=== PATIENT | female | born 1945 | race Caucasian/White ===

== ENCOUNTER 2017-04-19 15:12 | Emergency (ER) | payer MEDICARE, MEDICAID ==
--- NOTE | 2017-04-19 15:44 | ER Document Report ---
ED Medical Screen (RME) - General Chief Complaint: Headache Stated Complaint: LEFT EYE IRRITATION Time Seen by Provider: 04/19/17 15:37 Notes: This 71-year-old female patient comes emergency room complaining of eyes burning , headache, and low blood pressure this morning. She reports her blood pressure of 80 systolic. In the emergency room it is been in the 120 systolic range and EMS reports it was in the same range the entire time for them. She states she always has a little bit of a headache but it is much worse today. She also reports the burning in the eyes started on the left side and now the right side is worse than the left. On 10/11/2016 she was seen in the emergency room for bilateral facial paresthesias. At that time the family reported that they feel the patient makes up much of her symptoms. I have greeted and performed a rapid initial assessment of this patient. A comprehensive ED assessment and evaluation of the patient, analysis of test results and completion of the medical decision making process will be conducted by additional ED providers. TRAVEL OUTSIDE OF THE [place] IN LAST 30 DAYS: No - Related Data Allergies/Adverse Reactions: pentazocine [From [employer]] Allergy (Verified 04/19/17 15:25) adhesive tape Adverse Reaction (Verified 05/19/16 17:43) Past Medical History - Social History Chew tobacco use (# tins/day): No Frequency of alcohol use: None Drug Abuse: None - Past Medical History Cardiac Medical History: Reports: Hx Atrial Fibrillation Neurological Medical History: Reports: Hx Cerebrovascular Accident Endocrine Medical History: Reports: Hx Diabetes Mellitus Type 2 Renal/ Medical History: Denies: Hx Peritoneal Dialysis Past Surgical History: Reports: Hx Cardiac Surgery - pacemaker Physical Exam - Vital signs Vitals: Temp Pulse Resp BP Pulse Ox 98.0 F 73 20 120/62 97 04/19/17 15:25 04/19/17 15:25 04/19/17 15:25 04/19/17 15:25 04/19/17 15:25 Course - Vital Signs Vital signs: Temp Pulse Resp BP Pulse Ox 98.0 F 73 20 120/62 97 04/19/17 15:25 04/19/17 15:25 04/19/17 15:25 04/19/17 15:25 04/19/17 15:25
[2017-04-19 16:44] LABS: ABSOLUTE BASOPHILS # (AUTO) 0.1 10^3/uL (0.0-0.2); ABSOLUTE EOSINOPHILS # (AUTO) 0.2 10^3/uL (0.0-0.6); ABSOLUTE LYMPHOCYTES (AUTO) 2.7 10^3/uL (0.5-4.7); ABSOLUTE MONOCYTES (AUTO) 0.6 10^3/uL (0.1-1.4); ABSOLUTE NEUT (AUTO) 5.9 10^3/uL (1.7-8.2); BASOPHILS % (AUTO) 0.8 % (0-2); EOSINOPHILS % (AUTO) 2.2 % (0-6); HEMATOCRIT 37.3 % (36.0-47.0); HEMOGLOBIN 12.5 g/dL (12.0-15.5); HGB HCT DIFFERENCE 0.2; LYMPHOCYTES % (AUTO) 27.9 % (13-45); MEAN CORPUSCULAR HEMOGLOBIN 30.7 pg (27.0-33.4); MEAN CORPUSCULAR HGB CONC 33.4 g/dL (32.0-36.0); MEAN CORPUSCULAR VOLUME 92 fl (80-97); MONOCYTES % (AUTO) 6.4 % (3-13); RED BLOOD COUNT 4.07 10^6/uL (3.72-5.28); RED CELL DISTRIBUTION WIDTH 14.2 % (11.5-14.0); SEGMENTED NEUTROPHILS % (AUTO) 62.7 % (42-78); WHITE BLOOD COUNT 9.5 10^3/uL (4.0-10.5)
[2017-04-19 16:55] LABS: APPEARANCE,URINE SLIGHTLY-CLOUDY; BILIRUBIN,URINE NEGATIVE (NEGATIVE); GLUCOSE, URINE NEGATIVE (NEGATIVE); KETONES,URINE NEGATIVE (NEGATIVE); LEUKOCYTE ESTERASE,URINE SMALL (NEGATIVE); NITRITE,URINE POSITIVE (NEGATIVE); PROTEIN,URINE NEGATIVE (NEGATIVE); URINE SPECIFIC GRAVITY 1.006
[2017-04-19 17:04] LABS: ALANINE AMINOTRANSFERASE 28 U/L (9-52); ALBUMIN 3.8 g/dL (3.5-5.0); ALKALINE PHOSPHATASE 91 U/L (38-126); ANION GAP 11 (5-19); ASPARTATE AMINO TRANSFERASE 31 U/L (14-36); BILIRUBIN,TOTAL 0.5 mg/dL (0.2-1.3); BLOOD UREA NITROGEN 16 mg/dL (7-20); CALCIUM 9.4 mg/dL (8.4-10.2); CARBON DIOXIDE 29 mmol/L (22-30); CHLORIDE 102 mmol/L (98-107); CREATINE KINASE 27 U/L (30-135); CREATININE RESULT 1.38 mg/dL (0.52-1.25); GLUCOSE 122 mg/dL (75-110); POTASSIUM 4.3 mmol/L (3.6-5.0)
[2017-04-19 17:14] LABS: CREATINE KINASE MB 0.91 ng/mL (<4.55); TROPONIN I 0.028 ng/mL
--- NOTE | 2017-04-19 19:33 | ER Document Report ---
ED General - General Chief Complaint: Headache Stated Complaint: LEFT EYE IRRITATION Time Seen by Provider: 04/19/17 15:37 Notes: Patient is a 71-year-old female with past medical history of hypertension, chronic headaches, who presents with multiple complaints. She states that she has had a diffuse, tension-like headache with a dull, aching pressure to both sides of her head for the past 12 hours. Notes that she had some associated "eye itching" has not resolved. States this feels similar to prior headaches that she has had in the past. Nothing improves or worsens her symptoms. She does follow with a neurologist for her headaches. States the headache was gradual in onset and got progressively worse. Denies any associated weakness or numbness. She does also complain of some generalized fatigue today. States that her sister took her blood pressure with a home blood pressure cuff and it was reading low and that improved after she ate a can of ham. She does also note dysuria. No vomiting or diarrhea. TRAVEL OUTSIDE OF THE [place] IN LAST 30 DAYS: No - Related Data Allergies/Adverse Reactions: pentazocine [From [employer]] Allergy (Verified 04/19/17 15:25) adhesive tape Adverse Reaction (Verified 05/19/16 17:43) Past Medical History - General Information source: Patient - Social History Smoking Status: Never Smoker Chew tobacco use (# tins/day): No Frequency of alcohol use: None Drug Abuse: None Lives with: Family Family History: Reviewed & Not Pertinent Patient has suicidal ideation: No Patient has homicidal ideation: No - Past Medical History Cardiac Medical History: Reports: Hx Atrial Fibrillation Neurological Medical History: Reports: Hx Cerebrovascular Accident Endocrine Medical History: Reports: Hx Diabetes Mellitus Type 2 Renal/ Medical History: Denies: Hx Peritoneal Dialysis Past Surgical History: Reports: Hx Cardiac Surgery - pacemaker Review of Systems - Review of Systems Notes: Constitutional: Negative for fever. HENT: Negative for sore throat. Eyes: Negative for visual changes. Cardiovascular: Negative for chest pain. Respiratory: Negative for shortness of breath. Gastrointestinal: Negative for abdominal pain, vomiting or diarrhea. Genitourinary: Positive for dysuria. Musculoskeletal: Negative for back pain. Skin: Negative for rash. Neurological: Positive for headaches, negative for weakness or numbness. 10 point ROS negative except as marked above and in HPI. Physical Exam - Vital signs Vitals: Temp Pulse Resp BP Pulse Ox 98.0 F 73 20 120/62 97 04/19/17 15:25 04/19/17 15:25 04/19/17 15:25 04/19/17 15:25 04/19/17 15:25 Interpretation: Normal Notes: PHYSICAL EXAMINATION: GENERAL: Well-appearing, well-nourished and in no acute distress. HEAD: Atraumatic, normocephalic. EYES: Pupils equal round and reactive to light, extraocular movements intact, sclera anicteric, conjunctiva are normal. ENT: nares patent, oropharynx clear without exudates. Moist mucous membranes. NECK: Normal range of motion, supple without lymphadenopathy LUNGS: Breath sounds clear to auscultation bilaterally and equal. No wheezes rales or rhonchi. HEART: Regular rate and rhythm without murmurs ABDOMEN: Soft, nontender, normoactive bowel sounds. No guarding, no rebound. No masses appreciated. EXTREMITIES: Normal range of motion, no pitting or edema. No cyanosis. NEUROLOGICAL: Face symmetric. Tongue protrudes midline. Extraocular motions intact. Pupils are 2 mm and equally reactive. Normal speech, normal gait. 5 out of 5 strength in both the distal and proximal upper and lower extremities bilaterally. Sensation is grossly intact throughout. Finger to nose testing normal. Pronator drift normal. PSYCH: Normal mood, normal affect. SKIN: Warm, Dry, normal turgor, no rashes or lesions noted. Course - Re-evaluation Re-evalutation: 04/19/17 19:33 Patient presents with a chronic headache that she states is unchanged today from her chronic daily headache. Headache was not maximal in onset, patient has no focal neurologic deficits, no nuchal rigidity, vital signs within normal limits, no papilledema, and patient is overall well in appearance. Based on clinical history and examination I do not suspect an acute subarachnoid hemorrhage, dural venous sinus thrombosis, acute meningitis, or intercranial mass. Patient did complain of some eye "itching" but states it is resolved at the time of my assessment. Patient was also complaining of some lightheadedness and generalized weakness. Urinalysis demonstrates findings consistent with an acute urinary tract infection which may explain some of the symptoms. Her vitals are normal at the time of my assessment. She was started on cephalexin and asked to follow-up with her primary care doctor in the morning. At this time will discharge with return precautions and follow-up recommendations. Verbal discharge instructions given a the bedside and opportunity for questions given. Medication warnings reviewed. Patient is in agreement with this plan and has verbalized understanding of return precautions and the need for primary care follow-up in the next 24-72 hours. - Vital Signs Vital signs: Temp Pulse Resp BP Pulse Ox 98.0 F 85 16 137/56 H 98 04/19/17 15:25 04/19/17 20:08 04/19/17 20:08 04/19/17 20:08 04/19/17 20:08 - Laboratory Result Diagrams: 04/19/17 16:34 04/19/17 16:34 Laboratory results interpreted by me: 04/19/17 04/19/17 04/19/17 16:34 16:34 16:34 RDW 14.2 H Creatinine 1.38 H Est GFR ( Amer) 45 L Est GFR (Non-Af Amer) 38 L Glucose 122 H Creatine Kinase 27 L Urine Nitrite POSITIVE H Urine Urobilinogen 4.0 H Ur Leukocyte Esterase SMALL H Urine Ascorbic Acid 40 H Discharge - Discharge Clinical Impression: Chronic headache Qualifiers: Headache type: unspecified Intractability: not intractable Qualified Code(s): R51 - Headache Urinary tract infection Qualifiers: Urinary tract infection type: acute cystitis Hematuria presence: without hematuria Qualified Code(s): N30.00 - Acute cystitis without hematuria Condition: Good Disposition: HOME, SELF-CARE Additional Instructions: Your urine shows findings consistent with a urinary tract infection. Please take all the antibiotics as directed even if your symptoms have improved. Please follow-up with your primary care physician as needed. Return to emergency room if you develop fever >101F, persistent vomiting, become lethargic , have severe pain in your sides, or any other symptoms that are concerning to you. Please continue to follow with your neurologist for your headaches. Return if you develop acute worsening of your headache vomiting, confusion, or any other symptoms that are worrisome to you. Prescriptions: Cephalexin Monohydrate [Keflex 500 mg Capsule] 500 mg PO QID #28 capsule Referrals: JOHN HAYES MD [Primary Care Provider] - Follow up tomorrow
[2017-04-19 20:16] VITALS: BP 137/56
--- NOTE | 2017-04-22 09:41 | EKG REPORT ---
SEVERITY:- ABNORMAL ECG - VENTRICULAR-PACED RHYTHM : Confirmed by: Shaheen Horton 22-Apr-2017 09:40:56
== END 2017-04-19 20:16 | disposition home or self-care (01) ==
LOC: ER 15:12
DX: N30.00 Acute cystitis without hematuria (principal); R51 Headache; I10 Essential (primary) hypertension; R53.83 Other fatigue
CPT/HCPCS: 36415; 80053; 81001; 82550; 82553; 84484; 85025; 87086; 87088; 87186; 93005; 93010; 99284

== ENCOUNTER 2017-08-28 14:33 | Observation (INO) | payer MEDICARE, MEDICAID ==
--- NOTE | 2017-08-28 14:50 | ER Document Report ---
ED Cardiac - General Chief Complaint: Chest Pain Stated Complaint: CHEST PAIN Time Seen by Provider: 08/28/17 14:39 Mode of Arrival: Medic Information source: Patient Notes: Patient is a 71-year-old female with a pacemaker and a history of hemorrhagic stroke who presents to the ER today for chest pain and shortness of breath that occurred at approximately noon today. Patient states that it felt like a "pressure" across her entire chest with shortness of breath. She states that it is still going on but that it is much better than it was earlier. She states it has been constant. She denies any nausea or vomiting with this. She denies any radiation of the pain anywhere else. She is a diabetic with high cholesterol and high blood pressure. She states that it has been "years" since her last echocardiogram or stress test or since the pacemaker has been serviced. She denies any recent calf pain, travel, recent surgeries. TRAVEL OUTSIDE OF THE [place] IN LAST 30 DAYS: No - Related Data Allergies/Adverse Reactions: pentazocine [From [employer]] Allergy (Verified 08/28/17 15:35) adhesive tape Adverse Reaction (Verified 08/28/17 15:35) Past Medical History - General Information source: Patient - Social History Smoking Status: Unknown if Ever Smoked Family History: Reviewed & Not Pertinent - Past Medical History Cardiac Medical History: Reports: Hx Atrial Fibrillation Neurological Medical History: Reports: Hx Cerebrovascular Accident Endocrine Medical History: Reports: Hx Diabetes Mellitus Type 2 Renal/ Medical History: Denies: Hx Peritoneal Dialysis Past Surgical History: Reports: Hx Cardiac Surgery - pacemaker Review of Systems - Review of Systems Constitutional: No symptoms reported EENT: No symptoms reported Cardiovascular: See HPI Respiratory: See HPI Gastrointestinal: No symptoms reported Genitourinary: No symptoms reported Female Genitourinary: No symptoms reported Musculoskeletal: No symptoms reported Skin: No symptoms reported Hematologic/Lymphatic: No symptoms reported Neurological/Psychological: No symptoms reported Physical Exam - Notes Notes: PHYSICAL EXAMINATION: GENERAL: Well-appearing and in no acute distress. HEAD: Atraumatic, normocephalic. EYES: Pupils equal round and reactive to light, extraocular movements intact, sclera anicteric, conjunctiva are normal. NECK: Normal range of motion, supple without lymphadenopathy LUNGS: CTAB and equal. No wheezes rales or rhonchi. HEART: chest nontender to palpation, Regular rate and rhythm without murmurs ABDOMEN: Soft, no tenderness. No guarding, no rebound EXTREMITIES: Normal range of motion, no pitting edema. No cyanosis. NEUROLOGICAL: Cranial nerves grossly intact. Normal sensory/motor exams. PSYCH: Normal mood, normal affect. SKIN: Warm, Dry, normal turgor, no rashes or lesions noted Course - Re-evaluation Re-evalutation: 08/28/17 16:55 Cardiac enzymes are negative, EKG reveals a paced rhythm with no evidence of ischemia, chest x-ray and head CT are negative for any acute pathology. I did offer patient Tylenol to take but she refuses stating "my neurologist told me never to take any [id number] medications." [id number] informs me that this chest pain with shortness of breath did begin after patient and her sister got into an argument this morning. Dr. Keen agrees to admit at this time for chest pain. 08/28/17 17:56 - Laboratory Result Diagrams: 08/28/17 15:21 08/28/17 15:21 Laboratory results interpreted by me: 08/28/17 08/28/17 15:21 15:21 Hct 35.1 L BUN 30 H Creatinine 1.38 H Est GFR ( Amer) 45 L Est GFR (Non-Af Amer) 38 L Glucose 340 H Discharge - Discharge Clinical Impression: Shortness of breath Chest pain Qualifiers: Chest pain type: unspecified Qualified Code(s): R07.9 - Chest pain, unspecified Headache Qualifiers: Headache type: other headache syndrome Qualified Code(s): G44.89 - Other headache syndrome Condition: Stable Disposition: ADMITTED OBSERVATION Admitting Provider: Hospitalist Unit Admitted: Telemetry
--- NOTE | 2017-08-28 15:19 | RADIOLOGY REPORT (SQ) ---
EXAM DESCRIPTION: CT HEAD WITHOUT COMPLETED DATE/TIME: 08/28/2017 3:08 pm REASON FOR STUDY: headache, hx hem stroke COMPARISON: October 2016 TECHNIQUE: Axial images acquired through the brain without intravenous contrast. Images reviewed wi th bone, brain and subdural windows. Images stored on PACS. All CT scanners at this facility use dose modulation, iterative reconstruction, and/or weight based d osing when appropriate to reduce radiation dose to as low as reasonably achievable (ALARA). [facility]: Dose Right [facility]: CareDose [facility]: Dose Right [facility]: Teradose 4D [facility]: Smart [email or web address] RADIATION DOSE: Up-to-date CT equipment and radiation dose reduction techniques were employed. CTDIv ol: 63.3 mGy. DLP: 1163 mGy-cm. mGy. LIMITATIONS: None. FINDINGS: VENTRICLES: Prominent. CEREBRUM: No masses. No hemorrhage. No midline shift. Areas of low density in the white matter mos t likely due to chronic micro-vascular ischemic change. No evidence for acute infarction. CEREBELLUM: No masses. No hemorrhage. No alteration of density. No evidence for acute infarction. EXTRAAXIAL SPACES: Mild age-related involutional change. No fluid collections. No masses. ORBITS AND GLOBE: No intra- or extraconal masses. Normal contour of globe without masses. CALVARIUM: No fracture. PARANASAL SINUSES: No fluid or mucosal thickening. SOFT TISSUES: No mass or hematoma. OTHER: No other significant finding. IMPRESSION: MILD CHRONIC CHANGES OF ATROPHY AND MICROVASCULAR ISCHEMIA. NO ACUTE PROCESS. EVIDENCE OF ACUTE STROKE: NO. TECHNICAL DOCUMENTATION: JOB ID: [id number] Quality ID # [id number]: Final reports with documentation of one or more dose reduction techniques (e.g., Au tomated exposure control, adjustment of the mA and/or kV according to patient size, use of iterative reconstruction technique) 2010 [employer]- All Rights Reserved
--- NOTE | 2017-08-28 15:21 | RADIOLOGY REPORT (SQ) ---
EXAM DESCRIPTION: CHEST SINGLE VIEW COMPLETED DATE/TIME: 08/28/2017 3:13 pm REASON FOR STUDY: cp COMPARISON: October 2016 EXAM PARAMETERS: NUMBER OF VIEWS: One view. TECHNIQUE: Single frontal radiographic view of the chest acquired. RADIATION DOSE: NA LIMITATIONS: None. FINDINGS: LUNGS AND PLEURA: No opacities, masses or pneumothorax. There is some blunting of the rig ht costophrenic angle most consistent with pleural reaction. MEDIASTINUM AND HILAR STRUCTURES: No masses. Contour normal. HEART AND VASCULAR STRUCTURES: The configuration of the heart and mediastinal structures is unchanged . BONES: No acute findings. HARDWARE: Dual chamber transvenous pacemaker is unchanged in position. OTHER: No other significant finding. IMPRESSION: No significant interval change. No acute findings. Other findings as noted above. TECHNICAL DOCUMENTATION: JOB ID: [id number]
[2017-08-28] MEDS ORDERED: ACETAMINOPHEN 325 MG TABLET PO ONE (15:32)
[2017-08-28 15:36] LABS: ABSOLUTE BASOPHILS # (AUTO) 0.1 10^3/uL (0.0-0.2); ABSOLUTE EOSINOPHILS # (AUTO) 0.1 10^3/uL (0.0-0.6); ABSOLUTE LYMPHOCYTES (AUTO) 2.2 10^3/uL (0.5-4.7); ABSOLUTE MONOCYTES (AUTO) 0.4 10^3/uL (0.1-1.4); ABSOLUTE NEUT (AUTO) 5.9 10^3/uL (1.7-8.2); BASOPHILS % (AUTO) 0.7 % (0-2); EOSINOPHILS % (AUTO) 1.5 % (0-6); HEMATOCRIT 35.1 % (36.0-47.0); HEMOGLOBIN 12.4 g/dL (12.0-15.5); HGB HCT DIFFERENCE 2.1; LYMPHOCYTES % (AUTO) 25.3 % (13-45); MEAN CORPUSCULAR HEMOGLOBIN 31.4 pg (27.0-33.4); MEAN CORPUSCULAR HGB CONC 35.3 g/dL (32.0-36.0); MEAN CORPUSCULAR VOLUME 89 fl (80-97); MONOCYTES % (AUTO) 4.7 % (3-13); RED BLOOD COUNT 3.94 10^6/uL (3.72-5.28); RED CELL DISTRIBUTION WIDTH 13.7 % (11.5-14.0); SEGMENTED NEUTROPHILS % (AUTO) 67.8 % (42-78); WHITE BLOOD COUNT 8.7 10^3/uL (4.0-10.5)
[2017-08-28 15:52] LABS: ALANINE AMINOTRANSFERASE 28 U/L (9-52); ALBUMIN 3.9 g/dL (3.5-5.0); ALKALINE PHOSPHATASE 108 U/L (38-126); ANION GAP 13 (5-19); ASPARTATE AMINO TRANSFERASE 27 U/L (14-36); BILIRUBIN,DIRECT 0.3 mg/dL (0.0-0.4); BILIRUBIN,TOTAL 0.5 mg/dL (0.2-1.3); BLOOD UREA NITROGEN 30 mg/dL (7-20); CALCIUM 9.4 mg/dL (8.4-10.2); CARBON DIOXIDE 29 mmol/L (22-30); CHLORIDE 99 mmol/L (98-107); CREATINE KINASE 112 U/L (30-135); CREATININE RESULT 1.38 mg/dL (0.52-1.25); GLUCOSE 340 mg/dL (75-110); SODIUM 141.1 mmol/L (137-145)
[2017-08-28 16:04] LABS: CREATINE KINASE MB 0.58 ng/mL (<4.55)
[2017-08-28 16:08] LABS: TROPONIN I < 0.012 ng/mL
--- NOTE | 2017-08-28 17:36 | EKG REPORT ---
SEVERITY:- ABNORMAL ECG - VENTRICULAR-PACED COMPLEXES FIRST DEGREE AV BLOCK RIGHT BUNDLE BRANCH BLOCK : Confirmed by: Lindsey Brown MD 28-Aug-2017 17:35:27
[2017-08-28] MEDS ORDERED: ONDANSETRON 4 MG TAB.RAPDIS PO PRN (18:21)
[2017-08-28] MEDS ORDERED: DEXTROSE 50%-WATER 25 GM/50 ML DISP.SYRIN IV PRN ×4 (18:28→18:39)
[2017-08-28] MEDS ORDERED: GLUCAGON,HUMAN RECOMB 1 MG INJ SUBCUT PRN (18:28)
[2017-08-28] MEDS ORDERED: DEXTROSE 40% GEL 15 GM TUBE PO PRN ×4 (18:28→18:39)
[2017-08-28] MEDS ORDERED: GLUCAGON,HUMAN RECOMB 1 MG INJ IM PRN (18:39)
--- NOTE | 2017-08-28 18:39 | PDOC H&P ---
History of Present Illness Admission Date/PCP: 08/28/17 17:27 JOHN HAYES MD Patient complains of: Chest pain History of Present Illness: LAINA MONTENEGRO is a 71 year old female presents to our facility with complaint of chest pain. Patient states that she was talking to her brother when she experienced chest tightness. Patient also states that was hard to breathe. Patient denied any nausea vomiting sweating or radiation of this pain. Patient also reports for the last 6 when she has not been eating well. Patient states that she has been more tearful than normal. 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 Patient also complains of blurred vision for 1 day. Patient states that she put her eyedrops and which did not seem to help with her blood vision. Past Medical History Cardiac Medical History: Reports: Atrial Fibrillation Endocrine Medical History: Reports: Diabetes Mellitus Type 2 Social History Smoking Status: Unknown if Ever Smoked Family History Family History: Reviewed & Not Pertinent Parental Family History Reviewed: Yes Children Family History Reviewed: Yes Sibling(s) Family History Reviewed.: Yes Medication/Allergy Allergies/Adverse Reactions: pentazocine [From [employer]] Allergy (Verified 08/28/17 15:35) adhesive tape Adverse Reaction (Verified 08/28/17 15:35) Review of Systems Constitutional: PRESENT: weight loss. ABSENT: chills, fever(s), headache(s), weight gain Eyes: PRESENT: visual disturbances Ears: ABSENT: hearing changes Cardiovascular: PRESENT: chest pain. ABSENT: dyspnea on exertion, edema, orthropnea, palpitations Respiratory: ABSENT: cough, hemoptysis Gastrointestinal: ABSENT: abdominal pain, constipation, diarrhea, hematemesis, hematochezia, nausea, vomiting Genitourinary: ABSENT: dysuria, hematuria Musculoskeletal: ABSENT: joint swelling Integumentary: ABSENT: rash, wounds Neurological: ABSENT: abnormal gait, abnormal speech, confusion, dizziness, focal weakness, syncope Psychiatric: ABSENT: anxiety, depression, homidical ideation, suicidal ideation Endocrine: ABSENT: cold intolerance, heat intolerance, polydipsia, polyuria Hematologic/Lymphatic: ABSENT: easy bleeding, easy bruising Physical Exam General appearance: PRESENT: no acute distress, well-developed, well-nourished Head exam: PRESENT: atraumatic, normocephalic Eye exam: PRESENT: conjunctiva pink, EOMI. ABSENT: scleral icterus Ear exam: PRESENT: normal external ear exam Mouth exam: PRESENT: moist, tongue midline Neck exam: ABSENT: carotid bruit, JVD, lymphadenopathy, thyromegaly Respiratory exam: PRESENT: clear to auscultation torrie. ABSENT: rales, rhonchi, wheezes Cardiovascular exam: PRESENT: irregular rhythm. ABSENT: diastolic murmur, rubs , systolic murmur Pulses: PRESENT: normal dorsalis pedis pul Vascular exam: PRESENT: normal capillary refill GI/Abdominal exam: PRESENT: normal bowel sounds, soft. ABSENT: distended, guarding, mass, organolmegaly, rebound, tenderness Rectal exam: PRESENT: deferred Extremities exam: PRESENT: full ROM. ABSENT: calf tenderness, clubbing, pedal edema Neurological exam: PRESENT: alert, awake, oriented to person, oriented to place , oriented to time, oriented to situation, CN II-XII grossly intact. ABSENT: motor sensory deficit Psychiatric exam: PRESENT: flat affect, other - Tearful Skin exam: PRESENT: dry, intact, warm. ABSENT: cyanosis, rash Results Impressions: Chest X-Ray 08/28/17 14:39 IMPRESSION: No significant interval change. No acute findings. Other findings as noted above. Head CT 08/28/17 14:50 IMPRESSION: MILD CHRONIC CHANGES OF ATROPHY AND MICROVASCULAR ISCHEMIA. NO ACUTE PROCESS. EVIDENCE OF ACUTE STROKE: NO. Assessment & Plan - Diagnosis (1) Chest pain Qualifiers: Chest pain type: unspecified Qualified Code(s): R07.9 - Chest pain, unspecified Is this a current diagnosis for this admission?: Yes Plan: Check troponins, lipid profile, hemoglobin A1c, 2D echo, and stress test in the morning. Patient has been made n.p.o. Patient will see cardiology in the morning. (2) Depression Qualifiers: Depression Type: major depressive disorder Is this a current diagnosis for this admission?: Yes Plan: We will have mental health see patient. (3) Vision blurring Is this a current diagnosis for this admission?: Yes Plan: We will have ophthalmology evaluate patient. (4) DM type 2 (diabetes mellitus, type 2) Is this a current diagnosis for this admission?: Yes Plan: This patient on sliding scale insulin. (5) HLD (hyperlipidemia) Is this a current diagnosis for this admission?: Yes Plan: Continue statin (6) Hypertension Is this a current diagnosis for this admission?: Yes Plan: Continue home meds once entered into the system. (7) Atrial fibrillation Is this a current diagnosis for this admission?: Yes Plan: Cardiology consult. We will continue current medications. (8) CVA (cerebral vascular accident) Is this a current diagnosis for this admission?: Yes Plan: Supportive care. (9) DVT (deep venous thrombosis) Is this a current diagnosis for this admission?: Yes Plan: Heparin - Time Time Spent: 30 to 50 Minutes - Inpatient Certification Medical Necessity: Risk of Complication if Not Cared For in Hospital, Risk of Diagnosis Which Will Require Inpatient Eval/Care/Monitoring
[2017-08-28] MEDS ORDERED: ASPIRIN 81 MG TABLET, CHEWABLE PO ONE (19:00)
[2017-08-28] MEDS: ACETAMINOPHEN 325 MG TABLET PO PRN (19:39)
[2017-08-28] MEDS: HEPARIN SOD (PORCINE) 5,000 UNIT/ML 1 ML SYRINGE SUBCUT SCH (21:29)
[2017-08-29] MEDS ORDERED: INFLUENZA ADLT QUAD (36MOS+) 2017-18 VAC 0.5 ML SYR IM PRN ×2 (00:30→13:00)
[2017-08-29] MEDS: ACETAMINOPHEN 325 MG TABLET PO PRN ×2 (03:56→11:01)
[2017-08-29] MEDS: HEPARIN SOD (PORCINE) 5,000 UNIT/ML 1 ML SYRINGE SUBCUT SCH ×2 (06:00→13:49)
[2017-08-29 08:03] LABS: ABSOLUTE EOSINOPHILS # (AUTO) 0.2 10^3/uL (0.0-0.6); ABSOLUTE MONOCYTES (AUTO) 0.4 10^3/uL (0.1-1.4); ABSOLUTE NEUT (AUTO) 3.1 10^3/uL (1.7-8.2); BASOPHILS % (AUTO) 0.4 % (0-2); EOSINOPHILS % (AUTO) 2.4 % (0-6); HEMATOCRIT 33.7 % (36.0-47.0); HEMOGLOBIN 11.9 g/dL (12.0-15.5); LYMPHOCYTES % (AUTO) 44.9 % (13-45); MEAN CORPUSCULAR HEMOGLOBIN 31.2 pg (27.0-33.4); MEAN CORPUSCULAR HGB CONC 35.3 g/dL (32.0-36.0); MEAN CORPUSCULAR VOLUME 89 fl (80-97); MONOCYTES % (AUTO) 5.4 % (3-13); RED BLOOD COUNT 3.81 10^6/uL (3.72-5.28); RED CELL DISTRIBUTION WIDTH 13.5 % (11.5-14.0); SEGMENTED NEUTROPHILS % (AUTO) 46.9 % (42-78); WHITE BLOOD COUNT 6.6 10^3/uL (4.0-10.5)
[2017-08-29 08:34] LABS: ALANINE AMINOTRANSFERASE 29 U/L (9-52); ALBUMIN 3.5 g/dL (3.5-5.0); ALKALINE PHOSPHATASE 88 U/L (38-126); ANION GAP 11 (5-19); ASPARTATE AMINO TRANSFERASE 23 U/L (14-36); BILIRUBIN,DIRECT 0.4 mg/dL (0.0-0.4); BILIRUBIN,TOTAL 0.4 mg/dL (0.2-1.3); BLOOD UREA NITROGEN 25 mg/dL (7-20); CALCIUM 9.2 mg/dL (8.4-10.2); CARBON DIOXIDE 30 mmol/L (22-30); CHLORIDE 101 mmol/L (98-107); CHOLESTEROL 192.24 mg/dL (0-200); CREATININE RESULT 1.43 mg/dL (0.52-1.25); Direct HDL 43 mg/dL (>40); GLUCOSE 158 mg/dL (75-110); POTASSIUM 3.6 mmol/L (3.6-5.0); TOTAL PROTEIN 6.2 g/dL (6.3-8.2); TRIGLYCERIDES 356 mg/dL (<150)
[2017-08-29 08:45] LABS: DIRECT LDL 106 mg/dL (<100)
[2017-08-29 08:49] LABS: VLDL CHOLESTEROL 71.2 mg/dL (10-31)
[2017-08-29 09:01] LABS: THYROID STIMULATING HORMONE 0.73 uIU/mL (0.47-4.68)
[2017-08-29] MEDS ORDERED: ASPIRIN 81 MG TABLET, CHEWABLE PO SCH (10:00)
[2017-08-29] MEDS ORDERED: REGADENOSON INJ 0.4 MG/5 ML DISP.SYRIN IV ONE (12:31)
[2017-08-29] MEDS ORDERED: AMINOPHYLLINE INJ/PF 250 MG/10 ML SDV IV ONE (12:31)
[2017-08-29] MEDS: INSULIN REG, HUMAN 100 UNIT/ML 3 ML VIAL (PYX) SUBCUT PRN ×2 (12:50)
[2017-08-29] MEDS ORDERED: ONDANSETRON 4 MG TAB.RAPDIS PO PRN (13:00)
--- NOTE | 2017-08-29 14:16 | DRAGON STRESS TEST REPORT ---
INTRAVENOUS LEXISCAN CARDIOLITE STRESS TEST USING SINGLE PHOTON EMMISION COMPUTERIZED TOMOGRAPHIC. DATE OF PROCEDURE: August 29, 2017 INDICATION : Chest pain CARDIAC RISK FACTORS: Diabetes, hypertension, dyslipidemia RESTING EKG: Atrial fibrillation, right bundle branch block pattern, secondary ST-T wave changes, intermittent ventricular paced beats and VPCs. STRESS EKG: No significant changes noted with LexiScan bolus REASON FOR TERMINATION: Protocol. PROCEDURE REPORT: Baseline heart rate 67 beats per minute with blood pressure of 117/59. Patient had no significant complaints. Heart rate at 2 minutes post bolus 77 with a blood pressure of 112/56. 3 minutes post bolus heart rate 71 with blood pressure of 119/54. No significant EKG changes were noted. Patient had no significant complaints during the procedure or postprocedure. Patient injected with Aminophyllin 75 mg at 3 minutes or later after Lexiscan bolus. CONCLUSIONS: Normal EKG and hemodynamic response to IV LexiScan. NUCLEAR DATA: At rest the patient was given 13.18 millicuries of technetium 99 sestamibi injected intravenously. As per protocol rest gated SPECT images were obtained. Subsequently the patient was given intravenous LexiScan at a dose of 0.4 mg in 5 mL intravenously, followed by flush with normal saline. Subsequently the stress dose of 38.2 millicuries of technetium 99 sestamibi was injected intravenously. As per protocol stress gated images were obtained. NUCLEAR INTERPRETATION: Both raw and processed data were used for interpretation. Visual, qualitative, computer-generated quantitative data was used. There was good myocardial uptake of technetium compound. Motion artifact and soft tissue attenuations were noted. Increased visceral uptake was noted. No definitive areas of transient perfusion defect noted. Mild fixed defect noted mid inferior wall. EKG gated imaging showed LV EF at 50 %, rest and stress gated EF similar visually. Mild mid inferior wall hypokinesia noted. T. I D. ratio was 1.18. Lung heart ratio noted to be within normal limits 0.39. No significant extracardiac and abnormal radiotracer activities were noted. RV free wall uptake was noted to be borderline increased. IMPRESSION: Also refer to comments under nuclear interpretation. Also test results needs to be interpreted in the context of pretest probability. 1. There is no definitive scintigraphic evidence of LexiScan induced myocardial ischemia. 2. Mild fixed defect noted mid inferior wall suggestive of prior myocardial infarction/scar. 3. EKG gated imaging shows left ventricular ejection fraction of approximately 50 %. 4. Clinical correlation requested as occasionally single vessel disease or balanced ischemia could be missed. In approximately 10% of the cases Lexiscan may not cause adequate vasodilatory stress. RECOMMENDATIONS: Aggressive risk factor modification, medical therapy. Recommend close cardiology follow-up and heart catheterization if patient continues with chest pains. Clinical correlation with echocardiogram derived ejection fraction. Inability to exercise by itself can lead to increased cardiovascular event risks. Consider cardiology consultation and or follow-up if clinically indicated. I AM AVAILABLE FOR CARDIOLOGY CONSULTATION AND FOLLOWUP IF REQUESTED BY PMD Shaheen Horton M.D., [employer] park [employer], Board certified in cardiovascular diseases, Nuclear cardiology, Echocardiography Cardiac CT and cardiac MRI Ph. [phone] TRACEY
--- NOTE | 2017-08-29 16:34 | PSYCHOLOGICAL NOTE ---
Psych Note - Psych Note Psych Note: LAINA MONTENEGRO is a 71 year old female presents to our facility with complaint of chest pain. Patient states that she was talking to her brother when she experienced chest tightness. Patient also states that was hard to breathe. Patient denied any nausea vomiting sweating or radiation of this pain. Patient also reports for the last 6 when she has not been eating well. Patient states that she has been more tearful than normal. Psychiatric consult requested by phone for depression. Patient disclosed that she came to [facility] because her chest was tight and she was short of breath. She continues state that she had a headache and it is "still really bad." Patient disclosed that she has outpatient provider [facility]] for her mental health and does not think her medications are working; "I still have crying spells." Patient continued disclosed that she does see a neurologist in [place]. Patient reports that a few days ago "I did not care what happened to me," but denies continued suicidal ideation. Patient states that it was a thought that just past through her mind. Patient continued to disclose that she never even thought of how she "would do it or anything else like that." Patient disclosed that it has been a while since she has felt this way; 'I hope you don't feel I would do something to hurt myself, I would never do that." Patient is alert and orientated to person place time and circumstance. Mood is euthymic with congruent affect. Patient denies suicidal and homicidal ideation and admits to "a while ago" having passing thoughts. Patient denies plan means or intent. Patient denies homicidal ideation. Delusions are absent behaviors congruent with intact reality based presentation i.e. organized, linear, rational thinking. Conversational speech was within normal rate tone and prosody. Eye contact was well-maintained. Intellectual abilities appear to be within the average range. Attention and concentration were good. Insight, judgment, impulse control are good. 311 (F32.9) unspecified depressive disorder per history provided by patient Impression\\plan: Patient is considered psychiatrically clear. Patient does not meet IVC criteria per [place] GS 122C. Patient denies suicidal and homicidal ideation. Delusions are absent behaviors congruent with intact reality based presentation i.e. organized, linear, rational thinking. Patient disclosed having passing thoughts but denies plan means or intent; patient reports it has been a while since this has occurred. Patient has outpatient provider through [facility]]. Patient feels that her medications are not working. Patient is recommended to follow-up with her outpatient provider, [facility]], for medication management and therapeutic services. Dr. Sanchez was consulted and the care management of this patient.
--- NOTE | 2017-08-29 16:58 | PDOC DISCHARGE SUMMARY ---
General - Admit/Disc Date/PCP Admission Date/Primary Care Provider: 08/28/17 18:21 JOHN HAYES MD Discharge Date: 08/29/17 - Discharge Diagnosis (1) Chest pain Is this a current diagnosis for this admission?: Yes Summary: Stress test demonstrated no evidence of ischemia. (2) Depression Is this a current diagnosis for this admission?: Yes Summary: She was seen by mental health recommended to follow-up with her primary provider. (3) Vision blurring Is this a current diagnosis for this admission?: Yes Summary: Spoke with patient's rejected items clerk who recommended the patient follow with this office for eye exam. Ophthalmology stated that they would be able to do more thorough evaluation in the office. Ophthalmology also stated the patient missed her eye exam. (4) DM type 2 (diabetes mellitus, type 2) Is this a current diagnosis for this admission?: Yes Summary: We will continue home medication (5) HLD (hyperlipidemia) Is this a current diagnosis for this admission?: Yes Summary: statin (6) Hypertension Is this a current diagnosis for this admission?: Yes Summary: Current medications (7) Atrial fibrillation Is this a current diagnosis for this admission?: Yes Summary: continue home medication (8) CVA (cerebral vascular accident) Is this a current diagnosis for this admission?: Yes Summary: supportive - Additional Information Resuscitation Status: Full Code Discharge Diet: Cardiac, Diabetic Discharge Activity: Activity As Tolerated Home Medications: Alprazolam [Xanax] 0.25 mg PO Q12 08/28/17 Apixaban [Eliquis] 5 mg PO Q12 08/28/17 Atorvastatin Calcium [Lipitor 40 mg Tablet] 40 mg PO QHS 08/28/17 Buspirone HCl [Buspar 5 mg Tablet] 5 mg PO Q8HP PRN 08/28/17 [place] 450mg 450 mg PO Q2D 08/28/17 Cholecalciferol (Vitamin D3) [Vitamin D3] 5,000 unit PO DAILY 08/28/17 Cyanocobalamin/Folic AC/Vit B6 [Virt-Tyra Tablet] 1 tab PO DAILY 08/28/17 Digoxin [Lanoxin 0.125 mg Tablet] 0.125 mg PO DAILY 08/28/17 Furosemide [Lasix 40 mg Tablet] 80 mg PO DAILY 08/28/17 Levetiracetam [Keppra] 750 mg PO Q12 08/28/17 Levothyroxine Sodium [Synthroid 0.112 mg Tablet] 0.112 mg PO DAILY 08/28/17 Magnesium Oxide [Magox] 400 mg PO DAILY 08/28/17 Metoprolol Succinate [Toprol Xl] 75 mg PO Q12 08/28/17 Mirtazapine [Remeron] 30 mg PO QHS 08/28/17 Pantoprazole Sodium [Protonix] 20 mg PO DAILY 08/28/17 Potassium Chloride 20 meq PO DAILY 08/28/17 Tizanidine HCl [Zanaflex] 2 mg PO Q8HP PRN 08/28/17 Zaleplon [Sonata] 10 mg PO HSP PRN 08/28/17 History of Present Illness Patient complains of: chest pain History of Present Illness: LAINA MONTENEGRO is a 71 year old female presents to our facility with complaint of chest pain. Patient states that she was talking to her brother when she experienced chest tightness. Patient also states that was hard to breathe. Patient denied any nausea vomiting sweating or radiation of this pain. Patient also reports for the last 6 when she has not been eating well. Patient states that she has been more tearful than normal. Patient states that her home health care case manager is Dr. Couch. Patient also complains of blurred vision for 1 day. Patient states that she put her eyedrops and which did not seem to help with her blood vision. Hospital Course Hospital Course: Patient is a 66-year-old female who presents to our facility with complaint of chest pain. Patient had a stress test demonstrated no ischemia patient's chest pain secondary to muscle skeletal. Patient complained of being depressed mental health here evaluated patient and recommended the patient follow with her primary doctor. Patient had complained of blurred vision as well and ophthalmology recommended the patient follow with our office so that they can do a thorough eye exam. Ophthalmology also noted that patient has been noncompliant with follow-up appointment. Family was made aware that patient was being discharged home in our region to pick her up at 6 PM. Physical Exam Vital Signs: Temp Pulse Resp BP Pulse Ox 97.3 F 65 16 120/39 L 99 08/29/17 08:02 08/29/17 14:00 08/29/17 08:02 08/29/17 08:02 08/29/17 08:02 Intake & Output 08/28/17 08/29/17 08/30/17 06:59 06:59 06:59 Weight 88.451 kg General appearance: PRESENT: no acute distress, well-developed, well-nourished Head exam: PRESENT: atraumatic, normocephalic Eye exam: PRESENT: conjunctiva pink, EOMI. ABSENT: scleral icterus Ear exam: PRESENT: normal external ear exam Mouth exam: PRESENT: moist, tongue midline Neck exam: ABSENT: carotid bruit, JVD, lymphadenopathy, thyromegaly Respiratory exam: PRESENT: clear to auscultation torrie. ABSENT: rales, rhonchi, wheezes Cardiovascular exam: PRESENT: RRR. ABSENT: diastolic murmur, rubs, systolic murmur Pulses: PRESENT: normal dorsalis pedis pul Vascular exam: PRESENT: normal capillary refill GI/Abdominal exam: PRESENT: normal bowel sounds, soft. ABSENT: distended, guarding, mass, organolmegaly, rebound, tenderness Rectal exam: PRESENT: deferred Extremities exam: PRESENT: full ROM. ABSENT: calf tenderness, clubbing, pedal edema Neurological exam: PRESENT: alert, awake, oriented to person, oriented to place , oriented to time, oriented to situation, CN II-XII grossly intact. ABSENT: motor sensory deficit Psychiatric exam: PRESENT: appropriate affect, normal mood. ABSENT: homicidal ideation, suicidal ideation Skin exam: PRESENT: dry, intact, warm. ABSENT: cyanosis, rash Results Laboratory Results: 08/29/17 07:28 08/29/17 07:28 08/29/17 08/29/17 08/29/17 07:28 07:28 07:28 WBC 6.6 RBC 3.81 Hgb 11.9 L Hct 33.7 L MCV 89 MCH 31.2 MCHC 35.3 RDW 13.5 Plt Count 151 Seg Neutrophils % 46.9 Lymphocytes % 44.9 Monocytes % 5.4 Eosinophils % 2.4 Basophils % 0.4 Absolute Neutrophils 3.1 Absolute Lymphocytes 3.0 Absolute Monocytes 0.4 Absolute Eosinophils 0.2 Absolute Basophils 0.0 Sodium 142.0 Potassium 3.6 Chloride 101 Carbon Dioxide 30 Anion Gap 11 BUN 25 H Creatinine 1.43 H Est GFR ( Amer) 44 L Est GFR (Non-Af Amer) 36 L Glucose 158 H Calcium 9.2 Magnesium 2.0 Total Bilirubin 0.4 AST 23 ALT 29 Alkaline Phosphatase 88 Total Protein 6.2 L Albumin 3.5 Triglycerides 356 H Cholesterol 192.24 LDL Cholesterol Direct 106 H VLDL Cholesterol 71.2 H HDL Cholesterol 43 TSH 0.73 Free T4 1.26 08/28/17 08/29/17 08/29/17 19:15 01:11 07:28 Troponin I < 0.012 < 0.012 < 0.012 Impressions: Chest X-Ray 08/28/17 14:39 IMPRESSION: No significant interval change. No acute findings. Other findings as noted above. Head CT 08/28/17 14:50 IMPRESSION: MILD CHRONIC CHANGES OF ATROPHY AND MICROVASCULAR ISCHEMIA. NO ACUTE PROCESS. EVIDENCE OF ACUTE STROKE: NO. Plan Time Spent: Less than 30 Minutes
[2017-08-29 17:08] VITALS: BP 127/71
--- NOTE | 2017-08-29 19:51 | XCELERA REPORT ---
[address] [address] Transthoracic Echocardiogram Report Name: LAINA MONTENEGRO Age: 71 yrs Gender: Female : 1945 Patient Status: Inpatient Patient Location: [address] [place] [address] Study Date: 08/29/2017 11:47 AM Height: 60 in Weight: 194 lb BSA: 1.8 m2 Procedure: A complete two-dimensional transthoracic echocardiogram was performed (2D, M-mode, spectral and color flow Doppler). The study was technically difficult with many images being suboptimal in quality. Reason For Study: chest pain Ordering Physician: MURRAY LUNA Performed By: Gay Edward Interpretation Summary The study was technically difficult with many images being suboptimal in quality. The left ventricular ejection fraction is normal. Doppler measurements suggest pseudonormalized left ventricular relaxation, which is associated with grade II/IV or mild to moderate diastolic dysfunction There is mild concentric left ventricular hypertrophy. The left ventricle is grossly normal size. Wall motion cannot be accurately commented on, but no definite regional wall motion abnormalities noted. The right ventricular systolic function is normal. The right atrium is mildly dilated. The left atrium is moderately dilated. There is a trace amount of mitral regurgitation There is no mitral valve stenosis. There is moderate aortic stenosis There is a peak gradient of 40-45, mean 20-25 mm of Hg. There is a mild to moderate amount of aortic regurgitation There is a trace amount of tricuspid regurgitation Tricuspid regurgitation jet envelope not well defined to measure RV systolic pressure accurately. There is no pericardial effusion. MMode/2D Measurements & Calculations RVDd: 2.7 cm LVIDd: 4.8 cmFS: 36.0 % Ao root diam: 2.8 cm IVSd: 1.2 cm LVIDs: 3.1 cmEDV(Teich): 106.7 ml LVPWd: 1.2 cmESV(Teich): 36.8 ml Ao root area: 6.2 cm2 EF(Teich): 65.5 % LA dimension: 4.7 cm LVOT diam: 2.3 cm LVOT area: 4.0 cm2 Doppler Measurements & Calculations MV E max hernán: MV P1/2t max hernán: Ao V2 max: AI max hernán: 115.0 cm/sec 116.0 cm/sec 334.8 cm/sec 358.3 cm/sec MV A max hernán: MV P1/2t: 59.3 msec Ao max PG: AI max P.6 cm/sec MVA(P1/2t): 3.7 cm2 44.9 mmHg 51.4 mmHg MV E/A: 3.5 MV dec slope: Ao V2 mean: AI dec slope: 572.8 cm/sec2 205.7 cm/sec 166.4 cm/sec2 Ao mean PG: AI P1/2t: 21.0 mmHg 630.7 msec Ao V2 VTI: 60.1 cm BEBE(I,D): 1.5 cm2 BEBE(V,D): 1.1 cm2 LV V1 max PG: SV(LVOT): 92.7 ml PA V2 max: TR max hernán: 3.1 mmHg 106.6 cm/sec 215.3 cm/sec LV V1 mean PG: PA max PG: TR max P.1 mmHg 4.5 mmHg 18.5 mmHg LV V1 max: 87.5 cm/sec LV V1 mean: 68.0 cm/sec LV V1 VTI: 23.0 cm Left Ventricle The left ventricle is grossly normal size. There is mild concentric left ventricular hypertrophy. The left ventricular ejection fraction is normal. Doppler measurements suggest pseudonormalized left ventricular relaxation, which is associated with grade II/IV or mild to moderate diastolic dysfunction. Wall motion cannot be accurately commented on, but no definite regional wall motion abnormalities noted. Right Ventricle The right ventricle is grossly normal size. There is normal right ventricular wall thickness. The right ventricular systolic function is normal. Atria The right atrium is mildly dilated. The left atrium is moderately dilated. Interarterial septum not well visualized and not well dopplered. Cannot comment on ASD/PFO presence. Mitral Valve There is mild to moderate mitral annular calcification. There is no mitral valve stenosis. There is a trace amount of mitral regurgitation. Aortic Valve The aortic valve is mildly calcified. There is moderate aortic stenosis. There is a peak gradient of 40-45, mean 20-25 mm of Hg. There is a mild to moderate amount of aortic regurgitation. Tricuspid Valve The tricuspid valve is not well visualized secondary to technical limitations. There is no tricuspid stenosis. There is a trace amount of tricuspid regurgitation. Tricuspid regurgitation jet envelope not well defined to measure RV systolic pressure accurately. Pulmonic Valve The pulmonic valve is not well visualized. Great Vessels The aortic root is not well visualized but is probably normal size. The inferior vena cava appeared normal and decreased > 50% with respiration (RAP 5-10 mmHg). Effusions There is no pericardial effusion. : MURRAY LUNA Shyamal
== END 2017-08-29 17:42 | disposition home or self-care (01) ==
LOC: ER 14:33 → EH 17:27 → UNDOADMOB 17:27 → EH 18:21 → 4W 20:39 → EH 20:39
PROC: 3E0234Z Introduction of Serum, Toxoid and Vaccine into Muscle, Percutaneous Approach (ICD-10-PCS; principal; 2017-08-29)
DX: R07.89 Other chest pain (principal); F32.9 Major depressive disorder, single episode, unspecified; H53.8 Other visual disturbances; E11.9 Type 2 diabetes mellitus without complications; E78.5 Hyperlipidemia, unspecified; I10 Essential (primary) hypertension; I48.91 Unspecified atrial fibrillation; R06.02 Shortness of breath; R63.4 Abnormal weight loss; G44.89 Other headache syndrome; Z23 Encounter for immunization; Z86.73 Personal history of transient ischemic attack (TIA), and cerebral infarction without residual deficits; Z79.899 Other long term (current) drug therapy; Z79.02 Long term (current) use of antithrombotics/antiplatelets; Z95.0 Presence of cardiac pacemaker; Z68.38 Body mass index [BMI] 38.0-38.9, adult
CPT/HCPCS: 93005; 99285; 36415 ×2; 84439; 82553; 82962 ×2; 82550; 83735; 84443; 85025 ×2; 80053 ×2; 84484 ×2; 83036; 80061; 93306; 93017; 71010; 78452; 70450; 90686; 93010; 97162; 97166; A9500; J2785; A9270 ×5; J1644 ×2; J0280; Q9969; G8978; G8979; G8987; G8988; J1815

== ENCOUNTER 2017-09-30 06:21 | Inpatient (IN) | payer MEDICARE, MEDICAID ==
[2017-09-30] MEDS ORDERED: MORPHINE SULFATE 10 MG/ML INJ IV ONE (06:51)
--- NOTE | 2017-09-30 07:26 | RADIOLOGY REPORT (SQ) ---
EXAM DESCRIPTION: HIP LEFT AP/LATERAL CLINICAL HISTORY: left hip pain COMPARISON: None. FINDINGS: Frontal view of the pelvis and frog-leg lateral view of the left hip. There is cortical disruption at the left lesser trochanter as well as relative increased lucency of the left greater trochanter relative to the right femur. This may represent a nondisplaced intertrochanteric fracture. Atherosclerotic vascular calcification. Pelvic soft tissues unremarkable. Mild bilateral hip joint space narrowing. Degenerative change of the lumbar spine. IMPRESSION: 1. Lucency of the left greater trochanter with cortical disruption of the left lesser trochanter on frontal view. This could represent a nondisplaced intertrochanteric fracture. Correlation with MRI or CT would be helpful for more definitive characterization.
--- NOTE | 2017-09-30 07:29 | ER Document Report ---
ED General - General Chief Complaint: Fall Injury Stated Complaint: FALL, HIP PAIN Time Seen by Provider: 09/30/17 06:35 Mode of Arrival: Medic Information source: Patient Notes: 72-year-old female presents with complaints of left hip pain. Patient notes she fell on the left side is unsure if she passed out or had mechanical fall. She denies any pain anywhere else. Patient was able to sit up and stand up but felt that she was going to fall TRAVEL OUTSIDE OF THE [place] IN LAST 30 DAYS: No - HPI Onset: Just prior to arrival Onset/Duration: Sudden Quality of pain: Achy Severity: Mild Pain Level: 1 Associated symptoms: Body/muscle aches Exacerbated by: Movement Relieved by: Denies Similar symptoms previously: No Recently seen / treated by doctor: No - Related Data Allergies/Adverse Reactions: pentazocine [From Amanda] Allergy (Verified 08/28/17 15:35) adhesive tape Adverse Reaction (Verified 08/28/17 15:35) Home Medications: Current Home Medications Apixaban [Eliquis 5 mg Tablet] 5 mg PO Q12 09/30/17 [History] Atorvastatin Calcium [Lipitor 40 mg Tablet] 40 mg PO QHS 09/30/17 [History] Biotin [Gabe Biotin] 10,000 mcg PO DAILY 09/30/17 [History] Cascara Sagrada 450mg 450 mg PO DAILY 09/30/17 [History] Cholecalciferol (Vitamin D3) [Vitamin D3] 5,000 unit PO DAILY 09/30/17 [History] Cyanocobalamin/Folic AC/Vit B6 [Virt-Tyra Tablet] 1 tab PO DAILY 09/30/17 [ History] Digoxin [Lanoxin 0.125 mg Tablet] 0.125 mg PO DAILY 09/30/17 [History] Esomeprazole Magnesium [Nexium] 40 mg PO DAILY 09/30/17 [History] Furosemide [Lasix 40 mg Tablet] 80 mg PO DAILY 09/30/17 [History] Insulin Aspart [Novolog Flexpen] 12 units SQ MEALS 09/30/17 [History] Levetiracetam [Keppra] 750 mg PO Q12 09/30/17 [History] Levothyroxine Sodium [Synthroid 0.112 mg Tablet] 0.112 mg PO DAILY 09/30/17 [ History] Magnesium Oxide [Mag-Ox 400 mg Tablet] 400 mg PO QPM 09/30/17 [History] Metoprolol Succinate [Toprol Xl 50 mg Tab.sr] 75 mg PO Q12 09/30/17 [History] Pantoprazole Sodium [Protonix] 20 mg PO DAILY 09/30/17 [History] Potassium Chloride [K-Tab ER] 20 meq PO DAILY 09/30/17 [History] Past Medical History - Social History Smoking Status: Never Smoker Cigarette use (# per day): No Chew tobacco use (# tins/day): No Smoking Education Provided: No Family History: Reviewed & Not Pertinent Patient has suicidal ideation: No Patient has homicidal ideation: No - Past Medical History Cardiac Medical History: Reports: Hx Atrial Fibrillation Neurological Medical History: Reports: Hx Cerebrovascular Accident Endocrine Medical History: Reports: Hx Diabetes Mellitus Type 2 Renal/ Medical History: Denies: Hx Peritoneal Dialysis Past Surgical History: Reports: Hx Cardiac Surgery - pacemaker Review of Systems - Review of Systems Notes: REVIEW OF SYSTEMS: CONSTITUTIONAL : Denies fever, chills, or sweats. Denies recent illness. EENT: Denies eye, ear, throat, or mouth pain or symptoms. Denies nasal or sinus congestion or discharge. Denies throat, tongue, or mouth swelling or difficulty swallowing. CARDIOVASCULAR: Denies chest pain. Denies palpitations or racing or irregular heart beat. Denies ankle edema. RESPIRATORY: Denies cough, cold, or chest congestion. Denies shortness of breath, difficulty breathing, or wheezing. GASTROINTESTINAL: Denies abdominal pain or distention. Denies nausea, vomiting , or diarrhea. Denies blood in vomitus, stools, or per rectum. Denies black, tarry stools. Denies constipation. GENITOURINARY: Denies difficulty urinating, painful urination, burning, frequency, blood in urine, or discharge. FEMALE GENITOURINARY: denies vag bleeding MUSCULOSKELETAL: left hip pain SKIN: Denies rash, lesions or sores. HEMATOLOGIC : Denies easy bruising or bleeding. LYMPHATIC: Denies swollen, enlarged glands. NEUROLOGICAL: Denies confusion or altered mental status. Denies passing out or loss of consciousness. Denies dizziness or lightheadedness. Denies headache. Denies weakness or paralysis or loss of use of either side. Denies problems with gait or speech. Denies sensory loss, numbness, or tingling. Denies seizures. PSYCHIATRIC: Denies anxiety or stress. Denies depression, suicidal ideation, or homicidal ideation. ALL OTHER SYSTEMS REVIEWED AND NEGATIVE. PHYSICAL EXAMINATION: GENERAL: Well-appearing, well-nourished and in acute pain HEAD: Atraumatic, normocephalic. EYES: Pupils equal round and reactive to light, extraocular movements intact, conjunctiva are normal. ENT: Nares patent, oropharynx clear without exudates. Moist mucous membranes. NECK: Normal range of motion, supple without lymphadenopathy LUNGS: Breath sounds clear to auscultation bilaterally and equal. No wheezes rales or rhonchi. HEART: Regular rate and rhythm without murmurs ABDOMEN: Soft, nontender, nondistended abdomen. No guarding, no rebound. No masses appreciated. Female : deferred Musculoskeletal:limited rom of the left hip secondary to pain NEUROLOGICAL: Cranial nerves grossly intact. Normal speech, normal gait. Normal sensory, motor exams PSYCH: Normal mood, normal affect. SKIN: Warm, Dry, normal turgor, no rashes or lesions noted. Dictation was performed using [employer] voice recognition software Physical Exam - Vital signs Vitals: Temp Pulse Resp BP Pulse Ox 97.8 F 99 18 126/68 H 95 09/30/17 07:07 09/30/17 07:07 09/30/17 07:07 09/30/17 07:07 09/30/17 07:07 Course - Re-evaluation Re-evalutation: 09/30/17 07:29 Imaging pending, patient given pain control upon arrival, she had already received fentanyl prior by EMS 09/30/17 09:26 ct consistnat with fdracture, orth paged 09/30/17 16:07 Patient was admitted to the hospital service and is otherwise stable at this time - Vital Signs Vital signs: Temp Pulse Resp BP Pulse Ox 98.0 F 70 18 138/64 H 94 09/30/17 15:12 09/30/17 15:12 09/30/17 15:12 09/30/17 15:12 09/30/17 15:12 - Laboratory Result Diagrams: 09/30/17 07:28 09/30/17 07:28 Laboratory results interpreted by me: 09/30/17 09/30/17 09/30/17 07:28 07:28 08:20 WBC 11.7 H Hct 35.3 L RDW 14.2 H Seg Neutrophils % 80.4 H Absolute Neutrophils 9.4 H BUN 37 H Est GFR ( Amer) 54 L Est GFR (Non-Af Amer) 44 L Glucose 270 H Alkaline Phosphatase 128 H Urine Glucose (UA) >=500 H - Diagnostic Test Radiology reviewed: Image reviewed, Reports reviewed Discharge - Discharge Clinical Impression: Syncope and collapse Intertrochanteric fracture of left hip Qualifiers: Encounter type: initial encounter Fracture type: closed Fracture alignment: displaced Qualified Code(s): S72.142A - Displaced intertrochanteric fracture of left femur, initial encounter for closed fracture Condition: Stable Disposition: ADMITTED INPATIENT Admitting Provider: Hospitalist Unit Admitted: Telemetry
[2017-09-30 07:48] LABS: ABSOLUTE BASOPHILS # (AUTO) 0.1 10^3/uL (0.0-0.2); ABSOLUTE EOSINOPHILS # (AUTO) 0.1 10^3/uL (0.0-0.6); ABSOLUTE LYMPHOCYTES (AUTO) 1.7 10^3/uL (0.5-4.7); ABSOLUTE MONOCYTES (AUTO) 0.4 10^3/uL (0.1-1.4); ABSOLUTE NEUT (AUTO) 9.4 10^3/uL (1.7-8.2); BASOPHILS % (AUTO) 0.5 % (0-2); EOSINOPHILS % (AUTO) 1.2 % (0-6); HEMATOCRIT 35.3 % (36.0-47.0); HEMOGLOBIN 12.4 g/dL (12.0-15.5); HGB HCT DIFFERENCE 1.9; LYMPHOCYTES % (AUTO) 14.5 % (13-45); MEAN CORPUSCULAR HEMOGLOBIN 31.3 pg (27.0-33.4); MEAN CORPUSCULAR HGB CONC 35.2 g/dL (32.0-36.0); MEAN CORPUSCULAR VOLUME 89 fl (80-97); MONOCYTES % (AUTO) 3.4 % (3-13); RED BLOOD COUNT 3.97 10^6/uL (3.72-5.28); RED CELL DISTRIBUTION WIDTH 14.2 % (11.5-14.0); SEGMENTED NEUTROPHILS % (AUTO) 80.4 % (42-78); WHITE BLOOD COUNT 11.7 10^3/uL (4.0-10.5)
[2017-09-30 08:25] LABS: ALANINE AMINOTRANSFERASE 30 U/L (9-52); ALBUMIN 3.9 g/dL (3.5-5.0); ALKALINE PHOSPHATASE 128 U/L (38-126); ANION GAP 10 (5-19); ASPARTATE AMINO TRANSFERASE 28 U/L (14-36); BILIRUBIN,DIRECT 0.4 mg/dL (0.0-0.4); BILIRUBIN,TOTAL 0.6 mg/dL (0.2-1.3); BLOOD UREA NITROGEN 37 mg/dL (7-20); CALCIUM 9.4 mg/dL (8.4-10.2); CARBON DIOXIDE 28 mmol/L (22-30); CHLORIDE 103 mmol/L (98-107); CREATININE RESULT 1.19 mg/dL (0.52-1.25); GLUCOSE 270 mg/dL (75-110); POTASSIUM 4.4 mmol/L (3.6-5.0); SODIUM 141.4 mmol/L (137-145); TOTAL PROTEIN 6.7 g/dL (6.3-8.2)
[2017-09-30 08:41] LABS: APPEARANCE,URINE CLEAR; BILIRUBIN,URINE NEGATIVE (NEGATIVE); GLUCOSE, URINE >=500 mg/dL (NEGATIVE); KETONES,URINE NEGATIVE (NEGATIVE); LEUKOCYTE ESTERASE,URINE NEGATIVE (NEGATIVE); NITRITE,URINE NEGATIVE (NEGATIVE); PROTEIN,URINE NEGATIVE (NEGATIVE); URINE SPECIFIC GRAVITY 1.009; UROBILINOGEN,URINE NEGATIVE mg/dL (<2.0)
--- NOTE | 2017-09-30 09:12 | EKG REPORT ---
SEVERITY:- ABNORMAL ECG - AFIB/FLUT AND V-PACED COMPLEXES RIGHT BUNDLE BRANCH BLOCK : Confirmed by: Shaheen Horton 30-Sep-2017 09:11:10
--- NOTE | 2017-09-30 09:23 | RADIOLOGY REPORT (SQ) ---
EXAM DESCRIPTION: CT LT LOWER EXTREMITY WITHOUT COMPLETED DATE/TIME: 09/30/2017 8:51 am REASON FOR STUDY: FALL, L HIP PAIN; RECOMMENDED AFTER X-RAYS COMPARISON: None. TECHNIQUE: CT scan of the left hip performed without intravenous or oral contrast. Images reviewed with soft tissue and bone windows. Reconstructed coronal and sagittal MPR images reviewed. All imag es stored on PACS. All CT scanners at this facility use dose modulation, iterative reconstruction, and/or weight based d osing when appropriate to reduce radiation dose to as low as reasonably achievable (ALARA). [facility]: Dose Right [facility]: CareDose [facility]: Dose Right [facility]: Teradose 4D [facility]: [employer] RADIATION DOSE: mGy. LIMITATIONS: None. FINDINGS: Inter trochanteric fracture of the femoral neck with minimal displacement. Hip joint is i ntact. No other fracture identified. IMPRESSION: Intertrochanteric fracture left femoral neck. TECHNICAL DOCUMENTATION: JOB ID: [id number] Quality ID # [id number]: Final reports with documentation of one or more dose reduction techniques (e.g., Au tomated exposure control, adjustment of the mA and/or kV according to patient size, use of iterative reconstruction technique) 2010 [employer]- All Rights Reserved
[2017-09-30] MEDS ORDERED: HYDROMORPHONE HCL INJ/PF 2 MG/ML AMPULE IV ONE (09:43)
[2017-09-30] MEDS ORDERED: ONDANSETRON 4 MG TAB.RAPDIS PO PRN (09:44)
--- NOTE | 2017-09-30 10:49 | PDOC CONSULTATION ---
History of Present Illness Admission Date/PCP: 09/30/17 09:49 JOHN HAYES MD History of Present Illness: LAINA MONTENEGRO is a 72 year old female presenting to the emergency department with an intertrochanteric fracture of the left hip as a result of possible syncopal episode and fall. Past Medical History Cardiac Medical History: Reports: Atrial Fibrillation Endocrine Medical History: Reports: Diabetes Mellitus Type 2 Social History Smoking Status: Never Smoker Frequency of Alcohol Use: None Hx Recreational Drug Use: No Drugs: None Hx Prescription Drug Abuse: No Family History Family History: Reviewed & Not Pertinent Parental Family History Reviewed: Yes Children Family History Reviewed: Yes Sibling(s) Family History Reviewed.: Yes Medication/Allergy Home Medications: Alprazolam [Xanax] 0.25 mg PO Q12 08/28/17 Apixaban [Eliquis] 5 mg PO Q12 08/28/17 Atorvastatin Calcium [Lipitor 40 mg Tablet] 40 mg PO QHS 08/28/17 Buspirone HCl [Buspar 5 mg Tablet] 5 mg PO Q8HP PRN 08/28/17 Cascara Sagrada 450mg 450 mg PO Q2D 08/28/17 Cholecalciferol (Vitamin D3) [Vitamin D3] 5,000 unit PO DAILY 08/28/17 Cyanocobalamin/Folic AC/Vit B6 [Virt-Tyra Tablet] 1 tab PO DAILY 08/28/17 Digoxin [Lanoxin 0.125 mg Tablet] 0.125 mg PO DAILY 08/28/17 Furosemide [Lasix 40 mg Tablet] 80 mg PO DAILY 08/28/17 Levetiracetam [Keppra] 750 mg PO Q12 08/28/17 Levothyroxine Sodium [Synthroid 0.112 mg Tablet] 0.112 mg PO DAILY 08/28/17 Magnesium Oxide [Magox] 400 mg PO DAILY 08/28/17 Metoprolol Succinate [Toprol Xl] 75 mg PO Q12 08/28/17 Mirtazapine [Remeron] 30 mg PO QHS 08/28/17 Pantoprazole Sodium [Protonix] 20 mg PO DAILY 08/28/17 Potassium Chloride 20 meq PO DAILY 08/28/17 Tizanidine HCl [Zanaflex] 2 mg PO Q8HP PRN 08/28/17 Zaleplon [Sonata] 10 mg PO HSP PRN 08/28/17 Allergies/Adverse Reactions: pentazocine [From Talwin] Allergy (Verified 08/28/17 15:35) adhesive tape Adverse Reaction (Verified 08/28/17 15:35) Physical Exam Vital Signs: Temp Pulse Resp BP Pulse Ox 36.6 C 75 15 148/52 H 96 09/30/17 07:07 09/30/17 07:28 09/30/17 10:01 09/30/17 10:01 09/30/17 10:01 General appearance: PRESENT: no acute distress, well-developed, well-nourished Head exam: PRESENT: atraumatic, normocephalic Pulses: PRESENT: normal dorsalis pedis pul, +2 pedal pulses bilateral Vascular exam: PRESENT: normal capillary refill Additional comments: Patient lying recumbent in hospital bed with left lower extremity fully extended with pillows elevating hips and allowing flexion of the left knee. Patient reports she is currently in pain and is tender to palpation along the greater trochanter of the left hip. There is mild bruising along the lateral thigh of the left hip. She is nonambulatory. She has +3 pitting edema present on bilateral lower extremities up to the level of her knees. Patient notes that this is her usual state. She has brisk capillary refill to toes on bilateral feet +2 pedal pulses her distal neurovascular exam is intact and her sensory motor functions are intact. Musculoskeletal exam: PRESENT: tenderness Additional comments: Patient is nonambulatory at this point due to pain with weightbearing ambulation. She is also to remain nonambulatory to prevent further fracture of her femur. As stated she is tender to palpation along the greater trochanter of the left femur and her distal neurovascular exam is intact. Neurological exam: PRESENT: alert, awake, oriented to person, oriented to place , oriented to time, oriented to situation, CN II-XII grossly intact. ABSENT: motor sensory deficit Psychiatric exam: PRESENT: appropriate affect, normal mood. ABSENT: homicidal ideation, suicidal ideation Skin exam: PRESENT: dry, intact, warm. ABSENT: cyanosis, rash Results Impressions: Hip X-Ray 09/30/17 06:35 IMPRESSION: 1. Lucency of the left greater trochanter with cortical disruption of the left lesser trochanter on frontal view. This could represent a nondisplaced intertrochanteric fracture. Correlation with MRI or CT would be helpful for more definitive characterization. Lower Extremity CT 09/30/17 07:37 IMPRESSION: Intertrochanteric fracture left femoral neck. Assessment & Plan - Diagnosis (1) Intertrochanteric fracture of left hip Qualifiers: Encounter type: initial encounter Fracture type: closed Is this a current diagnosis for this admission?: Yes - Plan Summary Plan Summary: 72-year-old white female status post possible syncopal episode and subsequent fall who has sustained an intertrochanteric fracture of the left hip. Patient was admitted through the emergency department as a surgical patient to the hospital. She is currently expressing minimal pain and is nonambulatory. She will remain non-ambulatory to prevent further fracture of the femur. We will plan for surgery, likely intertrochanteric pinning of the left femur, for Saturday. She will remain inpatient status until that time.
[2017-09-30] MEDS: DOCUSATE SODIUM 100 MG CAPSULE PO SCH ×2 (11:03→17:27)
[2017-09-30] MEDS: ACETAMINOPHEN 325 MG TABLET PO PRN (12:40)
[2017-09-30] MEDS ORDERED: HEPARIN SOD (PORCINE) 5,000 UNIT/ML 1 ML SYRINGE SUBCUT SCH (14:00)
[2017-09-30] MEDS ORDERED: DEXTROSE 50%-WATER 25 GM/50 ML DISP.SYRIN IV PRN ×2 (15:13)
[2017-09-30] MEDS ORDERED: DEXTROSE 40% GEL 15 GM TUBE PO PRN ×2 (15:13)
[2017-09-30] MEDS ORDERED: GLUCAGON,HUMAN RECOMB 1 MG INJ IM PRN (15:13)
--- NOTE | 2017-09-30 15:58 | HISTORY AND PHYSICAL E ---
History and Physical NAME: LAINA MONTENEGRO : 1945 AGE: 72Y ADMITTED: 09/30/2017 ROOM: 421 CODE STATUS: FULL CODE. PRIMARY CARE PROVIDER: Dr. Ragsdale CHIEF COMPLAINT: Left hip pain. HISTORY OF PRESENT ILLNESS: The patient is a 72-year-old female with a past medical history of atrial fibrillation. The patient presented to the emergency department via EMS after sustaining a fall. The patient, who is sleepy after receiving pain medication, was unable to provide a complete history and mainly just answered yes and no; however, records were obtained from the previous and current medical records. Apparently the patient possibly had a syncopal episode, uncertain, prior to the mechanical fall. The patient had pain within her left hip, down her left leg, and was unable to sit up and stand after the event. The patient underwent imaging and findings were consistent with a left hip fracture. Upon presentation to the emergency department, the patient was found to be afebrile. Heart rate was in an appropriate range and she was normotensive. The patient appears to be in AFib with intermittent pacing. The patient herself denies any nausea, vomiting, diarrhea. No shortness of breath, dizziness, chest pain. No fever or chills. The patient is unable to provide any history about what led her to the hospital and is unable to voice any concerns at this time. PAST MEDICAL HISTORY: 1. Atrial fibrillation and subsequent chronic anticoagulation. 2. Pacemaker. 3. Diabetes mellitus type 2. 4. Obesity. 5. Hypertriglyceridemia. 6. Hyperlipidemia. 7. Cerebrovascular accident. 8. Seizure disorder. 9. Gastroesophageal reflux disease. PAST SURGICAL HISTORY: Pacemaker placement. ALLERGIES: 1. ADHESIVE TAPE. 2. PENTAZOCINE. HOME MEDICATIONS: 1. Eliquis 5 mg p.o. q.12 hours. 2. Lipitor 40 mg p.o. at hour of sleep. 3. Biotin 10,000 mcg p.o. daily. 4. Vitamin D3 at 5000 international units p.o. daily. 5. Vitamin B complex 1 tablet p.o. daily. 6. Digoxin 0.125 mg p.o. daily. 7. Nexium 40 mg p.o. daily. 8. Lasix 80 mg p.o. daily. 9. Novolog 12 units subcutaneous with meals. 10. Keppra 750 mg p.o. q.12 hours. 11. Synthroid 0.112 mg p.o. daily. 12. Magnesium oxide 400 mg p.o. every evening. 13. Toprol XL 75 mg p.o. q.12 hours. 14. Protonix 20 mg p.o. daily. 15. Potassium chloride 20 mEq p.o. daily. 16. Cascara 450 mg p.o. daily. SOCIAL HISTORY: The patient currently resides at home. Her surrogate decision maker is Renata, her daughter, who may be reached at [phone]. The patient has no history of tobacco use. No history of alcohol or illicit drug use. FAMILY MEDICAL HISTORY: Including that of her parents, children, and siblings was attempted to be reviewed; however, the patient was not able to provide any history due to her drowsiness from medication. REVIEW OF SYSTEMS: A full review of systems could not be obtained given the patient's sedation. PHYSICAL EXAMINATION: GENERAL: On examination, the patient is a well-developed, well-nourished, 72-year-old female who will awaken but she is sleepy. She does not appear to be any acute distress. VITAL SIGNS: Temperature 97.8, pulse 78, respirations 16, blood pressure 129/75, oxygen saturation is 100% on room air. SKIN: Warm and dry. No rash. She is not diaphoretic. HEENT: Pupils equal, round, reactive to light and accommodation. Conjunctivae are pink. Sclerae are nonicterus. There are no mouth lesions. Tongue is midline. NECK: Supple. There is no JVD. No palpable lymphadenopathy or thyromegaly. CARDIOVASCULAR: Heart is irregularly irregular. There is no rub. CHEST: Clear, symmetrical, unlabored. ABDOMEN: Soft, nontender, nondistended. Bowel sounds are present. No palpable organomegaly. BACK: No CVA tenderness or sacral edema. EXTREMITIES: No clubbing, cyanosis, edema, or peripheral signs of embolization. Pedal pulses +1 noted bilaterally. PSYCHIATRIC: The patient is arousable but unable to fully assess. DIAGNOSTICS: Lab values are follow: Hematology obtained on 09/30/2017: WBCs are 11.7, hemoglobin is 12.4, hematocrit is 35.3, platelet count is 186,000. Chemistry obtained on 09/30/2017: Sodium is 131, potassium 4.4, chloride is 103, carbon dioxide 28, BUN 37, creatinine 1.19, glucose 270, A1c is 8.1, calcium is 9.4, magnesium is 2.0, bilirubin is 0.6, AST 28, ALT is 30, alk phos 128, total protein 6.7, albumin 3.9. IMPRESSION AND PLAN: 1. Left femoral neck intertrochanteric fracture. The patient was seen and evaluated by the orthopedist. The case has been discussed with Dr. Caro. Will pain manage accordingly. 2. Diabetes mellitus type 2. Will continue the patient's home medications as well as sliding scale coverage. 3. Possible syncope. This is felt to be contributory to #1. The patient is unable to provide much history on this. Will obtain Keppra/digoxin level. Resume the patient's home Keppra medication. Will also obtain a CK in the event the patient may have had a seizure and continue to monitor. Will also interrogate pacer. 4. Chronic atrial fibrillation. The patient is rate controlled at this time. Will continue anticoagulation and the patient's beta dona and follow. 5. Hypothyroidism. Will continue levothyroxine. The patient just had a TSH and T4 less than a month ago which was in an acceptable range. 6. Gastroesophageal reflux disease. Will continue PPI therapy. DISPOSITION: The patient is a FULL CODE. Pending patient's symptomatology and diagnostic findings, will evaluate in the a.m. Will admit the patient to inpatient telemetry as the patient's expected length of stay will surpass 3 midnights. The patient will most likely need rehab at discharge. Time spent on this admission including assessment, plan, physical examination, patient education, review of previous and current medical records, and speciality collaboration is 60 minutes. DICTATING PHYSICIAN: JOHN SIGALA NP [id number] PHY#: [id number] ID: [id number] JOB#: [id number] ACCT: [id number] cc:MURRAY LUNA M.D., MICHAEL NP >
[2017-09-30] MEDS ORDERED: INSULIN ASPART 12 UNIT SQ SCH (17:00)
[2017-09-30] MEDS: INSULIN LISPRO 100 UNIT/ML 3 ML VIAL SUBCUT SCH (20:33)
[2017-09-30] MEDS ORDERED: (PENDING PHARMACY ID) (Levetiracetam [Keppra] 750 MG) PO SCH (22:00)
[2017-09-30] MEDS: LEVETIRACETAM ORAL SOLN 500 MG/5 ML UDCUP PO SCH (22:09)
[2017-09-30] MEDS: METOPROLOL SUCCINATE 50 MG TAB.SR.24H PO SCH (22:09)
[2017-09-30] MEDS: MAGNESIUM OXIDE 400 MG TABLET PO SCH (22:10)
[2017-09-30] MEDS: APIXABAN 5 MG TABLET PO SCH (22:10)
[2017-09-30] MEDS: ATORVASTATIN CALCIUM 40 MG TABLET PO SCH (22:10)
[2017-09-30] MEDS: INSULIN LISPRO 100 UNIT/ML 3 ML VIAL SUBCUT PRN (22:42)
[2017-10-01] MEDS: ACETAMINOPHEN 325 MG TABLET PO PRN ×3 (01:47→13:46)
[2017-10-01 05:09] LABS: HEMATOCRIT 32.6 % (36.0-47.0); HEMOGLOBIN 11.5 g/dL (12.0-15.5); HGB HCT DIFFERENCE 1.9; MEAN CORPUSCULAR HEMOGLOBIN 31.5 pg (27.0-33.4); MEAN CORPUSCULAR HGB CONC 35.4 g/dL (32.0-36.0); MEAN CORPUSCULAR VOLUME 89 fl (80-97); RED BLOOD COUNT 3.67 10^6/uL (3.72-5.28); RED CELL DISTRIBUTION WIDTH 14.1 % (11.5-14.0); WHITE BLOOD COUNT 8.8 10^3/uL (4.0-10.5)
[2017-10-01] MEDS: LANSOPRAZOLE 30 MG TAB.RAP.DR PO SCH (06:35)
--- NOTE | 2017-10-01 06:47 | PDOC PROGRESS REPORT ---
Subjective Progress Note for:: 10/01/17 Subjective:: Patient complaints of pain Physical Exam Vital Signs: Temp Pulse Resp BP Pulse Ox 37.2 C 69 14 130/60 H 92 10/01/17 04:00 10/01/17 04:00 10/01/17 04:00 10/01/17 04:00 10/01/17 04:00 Intake & Output 09/29/17 09/30/17 10/01/17 06:59 06:59 06:59 Intake Total 360 Output Total 1300 Balance -940 General appearance: PRESENT: mild distress Respiratory exam: PRESENT: unlabored Cardiovascular exam: PRESENT: RRR Pulses: PRESENT: +1 pedal pulses bilateral Vascular exam: PRESENT: normal capillary refill GI/Abdominal exam: PRESENT: soft Rectal exam: PRESENT: deferred Extremities exam: PRESENT: other - Left lower extremity painful with passive range of motion Neurological exam: PRESENT: alert, awake, oriented to person, oriented to place , oriented to time, oriented to situation. ABSENT: motor sensory deficit Psychiatric exam: PRESENT: appropriate affect, normal mood. ABSENT: homicidal ideation, suicidal ideation Skin exam: PRESENT: dry, intact, warm. ABSENT: cyanosis, rash Results Laboratory Results: 10/01/17 04:42 10/01/17 04:42 WBC 8.8 RBC 3.67 L Hgb 11.5 L Hct 32.6 L MCV 89 MCH 31.5 MCHC 35.4 RDW 14.1 H Plt Count 165 09/30/17 17:50 Creatine Kinase 45 Impressions: Hip X-Ray 09/30/17 06:35 IMPRESSION: 1. Lucency of the left greater trochanter with cortical disruption of the left lesser trochanter on frontal view. This could represent a nondisplaced intertrochanteric fracture. Correlation with MRI or CT would be helpful for more definitive characterization. Lower Extremity CT 09/30/17 07:37 IMPRESSION: Intertrochanteric fracture left femoral neck. Assessment & Plan - Diagnosis (1) Intertrochanteric fracture of left hip Qualifiers: Encounter type: initial encounter Fracture type: closed Fracture alignment: displaced Qualified Code(s): S72.142A - Displaced intertrochanteric fracture of left femur, initial encounter for closed fracture Is this a current diagnosis for this admission?: Yes Plan: 72-year-old white female with a left intratrochanteric femur fracture. We will proceed with an open reduction internal fixation under choice anesthesia pending medical and cardiac clearance. - Time Time Spent with patient: 15-24 minutes Anticipated discharge: SNF Within: Other
[2017-10-01] MEDS ORDERED: ONDANSETRON 4 MG TAB.RAPDIS PO PRN (08:30)
[2017-10-01] MEDS: INSULIN LISPRO 100 UNIT/ML 3 ML VIAL SUBCUT SCH ×3 (08:55→17:41)
[2017-10-01] MEDS: INSULIN LISPRO 100 UNIT/ML 3 ML VIAL SUBCUT PRN ×4 (08:55→22:36)
[2017-10-01] MEDS: DOCUSATE SODIUM 100 MG CAPSULE PO SCH ×2 (09:59→17:14)
[2017-10-01] MEDS: POTASSIUM CHLORIDE 10 MEQ TABLET.SA PO SCH (09:59)
[2017-10-01] MEDS: CHOLECALCIFEROL (D3) 1,000 UNIT TABLET PO SCH (09:59)
[2017-10-01] MEDS ORDERED: VIT B6 PO SCH (10:00)
[2017-10-01] MEDS ORDERED: (PENDING PHARMACY ID) (Potassium Chloride [K-Tab Er] 20 MEQ) PO SCH (10:00)
[2017-10-01] MEDS ORDERED: LEVOTHYROXINE SODIUM 0.112 MG TABLET PO SCH (10:00)
[2017-10-01] MEDS ORDERED: CASCARA SAGRADA PO SCH (10:00)
[2017-10-01] MEDS ORDERED: (PENDING PHARMACY ID) (Pantoprazole Sodium [Protonix] 20 MG) PO SCH (10:00)
[2017-10-01] MEDS ORDERED: (PENDING PHARMACY ID) (Cholecalciferol (Vitamin D3) [Vitamin D3] 5,000 UNIT) PO SCH (10:00)
[2017-10-01] MEDS: METOPROLOL SUCCINATE 50 MG TAB.SR.24H PO SCH ×2 (10:00→22:35)
[2017-10-01] MEDS ORDERED: FOLIC AC PO SCH (10:00)
[2017-10-01] MEDS ORDERED: CYANOCOBALAMIN PO SCH (10:00)
[2017-10-01] MEDS ORDERED: FUROSEMIDE 40 MG TABLET PO SCH (10:00)
[2017-10-01] MEDS ORDERED: BIOTIN 10000 MCG PO SCH (10:00)
[2017-10-01] MEDS: FUROSEMIDE 80 MG TABLET PO SCH (10:03)
[2017-10-01] MEDS: CYANOCOBALAMIN/FA/PYRIDOXINE TABLET PO SCH (10:04)
[2017-10-01] MEDS: LEVETIRACETAM ORAL SOLN 500 MG/5 ML UDCUP PO SCH ×2 (10:04→22:35)
[2017-10-01] MEDS: DIGOXIN 0.125 MG TABLET PO SCH (10:04)
[2017-10-01] MEDS: APIXABAN 5 MG TABLET PO SCH (10:06)
--- NOTE | 2017-10-01 12:29 | PDOC PROGRESS REPORT ---
Subjective Progress Note for:: 10/01/17 Subjective:: No complaints. No events overnight. Physical Exam Vital Signs: Temp Pulse Resp BP Pulse Ox 98.2 F 60 18 134/73 H 95 10/01/17 11:26 10/01/17 11:26 10/01/17 11:26 10/01/17 11:26 10/01/17 11:26 Intake & Output 09/30/17 10/01/17 10/02/17 06:59 06:59 06:59 Intake Total 2110 Output Total 2000 Balance 110 General appearance: PRESENT: no acute distress, obese Head exam: PRESENT: atraumatic, normocephalic Eye exam: PRESENT: conjunctiva pink, EOMI, PERRLA. ABSENT: scleral icterus Neck exam: ABSENT: carotid bruit, JVD, lymphadenopathy, thyromegaly Respiratory exam: PRESENT: clear to auscultation torrie. ABSENT: rales, rhonchi, wheezes Cardiovascular exam: PRESENT: irregular rhythm - normal rate GI/Abdominal exam: PRESENT: normal bowel sounds, soft. ABSENT: distended, guarding, mass, organolmegaly, rebound, tenderness Extremities exam: ABSENT: pedal edema Neurological exam: PRESENT: alert, awake, oriented to person, oriented to place , oriented to time, oriented to situation, CN II-XII grossly intact. ABSENT: motor sensory deficit Psychiatric exam: PRESENT: appropriate affect, normal mood. ABSENT: homicidal ideation, suicidal ideation Results Laboratory Results: 10/01/17 04:42 10/01/17 04:42 WBC 8.8 RBC 3.67 L Hgb 11.5 L Hct 32.6 L MCV 89 MCH 31.5 MCHC 35.4 RDW 14.1 H Plt Count 165 09/30/17 17:50 Creatine Kinase 45 Impressions: Hip X-Ray 09/30/17 06:35 IMPRESSION: 1. Lucency of the left greater trochanter with cortical disruption of the left lesser trochanter on frontal view. This could represent a nondisplaced intertrochanteric fracture. Correlation with MRI or CT would be helpful for more definitive characterization. Lower Extremity CT 09/30/17 07:37 IMPRESSION: Intertrochanteric fracture left femoral neck. Assessment & Plan - Diagnosis (1) Intertrochanteric fracture of left hip Qualifiers: Encounter type: subsequent encounter Fracture type: closed Fracture alignment: displaced Qualified Code(s): S72.142A - Displaced intertrochanteric fracture of left femur, initial encounter for closed fracture Is this a current diagnosis for this admission?: Yes Plan: Surgical repair planned for tomorrow. She is without chest pain. She is not short of breath. She is not orthopneic. She did not report palpitations. She does not have a history of FL or heart failure. She is medically optimized for surgery. (2) DM type 2 (diabetes mellitus, type 2) Qualifiers: Diabetes mellitus complication status: without complication Diabetes mellitus alf insulin use: with terminal makeup operator use Qualified Code(s): E11.9 - Type 2 diabetes mellitus without complications; Z79.4 - [facility] (current) use of insulin; Z79.4 - [facility] (current) use of insulin; Z79.4 - termite inspector ( current) use of insulin; Z79.4 - termite inspector (current) use of insulin Is this a current diagnosis for this admission?: Yes Plan: Continue home dose of insulin. Titrate as needed to optimize glycemic control. Continue sliding scale. (3) Atrial fibrillation Qualifiers: Atrial fibrillation type: chronic Qualified Code(s): I48.2 - Chronic atrial fibrillation Is this a current diagnosis for this admission?: Yes Plan: Rate is controlled. She is appropriately anticoagulated. Anticoagulant has to be discontinued for surgery, but can be resumed following surgery. (4) Hypertension Qualifiers: Hypertension type: essential hypertension Qualified Code(s): I10 - Essential (primary) hypertension Is this a current diagnosis for this admission?: Yes Plan: Blood pressure is controlled. Continue usual meds. (5) Anemia Qualifiers: Anemia type: unspecified type Qualified Code(s): D64.9 - Anemia, unspecified Is this a current diagnosis for this admission?: Yes Plan: Continue to monitor. No need for transfusion at this time. - Time Time Spent with patient: 25-34 minutes Medications reviewed and adjusted accordingly: Yes Anticipated discharge: Acute Rehab Within: within 72 hours - Inpatient Certification Based on my medical assessment, after consideration of the patient's comorbidities, presenting symptoms, or acuity I expect that the services needed warrant INPATIENT care.: Yes I certify that my determination is in accordance with my understanding of Medicare's requirements for reasonable and necessary INPATIENT services [42 CFR 412.3e].: Yes Medical Necessity: Need for Surgery
[2017-10-01] MEDS: HYDROCODONE/ACETAMINOPHEN 5-325 MG TABLET PO PRN (17:13)
[2017-10-01] MEDS: MAGNESIUM HYDROXIDE SUSP 30 ML UDCUP PO PRN (17:14)
[2017-10-01] MEDS: ATORVASTATIN CALCIUM 40 MG TABLET PO SCH (22:35)
[2017-10-01] MEDS: MAGNESIUM OXIDE 400 MG TABLET PO SCH (22:35)
[2017-10-02] MEDS ORDERED: RINGERS SOLUTION,LACTATED 1,000 ML IV PRN (00:01)
[2017-10-02] MEDS: HYDROCODONE/ACETAMINOPHEN 5-325 MG TABLET PO PRN (03:08)
[2017-10-02] MEDS ORDERED: CEFAZOLIN 2 GM/D5W RTU 2 GM/50 ML RTUPB IV PRN (05:00)
[2017-10-02] MEDS: LEVOTHYROXINE SODIUM 0.112 MG TABLET PO SCH (05:24)
[2017-10-02] MEDS: LANSOPRAZOLE 30 MG TAB.RAP.DR PO SCH (05:24)
[2017-10-02] MEDS ORDERED: IBUPROFEN INJ 800 MG/8 ML VIAL IV ONE (07:50)
[2017-10-02] MEDS ORDERED: MIDAZOLAM 2 MG/2 ML INJ ONE (07:50)
[2017-10-02] MEDS ORDERED: PROPOFOL INJ 200 MG/20 ML VIAL IV ONE (07:50)
[2017-10-02] MEDS ORDERED: ONDANSETRON HCL INJ/PF 4 MG/2 ML SDV ONE (07:50)
[2017-10-02] MEDS ORDERED: FENTANYL CITRATE INJ/PF 100 MCG/2 ML AMPUL ONE (07:50)
[2017-10-02] MEDS ORDERED: HYDROMORPHONE HCL INJ/PF 2 MG/ML AMPULE ONE (07:51)
[2017-10-02] MEDS: INSULIN LISPRO 100 UNIT/ML 3 ML VIAL SUBCUT SCH ×3 (08:10→17:11)
--- NOTE | 2017-10-02 11:27 | Operative Report ---
Operative Report DATE OF SURGERY: 10/02/17 PREOPERATIVE DIAGNOSIS: Left intertrochanteric femur fracture OPERATION: Open reduction internal fixation left intertrochanteric femur fracture SURGEON: JEFRY GANDHI 1ST SUPERVISOR ANODIZING: FRANCO FRANK ANESTHESIA: Spinal ESTIMATED BLOOD LOSS: 100 PROCEDURE: Annetta gamma 3 nail 11 mm x 125 by 360 mm 90 mm proximal interlock 50 mm distal interlock Procedure: With the patient supine on the fracture table left lower extremities manipulated fluoroscopic guidance to affected near anatomic reduction. Extremities then prepped and draped in sterile fashion. A pin was placed percutaneously through the greater trochanter down into the proximal femoral metadiaphysis. A combined reamers to fashion a cortical opening. These are removed. A ball-tipped guide was placed down the femur. Femoral length is measured to be 360 mm. Subsequently a Annetta gamma 3 nail 360 mm x 11 mm x 100.5 is advanced over the ball-tipped guide david to an appropriate depth for the proximal interlock. Proximal interlock is measured to be 90 mm. Subsequent combined reamer was used to fashion a cortical opening for this and the screw was placed over the guide david to an appropriate depth fluoroscopically. Is checked in AP and lateral dimensions of both the fracture reduction as well as hardware placement is felt to be adequate. Proximal locking screws in place. Lastly under fluoroscopic guidance and a distal interlock was placed in the dynamic hole freehand. The wounds are irrigated and closed with Vicryl followed by nataliya. Sterile dressings applied and the patient's return to the PACU in satisfactory condition.
[2017-10-02] MEDS: LEVETIRACETAM ORAL SOLN 500 MG/5 ML UDCUP PO SCH ×2 (11:46→21:41)
[2017-10-02] MEDS: METOPROLOL SUCCINATE 50 MG TAB.SR.24H PO SCH ×2 (11:46→21:42)
[2017-10-02] MEDS: DOCUSATE SODIUM 100 MG CAPSULE PO SCH ×2 (11:46→17:33)
[2017-10-02] MEDS ORDERED: OXYCODONE HCL IR 5 MG TABLET PO PRN (11:53)
[2017-10-02] MEDS ORDERED: FENTANYL CITRATE INJ/PF 100 MCG/2 ML AMPUL IV PRN ×2 (12:27)
[2017-10-02] MEDS ORDERED: MORPHINE SULFATE 10 MG/ML INJ IV PRN (12:27)
[2017-10-02] MEDS ORDERED: DIPHENHYDRAMINE HCL 50 MG/ML VIAL IV PRN (12:27)
[2017-10-02] MEDS ORDERED: PROMETHAZINE HCL INJ 25 MG/1 ML VIAL IV PRN ×2 (12:27)
[2017-10-02] MEDS ORDERED: MEPERIDINE HCL/PF INJ 25 MG/1 ML DISP.SYRIN IV PRN (12:27)
[2017-10-02] MEDS ORDERED: ONDANSETRON HCL INJ/PF 4 MG/2 ML SDV IV PRN (12:27)
[2017-10-02] MEDS ORDERED: SUCCINYLCHOLINE CHLORIDE INJ 200 MG/10 ML VIAL ONE (12:41)
--- NOTE | 2017-10-02 13:41 | RADIOLOGY REPORT (SQ) ---
EXAM DESCRIPTION: HIP IN OPERATING RM; NO CHG FLUORO COMPLETED DATE/TIME: 10/02/2017 1:19 pm REASON FOR STUDY: ORIF LEFT HIP IN OR COMPARISON: Left hip films 09/30/2017 CT left hip 09/30/2017 FLUOROSCOPY TIME: 1.1 minutes 4 digital images saved to PACS. TECHNIQUE: Intra-operative images acquired during surgical procedure to evaluate progress. NUMBER OF IMAGES: 4 digital images saved to pacs LIMITATIONS: None. FINDINGS: Intra procedural imaging and fluoro during ORIF left intertrochanteric fracture with long intramedullary nail and lag screw. Please see the operative report for further details IMPRESSION: Intra procedural imaging and fluoro COMMENT: Quality ID [id number]: Final reports for procedures using fluoroscopy that document radiation exp osure indices, or exposure time and number of fluorographic images (if radiation exposure indices are not available) Please consult full operative report of the attending physician for description of the procedure. TECHNICAL DOCUMENTATION: JOB ID: [id number] [employer]- All Rights Reserved
[2017-10-02] MEDS ORDERED: RINGERS SOLUTION,LACTATED 400 ML IV ONE (14:00)
[2017-10-02] MEDS: FUROSEMIDE 80 MG TABLET PO SCH (14:18)
[2017-10-02] MEDS: POTASSIUM CHLORIDE 10 MEQ TABLET.SA PO SCH (14:23)
[2017-10-02] MEDS: CYANOCOBALAMIN/FA/PYRIDOXINE TABLET PO SCH (14:24)
[2017-10-02] MEDS: CHOLECALCIFEROL (D3) 1,000 UNIT TABLET PO SCH (14:24)
[2017-10-02] MEDS: DIGOXIN 0.125 MG TABLET PO SCH (14:25)
[2017-10-02] MEDS: CEFAZOLIN 2 GM/D5W RTU 2 GM/50 ML RTUPB IV SCH ×2 (14:33→21:42)
[2017-10-02] MEDS: FENTANYL CITRATE INJ/PF 100 MCG/2 ML AMPUL IV PRN ×2 (14:36→14:37)
[2017-10-02] MEDS: INSULIN LISPRO 100 UNIT/ML 3 ML VIAL SUBCUT PRN ×2 (16:07→21:42)
--- NOTE | 2017-10-02 17:53 | PDOC PROGRESS REPORT ---
Subjective Progress Note for:: 10/02/17 Subjective:: No complaints. No events overnight. Physical Exam Vital Signs: Temp Pulse Resp BP Pulse Ox 97.5 F 76 12 111/45 L 100 10/02/17 14:38 10/02/17 14:38 10/02/17 14:38 10/02/17 14:38 10/02/17 14:38 Intake & Output 10/01/17 10/02/17 10/03/17 06:59 06:59 06:59 Intake Total 211 1827 2900 Output Total 1999 1880 605 Balance 110 -53 2295 General appearance: PRESENT: no acute distress, cooperative, obese Head exam: PRESENT: atraumatic, normocephalic Eye exam: PRESENT: conjunctiva pink, EOMI, PERRLA Neck exam: ABSENT: carotid bruit, JVD, lymphadenopathy, thyromegaly Respiratory exam: PRESENT: clear to auscultation torrie. ABSENT: rales, rhonchi, wheezes Cardiovascular exam: PRESENT: RRR. ABSENT: diastolic murmur, rubs, systolic murmur GI/Abdominal exam: PRESENT: normal bowel sounds, soft. ABSENT: distended, guarding, mass, organolmegaly, rebound, tenderness Neurological exam: PRESENT: alert, awake, oriented to person, oriented to place , oriented to time, oriented to situation, CN II-XII grossly intact. ABSENT: motor sensory deficit Psychiatric exam: PRESENT: appropriate affect, normal mood. ABSENT: homicidal ideation, suicidal ideation Skin exam: PRESENT: dry, intact, warm. ABSENT: cyanosis, rash Results Laboratory Results: 10/01/17 04:42 09/30/17 17:50 Creatine Kinase 45 Impressions: Lower Extremity CT 09/30/17 07:37 IMPRESSION: Intertrochanteric fracture left femoral neck. Fluoroscopy 10/02/17 00:00 IMPRESSION: Intra procedural imaging and fluoro Hip X-Ray 10/02/17 00:00 IMPRESSION: Intra procedural imaging and fluoro Assessment & Plan - Diagnosis (1) Intertrochanteric fracture of left hip Qualifiers: Encounter type: subsequent encounter Fracture type: closed Fracture alignment: displaced Qualified Code(s): S72.142A - Displaced intertrochanteric fracture of left femur, initial encounter for closed fracture Is this a current diagnosis for this admission?: Yes Plan: Surgical repair planned for today. (2) DM type 2 (diabetes mellitus, type 2) Qualifiers: Diabetes mellitus complication status: without complication Diabetes mellitus medical terminologist insulin use: with medical terminologist use Qualified Code(s): E11.9 - Type 2 diabetes mellitus without complications; Z79.4 - care home (current) use of insulin; Z79.4 - long term care pharmacist (current) use of insulin; Z79.4 - care home ( current) use of insulin; Z79.4 - long term care pharmacist (current) use of insulin Is this a current diagnosis for this admission?: Yes Plan: Continue home dose of insulin. Titrate as needed to optimize glycemic control. Continue sliding scale. Add Lantus 18 units at bedtime (3) Atrial fibrillation Qualifiers: Atrial fibrillation type: chronic Qualified Code(s): I48.2 - Chronic atrial fibrillation Is this a current diagnosis for this admission?: Yes Plan: Rate is controlled. She is appropriately anticoagulated. Anticoagulant has to be discontinued for surgery, but can be resumed following surgery. (4) Hypertension Qualifiers: Hypertension type: essential hypertension Qualified Code(s): I10 - Essential (primary) hypertension Is this a current diagnosis for this admission?: Yes Plan: Blood pressure is controlled. Continue usual meds. (5) Anemia Qualifiers: Anemia type: unspecified type Qualified Code(s): D64.9 - Anemia, unspecified Is this a current diagnosis for this admission?: Yes Plan: Continue to monitor. No need for transfusion at this time. - Time Time Spent with patient: 15-24 minutes Anticipated discharge: Acute Rehab - Inpatient Certification Medical Necessity: Need for Surgery
--- NOTE | 2017-10-02 19:33 | PDOC CONSULTATION ---
Consultation Consult Date: 10/02/17 Attending physician:: JASON FLOWERS Consult reason:: Abnormal heart rhythm, abnormal EKG History of Present Illness Admission Date/PCP: 09/30/17 09:49 JOHN HAYES MD Patient complains of: No complaints History of Present Illness: LAINA MONTENEGRO is a 72 year old female presenting to the emergency department with an intertrochanteric fracture of the left hip as a result of possible syncopal episode and fall. Patient had intramedullary pinning of the left hip. However in recovery she was noted to have irregular heartbeat, intermittent right bundle branch block pattern and also ventricular paced beats. Patient did not have a preop clearance and no cardiology note was noted. I was therefore asked to see this patient in consultation. Patient did have a prior echocardiogram which was reviewed. This was just about a month ago. Patient also had a nuclear stress test and this was reviewed. More these results were noted to be satisfactory. Patient was noted to be somewhat lethargic but was able to answer questions. Past Medical History Cardiac Medical History: Reports: Atrial Fibrillation Endocrine Medical History: Reports: Diabetes Mellitus Type 2 Psychiatric Medical History: Reports: Depression Past Surgical History Past Surgical History: Reports: Other - Just status post left hip surgery Social History Information Source: Patient Smoking Status: Never Smoker Frequency of Alcohol Use: None Hx Recreational Drug Use: No Drugs: None Hx Prescription Drug Abuse: No - Advance Directive Resuscitation Status: Full Code Family History Family History: Reviewed & Not Pertinent Parental Family History Reviewed: Yes Children Family History Reviewed: Yes Sibling(s) Family History Reviewed.: Yes - Negative for premature coronary artery disease or sudden cardiac in the family amongst first degree relatives. Medication/Allergy Home Medications: Apixaban [Eliquis 5 mg Tablet] 5 mg PO Q12 09/30/17 Atorvastatin Calcium [Lipitor 40 mg Tablet] 40 mg PO QHS 09/30/17 Biotin [Gabe Biotin] 10,000 mcg PO DAILY 09/30/17 [place] 450mg 450 mg PO DAILY 09/30/17 Cholecalciferol (Vitamin D3) [Vitamin D3] 5,000 unit PO DAILY 09/30/17 Cyanocobalamin/Folic AC/Vit B6 [Virt-Tyra Tablet] 1 tab PO DAILY 09/30/17 Digoxin [Lanoxin 0.125 mg Tablet] 0.125 mg PO DAILY 09/30/17 Esomeprazole Magnesium [Nexium] 40 mg PO DAILY 09/30/17 Furosemide [Lasix 40 mg Tablet] 80 mg PO DAILY 09/30/17 Insulin Aspart [Novolog Flexpen] 12 units SQ MEALS 09/30/17 Levetiracetam [Keppra] 750 mg PO Q12 09/30/17 Levothyroxine Sodium [Synthroid 0.112 mg Tablet] 0.112 mg PO DAILY 09/30/17 Magnesium Oxide [Mag-Ox 400 mg Tablet] 400 mg PO QPM 09/30/17 Metoprolol Succinate [Toprol Xl 50 mg Tab.sr] 75 mg PO Q12 09/30/17 Pantoprazole Sodium [Protonix] 20 mg PO DAILY 09/30/17 Potassium Chloride [K-Tab ER] 20 meq PO DAILY 09/30/17 Allergies/Adverse Reactions: pentazocine [From Amanda] Allergy (Verified 08/28/17 15:35) adhesive tape Adverse Reaction (Verified 08/28/17 15:35) Review of Systems Review of Systems: System review is somewhat limited as patient is lethargic but was able to answer most questions on direct questioning. Please see history of present illness and past medical history as wall. Constitutional: No fever or chills reported. Head : No recent chronic headaches, recent head injury. Eyes: No recent eye pain, diplopia, redness, discharge, acute visual changes. Ears: No recent chronic ear pain, acute hearing loss, ear discharge. Oral cavity: No recent ulcerations, bleeding, oral cavity discomfort. Neck: No recent acute neck pain reported. Hematologic: No recent easy bruising or bleeding or hematologic malignancy reported. Lymphatic: No recent lymphatic malignancy, chronic lymphadenopathy reported yet Cardiovascular system review: See history of present illness. Respiratory system review: No recent chronic cough, hemoptysis, blood clots in the lungs reported. Mild Shortness of breath on exertion Gastrointestinal system review: Negative for any recent acute or chronic abdominal pain, hematemesis, melena, recent change in bowel habits. Genitourinary system review: No recent acute or chronic hematuria, flank pain, UTI etc. reported. Skin system review: Negative for any recent abnormal bruising, no rash, no pruritus reported. Neurologic: No prior history of strokes, mini strokes, seizure disorder. Psychologic: No history of major psychosis or major depression reported. Musculoskeletal: Minor aches and pains reported. No acute joint swelling reported. Endocrine: No recent polyuria, polydipsia, recent heat or cold intolerance. Physical Exam Vital Signs: Temp Pulse Resp BP Pulse Ox 97.2 F 78 16 120/66 100 10/02/17 18:11 10/02/17 18:11 10/02/17 18:11 10/02/17 18:11 10/02/17 18:11 Intake & Output 10/01/17 10/02/17 10/03/17 06:59 06:59 06:59 Intake Total 0 1827 4600 Output Total 19990 630 Balance 110 -53 3970 Exam: GENERAL: well-nourished and in no acute distress. Alert and oriented x3 HEAD: Atraumatic, normocephalic. EYES: Pupils equal round and reactive to light, extraocular movements intact, sclera anicteric, conjunctiva are normal. ENT: TMs normal, nares patent, oropharynx clear without exudates. Moist mucous membranes. No oral ulcerations or bleeding gums noted NECK: supple without lymphadenopathy. Trachea is central. No cervical or axillary lymphadenopathy noted. Carotids are 2+, JVD WNL LUNGS: Respiration seems nonlabored, no significant accessory muscle action noted. Breath sounds clear to auscultation bilaterally and equal noted. No wheezes rales or rhonchi noted. No significant dullness noted on percussion. CHEST: Palpation of the chest wall shows no significant chest wall tenderness. No other significant abnormalities noted. HEART: [place] BURLAP BAG SEWER, No PSH, 1/6 ISHA aortic area, 1/6 [place] systolic murmur mitral area, no rubs, no gallops. ABDOMEN: Soft, no significant tenderness appreciated, normoactive bowel sounds. No guarding, no rebound. No rigidity noted . No masses appreciated. EXTREMITIES: Pedal pulses are 1-2+, no calf tenderness noted. No clubbing or cyanosis.trace to 1+ pedal edema noted NEUROLOGICAL: Focused neurological exam showed no significant neurologic deficit. Normal speech, no focal weakness appreciated. PSYCH: Normal mood, normal affect. Judgment and insight within normal limits. SKIN: No significant ecchymosis, rash, ulcerations or signs of pruritus noted. MUSCULOSKELETAL EXAM: No significant joint swelling noted. Status post left hip surgery. Scar noted of recent hip surgery. Results Laboratory Results: 10/01/17 04:42 09/30/17 17:50 Creatine Kinase 45 EKG Comments: Twelve-lead EKG shows A. fib flutter with right bundle branch block pattern and intermittent ventricular paced beats. Impressions: Lower Extremity CT 09/30/17 07:37 IMPRESSION: Intertrochanteric fracture left femoral neck. Fluoroscopy 10/02/17 00:00 IMPRESSION: Intra procedural imaging and fluoro Hip X-Ray 10/02/17 00:00 IMPRESSION: Intra procedural imaging and fluoro Assessment & Plan - Diagnosis (1) Intertrochanteric fracture of left hip Qualifiers: Encounter type: subsequent encounter Fracture type: closed Fracture alignment: displaced Is this a current diagnosis for this admission?: Yes (2) Syncope and collapse Is this a current diagnosis for this admission?: Yes (3) Atrial fibrillation Qualifiers: Atrial fibrillation type: chronic Qualified Code(s): I48.2 - Chronic atrial fibrillation Is this a current diagnosis for this admission?: Yes (4) DM type 2 (diabetes mellitus, type 2) Qualifiers: Diabetes mellitus complication status: without complication Diabetes mellitus nursing home insulin use: with county agent use Qualified Code(s): E11.9 - Type 2 diabetes mellitus without complications; Z79.4 - care home (current) use of insulin; Z79.4 - care home (current) use of insulin; Z79.4 - paymaster of purses ( current) use of insulin; Z79.4 - care home (current) use of insulin Is this a current diagnosis for this admission?: Yes (5) HLD (hyperlipidemia) Qualifiers: Hyperlipidemia type: unspecified Qualified Code(s): E78.5 - Hyperlipidemia , unspecified Is this a current diagnosis for this admission?: Yes (6) Hypertension Qualifiers: Hypertension type: essential hypertension Qualified Code(s): I10 - Essential (primary) hypertension Is this a current diagnosis for this admission?: Yes (7) Preoperative cardiovascular examination Is this a current diagnosis for this admission?: Yes - Notes Notes: Patient was seen in immediate postop because of heart rhythm problem. However on review of records and review of chart, it seems patient had chronic atrial fibrillation with intermittent right bundle branch block pattern and also intermittent ventricular paced beats. On review of multiple rhythm strips it was noted that patient has a normally functioning pacemaker with good sensing and pacing function. A formal interrogation was however not performed. Patient's prior 2D echocardiogram and also a nuclear stress test results were reviewed. At this point do not feel any urgent cardiac intervention is needed except for maintaining patient's vitals, breathing. Would recommend good pain control, DVT prophylaxis and pulmonary toilet. Will be happy to follow patient. - Time Time Spent: 30 to 50 Minutes - CODE STATUS was discussed, patient remains full code. Surrogate decision-maker unchanged. Multiple medical problems were addressed. More than 50% of the time spent coordinating care, discussing management plans with involved caregivers. Management plans discussed with involved personnels. Medical decision making was of moderate to high complexity , patient's has multiple comorbidities. Medications reviewed and adjusted accordingly: Yes
[2017-10-02] MEDS: ATORVASTATIN CALCIUM 40 MG TABLET PO SCH (21:42)
[2017-10-02] MEDS: MAGNESIUM OXIDE 400 MG TABLET PO SCH (21:42)
[2017-10-02] MEDS: INSULIN GLARGINE,HUM.REC.ANLOG 300 UNIT/3 ML INSULN.PEN SUBCUT SCH (21:42)
[2017-10-02] MEDS ORDERED: INSULIN GLARGINE,HUM.REC.ANLOG 1,000 UNIT/10 ML UNIT SUBCUT SCH (22:00)
[2017-10-03 06:09] LABS: HEMATOCRIT 27.9 % (36.0-47.0); HEMOGLOBIN 9.6 g/dL (12.0-15.5); HGB HCT DIFFERENCE 0.9; MEAN CORPUSCULAR HGB CONC 34.3 g/dL (32.0-36.0); MEAN CORPUSCULAR VOLUME 90 fl (80-97); RED BLOOD COUNT 3.09 10^6/uL (3.72-5.28); RED CELL DISTRIBUTION WIDTH 13.7 % (11.5-14.0); WHITE BLOOD COUNT 7.7 10^3/uL (4.0-10.5)
[2017-10-03] MEDS: LEVOTHYROXINE SODIUM 0.112 MG TABLET PO SCH (06:14)
[2017-10-03] MEDS: LANSOPRAZOLE 30 MG TAB.RAP.DR PO SCH (06:14)
[2017-10-03 06:37] LABS: ANION GAP 10 (5-19); BLOOD UREA NITROGEN 25 mg/dL (7-20); CALCIUM 8.8 mg/dL (8.4-10.2); CARBON DIOXIDE 29 mmol/L (22-30); CHLORIDE 99 mmol/L (98-107); GLUCOSE 265 mg/dL (75-110); POTASSIUM 4.4 mmol/L (3.6-5.0); SODIUM 138.2 mmol/L (137-145)
--- NOTE | 2017-10-03 07:21 | PDOC PROGRESS REPORT ---
Subjective Progress Note for:: 10/03/17 Subjective:: Patient is lying recumbent comfortably in hospital bed asleep this morning she was aroused with her name being called multiple times. Patient reports she is quite comfortable. Physical Exam Vital Signs: Temp Pulse Resp BP Pulse Ox 37.2 C 88 18 119/43 L 95 10/03/17 03:36 10/03/17 03:36 10/03/17 03:36 10/03/17 03:36 10/03/17 03:36 Intake & Output 10/02/17 10/03/17 10/04/17 06:59 06:59 06:59 Intake Total 1827 6250 Output Total 1880 1630 Balance -53 4620 Weight 88.5 kg General appearance: PRESENT: no acute distress, well-developed, well-nourished Head exam: PRESENT: atraumatic, normocephalic Respiratory exam: PRESENT: unlabored Pulses: PRESENT: normal dorsalis pedis pul, +2 pedal pulses bilateral Extremities exam: PRESENT: tenderness Additional comments: Patient lying recumbent in hospital bed with left lower extremity in full extension. Her OpSite wound dressings are clean dry and intact. She is tender to palpation along her surgical sites. There is no evidence of erythema, ecchymosis or induration. Not concerned for infection at this time. She has brisk capillary refill to toes on bilateral lower extremities her sensory and motor functions are intact and her distal neurovascular exam is intact. Additional comments: Patient make slow progress with physical therapy as she has not ambulated since her surgery. She states that when PT came for an evaluation postoperatively her anesthesia had "not worn off" and she "could not feel her feet". She will continue to work with physical therapy to work towards ambulation with toe- touch weightbearing on the left lower extremity and improve strength and range of motion of the left lower extremity. Neurological exam: PRESENT: alert, awake, oriented to person, oriented to place , oriented to time, oriented to situation, CN II-XII grossly intact. ABSENT: motor sensory deficit Psychiatric exam: PRESENT: appropriate affect, normal mood. ABSENT: homicidal ideation, suicidal ideation Skin exam: PRESENT: dry, intact, warm. ABSENT: cyanosis, rash Results Laboratory Results: 10/03/17 05:15 10/03/17 05:15 10/03/17 10/03/17 05:15 05:15 WBC 7.7 RBC 3.09 L Hgb 9.6 L Hct 27.9 L MCV 90 MCH 31.0 MCHC 34.3 RDW 13.7 Plt Count 118 L Sodium 138.2 Potassium 4.4 Chloride 99 Carbon Dioxide 29 Anion Gap 10 BUN 25 H Creatinine 1.00 Est GFR ( Amer) > 60 Est GFR (Non-Af Amer) 54 L Glucose 265 H Calcium 8.8 09/30/17 17:50 Creatine Kinase 45 Impressions: Lower Extremity CT 09/30/17 07:37 IMPRESSION: Intertrochanteric fracture left femoral neck. Fluoroscopy 10/02/17 00:00 IMPRESSION: Intra procedural imaging and fluoro Hip X-Ray 10/02/17 00:00 IMPRESSION: Intra procedural imaging and fluoro Assessment & Plan - Diagnosis (1) Intertrochanteric fracture of left hip Qualifiers: Encounter type: subsequent encounter Fracture type: closed Fracture alignment: displaced Qualified Code(s): S72.142A - Displaced intertrochanteric fracture of left femur, initial encounter for closed fracture Is this a current diagnosis for this admission?: Yes - Plan Summary Plan Summary: 72-year-old white female one day status post open reduction internal fixation of intertrochanteric fracture of the left femur. Patient make slow progress with physical therapy she has not ambulated postoperatively yet. She will continue to work with physical therapy to work towards ambulation and improve strength and range of motion of the left lower extremity. She will remain toe- touch weightbearing status on the left lower extremity. Her pain is well controlled at this point and we will hopefully plan for discharge later this week.
[2017-10-03] MEDS: POTASSIUM CHLORIDE 10 MEQ TABLET.SA PO SCH (10:06)
[2017-10-03] MEDS: ASPIRIN 81 MG TABLET, ENT COATED PO SCH (10:06)
[2017-10-03] MEDS: DIGOXIN 0.125 MG TABLET PO SCH (10:06)
[2017-10-03] MEDS: METOPROLOL SUCCINATE 50 MG TAB.SR.24H PO SCH ×2 (10:06→22:38)
[2017-10-03] MEDS: CHOLECALCIFEROL (D3) 1,000 UNIT TABLET PO SCH (10:06)
[2017-10-03] MEDS: DOCUSATE SODIUM 100 MG CAPSULE PO SCH ×2 (10:07→18:29)
[2017-10-03] MEDS: FUROSEMIDE 80 MG TABLET PO SCH (10:07)
[2017-10-03] MEDS: INSULIN LISPRO 100 UNIT/ML 3 ML VIAL SUBCUT SCH ×3 (10:07→18:31)
[2017-10-03] MEDS: INSULIN LISPRO 100 UNIT/ML 3 ML VIAL SUBCUT PRN ×3 (10:07→22:57)
[2017-10-03] MEDS: CYANOCOBALAMIN/FA/PYRIDOXINE TABLET PO SCH (10:07)
[2017-10-03] MEDS: LEVETIRACETAM ORAL SOLN 500 MG/5 ML UDCUP PO SCH ×2 (11:01→22:37)
--- NOTE | 2017-10-03 11:55 | PDOC PROGRESS REPORT ---
Subjective Progress Note for:: 10/03/17 Subjective:: Patient is status post hip surgery day 1. Pt is denying any chest arm or neck discomfort. Patient denying any PND, orthopnea. Patient denied any sustained palpitations, dizziness, syncope, near syncope. Patient denying any fever chills. Patient denying any other significant discomfort. Patient is maintaining sinus rhythm. Review of systems: Rest review of systems negative. Medications: Medications have been reviewed. Physical Exam Vital Signs: Temp Pulse Resp BP Pulse Ox 98.3 F 82 18 117/62 97 10/03/17 08:01 10/03/17 08:01 10/03/17 08:01 10/03/17 08:01 10/03/17 08:01 Intake & Output 10/02/17 10/03/17 10/04/17 06:59 06:59 06:59 Intake Total 1827 6250 Output Total 1880 1630 Balance -53 4620 Weight 88.5 kg Exam: GENERAL: well-nourished and in no acute distress. Alert and oriented x3 HEAD: Atraumatic, normocephalic. EYES: Pupils equal round and reactive to light, extraocular movements intact, sclera anicteric, conjunctiva are normal. ENT: TMs normal, nares patent, oropharynx clear without exudates. Moist mucous membranes. No oral ulcerations or bleeding gums noted NECK: supple without lymphadenopathy. Trachea is central. No cervical or axillary lymphadenopathy noted. Carotids are 2+, JVD WNL LUNGS: Respiration seems nonlabored, no significant accessory muscle action noted. Breath sounds clear to auscultation bilaterally and equal noted. No wheezes rales or rhonchi noted. No significant dullness noted on percussion. CHEST: Palpation of the chest wall shows no significant chest wall tenderness. No other significant abnormalities noted. HEART: [place] [employer], No PSH, 1/6 ISHA aortic area, 1/6 [place] systolic murmur mitral area, no rubs, no gallops. ABDOMEN: Soft, no significant tenderness appreciated, normoactive bowel sounds. No guarding, no rebound. No rigidity noted . No masses appreciated. EXTREMITIES: Pedal pulses are 1-2+, no calf tenderness noted. No clubbing or cyanosis.trace to 1+ pedal edema noted NEUROLOGICAL: Focused neurological exam showed no significant neurologic deficit. Normal speech, no focal weakness appreciated. PSYCH: Normal mood, normal affect. Judgment and insight within normal limits. SKIN: No significant ecchymosis, rash, ulcerations or signs of pruritus noted. MUSCULOSKELETAL EXAM: No significant joint swelling noted. Results Laboratory Results: 10/03/17 05:15 10/03/17 05:15 10/03/17 10/03/17 05:15 05:15 WBC 7.7 RBC 3.09 L Hgb 9.6 L Hct 27.9 L MCV 90 MCH 31.0 MCHC 34.3 RDW 13.7 Plt Count 118 L Sodium 138.2 Potassium 4.4 Chloride 99 Carbon Dioxide 29 Anion Gap 10 BUN 25 H Creatinine 1.00 Est GFR ( Amer) > 60 Est GFR (Non-Af Amer) 54 L Glucose 265 H Calcium 8.8 09/30/17 17:50 Creatine Kinase 45 Impressions: Lower Extremity CT 09/30/17 07:37 IMPRESSION: Intertrochanteric fracture left femoral neck. Fluoroscopy 10/02/17 00:00 IMPRESSION: Intra procedural imaging and fluoro Hip X-Ray 10/02/17 00:00 IMPRESSION: Intra procedural imaging and fluoro Assessment & Plan - Diagnosis (1) Intertrochanteric fracture of left hip Qualifiers: Encounter type: subsequent encounter Fracture type: closed Fracture alignment: displaced Qualified Code(s): S72.142A - Displaced intertrochanteric fracture of left femur, initial encounter for closed fracture Is this a current diagnosis for this admission?: Yes (2) Syncope and collapse Is this a current diagnosis for this admission?: Yes (3) Atrial fibrillation Qualifiers: Atrial fibrillation type: chronic Qualified Code(s): I48.2 - Chronic atrial fibrillation Is this a current diagnosis for this admission?: Yes (4) DM type 2 (diabetes mellitus, type 2) Qualifiers: Diabetes mellitus complication status: without complication Diabetes mellitus detention insulin use: with detention use Qualified Code(s): E11.9 - Type 2 diabetes mellitus without complications; Z79.4 - prison (current) use of insulin; Z79.4 - prison (current) use of insulin; Z79.4 - prison ( current) use of insulin; 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 Recommend continuing DVT prophylaxis and pulmonary toilet. History of syncope and collapse: Exact etiology not clear but could atrial fibrillation with rapid ventricular response, postural hypotension, vasovagal etc. So far cardiac monitoring did not reveal significant arrhythmias. Diabetes: Currently under expectant management by hospitalist. Hypertension currently stable Dyslipidemia: Continue statin therapy and other antilipid therapy. - Time Time with patient: 15-25 minutes - CODE STATUS was discussed, patient remains full code. Surrogate decision-maker unchanged. Multiple medical problems were addressed. More than 50% of the time spent coordinating care, discussing management plans with involved caregivers. Management plans discussed with involved personnels. Medical decision making was of moderate to high complexity , patient's has multiple comorbidities. Medications reviewed and adjusted accordingly: Yes
--- NOTE | 2017-10-03 15:48 | PROGRESS NOTE E ---
Progress Note NAME: LAINA MONTENEGRO : 1945 AGE: 72Y DATE: ROOM: 427 SUBJECTIVE: The patient is a pleasant 72-year-old female who had a fracture of the left femur and underwent internal fixation. She is feeling better, waiting for long-term placement. OBJECTIVE: GENERAL: Patient lying in bed, comfortable, not in distress. VITAL SIGNS: Temperature 98.3, heart rate is 82, respiratory 18, blood pressure is 117/62, saturation 97% room air on 2L. HEENT: Head: Normocephalic, atraumatic. Pupils round, reactive to light and accommodation bilaterally. Extraocular movements intact. Ears: Tympanic membranes intact bilateral. No discharge from the ears. No discharge from the nose. NECK: Supple. No increased JVD. No thyromegaly. No lymphadenopathy. CARDIOVASCULAR: Normal S1, S2, regular rate and rhythm. No murmur. No gallop. RESPIRATORY: Lungs clear. ABDOMEN: Soft. MUSCULOSKELETAL: No edema. NEUROLOGICAL EXAM: Awake, alert. SKIN: No rash. LABORATORY: White blood count 7.7, hemoglobin 9.6, hematocrit 28. Creatinine 1.0, sodium 138, potassium 4.4. ASSESSMENT: 1. FRACTURE OF THE LEFT HIP, STATUS POST INTERNAL FIXATION. 2. SYNCOPE/COLLAPSE. 3. ATRIAL FIBRILLATION, RATE CONTROLLED. 4. DIABETES TYPE 2, CONTROLLED. 5. HYPERLIPIDEMIA. 6. HYPERTENSION. PLAN: The patient is waiting for long-term placement for rehabilitation. TIME SPENT: Twenty-five minutes. DICTATING PHYSICIAN: ALIRIO MANRIQUE M.D. [id number] PHY#: [id number] ID: [id number] JOB#: [id number] ACCT: [id number] cc: >
[2017-10-03] MEDS: MAGNESIUM OXIDE 400 MG TABLET PO SCH (22:37)
[2017-10-03] MEDS: ATORVASTATIN CALCIUM 40 MG TABLET PO SCH (22:38)
[2017-10-03] MEDS: INSULIN GLARGINE,HUM.REC.ANLOG 300 UNIT/3 ML INSULN.PEN SUBCUT SCH (22:40)
--- NOTE | 2017-10-04 07:02 | PDOC PROGRESS REPORT ---
Subjective Progress Note for:: 10/04/17 Subjective:: Patient resting comfortably Physical Exam Vital Signs: Temp Pulse Resp BP Pulse Ox 37.1 C 92 16 148/72 H 94 10/04/17 04:23 10/04/17 04:23 10/04/17 04:23 10/04/17 04:23 10/04/17 04:23 Intake & Output 10/03/17 10/04/17 10/05/17 06:59 06:59 06:59 Intake Total 6250 1073 Output Total 1630 0 Balance 4620 1073 Weight 88.5 kg 88.5 kg General appearance: PRESENT: no acute distress Head exam: PRESENT: normocephalic Respiratory exam: PRESENT: unlabored Cardiovascular exam: PRESENT: RRR Pulses: PRESENT: +1 pedal pulses bilateral GI/Abdominal exam: PRESENT: soft Rectal exam: PRESENT: deferred Musculoskeletal exam: PRESENT: other - Left lower extremity wounds without significant drainage. Results Laboratory Results: 10/03/17 05:15 10/03/17 05:15 09/30/17 17:50 Creatine Kinase 45 Impressions: Lower Extremity CT 09/30/17 07:37 IMPRESSION: Intertrochanteric fracture left femoral neck. Fluoroscopy 10/02/17 00:00 IMPRESSION: Intra procedural imaging and fluoro Hip X-Ray 10/02/17 00:00 IMPRESSION: Intra procedural imaging and fluoro Status: Imported from PACS Assessment & Plan - Diagnosis (1) Intertrochanteric fracture of left hip Qualifiers: Encounter type: subsequent encounter Fracture type: closed Fracture alignment: displaced Qualified Code(s): S72.142A - Displaced intertrochanteric fracture of left femur, initial encounter for closed fracture Is this a current diagnosis for this admission?: Yes Plan: 72-year-old white female postop day 2 from an open reduction internal fixation of a left intratrochanteric femur fracture. Overall the patient is stable but has made minimal progress with physical therapy. Anticipate the need for halfway facility placement. - Time Time Spent with patient: 15-24 minutes Anticipated discharge: SNF Within: when bed available
[2017-10-04] MEDS: INSULIN LISPRO 100 UNIT/ML 3 ML VIAL SUBCUT SCH ×3 (08:49→18:27)
[2017-10-04] MEDS: LANSOPRAZOLE 30 MG TAB.RAP.DR PO SCH (08:50)
[2017-10-04] MEDS: LEVOTHYROXINE SODIUM 0.112 MG TABLET PO SCH (08:50)
[2017-10-04] MEDS: CYANOCOBALAMIN/FA/PYRIDOXINE TABLET PO SCH (09:11)
[2017-10-04] MEDS: FUROSEMIDE 80 MG TABLET PO SCH (09:11)
[2017-10-04] MEDS: METOPROLOL SUCCINATE 50 MG TAB.SR.24H PO SCH ×2 (09:12→23:55)
[2017-10-04] MEDS: POTASSIUM CHLORIDE 10 MEQ TABLET.SA PO SCH (09:12)
[2017-10-04] MEDS: DOCUSATE SODIUM 100 MG CAPSULE PO SCH ×2 (09:12→18:27)
[2017-10-04] MEDS: HYDROCODONE/ACETAMINOPHEN 5-325 MG TABLET PO PRN ×2 (09:13→16:38)
[2017-10-04] MEDS: ASPIRIN 81 MG TABLET, ENT COATED PO SCH (09:13)
[2017-10-04] MEDS: DIGOXIN 0.125 MG TABLET PO SCH (09:14)
[2017-10-04] MEDS: CHOLECALCIFEROL (D3) 1,000 UNIT TABLET PO SCH (09:14)
[2017-10-04] MEDS: LEVETIRACETAM ORAL SOLN 500 MG/5 ML UDCUP PO SCH ×2 (09:14→23:55)
--- NOTE | 2017-10-04 10:35 | PROGRESS NOTE E ---
Progress Note NAME: LAINA MONTENEGRO : 1945 AGE: 72Y DATE: 10/04/2017 ROOM: 427 SUBJECTIVE: The patient is a pleasant 72-year-old female who had a fracture of the left femur. Underwent internal fixation. She is doing better today, waiting for rehab placement and she complained of some pain. OBJECTIVE: GENERAL: The patient is lying in bed, comfortable. Not in distress. VITALS SIGNS: Blood pressure is 124/53, temperature 97.6, heart rate 76, respiratory rate 18, saturation 93% on room air. HEENT: Head normocephalic, atraumatic. Pupils round and reactive to light and accommodation bilaterally. Extraocular movements intact. Ears: Tympanic membranes intact bilaterally. No discharge from the ears. No discharge from the nose. NECK: Supple. No increased JVD. No thyromegaly. No lymphadenopathy. CARDIOVASCULAR: Normal S1, S2. Regular rate and rhythm. No murmur. No gallop. RESPIRATORY: Lungs are clear. ABDOMEN: Soft. MUSCULOSKELETAL: No edema. NEUROLOGIC: Awake and alert. SKIN: No rash. LABORATORY: White blood count is 7.7, hemoglobin 9.6, hematocrit 28. Sodium 138, potassium 4.4, chloride 99, creatinine is 1.6. ASSESSMENT: 1. FRACTURE OF THE LEFT HIP, STATUS POST INTERNAL FIXATION. 2. SYNCOPE, COLLAPSE. 3. ATRIAL FIBRILLATION, RATE CONTROLLED. 4. DIABETES TYPE 2. 5. HYPERLIPIDEMIA. 6. HYPERTENSION. PLAN: The patient is waiting for halfway placement for rehabilitation. MEDICAL NECESSITY: Need halfway placement. DICTATING PHYSICIAN: ALIRIO MANRIQUE M.D. [id number] Y#: [id number] ID: [id number] JOB#: [id number] ACCT: [id number] cc: >
[2017-10-04] MEDS ORDERED: OXYCODONE-ACETAMINOPHEN 5-325 MG TABLET PO PRN (11:01)
[2017-10-04] MEDS: OXYCODONE HCL IR 5 MG TABLET PO PRN (14:48)
--- NOTE | 2017-10-04 15:07 | PDOC PROGRESS REPORT ---
Subjective Progress Note for:: 10/04/17 Subjective:: Patient is status post hip surgery day 2. Pt is denying any chest arm or neck discomfort. Patient denying any PND, orthopnea. Patient denied any sustained palpitations, dizziness, syncope, near syncope. Patient denying any fever chills. Patient denying any other significant discomfort. Patient does describe significant discomfort in the left hip area. Patient is maintaining sinus rhythm. Review of systems: Rest review of systems negative. Medications: Medications have been reviewed. Physical Exam Vital Signs: Temp Pulse Resp BP Pulse Ox 97.6 F 76 18 124/53 L 93 10/04/17 08:08 10/04/17 08:08 10/04/17 08:08 10/04/17 08:08 10/04/17 08:08 Intake & Output 10/03/17 10/04/17 10/05/17 06:59 06:59 06:59 Intake Total 6250 1073 480 Output Total 1630 0 300 Balance 4620 1073 180 Weight 88.5 kg 88.5 kg Exam: GENERAL: well-nourished and in no acute distress. Alert and oriented x3 HEAD: Atraumatic, normocephalic. EYES: Pupils equal round and reactive to light, extraocular movements intact, sclera anicteric, conjunctiva are normal. ENT: TMs normal, nares patent, oropharynx clear without exudates. Moist mucous membranes. No oral ulcerations or bleeding gums noted NECK: supple without lymphadenopathy. Trachea is central. No cervical or axillary lymphadenopathy noted. Carotids are 2+, JVD WNL LUNGS: Respiration seems nonlabored, no significant accessory muscle action noted. Breath sounds clear to auscultation bilaterally and equal noted. No wheezes rales or rhonchi noted. No significant dullness noted on percussion. CHEST: Palpation of the chest wall shows no significant chest wall tenderness. No other significant abnormalities noted. HEART: [place] [employer] FOR[employer], No PSH, 1/6 ISHA aortic area, 1/6 [place] systolic murmur mitral area, no rubs, no gallops. ABDOMEN: Soft, no significant tenderness appreciated, normoactive bowel sounds. No guarding, no rebound. No rigidity noted . No masses appreciated. EXTREMITIES: Pedal pulses are 1-2+, no calf tenderness noted. No clubbing or cyanosis.trace to 1+ pedal edema noted NEUROLOGICAL: Focused neurological exam showed no significant neurologic deficit. Normal speech, no focal weakness appreciated. PSYCH: Normal mood, normal affect. Judgment and insight within normal limits. SKIN: No significant ecchymosis, rash, ulcerations or signs of pruritus noted. MUSCULOSKELETAL EXAM: No significant joint swelling noted. Status post left hip surgery findings. Results Laboratory Results: 10/03/17 05:15 10/03/17 05:15 09/30/17 17:50 Creatine Kinase 45 EKG Comments: Telemetry strips shows atrial fibrillation with controlled ventricular response and intermittent paced beats Impressions: Lower Extremity CT 09/30/17 07:37 IMPRESSION: Intertrochanteric fracture left femoral neck. Fluoroscopy 10/02/17 00:00 IMPRESSION: Intra procedural imaging and fluoro Hip X-Ray 10/02/17 00:00 IMPRESSION: Intra procedural imaging and fluoro Assessment & Plan - Diagnosis (1) Intertrochanteric fracture of left hip Qualifiers: Encounter type: subsequent encounter Fracture type: closed Fracture alignment: displaced Is this a current diagnosis for this admission?: Yes (2) Syncope and collapse Is this a current diagnosis for this admission?: Yes (3) Atrial fibrillation Qualifiers: Atrial fibrillation type: chronic Qualified Code(s): I48.2 - Chronic atrial fibrillation Is this a current diagnosis for this admission?: Yes (4) DM type 2 (diabetes mellitus, type 2) Qualifiers: Diabetes mellitus complication status: without complication Diabetes mellitus intermediate designer insulin use: with intermediate designer use Qualified Code(s): E11.9 - Type 2 diabetes mellitus without complications; Z79.4 - petroleum terminal plant operator (current) use of insulin; Z79.4 - [facility] (current) use of insulin; Z79.4 - [facility] ( current) use of insulin; Z79.4 - [facility] (current) use of insulin Is this a current diagnosis for this admission?: Yes (5) HLD (hyperlipidemia) Qualifiers: Hyperlipidemia type: unspecified Qualified Code(s): E78.5 - Hyperlipidemia , unspecified Is this a current diagnosis for this admission?: Yes (6) Hypertension Qualifiers: Hypertension type: essential hypertension Qualified Code(s): I10 - Essential (primary) hypertension Is this a current diagnosis for this admission?: Yes - Notes Notes: Atrial fibrillation: Recommend chronic anticoagulation if there is no contraindication. It seems patient was on Eliquis therapy. Recommend restarting it. Status post hip surgery: Patient doing well postop. Recommend continuing DVT prophylaxis and pulmonary toilet. History of syncope and collapse: Exact etiology not clear but could atrial fibrillation with rapid ventricular response, postural hypotension, vasovagal etc. So far cardiac monitoring did not reveal significant arrhythmias. Diabetes: Currently under expectant management by hospitalist. Hypertension currently stable Dyslipidemia: Continue statin therapy and other antilipid therapy. Patient to have physical therapy. - Time Time with patient: 15-25 minutes Medications reviewed and adjusted accordingly: Yes
[2017-10-04] MEDS: APIXABAN 5 MG TABLET PO SCH (18:27)
[2017-10-04] MEDS: MAGNESIUM HYDROXIDE SUSP 30 ML UDCUP PO PRN (18:27)
[2017-10-04] MEDS: MAGNESIUM OXIDE 400 MG TABLET PO SCH (23:54)
[2017-10-04] MEDS: ATORVASTATIN CALCIUM 40 MG TABLET PO SCH (23:54)
[2017-10-04] MEDS: INSULIN GLARGINE,HUM.REC.ANLOG 300 UNIT/3 ML INSULN.PEN SUBCUT SCH (23:55)
[2017-10-04] MEDS: INSULIN LISPRO 100 UNIT/ML 3 ML VIAL SUBCUT PRN (23:55)
[2017-10-05] MEDS: LEVOTHYROXINE SODIUM 0.112 MG TABLET PO SCH (06:31)
[2017-10-05] MEDS: LANSOPRAZOLE 30 MG TAB.RAP.DR PO SCH (06:31)
--- NOTE | 2017-10-05 06:52 | PDOC PROGRESS REPORT ---
Subjective Progress Note for:: 10/05/17 Subjective:: Patient more comfortable this morning Physical Exam Vital Signs: Temp Pulse Resp BP Pulse Ox 36.8 C 76 20 130/51 H 97 10/05/17 05:31 10/05/17 05:31 10/05/17 05:31 10/05/17 05:31 10/05/17 05:31 Intake & Output 10/03/17 10/04/17 10/05/17 06:59 06:59 06:59 Intake Total 6250 1073 480 Output Total 1630 0 300 Balance 4620 1073 180 Weight 88.5 kg 88.5 kg General appearance: PRESENT: mild distress Head exam: PRESENT: normocephalic Respiratory exam: PRESENT: unlabored Cardiovascular exam: PRESENT: RRR Pulses: PRESENT: +1 pedal pulses bilateral Vascular exam: PRESENT: normal capillary refill GI/Abdominal exam: PRESENT: soft Rectal exam: PRESENT: deferred Extremities exam: PRESENT: other - Left lower extremity dressings clean dry and intact. Small amount of pedal edema. Distal neurovascular examination is intact. Leg lengths are equal. Neurological exam: PRESENT: alert, awake, oriented to person, oriented to place , oriented to time, oriented to situation. ABSENT: motor sensory deficit Psychiatric exam: PRESENT: appropriate affect, normal mood. ABSENT: homicidal ideation, suicidal ideation Skin exam: PRESENT: dry, intact, warm. ABSENT: cyanosis, rash Results Laboratory Results: 09/30/17 17:50 Creatine Kinase 45 Impressions: Lower Extremity CT 09/30/17 07:37 IMPRESSION: Intertrochanteric fracture left femoral neck. Fluoroscopy 10/02/17 00:00 IMPRESSION: Intra procedural imaging and fluoro Hip X-Ray 10/02/17 00:00 IMPRESSION: Intra procedural imaging and fluoro Status: Imported from PACS Assessment & Plan - Diagnosis (1) Intertrochanteric fracture of left hip Qualifiers: Encounter type: subsequent encounter Fracture type: closed Fracture alignment: displaced Is this a current diagnosis for this admission?: Yes Plan: 72-year-old white female status post open reduction internal fixation of a left intratrochanteric femur fracture. Physical therapy is proceeding slowly. Anticipate the need for custodial facility placement early next week. - Time Time Spent with patient: 15-24 minutes Anticipated discharge: SNF Within: Other
[2017-10-05 06:53] LABS: ABSOLUTE BASOPHILS # (AUTO) 0.1 10^3/uL (0.0-0.2); ABSOLUTE EOSINOPHILS # (AUTO) 0.3 10^3/uL (0.0-0.6); ABSOLUTE LYMPHOCYTES (AUTO) 1.7 10^3/uL (0.5-4.7); ABSOLUTE MONOCYTES (AUTO) 0.5 10^3/uL (0.1-1.4); BASOPHILS % (AUTO) 0.9 % (0-2); EOSINOPHILS % (AUTO) 3.9 % (0-6); HEMATOCRIT 27.1 % (36.0-47.0); HEMOGLOBIN 9.5 g/dL (12.0-15.5); HGB HCT DIFFERENCE 1.4; LYMPHOCYTES % (AUTO) 21.9 % (13-45); MEAN CORPUSCULAR HEMOGLOBIN 31.9 pg (27.0-33.4); MEAN CORPUSCULAR HGB CONC 35.1 g/dL (32.0-36.0); MEAN CORPUSCULAR VOLUME 91 fl (80-97); RED BLOOD COUNT 2.99 10^6/uL (3.72-5.28); RED CELL DISTRIBUTION WIDTH 13.9 % (11.5-14.0); SEGMENTED NEUTROPHILS % (AUTO) 66.3 % (42-78); WHITE BLOOD COUNT 7.6 10^3/uL (4.0-10.5)
[2017-10-05 07:22] LABS: ALANINE AMINOTRANSFERASE 34 U/L (9-52); ALKALINE PHOSPHATASE 119 U/L (38-126); ANION GAP 10 (5-19); ASPARTATE AMINO TRANSFERASE 30 U/L (14-36); BILIRUBIN,DIRECT 0.4 mg/dL (0.0-0.4); BILIRUBIN,TOTAL 0.6 mg/dL (0.2-1.3); BLOOD UREA NITROGEN 31 mg/dL (7-20); CALCIUM 8.8 mg/dL (8.4-10.2); CARBON DIOXIDE 33 mmol/L (22-30); CHLORIDE 97 mmol/L (98-107); CREATININE RESULT 1.03 mg/dL (0.52-1.25); GLUCOSE 283 mg/dL (75-110); POTASSIUM 4.2 mmol/L (3.6-5.0); SODIUM 139.5 mmol/L (137-145); TOTAL PROTEIN 5.5 g/dL (6.3-8.2)
[2017-10-05] MEDS: POTASSIUM CHLORIDE 10 MEQ TABLET.SA PO SCH (09:35)
[2017-10-05] MEDS: CHOLECALCIFEROL (D3) 1,000 UNIT TABLET PO SCH (09:35)
[2017-10-05] MEDS: ASPIRIN 81 MG TABLET, ENT COATED PO SCH (09:36)
[2017-10-05] MEDS: CYANOCOBALAMIN/FA/PYRIDOXINE TABLET PO SCH (09:36)
[2017-10-05] MEDS: DIGOXIN 0.125 MG TABLET PO SCH (09:37)
[2017-10-05] MEDS: INSULIN LISPRO 100 UNIT/ML 3 ML VIAL SUBCUT SCH ×3 (09:37→17:11)
[2017-10-05] MEDS: FUROSEMIDE 80 MG TABLET PO SCH (09:37)
[2017-10-05] MEDS: APIXABAN 5 MG TABLET PO SCH ×2 (09:42→17:11)
[2017-10-05] MEDS: HYDROCODONE/ACETAMINOPHEN 5-325 MG TABLET PO PRN ×2 (09:43→22:12)
[2017-10-05] MEDS: LEVETIRACETAM ORAL SOLN 500 MG/5 ML UDCUP PO SCH ×2 (09:44→22:12)
[2017-10-05] MEDS: DOCUSATE SODIUM 100 MG CAPSULE PO SCH ×2 (09:51→17:11)
[2017-10-05] MEDS: METOPROLOL SUCCINATE 50 MG TAB.SR.24H PO SCH ×2 (10:58→22:12)
--- NOTE | 2017-10-05 12:13 | PROGRESS NOTE E ---
Progress Note NAME: LAINA MONTENEGRO : 1945 AGE: 72Y DATE: 10/05/2017 ROOM: 427 SUBJECTIVE: The patient is a pleasant 72-year-old female who has a fracture of the left femur. Underwent internal fixation. Doing better today. Waiting for placement. OBJECTIVE: GENERAL: The patient is lying in bed, comfortable. Not in distress. VITALS SIGNS: Temperature 99.3, heart rate 74, blood pressure is 128/58, respiratory 18, saturation 98%. HEENT: Head normocephalic, atraumatic. Pupils round and reactive to light and accommodation bilaterally. Extraocular movements intact. Ears: Tympanic membranes intact bilaterally. No discharge from the ears. No discharge from the nose. NECK: Supple. No increased JVD. No thyromegaly. No lymphadenopathy. CARDIOVASCULAR: Normal S1, S2. Regular rate and rhythm. No murmur. No gallop. RESPIRATORY: Lungs are clear. ABDOMEN: Soft and nontender. MUSCULOSKELETAL: No edema. NEUROLOGIC: Awake, alert. SKIN: No rash. LABORATORY: White blood count 7.6, hemoglobin 9.5, hematocrit 27. Sodium 139, potassium 4.2, creatinine 1.0. ASSESSMENT: 1. FRACTURE OF THE LEFT HIP, STATUS POST INTERNAL FIXATION. 2. SYNCOPE, COLLAPSE. 3. ATRIAL FIBRILLATION. 4. DIABETES TYPE 2. 5. HYPERLIPIDEMIA. 6. HYPERTENSION. PLAN: The patient is waiting for jail facility placement. TIME SPENT: Twenty minutes. DICTATING PHYSICIAN: ALIRIO MANRIQUE M.D. [id number] Y#: [id number] ID: [id number] JOB#: [id number] ACCT: [id number] cc: >
[2017-10-05] MEDS: INSULIN LISPRO 100 UNIT/ML 3 ML VIAL SUBCUT PRN ×3 (12:18→22:12)
--- NOTE | 2017-10-05 16:16 | PDOC PROGRESS REPORT ---
Subjective Progress Note for:: 10/05/17 Subjective:: Patient is status post hip surgery day 3. Pt is denying any chest arm or neck discomfort. Patient denying any PND, orthopnea. Patient denied any sustained palpitations, dizziness, syncope, near syncope. Patient denying any fever chills. Patient denying any other significant discomfort. Patient does describe significant discomfort in the left hip area. Atrial flutter fibrillation. Patient on chronic anticoagulation. She was restarted on it. Review of systems: Rest review of systems negative. Medications: Medications have been reviewed. Physical Exam Vital Signs: Temp Pulse Resp BP Pulse Ox 98.4 F 72 20 115/53 L 99 10/05/17 12:00 10/05/17 14:00 10/05/17 12:00 10/05/17 12:00 10/05/17 12:00 Intake & Output 10/04/17 10/05/17 10/06/17 06:59 06:59 06:59 Intake Total 1073 860 Output Total 0 1050 Balance 1073 -190 Weight 88.5 kg Exam: GENERAL: well-nourished and in no acute distress. Alert and oriented x3 HEAD: Atraumatic, normocephalic. EYES: Pupils equal round and reactive to light, extraocular movements intact, sclera anicteric, conjunctiva are normal. ENT: TMs normal, nares patent, oropharynx clear without exudates. Moist mucous membranes. No oral ulcerations or bleeding gums noted NECK: supple without lymphadenopathy. Trachea is central. No cervical or axillary lymphadenopathy noted. Carotids are 2+, JVD WNL LUNGS: Respiration seems nonlabored, no significant accessory muscle action noted. Breath sounds clear to auscultation bilaterally and equal noted. No wheezes rales or rhonchi noted. No significant dullness noted on percussion. CHEST: Palpation of the chest wall shows no significant chest wall tenderness. No other significant abnormalities noted. 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 ABDOMEN: Soft, no significant tenderness appreciated, normoactive bowel sounds. No guarding, no rebound. No rigidity noted . No masses appreciated. EXTREMITIES: Pedal pulses are 1-2+, no calf tenderness noted. No clubbing or cyanosis.trace to 1+ pedal edema noted NEUROLOGICAL: Focused neurological exam showed no significant neurologic deficit. Normal speech, no focal weakness appreciated. PSYCH: Normal mood, normal affect. Judgment and insight within normal limits. SKIN: No significant ecchymosis, rash, ulcerations or signs of pruritus noted. MUSCULOSKELETAL EXAM: No significant joint swelling noted. Status post left hip surgery changes. Results Laboratory Results: 10/05/17 06:07 10/05/17 06:07 10/05/17 10/05/17 10/05/17 06:07 06:07 06:07 WBC 7.6 RBC 2.99 L Hgb 9.5 L Hct 27.1 L MCV 91 MCH 31.9 MCHC 35.1 RDW 13.9 Plt Count 157 Seg Neutrophils % 66.3 Lymphocytes % 21.9 Monocytes % 7.0 Eosinophils % 3.9 Basophils % 0.9 Absolute Neutrophils 5.0 Absolute Lymphocytes 1.7 Absolute Monocytes 0.5 Absolute Eosinophils 0.3 Absolute Basophils 0.1 Sodium 139.5 Potassium 4.2 Chloride 97 L Carbon Dioxide 33 H Anion Gap 10 BUN 31 H Creatinine 1.03 Est GFR ( Amer) > 60 Est GFR (Non-Af Amer) 53 L Glucose 283 H Calcium 8.8 Magnesium 2.3 Total Bilirubin 0.6 AST 30 ALT 34 Alkaline Phosphatase 119 Total Protein 5.5 L Albumin 3.0 L 09/30/17 17:50 Creatine Kinase 45 Impressions: Lower Extremity CT 09/30/17 07:37 IMPRESSION: Intertrochanteric fracture left femoral neck. Fluoroscopy 10/02/17 00:00 IMPRESSION: Intra procedural imaging and fluoro Hip X-Ray 10/02/17 00:00 IMPRESSION: Intra procedural imaging and fluoro Assessment & Plan - Diagnosis (1) Intertrochanteric fracture of left hip Qualifiers: Encounter type: subsequent encounter Fracture type: closed Fracture alignment: displaced Is this a current diagnosis for this admission?: Yes (2) Syncope and collapse Is this a current diagnosis for this admission?: Yes (3) Atrial fibrillation Qualifiers: Atrial fibrillation type: chronic Qualified Code(s): I48.2 - Chronic atrial fibrillation Is this a current diagnosis for this admission?: Yes (4) DM type 2 (diabetes mellitus, type 2) Qualifiers: Diabetes mellitus complication status: without complication Diabetes mellitus senior living insulin use: with senior living use Qualified Code(s): E11.9 - Type 2 diabetes mellitus without complications; Z79.4 - director long term care (current) use of insulin; Z79.4 - jail (current) use of insulin; Z79.4 - director long term care ( current) use of insulin; Z79.4 - director long term care (current) use of insulin Is this a current diagnosis for this admission?: Yes (5) HLD (hyperlipidemia) Qualifiers: Hyperlipidemia type: unspecified Qualified Code(s): E78.5 - Hyperlipidemia , unspecified Is this a current diagnosis for this admission?: Yes (6) Hypertension Qualifiers: Hypertension type: essential hypertension Qualified Code(s): I10 - Essential (primary) hypertension Is this a current diagnosis for this admission?: Yes - Notes Notes: Patient has remained stable from cardiac standpoint. Patient is tolerating chronic anticoagulation. She has a stable heart rhythm which is chronic atrial fibrillation. Patient is noted to have intermittent paced ventricular beats. At this point will sign off. Please reconsult if needed. Patient can follow- up with me as an outpatient. - Time Time with patient: 15-25 minutes - More than 50% of the time spent coordinating care, discussing management plans with involved caregivers. Management plans discussed with involved personnels. Medical decision making was of moderate to high complexity, patient's has multiple comorbidities. Medications reviewed and adjusted accordingly: Yes
[2017-10-05] MEDS: ATORVASTATIN CALCIUM 40 MG TABLET PO SCH (22:12)
[2017-10-05] MEDS: INSULIN GLARGINE,HUM.REC.ANLOG 300 UNIT/3 ML INSULN.PEN SUBCUT SCH (22:12)
[2017-10-05] MEDS: MAGNESIUM OXIDE 400 MG TABLET PO SCH (22:12)
[2017-10-06] MEDS: LANSOPRAZOLE 30 MG TAB.RAP.DR PO SCH (06:10)
[2017-10-06] MEDS: LEVOTHYROXINE SODIUM 0.112 MG TABLET PO SCH (06:10)
[2017-10-06] MEDS: INSULIN LISPRO 100 UNIT/ML 3 ML VIAL SUBCUT SCH ×3 (08:29→17:04)
[2017-10-06] MEDS: INSULIN LISPRO 100 UNIT/ML 3 ML VIAL SUBCUT PRN ×3 (08:29→22:01)
[2017-10-06] MEDS: OXYCODONE HCL IR 5 MG TABLET PO PRN ×2 (08:29→15:30)
[2017-10-06] MEDS: MAGNESIUM HYDROXIDE SUSP 30 ML UDCUP PO PRN (10:12)
[2017-10-06] MEDS: CHOLECALCIFEROL (D3) 1,000 UNIT TABLET PO SCH (10:13)
[2017-10-06] MEDS: LEVETIRACETAM ORAL SOLN 500 MG/5 ML UDCUP PO SCH ×2 (10:13→22:02)
[2017-10-06] MEDS: ASPIRIN 81 MG TABLET, ENT COATED PO SCH (10:14)
[2017-10-06] MEDS: CYANOCOBALAMIN/FA/PYRIDOXINE TABLET PO SCH (10:14)
[2017-10-06] MEDS: DOCUSATE SODIUM 100 MG CAPSULE PO SCH ×2 (10:14→17:04)
[2017-10-06] MEDS: POTASSIUM CHLORIDE 10 MEQ TABLET.SA PO SCH (10:14)
[2017-10-06] MEDS: DIGOXIN 0.125 MG TABLET PO SCH (10:15)
[2017-10-06] MEDS: APIXABAN 5 MG TABLET PO SCH ×2 (10:16→17:04)
[2017-10-06] MEDS: METOPROLOL SUCCINATE 50 MG TAB.SR.24H PO SCH ×2 (10:16→22:01)
[2017-10-06] MEDS: FUROSEMIDE 80 MG TABLET PO SCH (10:16)
[2017-10-06] MEDS ORDERED: BISACODYL 5 MG TABEC PO ONE (11:00)
--- NOTE | 2017-10-06 13:14 | PDOC PROGRESS REPORT ---
Subjective Progress Note for:: 10/06/17 Subjective:: f/u: left hip repair; afib; constipation; DM she isn't doing as well today with intermittent confusion, very emotionally labile and feels "mistreated". she is largely uncooperative with my exam, stating "You wouldn't understand and don't care anyway, I'm not going to keep repeating myself to people who won't listen and don't care". exam is very limited as aresult. ROS: unobtainable due to her level of cooperation Physical Exam Vital Signs: Temp Pulse Resp BP Pulse Ox 98.2 F 69 17 95/40 L 93 10/06/17 11:55 10/06/17 11:55 10/06/17 11:55 10/06/17 11:55 10/06/17 11:55 Intake & Output 10/05/17 10/06/17 10/07/17 06:59 06:59 06:59 Intake Total 860 1537 Output Total 1050 1250 Balance -190 287 General appearance: PRESENT: mild distress - emotional as noted above, obese Eye exam: ABSENT: conjunctival injection, scleral icterus Mouth exam: PRESENT: dry mucosa Neck exam: PRESENT: full ROM Respiratory exam: PRESENT: crackles - bases. ABSENT: accessory muscle use Cardiovascular exam: PRESENT: irregular rhythm. ABSENT: tachycardia GI/Abdominal exam: PRESENT: hypoactive bowel sounds, soft. ABSENT: tenderness Extremities exam: PRESENT: pedal edema - left leg Musculoskeletal exam: PRESENT: tenderness - in and around the area of surgery but the wounds are c/d/i without erythema Neurological exam: PRESENT: alert, awake, oriented to person Psychiatric exam: PRESENT: agitated, anxious, depressed Skin exam: PRESENT: pallor, warm Results Laboratory Results: 10/05/17 06:07 10/05/17 06:07 09/30/17 17:50 Creatine Kinase 45 Impressions: Lower Extremity CT 09/30/17 07:37 IMPRESSION: Intertrochanteric fracture left femoral neck. Fluoroscopy 10/02/17 00:00 IMPRESSION: Intra procedural imaging and fluoro Hip X-Ray 10/02/17 00:00 IMPRESSION: Intra procedural imaging and fluoro Assessment & Plan - Diagnosis (1) Constipation Qualifiers: Constipation type: unspecified constipation type Qualified Code(s): K59.00 - Constipation, unspecified Is this a current diagnosis for this admission?: Yes Plan: nurses report no BM for 6d and I think this is contributing to her confusion, low grade temp and overall decline. she feels impacted by her own account, will need a more aggressive bowel regimen and stool softener. pain meds only as needed for post op and PT pain. (2) Intertrochanteric fracture of left hip Qualifiers: Encounter type: subsequent encounter Fracture type: closed Fracture alignment: displaced Is this a current diagnosis for this admission?: Yes Plan: per ortho (3) Syncope and collapse Is this a current diagnosis for this admission?: Yes Plan: thought secondary to her afib, no clear etiology found; no recurrence (4) Atrial fibrillation Qualifiers: Atrial fibrillation type: chronic Qualified Code(s): I48.2 - Chronic atrial fibrillation Is this a current diagnosis for this admission?: Yes Plan: rate controlled; continue eliquis (5) DM type 2 (diabetes mellitus, type 2) Qualifiers: Diabetes mellitus complication status: without complication Diabetes mellitus warehouse operations manager insulin use: with long-term use Qualified Code(s): E11.9 - Type 2 diabetes mellitus without complications; Z79.4 - [facility] (current) use of insulin; Z79.4 - porcelain mixer (current) use of insulin; Z79.4 - [facility] ( current) use of insulin; Z79.4 - porcelain mixer (current) use of insulin Is this a current diagnosis for this admission?: Yes (6) Hypertension Qualifiers: Hypertension type: essential hypertension Qualified Code(s): I10 - Essential (primary) hypertension Is this a current diagnosis for this admission?: Yes Plan: BP a little soft now, will place holding parameters on toprol, d/c lasix and continue LR ordered by ortho until o700 tomorrow and re-evaluate. - Time Time Spent with patient: 35 or more minutes Medications reviewed and adjusted accordingly: Yes - Plan Summary Plan Summary: will need rehab placement
[2017-10-06] MEDS: HYDROCODONE/ACETAMINOPHEN 5-325 MG TABLET PO PRN (19:57)
[2017-10-06] MEDS: ATORVASTATIN CALCIUM 40 MG TABLET PO SCH (22:01)
[2017-10-06] MEDS: MAGNESIUM OXIDE 400 MG TABLET PO SCH (22:01)
[2017-10-06] MEDS: INSULIN GLARGINE,HUM.REC.ANLOG 300 UNIT/3 ML INSULN.PEN SUBCUT SCH (22:02)
[2017-10-07] MEDS ORDERED: LORAZEPAM INJ 2 MG/1 ML VIAL IV ONE (04:15)
[2017-10-07] MEDS ORDERED: LORAZEPAM INJ 2 MG/1 ML VIAL ONE (04:33)
[2017-10-07] MEDS: LANSOPRAZOLE 30 MG TAB.RAP.DR PO SCH (05:49)
[2017-10-07] MEDS: LEVOTHYROXINE SODIUM 0.112 MG TABLET PO SCH (05:49)
[2017-10-07 05:55] LABS: ABSOLUTE BASOPHILS # (AUTO) 0.1 10^3/uL (0.0-0.2); ABSOLUTE EOSINOPHILS # (AUTO) 0.4 10^3/uL (0.0-0.6); ABSOLUTE LYMPHOCYTES (AUTO) 2.3 10^3/uL (0.5-4.7); ABSOLUTE MONOCYTES (AUTO) 0.6 10^3/uL (0.1-1.4); ABSOLUTE NEUT (AUTO) 6.3 10^3/uL (1.7-8.2); BASOPHILS % (AUTO) 0.7 % (0-2); EOSINOPHILS % (AUTO) 3.7 % (0-6); HEMATOCRIT 30.2 % (36.0-47.0); HEMOGLOBIN 10.6 g/dL (12.0-15.5); HGB HCT DIFFERENCE 1.6; LYMPHOCYTES % (AUTO) 23.7 % (13-45); MEAN CORPUSCULAR HEMOGLOBIN 31.6 pg (27.0-33.4); MEAN CORPUSCULAR HGB CONC 35.2 g/dL (32.0-36.0); MEAN CORPUSCULAR VOLUME 90 fl (80-97); RED BLOOD COUNT 3.36 10^6/uL (3.72-5.28); RED CELL DISTRIBUTION WIDTH 13.7 % (11.5-14.0); SEGMENTED NEUTROPHILS % (AUTO) 65.9 % (42-78); WHITE BLOOD COUNT 9.6 10^3/uL (4.0-10.5)
[2017-10-07 06:17] LABS: ALANINE AMINOTRANSFERASE 35 U/L (9-52); ALBUMIN 3.3 g/dL (3.5-5.0); ALKALINE PHOSPHATASE 130 U/L (38-126); ANION GAP 12 (5-19); ASPARTATE AMINO TRANSFERASE 33 U/L (14-36); BILIRUBIN,DIRECT 0.5 mg/dL (0.0-0.4); BILIRUBIN,TOTAL 0.8 mg/dL (0.2-1.3); BLOOD UREA NITROGEN 36 mg/dL (7-20); CALCIUM 9.2 mg/dL (8.4-10.2); CARBON DIOXIDE 34 mmol/L (22-30); CHLORIDE 92 mmol/L (98-107); CREATININE RESULT 1.08 mg/dL (0.52-1.25); GLUCOSE 223 mg/dL (75-110); MAGNESIUM 2.3 mg/dL (1.6-2.3); POTASSIUM 4.3 mmol/L (3.6-5.0); SODIUM 138.3 mmol/L (137-145); TOTAL PROTEIN 6.2 g/dL (6.3-8.2)
[2017-10-07] MEDS: INSULIN LISPRO 100 UNIT/ML 3 ML VIAL SUBCUT SCH ×3 (10:31→18:34)
--- NOTE | 2017-10-07 11:37 | PDOC PROGRESS REPORT ---
Subjective Progress Note for:: 10/07/17 Subjective:: f/u: left hip repair; afib; constipation; DM Continues with intermittent confusion, as emotionally labile today but became agitated overnight and required a dose of Ativan that seemed to reverse both her delirium and agitation. She has no complaints to me this morning but remains lethargic from the Ativan rendering review of systems and participation limited. ROS: unobtainable due to her level of cooperation Physical Exam Vital Signs: Temp Pulse Resp BP Pulse Ox 97.4 F 75 18 122/79 100 10/07/17 08:01 10/07/17 08:01 10/07/17 08:01 10/07/17 08:01 10/07/17 08:01 Intake & Output 10/06/17 10/07/17 10/08/17 06:59 06:59 06:59 Intake Total 1537 1723 Output Total 1250 2400 Balance 287 -677 General appearance: No distress, resting comfortably and will awaken briefly, obese Eye exam: ABSENT: conjunctival injection, scleral icterus Mouth exam: PRESENT: dry mucosa Neck exam: PRESENT: full ROM Respiratory exam: PRESENT: crackles - bases. ABSENT: accessory muscle use Cardiovascular exam: PRESENT: irregular rhythm. No tachycardia GI/Abdominal exam: PRESENT: hypoactive bowel sounds, soft. No tenderness; large BM yesterday after manual disimpaction Extremities exam: PRESENT: pedal edema - left leg Musculoskeletal exam: PRESENT: tenderness - in and around the area of surgery but the wounds are c/d/i without erythema Neurological exam: PRESENT: Sleepy, oriented to person only Skin exam: PRESENT: pallor, warm Results Laboratory Results: 10/07/17 05:24 10/07/17 05:24 10/07/17 10/07/17 05:24 05:24 WBC 9.6 RBC 3.36 L Hgb 10.6 L Hct 30.2 L MCV 90 MCH 31.6 MCHC 35.2 RDW 13.7 Plt Count 238 Seg Neutrophils % 65.9 Lymphocytes % 23.7 Monocytes % 6.0 Eosinophils % 3.7 Basophils % 0.7 Absolute Neutrophils 6.3 Absolute Lymphocytes 2.3 Absolute Monocytes 0.6 Absolute Eosinophils 0.4 Absolute Basophils 0.1 Sodium 138.3 Potassium 4.3 Chloride 92 L Carbon Dioxide 34 H Anion Gap 12 BUN 36 H Creatinine 1.08 Est GFR ( Amer) > 60 Est GFR (Non-Af Amer) 50 L Glucose 223 H Calcium 9.2 Magnesium 2.3 Total Bilirubin 0.8 AST 33 ALT 35 Alkaline Phosphatase 130 H Total Protein 6.2 L Albumin 3.3 L 09/30/17 17:50 Creatine Kinase 45 Assessment & Plan - Diagnosis (1) Constipation Qualifiers: Constipation type: unspecified constipation type Qualified Code(s): K59.00 - Constipation, unspecified Is this a current diagnosis for this admission?: Yes Plan: Single BM after manual disimpaction yesterday. Continue bowel regimen. Pain meds only as needed for post op and PT pain. (2) Acute metabolic encephalopathy Is this a current diagnosis for this admission?: Yes Plan: Likely multifactorial related to the obstipation, continued narcotic use for pain related to her hip fracture and prolonged immobilization. Agree with intermittent Ativan. For condition fails to improve consider CT of the head and /or ABG if alkalosis worsens. (3) Intertrochanteric fracture of left hip Qualifiers: Encounter type: subsequent encounter Fracture type: closed Fracture alignment: displaced Is this a current diagnosis for this admission?: Yes (4) Syncope and collapse Is this a current diagnosis for this admission?: Yes (5) Atrial fibrillation Qualifiers: Atrial fibrillation type: chronic Qualified Code(s): I48.2 - Chronic atrial fibrillation Is this a current diagnosis for this admission?: Yes Plan: rate controlled; continue eliquis (6) DM type 2 (diabetes mellitus, type 2) Qualifiers: Diabetes mellitus complication status: without complication Diabetes mellitus assistant terminal manager insulin use: with assistant terminal manager use Qualified Code(s): E11.9 - Type 2 diabetes mellitus without complications; Z79.4 - skilled nursing (current) use of insulin; Z79.4 - termite control service representative (current) use of insulin; Z79.4 - termite control service representative ( current) use of insulin; Z79.4 - termite control service representative (current) use of insulin Is this a current diagnosis for this admission?: Yes (7) Hypertension Qualifiers: Hypertension type: essential hypertension Qualified Code(s): I10 - Essential (primary) hypertension Is this a current diagnosis for this admission?: Yes - Time Time Spent with patient: 25-34 minutes Medications reviewed and adjusted accordingly: Yes
--- NOTE | 2017-10-07 12:51 | RADIOLOGY REPORT (SQ) ---
EXAM DESCRIPTION: CT HEAD WITHOUT COMPLETED DATE/TIME: 10/07/2017 12:40 pm REASON FOR STUDY: acute neurologic change COMPARISON: 09/11/2017 TECHNIQUE: Axial images acquired through the brain without intravenous contrast. Images reviewed wi th bone, brain and subdural windows. Images stored on PACS. All CT scanners at this facility use dose modulation, iterative reconstruction, and/or weight based d osing when appropriate to reduce radiation dose to as low as reasonably achievable (ALARA). [facility]: Dose Right [facility]: CareDose [facility]: Dose Right [facility]: Teradose 4D [facility]: Smart GoldenSUN RADIATION DOSE: CT Rad equipment meets quality standard of care and radiation dose reduction techniq ues were employed. CTDIvol: 48.4 mGy. DLP: 1762 mGy-cm. mGy. LIMITATIONS: None. FINDINGS: VENTRICLES: Prominent ventricles secondary to involutional atrophy. CEREBRUM: No masses. No hemorrhage. No midline shift. No evidence for acute infarction. Few scatte red areas of low density in the white matter most likely chronic small vessel ischemic changes. Mild cortical atrophy. CEREBELLUM: No masses. No hemorrhage. No alteration of density. No evidence for acute infarction. EXTRAAXIAL SPACES: No fluid collections. No masses. ORBITS AND GLOBE: No intra- or extraconal masses. Normal contour of globe without masses. CALVARIUM: No fracture. PARANASAL SINUSES: No fluid or mucosal thickening. SOFT TISSUES: No mass or hematoma. OTHER: No other significant finding. IMPRESSION: MILD CHRONIC MICROVASCULAR ISCHEMIA. NO ACUTE IMAGING FINDINGS IN THE BRAIN. EVIDENCE OF ACUTE STROKE: NO. COMMENT: Quality ID # [id number]: Final reports with documentation of one or more dose reduction techniques (e.g., Automated exposure control, adjustment of the mA and/or kV according to patient size, use of iterative reconstruction technique) TECHNICAL DOCUMENTATION: JOB ID: [id number] [employer]- All Rights Reserved
[2017-10-07] MEDS: APIXABAN 5 MG TABLET PO SCH ×2 (16:01→18:37)
[2017-10-07] MEDS: LEVETIRACETAM ORAL SOLN 500 MG/5 ML UDCUP PO SCH ×2 (16:01→21:18)
[2017-10-07] MEDS: METOPROLOL SUCCINATE 50 MG TAB.SR.24H PO SCH ×2 (16:03→21:18)
[2017-10-07] MEDS: ASPIRIN 81 MG TABLET, ENT COATED PO SCH (16:06)
[2017-10-07] MEDS: POTASSIUM CHLORIDE 10 MEQ TABLET.SA PO SCH (16:06)
[2017-10-07] MEDS: DOCUSATE SODIUM 100 MG CAPSULE PO SCH ×2 (16:06→18:35)
[2017-10-07] MEDS: CHOLECALCIFEROL (D3) 1,000 UNIT TABLET PO SCH (16:06)
[2017-10-07] MEDS: DIGOXIN 0.125 MG TABLET PO SCH (16:07)
[2017-10-07] MEDS: CYANOCOBALAMIN/FA/PYRIDOXINE TABLET PO SCH (16:07)
[2017-10-07] MEDS: INSULIN LISPRO 100 UNIT/ML 3 ML VIAL SUBCUT PRN (18:35)
[2017-10-07] MEDS: INSULIN GLARGINE,HUM.REC.ANLOG 300 UNIT/3 ML INSULN.PEN SUBCUT SCH (21:18)
[2017-10-07] MEDS: MAGNESIUM OXIDE 400 MG TABLET PO SCH (21:18)
[2017-10-07] MEDS: ATORVASTATIN CALCIUM 40 MG TABLET PO SCH (21:18)
[2017-10-07] MEDS: HYDROCODONE/ACETAMINOPHEN 5-325 MG TABLET PO PRN (23:13)
[2017-10-08] MEDS: OXYCODONE HCL IR 5 MG TABLET PO PRN (01:20)
[2017-10-08] MEDS: LEVOTHYROXINE SODIUM 0.112 MG TABLET PO SCH (06:28)
[2017-10-08] MEDS: LANSOPRAZOLE 30 MG TAB.RAP.DR PO SCH (06:28)
[2017-10-08 06:43] LABS: ABSOLUTE BASOPHILS # (AUTO) 0.1 10^3/uL (0.0-0.2); ABSOLUTE EOSINOPHILS # (AUTO) 0.3 10^3/uL (0.0-0.6); ABSOLUTE LYMPHOCYTES (AUTO) 2.4 10^3/uL (0.5-4.7); ABSOLUTE MONOCYTES (AUTO) 0.5 10^3/uL (0.1-1.4); BASOPHILS % (AUTO) 1.1 % (0-2); HEMATOCRIT 28.7 % (36.0-47.0); HEMOGLOBIN 9.8 g/dL (12.0-15.5); HGB HCT DIFFERENCE 0.7; LYMPHOCYTES % (AUTO) 33.4 % (13-45); MEAN CORPUSCULAR HEMOGLOBIN 30.9 pg (27.0-33.4); MEAN CORPUSCULAR HGB CONC 34.2 g/dL (32.0-36.0); MEAN CORPUSCULAR VOLUME 90 fl (80-97); MONOCYTES % (AUTO) 7.1 % (3-13); RED BLOOD COUNT 3.18 10^6/uL (3.72-5.28); RED CELL DISTRIBUTION WIDTH 13.5 % (11.5-14.0); SEGMENTED NEUTROPHILS % (AUTO) 54.4 % (42-78); WHITE BLOOD COUNT 7.3 10^3/uL (4.0-10.5)
--- NOTE | 2017-10-08 06:49 | PDOC PROGRESS REPORT ---
Subjective Progress Note for:: 10/08/17 Subjective:: Patient with somewhat cleared mental status today Reason For Visit: SYNCOPE,HIP FX Physical Exam Vital Signs: Temp Pulse Resp BP Pulse Ox 36.3 C 72 19 127/40 H 91 L 10/08/17 04:20 10/08/17 04:20 10/08/17 04:20 10/08/17 04:20 10/08/17 04:20 Intake & Output 10/06/17 10/07/17 10/08/17 06:59 06:59 06:59 Intake Total 1537 1723 370 Output Total 1250 2400 930 Balance 951 -846 -655 General appearance: PRESENT: no acute distress Head exam: PRESENT: normocephalic Respiratory exam: PRESENT: unlabored Cardiovascular exam: PRESENT: RRR Pulses: PRESENT: +1 pedal pulses bilateral Vascular exam: PRESENT: normal capillary refill GI/Abdominal exam: PRESENT: soft Rectal exam: PRESENT: deferred Extremities exam: PRESENT: other - Left lower extremity dressings clean dry and intact. Leg lengths are equal. Distal neurovascular examination is intact. Neurological exam: PRESENT: alert, awake, oriented to person, oriented to place , oriented to situation. ABSENT: motor sensory deficit Psychiatric exam: PRESENT: appropriate affect, normal mood. ABSENT: homicidal ideation, suicidal ideation Skin exam: PRESENT: dry, intact, warm. ABSENT: cyanosis, rash Results Laboratory Results: 10/08/17 06:32 10/08/17 06:32 WBC 7.3 RBC 3.18 L Hgb 9.8 L Hct 28.7 L MCV 90 MCH 30.9 MCHC 34.2 RDW 13.5 Plt Count 212 Seg Neutrophils % 54.4 Lymphocytes % 33.4 Monocytes % 7.1 Eosinophils % 4.0 Basophils % 1.1 Absolute Neutrophils 4.0 Absolute Lymphocytes 2.4 Absolute Monocytes 0.5 Absolute Eosinophils 0.3 Absolute Basophils 0.1 09/30/17 17:50 Creatine Kinase 45 Impressions: Lower Extremity CT 09/30/17 07:37 IMPRESSION: Intertrochanteric fracture left femoral neck. Fluoroscopy 10/02/17 00:00 IMPRESSION: Intra procedural imaging and fluoro Hip X-Ray 10/02/17 00:00 IMPRESSION: Intra procedural imaging and fluoro Head CT 10/07/17 00:00 IMPRESSION: MILD CHRONIC MICROVASCULAR ISCHEMIA. NO ACUTE IMAGING FINDINGS IN THE BRAIN. EVIDENCE OF ACUTE STROKE: NO. Status: Imported from PACS Assessment & Plan - Diagnosis (1) Intertrochanteric fracture of left hip Qualifiers: Encounter type: subsequent encounter Fracture type: closed Fracture alignment: displaced Is this a current diagnosis for this admission?: Yes Plan: Limited progress with physical therapy yesterday secondary mental status changes. Mental status changes seem to have normalized the patient will continue on with postoperative rehabilitation today. nursing home facility placement pending.
[2017-10-08 07:08] LABS: ANION GAP 8 (5-19); BLOOD UREA NITROGEN 31 mg/dL (7-20); CALCIUM 9.1 mg/dL (8.4-10.2); CARBON DIOXIDE 34 mmol/L (22-30); CHLORIDE 95 mmol/L (98-107); CREATININE RESULT 0.93 mg/dL (0.52-1.25); GLUCOSE 240 mg/dL (75-110); POTASSIUM 4.5 mmol/L (3.6-5.0); SODIUM 136.6 mmol/L (137-145)
[2017-10-08] MEDS: INSULIN LISPRO 100 UNIT/ML 3 ML VIAL SUBCUT PRN ×3 (08:26→17:39)
[2017-10-08] MEDS: INSULIN LISPRO 100 UNIT/ML 3 ML VIAL SUBCUT SCH ×3 (08:26→17:39)
[2017-10-08] MEDS: ASPIRIN 81 MG TABLET, ENT COATED PO SCH (10:52)
[2017-10-08] MEDS: CYANOCOBALAMIN/FA/PYRIDOXINE TABLET PO SCH (10:52)
[2017-10-08] MEDS: CHOLECALCIFEROL (D3) 1,000 UNIT TABLET PO SCH (10:52)
[2017-10-08] MEDS: POTASSIUM CHLORIDE 10 MEQ TABLET.SA PO SCH (10:52)
[2017-10-08] MEDS: DIGOXIN 0.125 MG TABLET PO SCH (10:53)
[2017-10-08] MEDS: METOPROLOL SUCCINATE 50 MG TAB.SR.24H PO SCH (10:53)
[2017-10-08] MEDS: APIXABAN 5 MG TABLET PO SCH ×2 (10:56→17:41)
[2017-10-08] MEDS: LEVETIRACETAM ORAL SOLN 500 MG/5 ML UDCUP PO SCH (10:56)
--- NOTE | 2017-10-08 14:59 | PDOC TRANSFER SUMMARY ---
General - Admit/Disc Date/PCP Admission Date/Primary Care Provider: 09/30/17 09:49 JOHN HAYES MD Discharge Date: 10/08/17 - Discharge Diagnosis (1) Anxiety Is this a current diagnosis for this admission?: Yes Summary: Patient reports to me today, on the day of discharge, that she has a history of anxiety. She states that she is on BuSpar but I do not see this on her medication list. I did ask our pharmacist/pharmacy intake technician to make sure we had an accurate medication list and as far as we know we do have an accurate list. Patient's family is going to call her therapist to see if that person can come visit her in rehab. I have prescribed low-dose Ativan to be used as needed anxiety for now. (2) Acute metabolic encephalopathy Is this a current diagnosis for this admission?: Yes Summary: Patient has had a multifactorial acute metabolic encephalopathy. I believe there is also a toxic component in that she has not been taking her Remeron or her tizanidine which she takes on a daily basis. She has been somewhat confused but today she is mostly paranoid, not really confused. She tells me that she feels a little bit antsy and she does not think she has been getting her medications. Earlier in the hospitalization I think that her encephalopathy was contributed to by the hospitalization, the acute fracture, acute pain. As well, I think this patient has a little bit of early dementia. All of these things have contributed to this multifactorial acute metabolic and possible toxic encephalopathy. I am restarting her Remeron and her tizanidine for discharge. She will have a little bit of as needed Ativan for anxiety for the discharge to the rehab. She and her family will contact her therapist while she is in rehab. (3) Anemia Is this a current diagnosis for this admission?: Yes Summary: Acute blood loss anemia and also patient has anemia of chronic disease. This is currently stable for discharge. (4) Constipation Is this a current diagnosis for this admission?: Yes Summary: Patient had significant constipation episode during the hospitalization. She had to be disimpacted and that was 2 days ago. She is now on 2 tabs of senna twice daily. She may need a MiraLAX for a few days until she becomes more regular. She does not want to use opiates at this point as her pain is not that severe and so she is not being discharged on opiates so that should not be contributing to constipation any further. (5) Intertrochanteric fracture of left hip Is this a current diagnosis for this admission?: Yes Summary: Patient had a syncopal episode and fell at home. She sustained left hip fracture. She underwent surgical repair. Please see surgical notes for details related to this. Surgeon followed her during the hospitalization. She has been cleared by physical therapy to go to rehab. (6) Syncope and collapse Is this a current diagnosis for this admission?: Yes Summary: Patient had a fall at home which led to the hip fracture. She has not had any further syncope during the hospitalization. No evidence of acute stroke though her CT head did show microvascular disease. Initial etiology of the syncope at home is not clear. (7) Atrial fibrillation Is this a current diagnosis for this admission?: Yes Summary: She has a long-standing history of A. fib. She is anticoagulated with Eliquis. She is also on beta-dona for rate control. For discharge her heart rate and blood pressure are well controlled. (8) DM type 2 (diabetes mellitus, type 2) Is this a current diagnosis for this admission?: Yes Summary: Patient was taking 12 units of short-acting insulin before meals and during this hospitalization she was converted to glargine with correction bolus short acting insulin, she will be discharged on that regimen. These medications may need to be titrated while at the rehab. Diabetic diet is recommended. (9) Depression Summary: Patient states she has a long-standing history of depression. She sees a counselor and she will call her counselor to let her know she is in rehab. She is on mirtazapine for depression and that has been continued for discharge. - Additional Information Resuscitation Status: Full Code Discharge Diet: Diabetic Discharge Activity: Other - Activity will be as directed by physical therapist as patient is status post hip fracture repair Home Medications: Apixaban [Eliquis 5 mg Tablet] 5 mg PO Q12 09/30/17 Atorvastatin Calcium [Lipitor 40 mg Tablet] 40 mg PO QHS 09/30/17 Biotin [Gabe Biotin] 10,000 mcg PO DAILY 09/30/17 [place] 450mg 450 mg PO DAILY 09/30/17 Cholecalciferol (Vitamin D3) [Vitamin D3] 5,000 unit PO DAILY 09/30/17 Cyanocobalamin/Folic AC/Vit B6 [Virt-Tyra Tablet] 1 tab PO DAILY 09/30/17 Digoxin [Lanoxin 0.125 mg Tablet] 0.125 mg PO DAILY 09/30/17 Esomeprazole Magnesium [Nexium] 40 mg PO DAILY 09/30/17 Furosemide [Lasix 40 mg Tablet] 80 mg PO DAILY 09/30/17 Levetiracetam [Keppra] 750 mg PO Q12 09/30/17 Levothyroxine Sodium [Synthroid 0.112 mg Tablet] 0.112 mg PO DAILY 09/30/17 Magnesium Oxide [Mag-Ox 400 mg Tablet] 400 mg PO QPM 09/30/17 Metoprolol Succinate [Toprol Xl 50 mg Tab.sr] 75 mg PO Q12 09/30/17 Pantoprazole Sodium [Protonix] 20 mg PO DAILY 09/30/17 Potassium Chloride [K-Tab ER] 20 meq PO DAILY 09/30/17 Insulin Glargine,Hum.rec.anlog [Lantus Insulin 100 Unit/mL] 18 unit SUBCUT QHS insuln.pen 10/08/17 Insulin Lispro [Humalog Insulin (Lispro) 100 unit/mL] 0 - 12 unit SUBCUT ACHSP PRN unit 10/08/17 Lorazepam [Ativan 0.5 mg Tablet] 0.25 mg PO Q6 PRN #30 tab 10/08/17 Mirtazapine 30 mg PO QHS 10/08/17 Sennosides/Docusate 8.6-50 mg [Senna Plus Tablet] 2 each PO BID tablet Tizanidine HCl 2 mg PO Q8HP PRN 10/08/17 History of Present Illness Admission Date/PCP: 09/30/17 09:49 JOHN HAYES MD History of Present Illness: LAINA MONTENEGRO is a 72 year old female presenting to the emergency department with an intertrochanteric fracture of the left hip as a result of possible syncopal episode and fall. Patient had intramedullary pinning of the left hip. She was seen by cardiology for a preop evaluation. She has tolerated postsurgical care well with the exception of some metabolic encephalopathy which is improving. Physical Exam Vital Signs: Temp Pulse Resp BP Pulse Ox 98.2 F 85 18 138/49 H 98 10/08/17 12:23 10/08/17 12:23 10/08/17 12:23 10/08/17 12:23 10/08/17 12:23 Intake & Output 10/07/17 10/08/17 10/09/17 06:59 06:59 06:59 Intake Total 1723 370 Output Total 2400 930 Balance -677 -560 General appearance: PRESENT: no acute distress, disheveled Head exam: PRESENT: atraumatic, normocephalic Eye exam: PRESENT: conjunctiva pink, EOMI, PERRLA. ABSENT: scleral icterus Ear exam: PRESENT: normal external ear exam Mouth exam: PRESENT: moist, tongue midline Respiratory exam: PRESENT: clear to auscultation torrie. ABSENT: rales, rhonchi, wheezes Cardiovascular exam: PRESENT: irregular rhythm GI/Abdominal exam: PRESENT: normal bowel sounds, soft. ABSENT: distended, guarding, mass, organolmegaly, rebound, tenderness Musculoskeletal exam: PRESENT: other - Left hip status post surgical repair, surgical wound clean dry and intact Neurological exam: PRESENT: alert, oriented to person, oriented to time, oriented to situation Psychiatric exam: PRESENT: anxious Skin exam: PRESENT: dry, warm Results Laboratory Results: 10/08/17 06:32 10/08/17 06:32 10/08/17 10/08/17 06:32 06:32 WBC 7.3 RBC 3.18 L Hgb 9.8 L Hct 28.7 L MCV 90 MCH 30.9 MCHC 34.2 RDW 13.5 Plt Count 212 Seg Neutrophils % 54.4 Lymphocytes % 33.4 Monocytes % 7.1 Eosinophils % 4.0 Basophils % 1.1 Absolute Neutrophils 4.0 Absolute Lymphocytes 2.4 Absolute Monocytes 0.5 Absolute Eosinophils 0.3 Absolute Basophils 0.1 Sodium 136.6 L Potassium 4.5 Chloride 95 L Carbon Dioxide 34 H Anion Gap 8 BUN 31 H Creatinine 0.93 Est GFR ( Amer) > 60 Est GFR (Non-Af Amer) 59 L Glucose 240 H Calcium 9.1 09/30/17 17:50 Creatine Kinase 45 Impressions: Lower Extremity CT 09/30/17 07:37 IMPRESSION: Intertrochanteric fracture left femoral neck. Fluoroscopy 10/02/17 00:00 IMPRESSION: Intra procedural imaging and fluoro Hip X-Ray 10/02/17 00:00 IMPRESSION: Intra procedural imaging and fluoro Head CT 10/07/17 00:00 IMPRESSION: MILD CHRONIC MICROVASCULAR ISCHEMIA. NO ACUTE IMAGING FINDINGS IN THE BRAIN. EVIDENCE OF ACUTE STROKE: NO. Transfer Plan - Disposition Transfer Plan: Patient is being transferred to skilled rehab post left hip fracture repair - Time Spent with Patient Time spent with patient: Greater than 30 Minutes Qualifiers [facility]INT BEING DISCHARGED WITH ANY OF THE FOLLOWING DIAGNOSIS?: No
[2017-10-08 16:56] VITALS: BP 149/53
[2017-10-08] MEDS ORDERED: SENNOSIDES/DOCUSATE 8.6-50 MG 1 EACH TABLET PO SCH (18:00)
[2017-10-08] MEDS: HYDROCODONE/ACETAMINOPHEN 5-325 MG TABLET PO PRN (18:12)
== END 2017-10-08 18:56 | DRG 480 ==
LOC: ER 06:21 → EH 09:49 → 4W 15:11 → 4S 10-02 13:18
PROVIDERS: ADMIT Emergency Medicine; ATTEND Emergency Medicine
PROC: 0QS736Z Reposition Left Upper Femur with Intramedullary Internal Fixation Device, Percutaneous Approach (ICD-10-PCS; principal; 2017-10-02 08:45)
DX: S72.142A Displaced intertrochanteric fracture of left femur, initial encounter for closed fracture (principal); G93.41 Metabolic encephalopathy; W19.XXXA Unspecified fall, initial encounter; Y93.9 Activity, unspecified; Y92.019 Unspecified place in single-family (private) house as the place of occurrence of the external cause; Y99.9 Unspecified external cause status; I48.2 Chronic atrial fibrillation; D64.9 Anemia, unspecified; K59.00 Constipation, unspecified; E11.9 Type 2 diabetes mellitus without complications; G40.909 Epilepsy, unspecified, not intractable, without status epilepticus; E78.5 Hyperlipidemia, unspecified; E03.9 Hypothyroidism, unspecified; K21.9 Gastro-esophageal reflux disease without esophagitis; E66.9 Obesity, unspecified; Z68.38 Body mass index [BMI] 38.0-38.9, adult; F41.9 Anxiety disorder, unspecified; F32.9 Major depressive disorder, single episode, unspecified; Z79.899 Other long term (current) drug therapy; Z79.4 Long term (current) use of insulin; Z79.01 Long term (current) use of anticoagulants; Z95.0 Presence of cardiac pacemaker; Z86.73 Personal history of transient ischemic attack (TIA), and cerebral infarction without residual deficits; Z88.8 Allergy status to other drugs, medicaments and biological substances
CPT/HCPCS: 01210; 36415; 70450; 80048; 80053; 80162; 80177; 81001; 82550; 82962; 83735; 85025; 85027; 93005; 93010; 96374; 99285; G8978-GP; G8979-GP; J0330; J0690; J1170; J1741; J1815; J2060; J2250; J2270; J2405; J2704; J3010; J3490; J7120; S0119

== ENCOUNTER → 2019-02-26 | Outpatient (CLI) | payer MEDICAID, MEDICARE ==
--- NOTE | 2019-02-26 14:44 | RADIOLOGY REPORT (SQ) ---
EXAM DESCRIPTION: CT RT LOWER EXTREMITY WITHOUT COMPLETED DATE/TIME: 02/26/2019 1:13 pm REASON FOR STUDY: S92.811G OTHER FRACTURE OF RIGHT FOOT, 7THG S92.811G OTHER FRACTURE OF RIGHT FOOT , 7THG COMPARISON: None. TECHNIQUE: CT scan of the right foot performed without intravenous or oral contrast. Images reviewe d with soft tissue and bone windows. Reconstructed coronal and sagittal MPR images reviewed. All im ages stored on PACS. All CT scanners at this facility use dose modulation, iterative reconstruction, and/or weight based d osing when appropriate to reduce radiation dose to as low as reasonably achievable (ALARA). [facility]: Dose Right [facility]: CareDose [facility]: Dose Right [facility]: Teradose 4D [facility]: Individual Digital RADIATION DOSE: CT Rad equipment meets quality standard of care and radiation dose reduction techniq ues were employed. CTDIvol: 4.6 mGy. DLP: 129 mGy-cm. mGy. LIMITATIONS: None. FINDINGS: Overall normal bone density. No lytic or blastic lesions. No CT evidence of occult fracture at the ankle or foot. Normal bony alignment. There is a small os trigonum present. Mild bony spurring at the plantar fascia and Achilles attachme nt to the calcaneus. Accessory ossicles along the medial aspect of the tarsal navicular bone. Soft tissue windows demonstrate a diffuse contusion along the dorsum of the forefoot without radiopaq ue foreign body or soft tissue gas. IMPRESSION: Dorsal forefoot soft tissue contusion. No underlying fracture. TECHNICAL DOCUMENTATION: JOB ID: [id number] Quality ID # [id number]: Final reports with documentation of one or more dose reduction techniques (e.g., Au tomated exposure control, adjustment of the mA and/or kV according to patient size, use of iterative reconstruction technique) 2010 [employer]- All Rights Reserved Reading location - IP/workstation name: [email or web address]
== END ==
LOC: RAD 12:54
PROVIDERS: ATTEND Family Medicine
DX: S92.811G Other fracture of right foot, subsequent encounter for fracture with delayed healing (principal); X58.XXXD Exposure to other specified factors, subsequent encounter

== ENCOUNTER → 2019-10-21 | Outpatient (CLI) | payer MEDICARE, MEDICAID ==
--- NOTE | 2019-10-21 13:40 | RADIOLOGY REPORT (SQ) ---
EXAM DESCRIPTION: CT ABD/PELVIS NO ORAL OR IV COMPLETED DATE/TIME: 10/21/2019 10:02 am REASON FOR STUDY: N39.46 MIXED INCONTINENCE, N39.0 URINARY TRACT INFECTION, SITE NOT SPECIFIE N39.46 MIXED INCONTINENCE N39.0 URINARY TRACT INFECTION, SITE NOT SPECIFIED R10.9 UNSPECIFIED ABDOMINAL PAIN COMPARISON: 07/19/2016 TECHNIQUE: CT scan of the abdomen and pelvis performed without intravenous or oral contrast. Images reviewed with lung, soft tissue, and bone windows. Reconstructed coronal and sagittal MPR images revi ewed. All images stored on PACS. All CT scanners at this facility use dose modulation, iterative reconstruction, and/or weight based d osing when appropriate to reduce radiation dose to as low as reasonably achievable (ALARA). [facility]: Dose Right [facility]: CareDose [facility]: Dose Right [facility]: Teradose 4D [facility]: [employer] RADIATION DOSE: CT Rad equipment meets quality standard of care and radiation dose reduction techniq ues were employed. CTDIvol: 16.8 mGy. DLP: 880 mGy-cm.mGy. LIMITATIONS: None. FINDINGS: LOWER CHEST: Sternotomy changes. Cardiomegaly. Partially visualized pacer leads. Atrial appendage clip. Coronary atherosclerosis. Trace pericardial effusions, left greater than right. NON-CONTRASTED LIVER, SPLEEN, ADRENALS: Evaluation limited by lack of IV contrast. No identified sign ificant masses. PANCREAS: No masses. No peripancreatic inflammatory changes. GALLBLADDER: Decompressed. RIGHT KIDNEY AND URETER: No suspicious masses. Assessment limited by lack of IV contrast. No signif icant calcifications. No hydronephrosis or hydroureter. LEFT KIDNEY AND URETER: No suspicious masses. Assessment limited by lack of IV contrast. No signifi cant calcifications. No hydronephrosis or hydroureter. AORTA AND RETROPERITONEUM: Aortoiliac atherosclerosis without aneurysm. No retroperitoneal masses or adenopathy. BOWEL AND PERITONEAL CAVITY: Scattered colonic diverticula. No focal bowel wall thickening. No evid ence of intestinal obstruction. APPENDIX: Not visualized. PELVIS, BLADDER, AND ABDOMINAL WALL:Unremarkable urinary bladder. No free fluid, adenopathy or pelvi c mass. Anterior midline fat containing hernia, stable. BONES: Partially visualized left hip hardware. No acute bony abnormality. No suspicious osseous les ions. Lower lumbar facet arthropathy. OTHER: No other significant finding. IMPRESSION: 1. Unremarkable bladder. No evidence of obstructive uropathy or nephrolithiasis. 2. No other evidence of acute intra-abdominal/ pelvic process. 3. Stable midline ventral fat containing hernia. Additional chronic findings as above COMMENT: Quality ID # 436: Final reports with documentation of one or more dose reduction techniques (e.g., Automated exposure control, adjustment of the mA and/or kV according to patient size, use of iterative reconstruction technique) TECHNICAL DOCUMENTATION: JOB ID: [id number] 0397 [employer]- All Rights Reserved Reading location - IP/workstation name: [email or web address]
== END ==
LOC: RAD 09:27
PROVIDERS: ATTEND Urology
DX: N39.46 Mixed incontinence (principal); N39.0 Urinary tract infection, site not specified; R10.9 Unspecified abdominal pain
CPT/HCPCS: 74176

== ENCOUNTER 2020-04-06 16:09 | Inpatient (IN) | payer MEDICARE, MEDICAID ==
--- NOTE | 2020-04-06 17:11 | Progress Note ---
Provider Note Provider Note: [facility] Caban [facility] [place] and I'm writing this note remotely for clarification purposes and to document her cardiovascular history and studies in order to facilitate her care while hospitalized. Dr. Sal Heller is convering the inpatient cardiology service [facility]. The patient was evaluated in my office today and the following is a copy of that visit: 74-year-old female with history of palpitations, chronic atrial fibrillation anticoagulated with Eliquis, subdural hematoma while on Coumadin, sick sinus syndrome status post pacemaker implantation, hypertension, hyperlipidemia, diabetes, CAD s/p 2 vessel CABG with NEW to the LAD and SVG to the ramus as well as aortic valve replacement with a 21 mm stent Srikanth Epic supra valve with triCure Clip on 10/2018 who returns today for follow up. Unfortunately the patient has developed significant shortness of breath in the last 7 days or so. She is unable to walk to her bathroom and back without stopping to catch her breath. She also complains of significant lower extremity edema and palpitations as well as racing heart. [facility] at least one week however it was restarted at 20 mg daily. Of note, she was seen by the EP service in February 2020 at which time her metoprolol was increased to 50 mg in the morning but her evening dose of 25 mg was unchanged. Outpatient medications: 1. Aspirin 81 MG TABS; TAKE 1 TABLET DAILY 2. Atorvastatin Calcium 40 MG Oral Tablet; Take 1 tablet by mouth every night at bedtime 3. Calcium Citrate + Oral Tablet; TAKE 1 TABLET DAILY 4. Centrum Silver TABS; TAKE 1 TABLET DAILY 5. Colace 100 MG Oral Capsule; TAKE 1 CAPSULE QD NEEDED 6. Cranberry 250 MG Oral Capsule; TAKE 1 CAPSULE DAILY 7. Depakote 125 MG Oral Tablet Delayed Release; Take one tablet at bedtime 8. Digoxin 125 MCG Oral Tablet; TAKE 1 TABLET DAILY 9. Fluticasone Propionate 50 MCG/ACT Nasal Suspension; USE 1 SPRAY IN EACH NOSTRIL ONE TIME DAILY 10. Furosemide 20 MG Oral Tablet; TAKE 1 TAB IN THE EARLY AFTERNOON 11. levETIRAcetam 500 MG Oral Tablet; TAKE 1 TABLET EVERY MORNING AND TAKE 1.5 TAB AT BEDTIME 12. Levothyroxine Sodium 125 MCG Oral Tablet; TAKE 1 TABLET DAILY 13. Loperamide HCl - 2 MG Oral Capsule; TAKE 1 CAPSULE Every 4 hours as needed 14. Loratadine 10 MG Oral Tablet; TAKE 1 TABLET DAILY 15. MagOx 400 400 (241.3 Mg) MG Oral Tablet; TAKE ONE TABLET BY MOUTH ONE TIME DAILY 16. Melatonin 3 MG Oral Tablet; TAKE 3 TABS AT BEDTIME 17. metFORMIN HCl - 500 MG Oral Tablet; TAKE 2 TABLETS TWICE DAILY 18. Metoprolol Tartrate 50 MG Oral Tablet; TAKE ONE TABLET each morning and 1/2 tablet each evening for palpitations 19. Mirtazapine 7.5 MG Oral Tablet; TAKE 1 TABLET AT BEDTIME 20. Potassium Chloride ER 10 MEQ Oral Capsule Extended Release; TAKE 1 CAPSULE DAILY 21. PriLOSEC 40 MG CPDR; Take 1 capsule by mouth daily 22. Sertraline HCl - 100 MG Oral Tablet; TAKE 1 TABLET DAILY DIRECTED 23. Sertraline HCl - 25 MG Oral Tablet; TAKE 1 TABLET DAILY 24. traZODone HCl - 100 MG Oral Tablet; TAKE 1 TABLET AT BEDTIME 25. Tresiba SOLN; INJECT 15 UNITS SUBQ ONCE DAILY 26. Tricor 48 MG Oral Tablet; TAKE 1 TABLET DAILY 27. Ultram 50 MG Oral Tablet; TAKE 1 TABLET EVERY 6 HOURS NEEDED FOR PAIN 28. Vitamin D 1000 UNIT TABS; TAKE 1 TABLET DAILY Adult Vital Signs Recorded: [id number] 02:09PM Weight: 204 lb 6.4 oz BMI Calculated: 39.92 BSA Calculated: 1.88 Blood Pressure: 122 / 76 Heart Rate: 115 GENERAL: Pleasant and conversational but mildly dyspneic with normal conversation. Sitting in a wheelchair. Oriented x3 with normal mood. Well groomed and well developed. HEENT: Normocephalic, atraumatic. Pupils equal. Sclerae anicteric. Oropharynx moist. NECK: No JVD. No carotid bruits. LUNGS: Decreased breath sounds bilaterally with faint crackles at both bases. Normal respiratory effort without the use of accessory muscles or intercostal retractions. CARDIOVASCULAR: Irregular rate and rhythm without murmurs, rubs, or gallops. PMI not displaced. EXTREMITIES: 2-3 pitting edema bilaterally, no cyanosis, no clubbing. +2 pulses femoral and pedal pulses bilaterally. SKIN: Surgical wound in the mid chest, well-healed. MUSCULOSKELETAL: No chest tenderness to palpation. NEUROLOGIC: Nonfocal. No gross sensory or motor deficits bilateral upper or lower extremities. Cardiac studies: Echocardiogram on 05/20/19: -LV is normal in size. -Mild concentric LVH. -EF 60-65%. -Grade 3 diastolic dysfunction. -Normal wall motion abnormalities. -Mild to moderate RVE with mildly reduced systolic function. -Device leak noted in the right ventricle. -Moderate to severe LAE. -Mild SOFIE. -Moderate MAC without stenosis. -Mild MR, mild TR, mild PI. -Bioprosthetic valve in aortic position with normal function and moderate stenosis with a peak velocity of 3.3 m/s and mean gradient of 23 mmHg. Echocardiogram on 08/14/18: -EF 50-55%. -Mild concentric LVH. -Mild MR, mild TR, moderate aortic stenosis, mild to moderate AI. Echocardiogram on 07/26/16: -Ejection fraction is 55%. -Mild asymmetric LVH. -Moderate to severe LAE. -Mild MR, mild TR. -Pulmonary pressures in the upper limits of normal. -Moderate aortic stenosis with peak velocity of 3 m/s and mean gradient of 25 mmHg.. -Mild to moderate AI. 1. Chronic atrial fibrillation: The patient is anticoagulated with Eliquis without bleeding complications. She was noted to have some rapid heart rates on device interrogation in February 2020 therefore her metoprolol dose was increased to 50 mg in the morning and left at 25 mg in the evening. She continues to be tachycardic this afternoon which appears to be secondary to her fluid overload. Recommendations: -Please see below for recommendations. 3. Valvular heart disease: The patient underwent surgical AVR in October 2018. Her echocardiogram in May 2019 demonstrated moderate stenosis of the bioprosthetic aortic valve with a peak velocity of 3.3 m/s and a mean gradient of 23 mmHg. she continues to be asymptomatic with her fairly sedentary lifestyle. Recommendations: -Continue with clinical follow-up. -Follow-up in 6 months or sooner of any symptoms develop. 4. Hypertension: Blood pressure is at goal. 5. Hyperlipidemia: The patient will continue to follow-up with her primary care provider. 6. Coronary artery disease: Status post 2 vessel CABG with NEW to the LAD and SVG to the ramus as well as aortic valve replacement with a 21 mm stent Srikanth Epic supra valve with triCure Clip in October 2018. She is on GDMT and without angina, anginal equivalents or heart failure symptoms. Recommendations: -Continue with current medical management. 7. Heart failure with preserved ejection fraction: Her ejection fraction was 60- 65% on echocardiogram in May 2019 with grade 3 diastolic dysfunction. Today she has class III symptoms with physical findings consistent with fluid overload and weight gain of at least 21 pounds. I discussed the case with the hospitalist at [facility], [place] who graciously agreed to direct admit the patient to the hospital service with cardiology consultation. Dr. Sal Heller is covering the cardiology service at [facility].
[2020-04-06] MEDS ORDERED: ACETAMINOPHEN 325 MG TABLET PO PRN (17:16)
[2020-04-06] MEDS ORDERED: MAG HYDROX/AL HYDROX/SIMETH SUSP 30 ML UDCUP PO PRN (17:16)
[2020-04-06] MEDS ORDERED: ONDANSETRON HCL INJ/PF 4 MG/2 ML SDV IV PRN (17:16)
[2020-04-06] MEDS ORDERED: ONDANSETRON 4 MG TAB.RAPDIS PO PRN (17:16)
[2020-04-06] MEDS ORDERED: LEVALBUTEROL HCL NEB 1.25 MG/3 ML AMPUL NEB PRN (17:16)
[2020-04-06] MEDS ORDERED: TRAMADOL HCL 50 MG TABLET PO PRN ×2 (17:41→18:10)
[2020-04-06] MEDS ORDERED: LOPERAMIDE HCL 2 MG CAPSULE PO PRN (18:10)
[2020-04-06] MEDS ORDERED: DOCUSATE SODIUM 100 MG CAPSULE PO PRN (18:10)
--- NOTE | 2020-04-06 18:10 | PDOC H&P ---
History of Present Illness Admission Date/PCP: 04/06/20 16:09 JOHN HAYES MD History of Present Illness: LAINA MONTENEGRO is a 74 year old female sent over for direct admission from cardiology, Dr. Couch for increasing shortness of breath with possible 20 pound weight gain in 1 week. Patient is unable to walk around her house without stopping to catch her breath and patient has also noticed increased lower extremity edema and palpitations. Patient has a complicated past medical history including sick sinus syndrome status post pacemaker implantation hypertension hyperlipidemia diabetes coronary artery disease with two-vessel CABG with NEW to the LAD and SVG to the ramus as well as aortic valve replacement with a 21 mm stent Srikanth epic supra valve with tri-cure clip on October 2018 Patient comes in now with heart failure exacerbation, chronic atrial fib, hypertension, coronary disease, valvular heart disease, hyperlipidemia. Patient appears to be medically stable. Past Medical History Cardiac Medical History: Reports: Atrial Fibrillation Endocrine Medical History: Reports: Diabetes Mellitus Type 2 Psychiatric Medical History: Reports: Depression Past Surgical History Past Surgical History: Reports: Coronary Artery Bypass Graft, Valve Replacement, Other - Just status post left hip surgery Social History Smoking Status: Former Smoker Number of Years Smokin Frequency of Alcohol Use: Rare Hx Recreational Drug Use: No Drugs: None Hx Prescription Drug Abuse: No - Advance Directive Resuscitation Status: Full Code Family History Family History: Reviewed & Not Pertinent Parental Family History Reviewed: No Children Family History Reviewed: No Sibling(s) Family History Reviewed.: No Medication/Allergy Home Medications: Atorvastatin Calcium [Lipitor 40 mg Tablet] 40 mg PO QHS 09/30/17 Aspirin [Aspirin 81 mg Chewable Tablet] 81 mg PO DAILY 04/06/20 Calcium Citrate [Calcium Citrate 250 mg Tablet] 500 mg PO BID 04/06/20 Cholecalciferol (Vitamin D3) [Vitamin D3 1000 Unit Tablet] 1,000 unit PO DAILY 04/06/20 Cranberry 500 mg PO DAILY 04/06/20 Docusate Sodium [Colace 100 mg Capsule] 100 mg PO DAILYP PRN 04/06/20 Fenofibrate Nanocrystallized [Fenofibrate] 48 mg PO DAILY 04/06/20 Fluticasone Propionate [Flonase Nasal [place] 50 Mcg/[place] 16 gm] 1 spray NASL DAILY 04/06/20 Furosemide [Lasix 20 mg Tablet] 20 mg PO DAILY 04/06/20 Insulin Degludec [Tresiba] 15 unit SQ QHS 04/06/20 Levetiracetam [Keppra 500 mg Tablet] 500 mg PO QAM 04/06/20 Levetiracetam [Keppra 500 mg Tablet] 750 mg PO QHS 04/06/20 Levothyroxine Sodium [Synthroid] 125 mcg PO Q6AM 04/06/20 Loperamide HCl [Imodium 2 mg Capsule] 2 mg PO Q4HP PRN 04/06/20 Loratadine [Claritin 10 mg Tablet] 10 mg PO DAILY 04/06/20 Magnesium Oxide [Mag-Ox 400 mg Tablet] 400 mg PO DAILY 04/06/20 Melatonin [Melatonin 3 mg Tablet] 9 mg PO QHS 04/06/20 Metformin HCl [Glucophage 500 mg Tablet] 1,000 mg PO BID 04/06/20 Metoprolol Tartrate [Lopressor 50 mg Tablet] 25 mg PO QHS 04/06/20 Metoprolol Tartrate [Lopressor 50 mg Tablet] 50 mg PO QAM 04/06/20 Multivit-Min/FA/Lycopen/Lutein [Certavite Sr-Antioxidant Tab] 1 tab PO DAILY 04/06/20 Omeprazole 40 mg PO DAILY 04/06/20 Polyvinyl Alcohol [Liquitears 1.4% Ophth Soln 15 ml] 2 drop OU BID 04/06/20 Potassium Chloride [Klor-Con 10 Meq Tablet ER] 10 meq PO DAILY 04/06/20 Sertraline HCl [Zoloft 50 mg Tablet] 125 mg PO DAILY 04/06/20 Tramadol HCl [Ultram 50 mg Tablet] 50 mg PO Q6HP PRN 04/06/20 Trazodone HCl 100 mg PO QHS 04/06/20 Allergies/Adverse Reactions: pentazocine [From Amanda] Allergy (Verified 08/28/17 15:35) adhesive tape Adverse Reaction (Verified 08/28/17 15:35) Review of Systems Constitutional: PRESENT: weight gain Cardiovascular: PRESENT: dyspnea on exertion Respiratory: PRESENT: dyspnea Gastrointestinal: ABSENT: abdominal pain, constipation, diarrhea, hematemesis, hematochezia, nausea, vomiting Neurological: ABSENT: abnormal gait, abnormal speech, confusion, dizziness, focal weakness, syncope Psychiatric: ABSENT: anxiety, depression, homidical ideation, suicidal ideation Physical Exam Vital Signs: Temp Pulse Resp BP Pulse Ox 98.1 F 117 H 19 124/91 H 100 04/06/20 17:16 04/06/20 17:16 04/06/20 17:16 04/06/20 17:16 04/06/20 17:16 General appearance: PRESENT: mild distress - Secondary to shortness of breath Respiratory exam: PRESENT: decreased breath sounds, rales Cardiovascular exam: PRESENT: tachycardia Neurological exam: PRESENT: alert, awake, oriented to person, oriented to place, oriented to time, oriented to situation, CN II-XII grossly intact, other - Patient is awake alert speaking in full sentences. ABSENT: motor sensory deficit Psychiatric exam: PRESENT: appropriate affect, normal mood. ABSENT: homicidal ideation, suicidal ideation Assessment and Plan - Diagnosis (1) Chronic atrial fibrillation Is this a current diagnosis for this admission?: Yes (2) Coronary artery disease Is this a current diagnosis for this admission?: Yes (3) DM type 2 (diabetes mellitus, type 2) Qualifiers: Diabetes mellitus lobsterman insulin use: with usp use Diabetes mellitus complication status: without complication Qualified Code(s): E11.9 - Type 2 diabetes mellitus without complications; Z79.4 - [facility] (current) use of insulin; Z79.4 - superintendent terminal (current) use of insulin; Z79.4 - [facility] (current) use of insulin; Z79.4 - superintendent terminal (current) use of insulin Is this a current diagnosis for this admission?: Yes (4) HLD (hyperlipidemia) Qualifiers: Hyperlipidemia type: unspecified Qualified Code(s): E78.5 - Hyperlipidemia, unspecified Is this a current diagnosis for this admission?: Yes (5) Hypertension Qualifiers: Hypertension type: essential hypertension Qualified Code(s): I10 - Essential (primary) hypertension Is this a current diagnosis for this admission?: Yes (6) Shortness of breath Is this a current diagnosis for this admission?: Yes (7) Congestive heart failure Is this a current diagnosis for this admission?: Yes - Plan Summary Summary: Patient will be a direct admission with labs checked this afternoon. Patient was given a dose of Lasix in the office and will be treated with 20 mg IV every 8 hours in the hospital with daily weights, i & o'S She will be seen by cardiology in the morning Patient's home meds will be resumed Patient appears to be medically stable. - Time Time Spent with patient: 35 or more minutes
[2020-04-06] MEDS ORDERED: DEXTROSE 40% GEL 15 GM TUBE PO PRN ×2 (18:20)
[2020-04-06] MEDS ORDERED: DEXTROSE 50%-WATER 25 GM/50 ML DISP.SYRIN IV PRN ×2 (18:20)
[2020-04-06] MEDS ORDERED: GLUCAGON,HUMAN RECOMB 1 MG INJ IM PRN (18:20)
[2020-04-06] MEDS: APIXABAN 5 MG TABLET PO SCH (18:48)
[2020-04-06 19:16] LABS: INTERNATIONAL RATION (INR) 1.16; PROTHROMBIN TIME 14.9 SEC (11.4-15.4)
--- NOTE | 2020-04-06 19:32 | EKG REPORT ---
SEVERITY:- ABNORMAL ECG - A FIB 127 BPM. LEFT ANTERIOR FASCICULAR BLOCK NONSPECIFIC T ABNORMALITIES, LATERAL LEADS PROLONGED QT INTERVAL : Confirmed by: Eran Dozier MD 06-Apr-2020 19:32:04
[2020-04-06] MEDS ORDERED: METOPROLOL SUCCINATE 25 MG TAB.SR.24H PO SCH (20:00)
[2020-04-06] MEDS: METOPROLOL TARTRATE 25 MG TABLET PO SCH (21:51)
[2020-04-06] MEDS: DIVALPROEX SODIUM 125 MG CAP.SPRINK PO SCH (21:51)
[2020-04-06] MEDS: ATORVASTATIN CALCIUM 40 MG TABLET PO SCH (21:52)
[2020-04-06] MEDS: FAMOTIDINE 20 MG TABLET PO SCH (21:54)
[2020-04-06] MEDS: TRAZODONE HCL 50 MG TABLET PO SCH (21:54)
[2020-04-06] MEDS: FUROSEMIDE INJ/PF 20 MG/2 ML SDV IV SCH (21:55)
[2020-04-06] MEDS: LEVETIRACETAM 500 MG TABLET PO SCH (21:55)
[2020-04-06] MEDS: MELATONIN 3 MG TABLET PO SCH (21:55)
[2020-04-06] MEDS ORDERED: METOPROLOL TARTRATE 50 MG TABLET PO SCH (22:00)
[2020-04-06] MEDS ORDERED: ATORVASTATIN CALCIUM 40 MG TABLET PO SCH (22:00)
[2020-04-06] MEDS ORDERED: INSULIN DEGLUDEC 15 UNIT SUBCUT SCH (22:00)
[2020-04-07 00:21] LABS: APPEARANCE,URINE CLEAR; BILIRUBIN,URINE NEGATIVE (NEGATIVE); COLOR,URINE STRAW; GLUCOSE, URINE NEGATIVE (NEGATIVE); KETONES,URINE NEGATIVE (NEGATIVE); PROTEIN,URINE NEGATIVE (NEGATIVE); URINE SPECIFIC GRAVITY 1.004; UROBILINOGEN,URINE NEGATIVE mg/dL (<2.0)
[2020-04-07] MEDS: INSULIN LISPRO 100 UNIT/ML 3 ML VIAL SUBCUT SCH ×5 (01:14→23:54)
--- NOTE | 2020-04-07 03:17 | RADIOLOGY REPORT (SQ) ---
EXAM DESCRIPTION: [facility]: XR CHEST 1 VIEW CLINICAL HISTORY: 74 years Female; chf; COMPARISON: 08/28/2017 FINDINGS: Lungs: Blunting of the right costophrenic angle and slight elevation of the right hemidiaphragm are similar to prior exam, likely chronic scarring rather than pleural effusion. There is no right pulmonary infiltrate. No definite left pleural effusion. There is some motion artifact. No focal infiltrates. No pneumothorax. Mediastinum: Sternal wires are noted. Pacemaker remains in place with intact leads. Bones: Bony structures are unremarkable. IMPRESSION: 1. No acute infiltrates 2. Previous sternotomy 3. Pacemaker
[2020-04-07] MEDS: FUROSEMIDE INJ/PF 20 MG/2 ML SDV IV SCH ×3 (05:29→22:44)
[2020-04-07 06:55] LABS: ABSOLUTE EOSINOPHILS # (AUTO) 0.1 10^3/uL (0.0-0.6); ABSOLUTE LYMPHOCYTES (AUTO) 1.5 10^3/uL (0.5-4.7); ABSOLUTE MONOCYTES (AUTO) 0.5 10^3/uL (0.1-1.4); ABSOLUTE NEUT (AUTO) 3.9 10^3/uL (1.7-8.2); BASOPHILS % (AUTO) 0.3 % (0-2); HEMATOCRIT 25.9 % (36.0-47.0); HEMOGLOBIN 8.4 g/dL (12.0-15.5); LYMPHOCYTES % (AUTO) 25.6 % (13-45); MEAN CORPUSCULAR HEMOGLOBIN 29.9 pg (27.0-33.4); MEAN CORPUSCULAR HGB CONC 32.6 g/dL (32.0-36.0); MEAN CORPUSCULAR VOLUME 92 fl (80-97); MONOCYTES % (AUTO) 7.8 % (3-13); PLATELET COUNT 201 10^3/uL (150-450); RED BLOOD COUNT 2.82 10^6/uL (3.72-5.28); RED CELL DISTRIBUTION WIDTH 13.7 % (11.5-14.0); SEGMENTED NEUTROPHILS % (AUTO) 64.3 % (42-78); TOTAL CELLS COUNTED % (AUTO) 100 %; WHITE BLOOD COUNT 6.1 10^3/uL (4.0-10.5)
[2020-04-07 07:25] LABS: ALBUMIN 3.4 g/dL (3.5-5.0); ALKALINE PHOSPHATASE 86 U/L (38-126); ANION GAP 5 (5-19); ASPARTATE AMINO TRANSFERASE 29 U/L (14-36); BILIRUBIN,DIRECT 0.1 mg/dL (0.0-0.4); BILIRUBIN,TOTAL 0.3 mg/dL (0.2-1.3); BLOOD UREA NITROGEN 24 mg/dL (7-20); CALCIUM 9.1 mg/dL (8.4-10.2); CARBON DIOXIDE 29 mmol/L (22-30); CHLORIDE 104 mmol/L (98-107); GLUCOSE 151 mg/dL (75-110); POTASSIUM 4.7 mmol/L (3.6-5.0); TOTAL PROTEIN 6.5 g/dL (6.3-8.2)
[2020-04-07] MEDS ORDERED: LEVETIRACETAM 500 MG TABLET PO SCH (08:00)
[2020-04-07] MEDS ORDERED: METOPROLOL TARTRATE 50 MG TABLET PO SCH (08:00)
[2020-04-07] MEDS ORDERED: ASPIRIN 81 MG TABLET, ENT COATED PO SCH (10:00)
[2020-04-07] MEDS ORDERED: METFORMIN HCL 500 MG TABLET PO SCH (10:00)
[2020-04-07] MEDS ORDERED: SERTRALINE HCL 50 MG TABLET PO SCH (10:00)
[2020-04-07] MEDS ORDERED: DOCUSATE SODIUM 100 MG CAPSULE PO SCH (10:00)
[2020-04-07] MEDS ORDERED: CALCIUM CARBONATE 600 MG TABLET PO SCH (10:00)
[2020-04-07] MEDS ORDERED: CALCIUM CITRATE 500 MG PO SCH (10:00)
[2020-04-07] MEDS ORDERED: METOPROLOL SUCCINATE 50 MG TAB.SR.24H PO SCH (10:00)
[2020-04-07] MEDS: SERTRALINE HCL 50 MG TABLET PO SCH (11:19)
[2020-04-07] MEDS: CHOLECALCIFEROL (D3) 1,000 UNIT (25 MCG) TABLET PO SCH (11:20)
[2020-04-07] MEDS: APIXABAN 5 MG TABLET PO SCH ×2 (11:20→18:14)
[2020-04-07] MEDS: FENOFIBRATE NANOCRYSTALLIZED 48 MG TABLET PO SCH (11:21)
[2020-04-07] MEDS: METFORMIN HCL 500 MG TABLET PO SCH ×2 (11:21→18:14)
[2020-04-07] MEDS: METOPROLOL TARTRATE 50 MG TABLET PO SCH (11:21)
[2020-04-07] MEDS: ASPIRIN 81 MG TABLET, CHEWABLE PO SCH (11:22)
[2020-04-07] MEDS: FAMOTIDINE 20 MG TABLET PO SCH ×2 (11:22→22:45)
[2020-04-07] MEDS: LEVETIRACETAM 500 MG TABLET PO SCH ×2 (11:22→22:45)
[2020-04-07] MEDS: MAGNESIUM OXIDE 400 MG TABLET PO SCH (11:22)
--- NOTE | 2020-04-07 12:55 | PDOC PROGRESS REPORT ---
Subjective Progress Note for:: 04/07/20 Reason For Visit: CHRONIC ATRIAL FIB,VALVULAR HEART DISEASE, 04/07/2020 CHF exacerbation, chronic atrial fib, hypertension, coronary disease, valvular heart disease, hyperlipidemia Patient lives at [facility] Physical Exam Vital Signs: Temp Pulse Resp BP Pulse Ox 97.3 F 80 16 115/65 100 04/07/20 08:07 04/07/20 08:07 04/07/20 08:07 04/07/20 08:07 04/07/20 08:07 Intake & Output 04/06/20 04/07/20 04/08/20 06:59 06:59 06:59 Intake Total 390 Output Total 750 Balance -360 Weight 93.4 kg General appearance: PRESENT: mild distress - Shortness of breath Respiratory exam: PRESENT: crackles, rales Cardiovascular exam: PRESENT: systolic murmur Extremities exam: PRESENT: +2 edema Neurological exam: PRESENT: alert, awake, oriented to person, oriented to place, oriented to time, oriented to situation, CN II-XII grossly intact. ABSENT: motor sensory deficit Psychiatric exam: PRESENT: appropriate affect, normal mood. ABSENT: homicidal ideation, suicidal ideation Results Laboratory Results: 04/07/20 06:38 04/07/20 06:38 04/07/20 04/07/20 04/07/20 00:09 06:38 06:38 WBC 6.1 RBC 2.82 L Hgb 8.4 L Hct 25.9 L MCV 92 MCH 29.9 MCHC 32.6 RDW 13.7 Plt Count 201 Seg Neutrophils % 64.3 Sodium 138.4 Potassium 4.7 Chloride 104 Carbon Dioxide 29 Anion Gap 5 BUN 24 H Creatinine 1.04 Est GFR ( Amer) > 60 Glucose 151 H Calcium 9.1 Magnesium 1.9 Total Bilirubin 0.3 AST 29 Alkaline Phosphatase 86 Total Protein 6.5 Albumin 3.4 L Urine Color STRAW Urine Appearance CLEAR Urine pH 5.0 Ur Specific [place] 1.004 Urine Protein NEGATIVE Urine Glucose (UA) NEGATIVE Urine Ketones NEGATIVE Urine Blood MODERATE H Urine RBC (Auto) 1 04/06/20 18:33 NT-Pro-B Natriuret Pep 5690 H Impressions: Chest X-Ray 04/06/20 17:21 IMPRESSION: 1. No acute infiltrates 2. Previous sternotomy 3. Pacemaker Assessment and Plan - Diagnosis (1) Chronic atrial fibrillation Is this a current diagnosis for this admission?: Yes (2) Coronary artery disease Is this a current diagnosis for this admission?: Yes (3) DM type 2 (diabetes mellitus, type 2) Qualifiers: Diabetes mellitus long distance operator insulin use: with long distance operator use Diabetes mellitus complication status: without complication Qualified Code(s): E11.9 - Type 2 diabetes mellitus without complications; Z79.4 - senior ui developer (current) use of insulin; Z79.4 - senior ui developer (current) use of insulin; Z79.4 - halfway (current) use of insulin; Z79.4 - senior ui developer (current) use of insulin Is this a current diagnosis for this admission?: Yes (4) HLD (hyperlipidemia) Qualifiers: Hyperlipidemia type: unspecified Qualified Code(s): E78.5 - Hyperlipidemia, unspecified Is this a current diagnosis for this admission?: Yes (5) Hypertension Qualifiers: Hypertension type: essential hypertension Qualified Code(s): I10 - Essential (primary) hypertension Is this a current diagnosis for this admission?: Yes (6) Shortness of breath Is this a current diagnosis for this admission?: Yes (7) Congestive heart failure Is this a current diagnosis for this admission?: Yes - Plan Summary Summary: Patient will be a direct admission with labs checked this afternoon. Patient was given a dose of Lasix in the office and will be treated with 20 mg IV every 8 hours in the hospital with daily weights, i & o'S She will be seen by cardiology in the morning Patient's home meds will be resumed Patient appears to be medically stable. 04/07/2020 Temperature 97.3 pulse of 80 blood pressure 115/65 O2 sat 100% on 2 L nasal cannula White count 6100 hemoglobin 8.4 BNP yesterday on admission was 5690 electrolytes grossly normal however blood sugars elevated in the 200s Urinalysis showed moderate leukocytes and moderate blood Keppra level is pending BNP will be repeated tomorrow as well as electrolytes So far today patient has put out 750 mL's and taken in 390 with a deficit of 360 Intake weight was 77 kg today is 93 kg obviously there is a mistake here which will need to be fixed Continue Lasix 20 mg IV every 8 hours Cardiology has seen the patient and agrees with the work-up so far Patient is less short of breath today and has less peripheral edema Appears as though she will need 2 or 3 more days of treatment - Time Time Spent with patient: 25-34 minutes
--- NOTE | 2020-04-07 13:19 | PDOC CONSULTATION ---
Consultation Consult Date: 04/07/20 Provider Consulted: OBEY WALLACE Consult reason:: CHF History of Present Illness Admission Date/PCP: 04/06/20 16:09 JOHN HAYES MD Patient complains of: Dyspnea History of Present Illness: LAINA MONTENEGRO is a 74 year old female With the following active problems 1. Chronic persistent atrial fibrillation 2. Systemic anticoagulation-apixaban 3. Scapular hematoma-warfarin 4. Sick sinus syndrome 5. Right-sided permanent pacemaker 6. Systemic hypertension 7. Dyslipidemia 8. Diabetes mellitus 9. Obesity 10. Coronary artery disease 11. CABG (NEW-LAD, SVG-ramus) 12. Aortic valve replacement-21 mm [place]. 13. Left atrial appendage closure Atricure-10/2018 Patient was seen in the office and found to be in decompensated congestive heart failure. She was admitted to the hospital and was initiated on intravenous diuretics and is already feeling better. She endorses improvement in symptoms. She has been compliant with her medications. At the time of my evaluation she does not report chest pain or dyspnea. Past Medical History Cardiac Medical History: Reports: Atrial Fibrillation Endocrine Medical History: Reports: Diabetes Mellitus Type 2 Psychiatric Medical History: Reports: Depression Past Surgical History Past Surgical History: Reports: Coronary Artery Bypass Graft, Valve Replacement, Other - Just status post left hip surgery Social History Smoking Status: Former Smoker Number of Years Smokin Frequency of Alcohol Use: Rare Hx Recreational Drug Use: No Drugs: None Hx Prescription Drug Abuse: No - Advance Directive Resuscitation Status: Full Code Family History Family History: Reviewed & Not Pertinent Parental Family History Reviewed: Yes - No familial illnesses Children Family History Reviewed: NA Sibling(s) Family History Reviewed.: NA Medication/Allergy Home Medications: Atorvastatin Calcium [Lipitor 40 mg Tablet] 40 mg PO QHS 09/30/17 Aspirin [Aspirin 81 mg Chewable Tablet] 81 mg PO DAILY 04/06/20 Calcium Citrate [Calcium Citrate 250 mg Tablet] 500 mg PO BID 04/06/20 Cholecalciferol (Vitamin D3) [Vitamin D3 1000 Unit Tablet] 1,000 unit PO DAILY 04/06/20 Cranberry 500 mg PO DAILY 04/06/20 Docusate Sodium [Colace 100 mg Capsule] 100 mg PO DAILYP PRN 04/06/20 Fenofibrate Nanocrystallized [Fenofibrate] 48 mg PO DAILY 04/06/20 Fluticasone Propionate [Flonase Nasal [place] 50 Mcg/[place] 16 gm] 1 spray NASL DAILY 04/06/20 Furosemide [Lasix 20 mg Tablet] 20 mg PO DAILY 04/06/20 Insulin Degludec [Tresiba] 15 unit SQ QHS 04/06/20 Levetiracetam [Keppra 500 mg Tablet] 500 mg PO QAM 04/06/20 Levetiracetam [Keppra 500 mg Tablet] 750 mg PO QHS 04/06/20 Levothyroxine Sodium [Synthroid] 125 mcg PO Q6AM 04/06/20 Loperamide HCl [Imodium 2 mg Capsule] 2 mg PO Q4HP PRN 04/06/20 Loratadine [Claritin 10 mg Tablet] 10 mg PO DAILY 04/06/20 Magnesium Oxide [Mag-Ox 400 mg Tablet] 400 mg PO DAILY 04/06/20 Melatonin [Melatonin 3 mg Tablet] 9 mg PO QHS 04/06/20 Metformin HCl [Glucophage 500 mg Tablet] 1,000 mg PO BID 04/06/20 Metoprolol Tartrate [Lopressor 50 mg Tablet] 25 mg PO QHS 04/06/20 Metoprolol Tartrate [Lopressor 50 mg Tablet] 50 mg PO QAM 04/06/20 Multivit-Min/FA/Lycopen/Lutein [Certavite Sr-Antioxidant Tab] 1 tab PO DAILY 04/06/20 Omeprazole 40 mg PO DAILY 04/06/20 Polyvinyl Alcohol [Liquitears 1.4% Ophth Soln 15 ml] 2 drop OU BID 04/06/20 Potassium Chloride [Klor-Con 10 Meq Tablet ER] 10 meq PO DAILY 04/06/20 Sertraline HCl [Zoloft 50 mg Tablet] 125 mg PO DAILY 04/06/20 Tramadol HCl [Ultram 50 mg Tablet] 50 mg PO Q6HP PRN 04/06/20 Trazodone HCl 100 mg PO QHS 04/06/20 Allergies/Adverse Reactions: pentazocine [From Amanda] Allergy (Verified 08/28/17 15:35) adhesive tape Adverse Reaction (Verified 08/28/17 15:35) Review of Systems Constitutional: PRESENT: as per HPI Cardiovascular: PRESENT: dyspnea on exertion Respiratory: PRESENT: dyspnea Physical Exam Vital Signs: Temp Pulse Resp BP Pulse Ox 97.3 F 80 16 115/65 100 05/28/20 08:07 04/07/20 08:07 04/07/20 08:07 04/07/20 08:07 04/07/20 08:07 Intake & Output 04/06/20 04/07/20 04/08/20 06:59 06:59 06:59 Intake Total 390 Output Total 750 Balance -360 Weight 93.4 kg General appearance: PRESENT: no acute distress, cooperative, morbidly obese, well-developed, well-nourished Head exam: PRESENT: atraumatic, normocephalic Eye exam: PRESENT: conjunctiva pink, EOMI Mouth exam: PRESENT: moist Neck exam: PRESENT: JVD Respiratory exam: PRESENT: crackles, decreased breath sounds, symmetrical, unlabored Cardiovascular exam: PRESENT: irregular rhythm, +S1, +S2, other - Well-healed sternotomy incision Clean incisions on both left and right infraclavicular areas. Pacemaker pulse generator is palpated in the right infraclavicular fossa. Skin overlying is intact. No edema erythema or excoriation. Pulses: PRESENT: normal radial pulses GI/Abdominal exam: PRESENT: soft Rectal exam: PRESENT: deferred Extremities exam: PRESENT: pedal edema Neurological exam: PRESENT: alert, awake, oriented to person, oriented to place, oriented to time, oriented to situation Psychiatric exam: PRESENT: appropriate affect Skin exam: PRESENT: dry, intact, normal color Results Laboratory Results: 04/07/20 06:38 04/07/20 06:38 04/07/20 04/07/20 04/07/20 00:09 06:38 06:38 WBC 6.1 RBC 2.82 L Hgb 8.4 L Hct 25.9 L MCV 92 MCH 29.9 MCHC 32.6 RDW 13.7 Plt Count 201 Seg Neutrophils % 64.3 Sodium 138.4 Potassium 4.7 Chloride 104 Carbon Dioxide 29 Anion Gap 5 BUN 24 H Creatinine 1.04 Est GFR ( Amer) > 60 Glucose 151 H Calcium 9.1 Magnesium 1.9 Total Bilirubin 0.3 AST 29 Alkaline Phosphatase 86 Total Protein 6.5 Albumin 3.4 L Urine Color STRAW Urine Appearance CLEAR Urine pH 5.0 Ur Specific [place] 1.004 Urine Protein NEGATIVE Urine Glucose (UA) NEGATIVE Urine Ketones NEGATIVE Urine Blood MODERATE H Urine RBC (Auto) 1 04/06/20 18:33 NT-Pro-B Natriuret Pep 5690 H EKG Comments: Twelve-lead EKG shows atrial fibrillation with rapid ventricular response Chest x-ray was independently reviewed. Mild pulmonary edema. Right-sided pacemaker system. Left atrial appendage occlusion device. Sternotomy wires Impressions: Chest X-Ray 04/06/20 17:21 IMPRESSION: 1. No acute infiltrates 2. Previous sternotomy 3. Pacemaker Assessment & Plan - Diagnosis (1) Chronic atrial fibrillation Is this a current diagnosis for this admission?: Yes Plan: Presently on rate control strategy. Continue apixaban 5 mg twice daily She has permanent pacemaker We will continue rate control measures. (2) Congestive heart failure Is this a current diagnosis for this admission?: Yes Plan: Volume overloaded at admission. Has responded to intravenous diuretic We will continue to watch creatinine as we diurese. Watch blood pressure as well. (3) Coronary artery disease Is this a current diagnosis for this admission?: Yes Plan: Presentation without ischemia. Status post CABG Continue guideline directed medical therapy as feasible for coronary artery disease. (4) Hypertension Qualifiers: Hypertension type: essential hypertension Qualified Code(s): I10 - Essential (primary) hypertension Is this a current diagnosis for this admission?: Yes Plan: We will watch blood pressure as we continue to diurese.
[2020-04-07] MEDS: POLYVINYL ALCOHOL 1.4% OPH SOLN 15 ML OU SCH ×2 (14:07→18:15)
[2020-04-07] MEDS: FLUTICASONE NASAL SPRAY 50 MCG/SPRY 120 SPRAY/16 GM NASL SCH (14:08)
[2020-04-07] MEDS ORDERED: ONDANSETRON 4 MG TAB.RAPDIS PO PRN (14:30)
[2020-04-07] MEDS: CALCIUM CARBONATE 600 MG TABLET PO SCH (18:14)
[2020-04-07] MEDS ORDERED: INSULIN GLARGINE,HUM.REC.ANLOG 1,000 UNIT/10 ML VIAL SUBCUT SCH (22:00)
[2020-04-07] MEDS: ATORVASTATIN CALCIUM 40 MG TABLET PO SCH (22:44)
[2020-04-07] MEDS: MELATONIN 3 MG TABLET PO SCH (22:44)
[2020-04-07] MEDS: TRAZODONE HCL 50 MG TABLET PO SCH (22:45)
[2020-04-07] MEDS: METOPROLOL TARTRATE 25 MG TABLET PO SCH (22:45)
[2020-04-07] MEDS: DIVALPROEX SODIUM 125 MG CAP.SPRINK PO SCH (22:45)
[2020-04-07] MEDS: INSULIN GLARGINE,HUM.REC.ANLOG 1,000 UNIT/10 ML VIAL SUBCUT SCH (22:46)
[2020-04-08] MEDS: FUROSEMIDE INJ/PF 20 MG/2 ML SDV IV SCH ×3 (05:24→22:49)
--- NOTE | 2020-04-08 10:03 | PDOC PROGRESS REPORT ---
Subjective Progress Note for:: 04/08/20 Reason For Visit: CHRONIC ATRIAL FIB,VALVULAR HEART DISEASE, 04/08/2020 She admitted for exacerbation of CHF Physical Exam Vital Signs: Temp Pulse Resp BP Pulse Ox 97.5 F 85 16 100/75 93 04/08/20 07:51 04/08/20 07:51 04/08/20 07:51 04/08/20 07:51 04/08/20 07:51 Intake & Output 04/07/20 04/08/20 04/09/20 06:59 06:59 06:59 Intake Total 390 842 Output Total 750 1150 Balance -360 -308 Weight 93.4 kg 91.7 kg General appearance: PRESENT: mild distress Respiratory exam: PRESENT: crackles Cardiovascular exam: PRESENT: systolic murmur Neurological exam: PRESENT: alert, awake, oriented to person, oriented to place, oriented to time, oriented to situation, CN II-XII grossly intact. ABSENT: motor sensory deficit Psychiatric exam: PRESENT: appropriate affect, normal mood. ABSENT: homicidal ideation, suicidal ideation Results Laboratory Results: 04/07/20 06:38 04/07/20 06:38 04/06/20 18:33 NT-Pro-B Natriuret Pep 5690 H Impressions: Chest X-Ray 04/06/20 17:21 IMPRESSION: 1. No acute infiltrates 2. Previous sternotomy 3. Pacemaker Assessment and Plan - Diagnosis (1) Chronic atrial fibrillation Is this a current diagnosis for this admission?: Yes (2) Coronary artery disease Is this a current diagnosis for this admission?: Yes (3) DM type 2 (diabetes mellitus, type 2) Qualifiers: Diabetes mellitus watermelon inspector insulin use: with watermelon inspector use Diabetes mellitus complication status: without complication Qualified Code(s): E11.9 - Type 2 diabetes mellitus without complications; Z79.4 - [facility] (current) use of insulin; Z79.4 - [facility] (current) use of insulin; Z79.4 - [facility] (current) use of insulin; Z79.4 - [facility] (current) use of insulin Is this a current diagnosis for this admission?: Yes (4) HLD (hyperlipidemia) Qualifiers: Hyperlipidemia type: unspecified Qualified Code(s): E78.5 - Hyperlipidemia, unspecified Is this a current diagnosis for this admission?: Yes (5) Hypertension Qualifiers: Hypertension type: essential hypertension Qualified Code(s): I10 - Essential (primary) hypertension Is this a current diagnosis for this admission?: Yes (6) Shortness of breath Is this a current diagnosis for this admission?: Yes (7) Congestive heart failure Is this a current diagnosis for this admission?: Yes - Plan Summary Summary: Patient will be a direct admission with labs checked this afternoon. Patient was given a dose of Lasix in the office and will be treated with 20 mg IV every 8 hours in the hospital with daily weights, i & o'S She will be seen by cardiology in the morning Patient's home meds will be resumed Patient appears to be medically stable. 04/07/2020 Temperature 97.3 pulse of 80 blood pressure 115/65 O2 sat 100% on 2 L nasal cannula White count 6100 hemoglobin 8.4 BNP yesterday on admission was 5690 electrolytes grossly normal however blood sugars elevated in the 200s Urinalysis showed moderate leukocytes and moderate blood Keppra level is pending BNP will be repeated tomorrow as well as electrolytes So far today patient has put out 750 mL's and taken in 390 with a deficit of 360 Intake weight was 77 kg today is 93 kg obviously there is a mistake here which will need to be fixed Continue Lasix 20 mg IV every 8 hours Cardiology has seen the patient and agrees with the work-up so far Patient is less short of breath today and has less peripheral edema Appears as though she will need 2 or 3 more days of treatment 04/08/2020 Temperature 97.3 pulse 83 blood pressure 109/63 O2 sat 100% on 2 L Patient tells me she comes from [place] [facility] White blood cell count normal 6100 on admission her BNP was 5690 Admission her weight was recorded improperly most accurate was probably 93.4 kg and today it is 91.7 kg She reports less shortness of breath I a.m. going to repeat her labs tomorrow Yesterday's creatinine was 1.04 Anticipate discharge back to [place] [facility] on Saturday We will switch to p.o. Lasix tomorrow Patient in no respiratory distress - Time Time Spent with patient: 25-34 minutes
[2020-04-08] MEDS: SERTRALINE HCL 50 MG TABLET PO SCH (10:25)
[2020-04-08] MEDS: FAMOTIDINE 20 MG TABLET PO SCH ×2 (10:25→22:49)
[2020-04-08] MEDS: FENOFIBRATE NANOCRYSTALLIZED 48 MG TABLET PO SCH (10:25)
[2020-04-08] MEDS: METFORMIN HCL 500 MG TABLET PO SCH ×2 (10:25→17:02)
[2020-04-08] MEDS: METOPROLOL TARTRATE 50 MG TABLET PO SCH (10:26)
[2020-04-08] MEDS: APIXABAN 5 MG TABLET PO SCH ×2 (10:27→17:03)
[2020-04-08] MEDS: CALCIUM CARBONATE 600 MG TABLET PO SCH ×2 (10:27→17:03)
[2020-04-08] MEDS: ASPIRIN 81 MG TABLET, CHEWABLE PO SCH (10:27)
[2020-04-08] MEDS: CHOLECALCIFEROL (D3) 1,000 UNIT (25 MCG) TABLET PO SCH (10:27)
[2020-04-08] MEDS: LEVETIRACETAM 500 MG TABLET PO SCH ×2 (10:27→22:48)
[2020-04-08] MEDS: MAGNESIUM OXIDE 400 MG TABLET PO SCH (10:28)
[2020-04-08] MEDS: FLUTICASONE NASAL SPRAY 50 MCG/SPRY 120 SPRAY/16 GM NASL SCH (10:28)
[2020-04-08] MEDS: POLYVINYL ALCOHOL 1.4% OPH SOLN 15 ML OU SCH ×2 (10:33→17:08)
[2020-04-08 10:53] LABS: ABSOLUTE EOSINOPHILS # (AUTO) 0.2 10^3/uL (0.0-0.6); ABSOLUTE LYMPHOCYTES (AUTO) 1.6 10^3/uL (0.5-4.7); ABSOLUTE MONOCYTES (AUTO) 0.4 10^3/uL (0.1-1.4); ABSOLUTE NEUT (AUTO) 3.7 10^3/uL (1.7-8.2); BASOPHILS % (AUTO) 0.6 % (0-2); EOSINOPHILS % (AUTO) 2.7 % (0-6); HEMOGLOBIN 8.5 g/dL (12.0-15.5); LYMPHOCYTES % (AUTO) 27.3 % (13-45); MEAN CORPUSCULAR HEMOGLOBIN 29.8 pg (27.0-33.4); MEAN CORPUSCULAR HGB CONC 32.6 g/dL (32.0-36.0); MEAN CORPUSCULAR VOLUME 92 fl (80-97); MONOCYTES % (AUTO) 6.5 % (3-13); PLATELET COUNT 192 10^3/uL (150-450); RED BLOOD COUNT 2.83 10^6/uL (3.72-5.28); RED CELL DISTRIBUTION WIDTH 13.4 % (11.5-14.0); SEGMENTED NEUTROPHILS % (AUTO) 62.9 % (42-78); TOTAL CELLS COUNTED % (AUTO) 100 %; WHITE BLOOD COUNT 5.9 10^3/uL (4.0-10.5)
[2020-04-08 11:12] LABS: ANION GAP 6 (5-19); BLOOD UREA NITROGEN 24 mg/dL (7-20); CARBON DIOXIDE 32 mmol/L (22-30); CHLORIDE 99 mmol/L (98-107); GLUCOSE 120 mg/dL (75-110); POTASSIUM 4.5 mmol/L (3.6-5.0)
[2020-04-08] MEDS: INSULIN LISPRO 100 UNIT/ML 3 ML VIAL SUBCUT SCH ×3 (12:45→23:05)
[2020-04-08] MEDS: NYSTATIN CREAM 15 GM TP SCH ×2 (14:32→17:03)
--- NOTE | 2020-04-08 15:21 | PDOC PROGRESS REPORT ---
Subjective Progress Note for:: 04/08/20 Subjective:: No distress noted. Improved with diuresis Reason For Visit: CHRONIC ATRIAL FIB,VALVULAR HEART DISEASE, Physical Exam Vital Signs: Temp Pulse Resp BP Pulse Ox 97.5 F 85 16 100/75 93 04/08/20 07:51 04/08/20 07:51 04/08/20 07:51 04/08/20 07:51 04/08/20 07:51 Intake & Output 04/07/20 04/08/20 04/09/20 06:59 06:59 06:59 Intake Total 390 842 Output Total 750 1150 Balance -360 -308 Weight 93.4 kg 91.7 kg General appearance: PRESENT: no acute distress, cooperative, obese, well- developed, well-nourished Head exam: PRESENT: atraumatic, normocephalic Eye exam: PRESENT: conjunctiva pink, EOMI Mouth exam: PRESENT: moist Respiratory exam: PRESENT: decreased breath sounds, symmetrical Cardiovascular exam: PRESENT: RRR, +S1, +S2 Pulses: PRESENT: normal radial pulses Rectal exam: PRESENT: deferred Skin exam: PRESENT: dry, intact, pallor Results Laboratory Results: 04/08/20 10:42 04/08/20 10:42 WBC 5.9 RBC 2.83 L Hgb 8.5 L Hct 26.0 L MCV 92 MCH 29.8 MCHC 32.6 RDW 13.4 Plt Count 192 Seg Neutrophils % 62.9 04/06/20 18:33 NT-Pro-B Natriuret Pep 5690 H Impressions: Chest X-Ray 04/06/20 17:21 IMPRESSION: 1. No acute infiltrates 2. Previous sternotomy 3. Pacemaker Assessment & Plan - Diagnosis (1) Chronic atrial fibrillation Is this a current diagnosis for this admission?: Yes Plan: Rate control measures Continue Apixaban SSS- Right sided PPM (2) Congestive heart failure Is this a current diagnosis for this admission?: Yes (3) Coronary artery disease Is this a current diagnosis for this admission?: Yes (4) Hypertension Qualifiers: Hypertension type: essential hypertension Qualified Code(s): I10 - Essential (primary) hypertension Is this a current diagnosis for this admission?: Yes
[2020-04-08] MEDS: ATORVASTATIN CALCIUM 40 MG TABLET PO SCH (22:47)
[2020-04-08] MEDS: MELATONIN 3 MG TABLET PO SCH (22:47)
[2020-04-08] MEDS: METOPROLOL TARTRATE 25 MG TABLET PO SCH (22:48)
[2020-04-08] MEDS: TRAZODONE HCL 50 MG TABLET PO SCH (22:48)
[2020-04-08] MEDS: INSULIN GLARGINE,HUM.REC.ANLOG 1,000 UNIT/10 ML VIAL SUBCUT SCH (22:52)
[2020-04-08] MEDS: DIVALPROEX SODIUM 125 MG CAP.SPRINK PO SCH (23:08)
[2020-04-09] MEDS: FUROSEMIDE INJ/PF 20 MG/2 ML SDV IV SCH ×3 (05:37→22:17)
[2020-04-09] MEDS: INSULIN LISPRO 100 UNIT/ML 3 ML VIAL SUBCUT SCH ×4 (08:53→22:18)
[2020-04-09] MEDS: METOPROLOL TARTRATE 50 MG TABLET PO SCH (08:59)
[2020-04-09] MEDS: CALCIUM CARBONATE 600 MG TABLET PO SCH ×2 (08:59→17:51)
[2020-04-09] MEDS: METFORMIN HCL 500 MG TABLET PO SCH ×2 (08:59→17:51)
[2020-04-09] MEDS: CHOLECALCIFEROL (D3) 1,000 UNIT (25 MCG) TABLET PO SCH (09:01)
[2020-04-09] MEDS: MAGNESIUM OXIDE 400 MG TABLET PO SCH (09:01)
[2020-04-09] MEDS: FAMOTIDINE 20 MG TABLET PO SCH ×2 (09:01→22:17)
[2020-04-09] MEDS: APIXABAN 5 MG TABLET PO SCH (09:01)
[2020-04-09] MEDS: LEVETIRACETAM 500 MG TABLET PO SCH ×2 (09:01→22:17)
[2020-04-09] MEDS: POLYVINYL ALCOHOL 1.4% OPH SOLN 15 ML OU SCH ×2 (09:02→17:51)
[2020-04-09] MEDS: FENOFIBRATE NANOCRYSTALLIZED 48 MG TABLET PO SCH (09:02)
[2020-04-09] MEDS: SERTRALINE HCL 50 MG TABLET PO SCH (09:02)
[2020-04-09] MEDS: ASPIRIN 81 MG TABLET, CHEWABLE PO SCH (09:02)
[2020-04-09] MEDS: FLUTICASONE NASAL SPRAY 50 MCG/SPRY 120 SPRAY/16 GM NASL SCH (09:03)
[2020-04-09] MEDS: NYSTATIN CREAM 15 GM TP SCH ×2 (09:03→17:52)
--- NOTE | 2020-04-09 11:45 | PDOC PROGRESS REPORT ---
Subjective Progress Note for:: 04/09/20 Subjective:: Improved clinically in terms of heart failure. Had nosebleed. Apixaban dose has been reduced. Reason For Visit: CHRONIC ATRIAL FIB,VALVULAR HEART DISEASE, Physical Exam Vital Signs: Temp Pulse Resp BP Pulse Ox 97.3 F 78 18 119/58 L 100 04/09/20 07:34 04/09/20 07:34 04/09/20 07:34 04/09/20 07:34 04/09/20 07:34 Intake & Output 04/08/20 04/09/20 04/10/20 06:59 06:59 06:59 Intake Total 842 1456 Output Total 1150 550 Balance -308 906 Weight 91.7 kg 92 kg General appearance: PRESENT: no acute distress, morbidly obese, well-developed, well-nourished Head exam: PRESENT: atraumatic, normocephalic Mouth exam: PRESENT: moist Respiratory exam: PRESENT: prolonged expiratory phas, symmetrical, unlabored Cardiovascular exam: PRESENT: irregular rhythm, +S1, +S2, other - Right-sided pacemaker site is intact Pulses: PRESENT: normal radial pulses GI/Abdominal exam: PRESENT: soft Rectal exam: PRESENT: deferred Skin exam: PRESENT: dry, intact Results Laboratory Results: 04/08/20 10:42 04/08/20 10:42 04/06/20 04/08/20 18:33 10:42 NT-Pro-B Natriuret Pep 5690 H 5800 H Impressions: Chest X-Ray 04/06/20 17:21 IMPRESSION: 1. No acute infiltrates 2. Previous sternotomy 3. Pacemaker Assessment & Plan - Diagnosis (1) Chronic atrial fibrillation Is this a current diagnosis for this admission?: Yes Plan: Continue rate well-controlled measures. Epistaxis was reported. Apixaban dose has been decreased. If epistaxis resolved apixaban should be at full dose based on renal function. This is for adequate protection from stroke (2) Congestive heart failure Is this a current diagnosis for this admission?: Yes Plan: Appears to be improving. Has responded to diuretic therapy (3) Coronary artery disease Is this a current diagnosis for this admission?: Yes Plan: Doing well. Continue medical therapy as feasible. No ischemic symptoms. (4) Hypertension Qualifiers: Hypertension type: essential hypertension Qualified Code(s): I10 - Essential (primary) hypertension Is this a current diagnosis for this admission?: Yes Plan: Blood pressure has been stable. - Notes Notes: Overall significantly improved with continued intravenous diuretic therapy. Anticipate transitioning to oral medications. Epistaxis has been noted. We will continue to watch this.
--- NOTE | 2020-04-09 13:18 | PDOC PROGRESS REPORT ---
Subjective Progress Note for:: 04/09/20 Reason For Visit: CHRONIC ATRIAL FIB,VALVULAR HEART DISEASE, 04/09/2020 Patient was a direct admit from the office of cardiology on 04/06/2020 for CHF exacerbation. Patient however came from [facility]. Almost a 20 pound weight gain recently and increasing shortness of breath Physical Exam Vital Signs: Temp Pulse Resp BP Pulse Ox 97.3 F 78 18 119/58 L 100 04/09/20 07:34 04/09/20 07:34 04/09/20 07:34 04/09/20 07:34 04/09/20 07:34 Intake & Output 04/08/20 04/09/20 04/10/20 06:59 06:59 06:59 Intake Total 842 1456 Output Total 1150 550 Balance -308 906 Weight 91.7 kg 92 kg General appearance: PRESENT: no acute distress - Sleeping and resting comfortably no wheezing no respiratory distress Respiratory exam: PRESENT: decreased breath sounds Cardiovascular exam: PRESENT: RRR. ABSENT: diastolic murmur, rubs, systolic murmur Neurological exam: PRESENT: alert, awake, oriented to person, oriented to place, oriented to time, oriented to situation, CN II-XII grossly intact. ABSENT: motor sensory deficit Psychiatric exam: PRESENT: appropriate affect, normal mood. ABSENT: homicidal ideation, suicidal ideation Results Laboratory Results: 04/08/20 10:42 04/08/20 10:42 04/06/20 04/08/20 18:33 10:42 NT-Pro-B Natriuret Pep 5690 H 5800 H Impressions: Chest X-Ray 04/06/20 17:21 IMPRESSION: 1. No acute infiltrates 2. Previous sternotomy 3. Pacemaker Assessment and Plan - Diagnosis (1) Chronic atrial fibrillation Is this a current diagnosis for this admission?: Yes (2) Coronary artery disease Is this a current diagnosis for this admission?: Yes (3) DM type 2 (diabetes mellitus, type 2) Qualifiers: Diabetes mellitus terminal worker insulin use: with half-way use Diabetes mellitus complication status: without complication Qualified Code(s): E11.9 - Type 2 diabetes mellitus without complications; Z79.4 - terminal press operator (current) use of insulin; Z79.4 - terminal press operator (current) use of insulin; Z79.4 - USP (current) use of insulin; Z79.4 - terminal press operator (current) use of insulin Is this a current diagnosis for this admission?: Yes (4) HLD (hyperlipidemia) Qualifiers: Hyperlipidemia type: unspecified Qualified Code(s): E78.5 - Hyperlipidemia, unspecified Is this a current diagnosis for this admission?: Yes (5) Hypertension Qualifiers: Hypertension type: essential hypertension Qualified Code(s): I10 - Essential (primary) hypertension Is this a current diagnosis for this admission?: Yes (6) Shortness of breath Is this a current diagnosis for this admission?: Yes (7) Congestive heart failure Is this a current diagnosis for this admission?: Yes - Plan Summary Summary: Patient will be a direct admission with labs checked this afternoon. Patient was given a dose of Lasix in the office and will be treated with 20 mg IV every 8 hours in the hospital with daily weights, i & o'S She will be seen by cardiology in the morning Patient's home meds will be resumed Patient appears to be medically stable. 04/07/2020 Temperature 97.3 pulse of 80 blood pressure 115/65 O2 sat 100% on 2 L nasal cannula White count 6100 hemoglobin 8.4 BNP yesterday on admission was 5690 electrolytes grossly normal however blood sugars elevated in the 200s Urinalysis showed moderate leukocytes and moderate blood Keppra level is pending BNP will be repeated tomorrow as well as electrolytes So far today patient has put out 750 mL's and taken in 390 with a deficit of 360 Intake weight was 77 kg today is 93 kg obviously there is a mistake here which will need to be fixed Continue Lasix 20 mg IV every 8 hours Cardiology has seen the patient and agrees with the work-up so far Patient is less short of breath today and has less peripheral edema Appears as though she will need 2 or 3 more days of treatment 04/08/2020 Temperature 97.3 pulse 83 blood pressure 109/63 O2 sat 100% on 2 L Patient tells me she comes from [place] [facility] White blood cell count normal 6100 on admission her BNP was 5690 Admission her weight was recorded improperly most accurate was probably 93.4 kg and today it is 91.7 kg She reports less shortness of breath I a.m. going to repeat her labs tomorrow Yesterday's creatinine was 1.[address] discharge back to [facility] on Saturday We will switch to p.o. Lasix tomorrow Patient in no respiratory distress 04/09/2020 Patient sleeping comfortably however easy to arouse No respiratory distress Temp 97 3 pulse 78 blood pressure 119/58 O2 sat 100% on 1.5 L Labs appear stable although BNP remains high 5800 Will repeat labs in the morning Keppra level is therapeutic Patient currently on Lasix 20 mg IV every 8 hours will change this to p.o. tomorrow, possibly just every 12 hours Eliquis was decreased to 2.5 mg twice daily for nosebleed will increase his back to 5 mg twice daily tomorrow, assuming she has no further nosebleeds Glucose levels are well controlled Cardiology and I have discussed the patient today Patient will be ready to be discharged back to [facility] on Saturday - Time Time Spent with patient: 25-34 minutes
[2020-04-09] MEDS: APIXABAN 2.5 MG TABLET PO SCH (17:51)
[2020-04-09] MEDS: ATORVASTATIN CALCIUM 40 MG TABLET PO SCH (22:17)
[2020-04-09] MEDS: METOPROLOL TARTRATE 25 MG TABLET PO SCH (22:17)
[2020-04-09] MEDS: TRAZODONE HCL 50 MG TABLET PO SCH (22:17)
[2020-04-09] MEDS: DIVALPROEX SODIUM 125 MG CAP.SPRINK PO SCH (22:18)
[2020-04-09] MEDS: MELATONIN 3 MG TABLET PO SCH (22:18)
[2020-04-09] MEDS ORDERED: INSULIN GLARGINE,HUM.REC.ANLOG 1,000 UNIT/10 ML VIAL (PYX) SUBCUT ONE (22:27)
[2020-04-09] MEDS: INSULIN GLARGINE,HUM.REC.ANLOG 1,000 UNIT/10 ML VIAL SUBCUT SCH (22:28)
[2020-04-10 06:24] LABS: ABSOLUTE EOSINOPHILS # (AUTO) 0.1 10^3/uL (0.0-0.6); ABSOLUTE LYMPHOCYTES (AUTO) 2.1 10^3/uL (0.5-4.7); ABSOLUTE MONOCYTES (AUTO) 0.6 10^3/uL (0.1-1.4); ABSOLUTE NEUT (AUTO) 5.1 10^3/uL (1.7-8.2); BASOPHILS % (AUTO) 0.3 % (0-2); EOSINOPHILS % (AUTO) 1.9 % (0-6); HEMATOCRIT 26.9 % (36.0-47.0); HEMOGLOBIN 8.8 g/dL (12.0-15.5); LYMPHOCYTES % (AUTO) 26.1 % (13-45); MEAN CORPUSCULAR HEMOGLOBIN 29.6 pg (27.0-33.4); MEAN CORPUSCULAR HGB CONC 32.8 g/dL (32.0-36.0); MEAN CORPUSCULAR VOLUME 90 fl (80-97); MONOCYTES % (AUTO) 7.1 % (3-13); PLATELET COUNT 207 10^3/uL (150-450); RED BLOOD COUNT 2.99 10^6/uL (3.72-5.28); RED CELL DISTRIBUTION WIDTH 13.3 % (11.5-14.0); SEGMENTED NEUTROPHILS % (AUTO) 64.6 % (42-78); TOTAL CELLS COUNTED % (AUTO) 100 %; WHITE BLOOD COUNT 7.9 10^3/uL (4.0-10.5)
[2020-04-10] MEDS: FUROSEMIDE INJ/PF 20 MG/2 ML SDV IV SCH (06:25)
[2020-04-10 06:48] LABS: ANION GAP 6 (5-19); BLOOD UREA NITROGEN 30 mg/dL (7-20); CALCIUM 9.2 mg/dL (8.4-10.2); CARBON DIOXIDE 36 mmol/L (22-30); CHLORIDE 95 mmol/L (98-107); POTASSIUM 3.7 mmol/L (3.6-5.0)
[2020-04-10 06:52] LABS: GLUCOSE 67 mg/dL (75-110)
[2020-04-10] MEDS: INSULIN LISPRO 100 UNIT/ML 3 ML VIAL SUBCUT SCH ×4 (08:36→22:01)
[2020-04-10] MEDS: METOPROLOL TARTRATE 50 MG TABLET PO SCH (08:51)
[2020-04-10] MEDS: CALCIUM CARBONATE 600 MG TABLET PO SCH ×2 (08:52→17:35)
[2020-04-10] MEDS: METFORMIN HCL 500 MG TABLET PO SCH ×2 (08:52→17:35)
[2020-04-10] MEDS: LEVETIRACETAM 500 MG TABLET PO SCH ×2 (09:32→22:00)
[2020-04-10] MEDS: SERTRALINE HCL 50 MG TABLET PO SCH (09:32)
[2020-04-10] MEDS: CHOLECALCIFEROL (D3) 1,000 UNIT (25 MCG) TABLET PO SCH (09:32)
[2020-04-10] MEDS: APIXABAN 2.5 MG TABLET PO SCH ×2 (09:32→17:43)
[2020-04-10] MEDS: MAGNESIUM OXIDE 400 MG TABLET PO SCH (09:32)
[2020-04-10] MEDS: FAMOTIDINE 20 MG TABLET PO SCH ×2 (09:33→22:00)
[2020-04-10] MEDS: NYSTATIN CREAM 15 GM TP SCH ×2 (09:33→17:56)
[2020-04-10] MEDS: POLYVINYL ALCOHOL 1.4% OPH SOLN 15 ML OU SCH ×2 (09:33→17:37)
[2020-04-10] MEDS: FLUTICASONE NASAL SPRAY 50 MCG/SPRY 120 SPRAY/16 GM NASL SCH (09:33)
[2020-04-10] MEDS: ASPIRIN 81 MG TABLET, CHEWABLE PO SCH (09:33)
--- NOTE | 2020-04-10 09:40 | RADIOLOGY REPORT (SQ) ---
EXAM DESCRIPTION: CHEST SINGLE VIEW IMAGES COMPLETED DATE/TIME: 04/10/2020 9:25 am REASON FOR STUDY: chf COMPARISON: Chest films 04/06/2020, 10/11/2016 EXAM PARAMETERS: NUMBER OF VIEWS: One view. TECHNIQUE: Single frontal radiographic view of the chest acquired. RADIATION DOSE: NA LIMITATIONS: None. FINDINGS: LUNGS AND PLEURA: Chronic elevation right hemidiaphragm with chronic right lateral costoph renic sulcus pleural thickening. No acute infiltrates. No pleural effusion or pneumothorax. MEDIASTINUM AND HILAR STRUCTURES: No masses. Contour normal. HEART AND VASCULAR STRUCTURES: Mild cardiomegaly. Post sternotomy with CABG. Left atrial appendage clip. Right double lead pacemaker BONES: No acute findings. HARDWARE: Right double lead pacemaker OTHER: No other significant finding. IMPRESSION: No acute findings TECHNICAL DOCUMENTATION: JOB ID: [id number] 2010 [employer]- All Rights Reserved Reading location - IP/workstation name: [email or web address]
--- NOTE | 2020-04-10 12:47 | PDOC PROGRESS REPORT ---
Subjective Progress Note for:: 04/10/20 Reason For Visit: CHRONIC ATRIAL FIB,VALVULAR HEART DISEASE, 04/10/2020 Patient was admitted on 04/06/2020 from the track repair person office by [facility] of [facility] for 20 pound weight gain and increased shortness of breath Physical Exam Vital Signs: Temp Pulse Resp BP Pulse Ox 98.9 F 83 20 139/68 H 98 04/10/20 12:00 04/10/20 12:00 04/10/20 12:00 04/10/20 12:00 04/10/20 12:00 Intake & Output 04/09/20 04/10/20 04/11/20 06:59 06:59 06:59 Intake Total 1456 Output Total 550 Balance 906 Weight 92 kg 93.1 kg General appearance: PRESENT: no acute distress - Patient is sleeping comfortably no respiratory distress arouses easily Respiratory exam: PRESENT: decreased breath sounds Cardiovascular exam: PRESENT: RRR. ABSENT: diastolic murmur, rubs, systolic murmur Neurological exam: PRESENT: alert, awake, oriented to person, oriented to place, oriented to time, oriented to situation, CN II-XII grossly intact. ABSENT: motor sensory deficit Psychiatric exam: PRESENT: appropriate affect, normal mood. ABSENT: homicidal ideation, suicidal ideation Results Laboratory Results: 04/10/20 05:43 04/10/20 05:43 04/10/20 04/10/20 05:43 05:43 WBC 7.9 RBC 2.99 L Hgb 8.8 L Hct 26.9 L MCV 90 MCH 29.6 MCHC 32.8 RDW 13.3 Plt Count 207 Seg Neutrophils % 64.6 Sodium 137.2 Potassium 3.7 Chloride 95 L Carbon Dioxide 36 H Anion Gap 6 BUN 30 H Creatinine 1.14 Est GFR ( Amer) 56 L Glucose 67 L Calcium 9.2 04/06/20 04/08/20 04/10/20 18:33 10:42 05:43 NT-Pro-B Natriuret Pep 5690 H 5800 H 5760 H Impressions: Chest X-Ray 04/10/20 00:00 IMPRESSION: No acute findings Assessment and Plan - Diagnosis (1) Chronic atrial fibrillation Is this a current diagnosis for this admission?: Yes (2) Coronary artery disease Is this a current diagnosis for this admission?: Yes (3) DM type 2 (diabetes mellitus, type 2) Qualifiers: Diabetes mellitus moth exterminator insulin use: with moth exterminator use Diabetes mellitus complication status: without complication Qualified Code(s): E11.9 - Type 2 diabetes mellitus without complications; Z79.4 - senior living (current) use of insulin; Z79.4 - senior living (current) use of insulin; Z79.4 - senior living (cur rent) use of insulin; Z79.4 - senior living (current) use of insulin Is this a current diagnosis for this admission?: Yes (4) HLD (hyperlipidemia) Qualifiers: Hyperlipidemia type: unspecified Qualified Code(s): E78.5 - Hyperlipidemia, unspecified Is this a current diagnosis for this admission?: Yes (5) Hypertension Qualifiers: Hypertension type: essential hypertension Qualified Code(s): I10 - Essent ial (primary) hypertension Is this a current diagnosis for this admission?: Yes (6) Shortness of breath Is this a current diagnosis for this admission?: Yes (7) Congestive heart failure Is this a current diagnosis for this admission?: Yes - Plan Summary Summary: Patient will be a direct admission with labs checked this afternoon. Patient was given a dose of Lasix in the office and will be treated with 20 mg IV every 8 hours in the hospital with daily weights, i & o'S She will be seen by cardiology in the morning Patient's home meds will be resumed Patient appears to be medically stable. 04/07/2020 Temperature 97.3 pulse of 80 blood pressure 115/65 O2 sat 100% on 2 L nasal cannula White count 6100 hemoglobin 8.4 BNP yesterday on admission was 5690 electrolytes grossly normal however blood sugars elevated in the 200s Urinalysis showed moderate leukocytes and moderate blood Keppra level is pending BNP will be repeated tomorrow as well as electrolytes So far today patient has put out 750 mL's and taken in 390 with a deficit of 360 Intake weight was 77 kg today is 93 kg obviously there is a mistake here which will need to be fixed Continue Lasix 20 mg IV every 8 hours Cardiology has seen the patient and agrees with the work-up so far Patient is less short of breath today and has less peripheral edema Appears as though she will need 2 or 3 more days of treatment 04/08/2020 Temperature 97.3 pulse 83 blood pressure 109/63 O2 sat 100% on 2 L Patient tells me she comes from [facility] White blood cell count normal 6100 on admission her BNP was 5690 Admission her weight was recorded improperly most accurate was probably 93.4 kg and today it is 91.7 kg She reports less shortness of breath I a.m. going to repeat her labs tomorrow Yesterday's creatinine was 1.04 Anticipate discharge back to [facility] on Saturday We will switch to p.o. Lasix tomorrow Patient in no respiratory distress 04/09/2020 Patient sleeping comfortably however easy to arouse No respiratory distress Temp 97 3 pulse 78 blood pressure 119/58 O2 sat 100% on 1.5 L Labs appear stable although BNP remains high 5800 Will repeat labs in the morning Keppra level is therapeutic Patient currently on Lasix 20 mg IV every 8 hours will change this to p.o. tomorrow, possibly just every 12 hours Eliquis was decreased to 2.5 mg twice daily for nosebleed will increase his back to 5 mg twice daily tomorrow, assuming she has no further nosebleeds Glucose levels are well controlled Cardiology and I have discussed the patient today Patient will be ready to be discharged back to [facility] on Saturday04/10/2020 Patient's weight seems to be holding around 93 kg but she is breathing much easier. Lasix 20 mg IV every 8 hours and [facility] she was only on 20 mg daily p.o. I am going to switch her to 40 mg in the morning p.o. and 20 mg in the evening p.o. However chest x-ray done today shows no sign of failure BNP is holding about steady at 5760 Her saturations are well maintained on just 1 L of oxygen and respiratory rate is averaging around 16 breaths/min Has had no further nosebleeds and I have increased her Eliquis back up to 5 mg twice daily I continue to [facility], as clinically patient appears much less short of breath - Time Time Spent with patient: 25-34 minutes
[2020-04-10] MEDS: FENOFIBRATE NANOCRYSTALLIZED 48 MG TABLET PO SCH (14:16)
[2020-04-10] MEDS: APIXABAN 5 MG TABLET PO SCH (17:36)
[2020-04-10] MEDS: TRAZODONE HCL 50 MG TABLET PO SCH (22:00)
[2020-04-10] MEDS: MELATONIN 3 MG TABLET PO SCH (22:00)
[2020-04-10] MEDS: METOPROLOL TARTRATE 25 MG TABLET PO SCH (22:01)
[2020-04-10] MEDS: DIVALPROEX SODIUM 125 MG CAP.SPRINK PO SCH (22:01)
[2020-04-10] MEDS: ATORVASTATIN CALCIUM 40 MG TABLET PO SCH (22:01)
[2020-04-10] MEDS: FUROSEMIDE 20 MG TABLET PO SCH (22:02)
[2020-04-10] MEDS: INSULIN GLARGINE,HUM.REC.ANLOG 1,000 UNIT/10 ML VIAL SUBCUT SCH (22:02)
[2020-04-11] MEDS: INSULIN LISPRO 100 UNIT/ML 3 ML VIAL SUBCUT SCH ×4 (07:47→22:04)
[2020-04-11] MEDS: METOPROLOL TARTRATE 50 MG TABLET PO SCH (08:09)
[2020-04-11] MEDS: FUROSEMIDE 40 MG TABLET PO SCH (08:09)
[2020-04-11] MEDS: METFORMIN HCL 500 MG TABLET PO SCH ×2 (08:09→17:23)
[2020-04-11] MEDS: CALCIUM CARBONATE 600 MG TABLET PO SCH ×2 (08:09→17:23)
[2020-04-11] MEDS: MAGNESIUM OXIDE 400 MG TABLET PO SCH (10:02)
[2020-04-11] MEDS: FAMOTIDINE 20 MG TABLET PO SCH ×2 (10:02→22:06)
[2020-04-11] MEDS: ASPIRIN 81 MG TABLET, CHEWABLE PO SCH (10:02)
[2020-04-11] MEDS: APIXABAN 5 MG TABLET PO SCH ×2 (10:02→17:23)
[2020-04-11] MEDS: LEVETIRACETAM 500 MG TABLET PO SCH ×2 (10:02→22:05)
[2020-04-11] MEDS: CHOLECALCIFEROL (D3) 1,000 UNIT (25 MCG) TABLET PO SCH (10:02)
[2020-04-11] MEDS: SERTRALINE HCL 50 MG TABLET PO SCH (10:03)
[2020-04-11] MEDS: POLYVINYL ALCOHOL 1.4% OPH SOLN 15 ML OU SCH ×2 (10:27→17:28)
[2020-04-11] MEDS: FENOFIBRATE NANOCRYSTALLIZED 48 MG TABLET PO SCH (10:27)
[2020-04-11] MEDS: FLUTICASONE NASAL SPRAY 50 MCG/SPRY 120 SPRAY/16 GM NASL SCH (10:28)
[2020-04-11] MEDS: APIXABAN 2.5 MG TABLET PO SCH (10:28)
[2020-04-11] MEDS: NYSTATIN CREAM 15 GM TP SCH ×2 (10:28→17:29)
--- NOTE | 2020-04-11 12:17 | PDOC TRANSFER SUMMARY ---
Impression - Admit/DC Date/PCP Admission Date/Primary Care Provider: 04/06/20 16:09 JOHN HAYES MD Discharge Date: 04/11/20 - Discharge Diagnosis (1) Chronic atrial fibrillation Is this a current diagnosis for this admission?: Yes (2) Coronary artery disease Is this a current diagnosis for this admission?: Yes (3) DM type 2 (diabetes mellitus, type 2) Is this a current diagnosis for this admission?: Yes (4) HLD (hyperlipidemia) Is this a current diagnosis for this admission?: Yes (5) Hypertension Is this a current diagnosis for this admission?: Yes (6) Shortness of breath Is this a current diagnosis for this admission?: Yes (7) Congestive heart failure Is this a current diagnosis for this admission?: Yes - Assessment Summary: Patient will be a direct admission with labs checked this afternoon. Patient was given a dose of Lasix in the office and will be treated with 20 mg IV every 8 hours in the hospital with daily weights, i & o'S She will be seen by cardiology in the morning Patient's home meds will be resumed Patient appears to be medically stable. 04/07/2020 Temperature 97.3 pulse of 80 blood pressure 115/65 O2 sat 100% on 2 L nasal cannula White count 6100 hemoglobin 8.4 BNP yesterday on admission was 5690 electrolytes grossly normal however blood sugars elevated in the 200s Urinalysis showed moderate leukocytes and moderate blood Keppra level is pending BNP will be repeated tomorrow as well as electrolytes So far today patient has put out 750 mL's and taken in 390 with a deficit of 360 Intake weight was 77 kg today is 93 kg obviously there is a mistake here which will need to be fixed Continue Lasix 20 mg IV every 8 hours Cardiology has seen the patient and agrees with the work-up so far Patient is less short of breath today and has less peripheral edema Appears as though she will need 2 or 3 more days of treatment 04/08/2020 Temperature 97.3 pulse 83 blood pressure 109/63 O2 sat 100% on 2 L Patient tells me she comes from [facility] White blood cell count normal 6100 on admission her BNP was 5690 Admission her weight was recorded improperly most accurate was probably 93.4 kg and today it is 91.7 kg She reports less shortness of breath I a.m. going to repeat her labs tomorrow Yesterday's creatinine was 1.04 Anticipate discharge back to [facility] on Saturday We will switch to p.o. Lasix tomorrow Patient in no respiratory distress 04/09/2020 Patient sleeping comfortably however easy to arouse No respiratory distress Temp 97 3 pulse 78 blood pressure 119/58 O2 sat 100% on 1.5 L Labs appear stable although BNP remains high 5800 Will repeat labs in the morning Keppra level is therapeutic Patient currently on Lasix 20 mg IV every 8 hours will change this to p.o. tomorrow, possibly just every 12 hours Eliquis was decreased to 2.5 mg twice daily for nosebleed will increase his back to 5 mg twice daily tomorrow, assuming she has no further nosebleeds Glucose levels are well controlled Cardiology and I have discussed the patient today Patient will be ready to be discharged back to [facility] on Saturday04/10/2020 Patient's weight seems to be holding around 93 kg but she is breathing much easier. Lasix 20 mg IV every 8 hours and [facility] she was only on 20 mg daily p.o. I am going to switch her to 40 mg in the morning p.o. and 20 mg in the evening p.o. However chest x-ray done today shows no sign of failure BNP is holding about steady at 5760 Her saturations are well maintained on just 1 L of oxygen and respiratory rate is averaging around 16 breaths/min Has had no further nosebleeds and I have increased her Eliquis back up to 5 mg twice daily I continue to think patient can be transitioned back to [facility] tomorrow, as clinically patient appears much less short of breath 04/11/2020 Patient is being discharged today back to [facility]. Temperature 97.7 pulse 88 blood pressure 124/60 O2 sat between 96 to 98% on 1 L BNP is holding steady at around 5760 CBC is normal Portable chest x-ray from yesterday shows no sign of failure Glucose levels running anywhere from 73-260 His weight is finally coming down today it is 90.4 kg She came in at 93.4 kg she has no evidence of shortness of breath. I have adjusted her Lasix as above 40 mg in the morning 20 mg in the evening Eliquis is back up to 5 mg twice daily Patient was admitted for chronic persistent atrial fib CHF exacerbation, coronary disease, hypertension, - Additional Information Resuscitation Status: Full Code Discharge Diet: Cardiac, Diabetic Discharge Activity: Activity As Tolerated, Balance Activity w/Rest, Weigh Daily Referrals: [facility] [Outside] JOHN HAYES MD [Primary Care Provider] - 04/27/20 2:00 pm Prescriptions: Divalproex Sodium [Depakote Sprinkle 125 mg Capsule] 125 mg PO QHS 30 Days #30 cap.sprink Metformin HCl [Glucophage 500 mg Tablet] 500 mg PO BIDACBS 30 Days #60 tablet Potassium Chloride [Klor-Con 10 Meq Tablet ER] 10 meq PO BID 30 Days #60 Furosemide [Lasix 20 mg Tablet] 20 mg PO QHS 30 Days #30 tablet Furosemide [Lasix 40 mg Tablet] 40 mg PO QAM 30 Days #30 tablet Atorvastatin Calcium [Lipitor 40 mg Tablet] 40 mg PO QHS 30 Days #30 tablet Nystatin [Mycostatin Cream 15 gm] 1 applic TP BID 30 Days #1 tube Home Medications: Atorvastatin Calcium [Lipitor 40 mg Tablet] 40 mg PO QHS 09/30/17 Aspirin [Aspirin 81 mg Chewable Tablet] 81 mg PO DAILY 04/06/20 Calcium Citrate [Calcium Citrate 250 mg Tablet] 500 mg PO BID 04/06/20 Cholecalciferol (Vitamin D3) [Vitamin D3 1000 Unit Tablet] 1,000 unit PO DAILY 04/06/20 Cranberry 500 mg PO DAILY 04/06/20 Docusate Sodium [Colace 100 mg Capsule] 100 mg PO DAILYP PRN 04/06/20 Fenofibrate Nanocrystallized [Fenofibrate] 48 mg PO DAILY 04/06/20 Fluticasone Propionate [Flonase Nasal [place] 50 Mcg/[place] 16 gm] 1 spray NASL DAILY 04/06/20 Insulin Degludec [Tresiba] 15 unit SQ QHS 04/06/20 Levetiracetam [Keppra 500 mg Tablet] 500 mg PO QAM 04/06/20 Levetiracetam [Keppra 500 mg Tablet] 750 mg PO QHS 04/06/20 Levothyroxine Sodium [Synthroid] 125 mcg PO Q6AM 04/06/20 Loperamide HCl [Imodium 2 mg Capsule] 2 mg PO Q4HP PRN 04/06/20 Loratadine [Claritin 10 mg Tablet] 10 mg PO DAILY 04/06/20 Magnesium Oxide [Mag-Ox 400 mg Tablet] 400 mg PO DAILY 04/06/20 Melatonin [Melatonin 3 mg Tablet] 9 mg PO QHS 04/06/20 Metoprolol Tartrate [Lopressor 50 mg Tablet] 25 mg PO QHS 04/06/20 Metoprolol Tartrate [Lopressor 50 mg Tablet] 50 mg PO QAM 04/06/20 Multivit-Min/FA/Lycopen/Lutein [Certavite Sr-Antioxidant Tab] 1 tab PO DAILY 04/06/20 Omeprazole 40 mg PO DAILY 04/06/20 Polyvinyl Alcohol [Liquitears 1.4% Ophth Soln 15 ml] 2 drop OU BID 04/06/20 Sertraline HCl [Zoloft 50 mg Tablet] 125 mg PO DAILY 04/06/20 Tramadol HCl [Ultram 50 mg Tablet] 50 mg PO Q6HP PRN 04/06/20 Trazodone HCl 100 mg PO QHS 04/06/20 Acetaminophen [Tylenol 325 mg Tablet] 650 mg PO Q4HP PRN tablet 04/11/20 Apixaban [Eliquis 5 mg Tablet] 5 mg PO BID tablet 04/11/20 Atorvastatin Calcium [Lipitor 40 mg Tablet] 40 mg PO QHS 30 Days #30 tablet 04/11/20 Divalproex Sodium [Depakote Sprinkle 125 mg Capsule] 125 mg PO QHS 30 Days #30 cap.sprink 04/11/20 Fenofibrate Nanocrystallized [Tricor 48 mg Tablet] 48 mg PO DAILY tablet 04/11/20 Furosemide [Lasix 20 mg Tablet] 20 mg PO QHS 30 Days #30 tablet 04/11/20 Furosemide [Lasix 40 mg Tablet] 40 mg PO QAM 30 Days #30 tablet 04/11/20 Mag Hydrox/Al Hydrox/Simeth [Maalox Plus Susp 30 Udcup] 30 ml PO Q6HP PRN udc 04/11/20 Metformin HCl [Glucophage 500 mg Tablet] 500 mg PO BIDACBS 30 Days #60 tablet 04/11/20 Metoprolol Tartrate [Lopressor 25 mg Tablet] 25 mg PO QHS tablet 04/11/20 Metoprolol Tartrate [Lopressor 50 mg Tablet] 50 mg PO QAM tablet 04/11/20 Nystatin [Mycostatin Cream 15 gm] 1 applic TP BID 30 Days #1 tube 04/11/20 Potassium Chloride [Klor-Con 10 Meq Tablet ER] 10 meq PO BID 30 Days #60 04/11/20 Sertraline HCl [Zoloft 50 mg Tablet] 125 mg PO DAILY tablet 04/11/20 Tramadol HCl [Ultram 50 mg Tablet] 50 mg PO Q6HP PRN tablet 04/11/20 Trazodone HCl [Desyrel 50 mg Tablet] 100 mg PO QHS tablet 04/11/20 History of Present Illiness History of Present Illness: LAINA MONTENEGRO is a 74 year old female sent over for direct admission from cardiology, Dr. Couch for increasing shortness of breath with possible 20 pound weight gain in 1 week. Patient is unable to walk around her house without stopping to catch her breath and patient has also noticed increased lower extremity edema and palpitations. Patient has a complicated past medical history including sick sinus syndrome status post pacemaker implantation hypertension hyperlipidemia diabetes coronary artery disease with two-vessel CABG with NEW to the LAD and SVG to the ramus as well as aortic valve replacement with a 21 mm stent Srikanth epic supra valve with tri-cure clip on October 2018 Patient comes in now with heart failure exacerbation, chronic atrial fib, hypertension, coronary disease, valvular heart disease, hyperlipidemia. Patient appears to be medically stable. Physical Exam Vital Signs: Temp Pulse Resp BP Pulse Ox 97.6 F 79 16 132/70 H 97 04/11/20 07:29 04/11/20 07:29 04/11/20 07:29 04/11/20 07:29 04/11/20 07:29 Intake & Output 04/10/20 04/11/20 04/12/20 06:59 06:59 06:59 Intake Total 716 Balance 716 Weight 93.1 kg 90.4 kg Results Laboratory Results: WBC 7.9 10^3/uL (4.0-10.5) 04/10/20 05:43 RBC 2.99 10^6/uL (3.72-5.28) L 04/10/20 05:43 Hgb 8.8 g/dL (12.0-15.5) L 04/10/20 05:43 Hct 26.9 % (36.0-47.0) L 04/10/20 05:43 MCV 90 fl (80-97) 04/10/20 05:43 MCH 29.6 pg (27.0-33.4) 04/10/20 05:43 MCHC 32.8 g/dL (32.0-36.0) 04/10/20 05:43 RDW 13.3 % (11.5-14.0) 04/10/20 05:43 Plt Count 207 10^3/uL (150-450) 04/10/20 05:43 Lymph % (Auto) 26.1 % (13-45) 04/10/20 05:43 [place] % (Auto) 7.1 % (3-13) 04/10/20 05:43 Eos % (Auto) 1.9 % (0-6) 04/10/20 05:43 Baso % (Auto) 0.3 % (0-2) 04/10/20 05:43 Absolute Neuts (auto) 5.1 10^3/uL (1.7-8.2) 04/10/20 05:43 Absolute Lymphs (auto) 2.1 10^3/uL (0.5-4.7) 04/10/20 05:43 Absolute Monos (auto) 0.6 10^3/uL (0.1-1.4) 04/10/20 05:43 Absolute Eos (auto) 0.1 10^3/uL (0.0-0.6) 04/10/20 05:43 Absolute Basos (auto) 0.0 10^3/uL (0.0-0.2) 04/10/20 05:43 Seg Neutrophils % 64.6 % (42-78) 04/10/20 05:43 PT 14.9 SEC (11.4-15.4) 04/06/20 18:33 INR 1.16 04/06/20 18:33 APTT 35.4 SEC (23.5-35.8) 04/07/20 06:38 Sodium 137.2 mmol/L (137-145) 04/10/20 05:43 Potassium 3.7 mmol/L (3.6-5.0) 04/10/20 05:43 Chloride 95 mmol/L (98-107) L 04/10/20 05:43 Carbon Dioxide 36 mmol/L (22-30) H 04/10/20 05:43 Anion Gap 6 (5-19) 04/10/20 05:43 BUN 30 mg/dL (7-20) H 04/10/20 05:43 Creatinine 1.14 mg/dL (0.52-1.25) 04/10/20 05:43 Est GFR ( Amer) 56 (>60) L 04/10/20 05:43 Est GFR (MDRD) Non-Af 46 (>60) L 04/10/20 05:43 Glucose 67 mg/dL (75-110) L 04/10/20 05:43 POC Glucose 172 mg/dL (70-110) H 04/11/20 10:55 Hemoglobin A1c % 5.7 % (4.7-6.0) 04/08/20 10:42 Calcium 9.2 mg/dL (8.4-10.2) 04/10/20 05:43 Magnesium 1.9 mg/dL (1.6-2.3) 04/07/20 06:38 Total Bilirubin 0.3 mg/dL (0.2-1.3) 04/07/20 06:38 Direct Bilirubin 0.1 mg/dL (0.0-0.4) 04/07/20 06:38 Neonat Total Bilirubin Not Reportable 04/07/20 06:38 Neonat Direct Bilirubin Not Reportable 04/07/20 06:38 Neonat Indirect Bili Not Reportable 04/07/20 06:38 AST 29 U/L (14-36) 04/07/20 06:38 ALT 15 U/L (<35) 04/07/20 06:38 Alkaline Phosphatase 86 U/L (38-126) 04/07/20 06:38 NT-Pro-B Natriuret Pep 5760 pg/mL (<450) H 04/10/20 05:43 Total Protein 6.5 g/dL (6.3-8.2) 04/07/20 06:38 Albumin 3.4 g/dL (3.5-5.0) L 04/07/20 06:38 Urine Color STRAW 04/07/20 00:09 Urine Appearance CLEAR 04/07/20 00:09 Urine pH 5.0 (5.0-9.0) 04/07/20 00:09 Ur Specific [place] 1.004 04/07/20 00:09 Urine Protein NEGATIVE mg/dL (NEGATIVE) 04/07/20 00:09 Urine Glucose (UA) NEGATIVE mg/dL (NEGATIVE) 04/07/20 00:09 Urine Ketones NEGATIVE mg/dL (NEGATIVE) 04/07/20 00:09 Urine Blood MODERATE (NEGATIVE) H 04/07/20 00:09 Urine Nitrite (Reflex) NEGATIVE (NEGATIVE) 04/07/20 00:09 Urine Bilirubin NEGATIVE (NEGATIVE) 04/07/20 00:09 Urine Urobilinogen NEGATIVE mg/dL (<2.0) 04/07/20 00:09 Leukocyte Esterase Rfl MODERATE (NEGATIVE) H 04/07/20 00:09 Urine RBC (Auto) 1 /HPF 04/07/20 00:09 Urine WBC (Reflex) 10 /HPF 04/07/20 00:09 Squamous Epi Cells Auto 1 /HPF 04/07/20 00:09 Urine Mucus (Auto) RARE /LPF 04/07/20 00:09 Urine Ascorbic Acid NEGATIVE (NEGATIVE) 04/07/20 00:09 Levetiracetam 36.3 ug/mL (10.0-40.0) 04/06/20 17:24 COVID-19 Source NASOPHARYNGEAL 04/08/20 16:00 COVID-19 ([place]) NOT DETECTED 04/08/20 16:00 04/06/20 04/08/20 04/10/20 18:33 10:42 05:43 NT-Pro-B Natriuret Pep 5690 H 5800 H 5760 H Impressions: Chest X-Ray 04/06/20 17:21 IMPRESSION: 1. No acute infiltrates 2. Previous sternotomy 3. Pacemaker Chest X-Ray 04/10/20 00:00 IMPRESSION: No acute findings Stroke Is this a Stroke Patient?: No Acute Heart Failure - Is this a Heart Failure Patient?: Yes Documentation of LVEF assessment?: Yes LVEF: LVEF Greater Than 40% Anticoagulant Therapy: Yes Discharged on Evidence-Based Beta Blockers: Yes Discharged on ARNI?: No-Document Contraindications Reason(s) not discharged on ARNI: Other - Cardiology did not initiate this drug ARNI Reason - Other: Cardiology did not initiate this drug Discharged on ARB?: No-document contraindications Reason(s) not Discharged on ARB: Impaired/worsening renal functions Discharged on ACEI?: No, document contraindications - Cardiology did not initiate this drug Reason(s) not Discharged on ACEI: other - Cardiology did not initiate this drug ACEI Reason - Other: Cardiology did not initiate this drug For LVEF <35%, discharged on Aldosterone Antagonist?: N/A (LVEF > or = 35%) Follow-up Appointment scheduled within 7 days?: Yes - Patient is already established with cardiology and will follow-up
[2020-04-11] MEDS: INSULIN GLARGINE,HUM.REC.ANLOG 1,000 UNIT/10 ML VIAL SUBCUT SCH (22:04)
[2020-04-11] MEDS: FUROSEMIDE 20 MG TABLET PO SCH (22:05)
[2020-04-11] MEDS: ATORVASTATIN CALCIUM 40 MG TABLET PO SCH (22:05)
[2020-04-11] MEDS: MELATONIN 3 MG TABLET PO SCH (22:05)
[2020-04-11] MEDS: METOPROLOL TARTRATE 25 MG TABLET PO SCH (22:06)
[2020-04-11] MEDS: DIVALPROEX SODIUM 125 MG CAP.SPRINK PO SCH (22:06)
[2020-04-11] MEDS: TRAZODONE HCL 50 MG TABLET PO SCH (22:06)
[2020-04-12] MEDS: INSULIN LISPRO 100 UNIT/ML 3 ML VIAL SUBCUT SCH ×3 (07:45→16:23)
[2020-04-12] MEDS: METOPROLOL TARTRATE 50 MG TABLET PO SCH (08:00)
[2020-04-12] MEDS: CALCIUM CARBONATE 600 MG TABLET PO SCH (08:00)
[2020-04-12] MEDS: FUROSEMIDE 40 MG TABLET PO SCH (08:00)
[2020-04-12] MEDS: METFORMIN HCL 500 MG TABLET PO SCH (08:00)
[2020-04-12] MEDS: ASPIRIN 81 MG TABLET, CHEWABLE PO SCH (11:09)
[2020-04-12] MEDS: CHOLECALCIFEROL (D3) 1,000 UNIT (25 MCG) TABLET PO SCH (11:10)
[2020-04-12] MEDS: SERTRALINE HCL 50 MG TABLET PO SCH (11:10)
[2020-04-12] MEDS: MAGNESIUM OXIDE 400 MG TABLET PO SCH (11:10)
[2020-04-12] MEDS: FAMOTIDINE 20 MG TABLET PO SCH (11:10)
[2020-04-12] MEDS: APIXABAN 5 MG TABLET PO SCH (11:10)
[2020-04-12] MEDS: POLYVINYL ALCOHOL 1.4% OPH SOLN 15 ML OU SCH (11:11)
[2020-04-12] MEDS: FLUTICASONE NASAL SPRAY 50 MCG/SPRY 120 SPRAY/16 GM NASL SCH (11:11)
[2020-04-12] MEDS: FENOFIBRATE NANOCRYSTALLIZED 48 MG TABLET PO SCH (11:12)
[2020-04-12] MEDS: NYSTATIN CREAM 15 GM TP SCH (11:17)
[2020-04-12] MEDS: LEVETIRACETAM 500 MG TABLET PO SCH (11:19)
--- NOTE | 2020-04-12 14:39 | Progress Note ---
Provider Note Provider Note: Patient is doing well today. She has no complaints. Vital signs are stable. I had peer to peer and frustration with physician from [facility] regarding patient's disposition back to SNF who states that patient is cleared for long-term care and will get the approval done today. Hopefully patient will be able to be di scharged today. Continue current treatment for patient's diabetes, CAD, chronic atrial fibrillation.
[2020-04-12 18:09] VITALS: BP 113/72
== END 2020-04-12 16:45 | DRG 292 ==
LOC: 3S 16:09 → 4S 04-09 15:33
PROVIDERS: ADMIT Hospitalist; ATTEND Internal Medicine
DX: I11.0 Hypertensive heart disease with heart failure (principal); I48.19 Other persistent atrial fibrillation; I49.5 Sick sinus syndrome; Z95.0 Presence of cardiac pacemaker; E78.5 Hyperlipidemia, unspecified; I50.9 Heart failure, unspecified; I25.10 Atherosclerotic heart disease of native coronary artery without angina pectoris; E66.9 Obesity, unspecified; R04.0 Epistaxis; Z79.01 Long term (current) use of anticoagulants; Z95.1 Presence of aortocoronary bypass graft; Z95.2 Presence of prosthetic heart valve; Z87.891 Personal history of nicotine dependence; F32.9 Major depressive disorder, single episode, unspecified; Z79.82 Long term (current) use of aspirin; Z79.4 Long term (current) use of insulin; Z79.899 Other long term (current) drug therapy; Z88.8 Allergy status to other drugs, medicaments and biological substances; Z20.828 Contact with and (suspected) exposure to other viral communicable diseases
CPT/HCPCS: 36415; 71045; 80048; 80053; 80177; 81001; 82962; 83036; 83735; 83880; 85025; 85610; 85730; 87635; 93005; 93010; C9803; J1815; J1940; J3490

== ENCOUNTER 2020-09-14 16:08 | Inpatient (IN) | payer MEDICARE, MEDICAID ==
--- NOTE | 2020-09-14 17:27 | ER Document Report ---
ED Medical Screen (RME) - General Chief Complaint: Abnormal Lab Results Stated Complaint: ABNORMAL LABS -DR REFERRED Time Seen by Provider: 09/14/20 17:14 Primary Care Provider: JAMES DENISE MD [Primary Care Provider] - Follow up as needed Information source: Patient Notes: Patient was seen at [facility] and her family brought her home last week. Patient's family states that they took her to the doctor and she had routine lab work performed. Patient received a call advising her to come to the emergency department as she had abnormal lab work including anemia and abnormal renal function test. Patient was also found to have a UTI. Patient complains of feeling tired and having shortness of breath that is worse with exertion. Patient does state that she wears oxygen as needed at home. Patient denies any chest pain. Patient denies any fever. Patient has a history of diabetes, CVA, CAD, CHF and A. fib. I have greeted and performed a rapid initial assessment of this patient. A comprehensive ED assessment and evaluation of the patient, analysis of test results and completion of the medical decision making process will be conducted by additional ED providers. TRAVEL OUTSIDE OF THE [place] IN LAST 30 DAYS: No - Related Data Allergies/Adverse Reactions: pentazocine [From [place]] Allergy (Verified 08/28/17 15:35) adhesive tape Adverse Reaction (Verified 08/28/17 15:35) Past Medical History - Past Medical History Cardiac Medical History: Reports: Hx Atrial Fibrillation Neurological Medical History: Reports: Hx Cerebrovascular Accident Endocrine Medical History: Reports: Hx Diabetes Mellitus Type 2 Renal/ Medical History: Denies: Hx Peritoneal Dialysis Psychiatric Medical History: Reports: Hx Depression Past Surgical History: Reports: Hx Cardiac Surgery - pacemaker, Hx Coronary Artery Bypass Graft, Hx Valve Replacement, Other - Just status post left hip surgery Physical Exam - Vital signs Vitals: Temp Pulse Resp BP Pulse Ox 98.9 F 99 16 97/60 L 92 09/14/20 17:18 09/14/20 17:18 09/14/20 17:18 09/14/20 17:18 09/14/20 17:18 - Respiratory Respiratory status: No respiratory distress. No: Tachypnea - Cardiovascular Rhythm: Irregularly irregular Heart sounds: S1 appreciated, S2 appreciated Course - Vital Signs Vital signs: Temp Pulse Resp BP Pulse Ox 98.9 F 99 16 97/60 L 92 09/14/20 17:18 09/14/20 17:18 09/14/20 17:18 09/14/20 17:18 09/14/20 17:18 Doctor's Discharge - Discharge Referrals: JAMES DENISE MD [Primary Care Provider] - Follow up as needed
--- NOTE | 2020-09-14 18:04 | RADIOLOGY REPORT (SQ) ---
EXAM DESCRIPTION: CHEST SINGLE VIEW IMAGES COMPLETED DATE/TIME: 09/14/2020 5:43 pm REASON FOR STUDY: sob COMPARISON: 04/10/2020 EXAM PARAMETERS: NUMBER OF VIEWS: One view. TECHNIQUE: Single frontal radiographic view of the chest acquired. RADIATION DOSE: NA LIMITATIONS: None. FINDINGS: LUNGS AND PLEURA: Prominent interstitial markings with small pleural effusions. No consol idation. MEDIASTINUM AND HILAR STRUCTURES: No masses. Contour normal. HEART AND VASCULAR STRUCTURES: Heart is enlarged with central vascular prominence. BONES: No acute findings. HARDWARE: Battery pack and leads are in place. Sternotomy wires are in place. OTHER: No other significant finding. IMPRESSION: Probable vascular congestion with cardiomegaly and interstitial edema. Small effusions. TECHNICAL DOCUMENTATION: JOB ID: [id number] 2010 [email or web address]- All Rights Reserved Reading location - IP/workstation name: [email or web address]
[2020-09-14 18:20] LABS: ABSOLUTE EOSINOPHILS # (AUTO) 0.1 10^3/uL (0.0-0.6); ABSOLUTE LYMPHOCYTES (AUTO) 1.6 10^3/uL (0.5-4.7); ABSOLUTE MONOCYTES (AUTO) 0.4 10^3/uL (0.1-1.4); ABSOLUTE NEUT (AUTO) 3.8 10^3/uL (1.7-8.2); BASOPHILS % (AUTO) 0.5 % (0-2); EOSINOPHILS % (AUTO) 1.5 % (0-6); HEMATOCRIT 27.5 % (36.0-47.0); HEMOGLOBIN 9.2 g/dL (12.0-15.5); LYMPHOCYTES % (AUTO) 27.1 % (13-45); MEAN CORPUSCULAR HEMOGLOBIN 29.4 pg (27.0-33.4); MEAN CORPUSCULAR HGB CONC 33.5 g/dL (32.0-36.0); MEAN CORPUSCULAR VOLUME 88 fl (80-97); MONOCYTES % (AUTO) 6.1 % (3-13); PLATELET COUNT 249 10^3/uL (150-450); RED BLOOD COUNT 3.14 10^6/uL (3.72-5.28); RED CELL DISTRIBUTION WIDTH 14.2 % (11.5-14.0); SEGMENTED NEUTROPHILS % (AUTO) 64.8 % (42-78); TOTAL CELLS COUNTED % (AUTO) 100 %; WHITE BLOOD COUNT 5.9 10^3/uL (4.0-10.5)
[2020-09-14 18:25] LABS: INTERNATIONAL RATION (INR) 1.24; PROTHROMBIN TIME 15.8 SEC (11.4-15.4)
[2020-09-14 18:40] LABS: ALKALINE PHOSPHATASE 105 U/L (38-126); ANION GAP 11 (5-19); ASPARTATE AMINO TRANSFERASE 80 U/L (14-36); BILIRUBIN,DIRECT 0.3 mg/dL (0.0-0.4); BILIRUBIN,TOTAL 0.5 mg/dL (0.2-1.3); BLOOD UREA NITROGEN 52 mg/dL (7-20); CALCIUM 9.8 mg/dL (8.4-10.2); CARBON DIOXIDE 31 mmol/L (22-30); CHLORIDE 98 mmol/L (98-107); GLUCOSE 217 mg/dL (75-110); POTASSIUM 4.2 mmol/L (3.6-5.0); TOTAL PROTEIN 7.6 g/dL (6.3-8.2)
[2020-09-14 18:58] LABS: TROPONIN I 0.036 ng/mL
[2020-09-14 19:48] LABS: APPEARANCE,URINE SLIGHTLY-CLOUDY; BILIRUBIN,URINE NEGATIVE (NEGATIVE); COLOR,URINE YELLOW; GLUCOSE, URINE NEGATIVE (NEGATIVE); KETONES,URINE NEGATIVE (NEGATIVE); LEUKOCYTE ESTERASE,URINE LARGE (NEGATIVE); NITRITE,URINE NEGATIVE (NEGATIVE); PROTEIN,URINE NEGATIVE (NEGATIVE); URINE SPECIFIC GRAVITY 1.012; UROBILINOGEN,URINE NEGATIVE mg/dL (<2.0)
--- NOTE | 2020-09-14 23:37 | RADIOLOGY REPORT (SQ) ---
CT head without contrast on 09/14/2020 at 10:50 PM CLINICAL INDICATION: Fall, per protocol for mechanism of injury TECHNIQUE: Multiple axial images are obtained throughout the head without the administration of contrast. This exam was performed according to our departmental dose-optimization program, which includes automated exposure control, adjustment of the mA and/or kV according to patient size and/or use of iterative reconstruction technique. Total DLP is 1096.98 mGy*cm. 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 There is generalized cerebral atrophy. There is no hydrocephalus. There is no CT evidence of acute infarct. There is no hemorrhage. There are no abnormal extra-axial fluid collections. There is no mass, mass effect or midline shift. No bony abnormality is noted. IMPRESSION: Atrophy with no acute intracranial abnormality.
--- NOTE | 2020-09-14 23:54 | RADIOLOGY REPORT (SQ) ---
Pelvis x-ray single view on 09/14/2020 at 10:59 PM CLINICAL INDICATION: Pain after fall COMPARISON: CT from 10/21/2019 FINDINGS: Compression nail and intramedullary david are noted in the left hip. The hips are well located. The SI joints are well aligned. Degenerative changes are noted in the lower lumbar spine. Vascular calcifications are noted. There are no acute fractures. IMPRESSION: No acute abnormality.
--- NOTE | 2020-09-14 23:56 | RADIOLOGY REPORT (SQ) ---
Lumbar spine x-ray five views on 09/14/2020 CLINICAL INDICATION: Low back pain after fall COMPARISON: CT from 10/21/2019 FINDINGS: Diffuse degenerative disc disease is noted throughout the lumbar spine. Vascular calcifications are noted. Degenerative facet disease is noted in the mid to lower lumbar spine. The lumbar spine is well aligned. There are no fractures. No other bony abnormality is noted. IMPRESSION: Diffuse degenerative changes with no acute abnormality.
--- NOTE | 2020-09-14 23:59 | RADIOLOGY REPORT (SQ) ---
EXAM: XR Sacrum and Coccyx, 2 or more Views EXAM DATE/TIME: 09/14/2020 11:00 PM CLINICAL HISTORY: The patient is 75 years old and is Female; fall TECHNIQUE: Frontal and lateral views of the sacrum and coccyx. COMPARISON: CT abdomen pelvis from 10/21/2019 FINDINGS: LIMITATIONS: Portions of the sacrum and coccyx are obscured by overlying bowel gas on the frontal views. SACRUM/COCCYX: No obvious acute fractures. Mild degenerative changes noted at the bilateral sacroiliac joints. VERTEBRAE: Degenerative changes also noted in the visualized lower lumbar spine. SOFT TISSUES: No significant soft tissue abnormalities visualized. VASCULATURE: Vascular calcifications are visualized. IMPRESSION: No obvious acute fracture.
--- NOTE | 2020-09-15 00:03 | ER Document Report ---
ED General - General Chief Complaint: Abnormal Lab Results Stated Complaint: ABNORMAL LABS -DR REFERRED Time Seen by Provider: 09/14/20 17:14 Notes: 75-year-old female history of anemia CAD w/CABG, A. fib on anticoagulation, CHF, diabetes, stroke, dementia presents with DAMARIS and anemia on labs also diagnosed with UTI by PCP sent in by PCP. Patient has been in [facility] since Covid pandemic began and went home last week to family. Patient had unwitnessed fall a week ago and this complaint of "butt" pain since then. Patient endorses urinary frequency of unknown duration. Patient denies chest pain, shortness of breath, diarrhea, black stools, bloody stools, flank pain, fever, cough, but is unreliable historian secondary to dementia TRAVEL OUTSIDE OF THE [place] IN LAST 30 DAYS: No - Related Data Allergies/Adverse Reactions: pentazocine [From Talwin] Allergy (Verified 08/28/17 15:35) adhesive tape Adverse Reaction (Verified 08/28/17 15:35) Past Medical History - General Information source: Relative, [facility] Records - Social History Smoking Status: Unknown if Ever Smoked Family History: Reviewed & Not Pertinent - Past Medical History Cardiac Medical History: Reports: Hx Atrial Fibrillation Neurological Medical History: Reports: Hx Cerebrovascular Accident Endocrine Medical History: Reports: Hx Diabetes Mellitus Type 2 Renal/ Medical History: Denies: Hx Peritoneal Dialysis Psychiatric Medical History: Reports: Hx Depression Past Surgical History: Reports: Hx Cardiac Surgery - pacemaker, Hx Coronary Artery Bypass Graft, Hx Valve Replacement, Other - Just status post left hip surgery Review of Systems - Review of Systems -: Yes ROS unobtainable due to patient's medical condition - dementia Physical Exam - Vital signs Vitals: Temp Pulse BP Pulse Ox 98.9 F 93 97/60 L 100 09/14/20 17:06 09/14/20 17:06 09/14/20 17:06 09/14/20 17:06 - Notes Notes: PHYSICAL EXAMINATION: GENERAL: Well-appearing, pleasant, cheerful elderly woman sitting up in stretcher in no acute distress HEAD: Atraumatic, normocephalic. EYES: Pupils equal round and appropriate constriction, sclera anicteric, conjunctiva are normal. ENT: nares patent, moist mucous membranes. NECK/BACK: Normal range of motion, supple without lymphadenopathy, no C/C/L/spinal tenderness or deformity, no decubitus ulcers LUNGS: Borderline tachypneic, bilateral rales, no accessory muscle use, speaking in full sentences, no tripoding, managing secretions HEART: Regular rate and rhythm with systolic murmur ABDOMEN: Soft, nontender, no guarding, no masses, no CVAT EXTREMITIES: Normal range of motion, no pitting or edema. No cyanosis. Pelvis stable, various axial loading in all extremities, no bony tenderness NEUROLOGICAL: Awake, alert, poor long and short-term memory, moves all extrem ities spontaneously PSYCH: Normal mood, normal affect. SKIN: Warm, Dry, normal turgor, scattered ecchymoses consistent with senile purpura to bilateral dorsal forearms without any signs of infection Course - Re-evaluation Re-evalutation: 09/15/20 00:20 Patient with increased oxygen needs, fall at home, borderline tachypnea, co mfortable on 2 L nasal cannula. Normally uses 2 L nasal cannula at night but now requiring during the day. Satting well with normal work of breathing on 2 L. No signs of acute trauma, will obtain CT head, no acute changes in patient's mental status. Given DAMARIS and also signs of volume overload patient appropriate for inpatient diuresis as will need to be done conservatively and with monitoring of renal function. We will continue antibiotics for UTI, no signs of sepsis. Patient very well-appearing, will continue to monitor until is transported to the floor. Patient accepted to telemetry medical floor by Dr. Briceño. - Vital Signs Vital signs: Temp Pulse Resp BP Pulse Ox 98.6 F 56 L 16 136/86 H 90 L 09/17/20 03:59 09/17/20 03:59 09/17/20 03:59 09/17/20 03:59 09/17/20 03:59 - Laboratory Result Diagrams: 09/17/20 06:05 09/16/20 05:33 Laboratory results interpreted by me: 09/14/20 09/14/20 09/14/20 17:57 17:57 17:57 RBC 3.14 L Hgb 9.2 L Hct 27.5 L RDW 14.2 H PT 15.8 H APTT 39.0 H Carbon Dioxide 31 H BUN 52 H Creatinine 1.85 H Est GFR ( Amer) 32 L Est GFR (MDRD) Non-Af 27 L Glucose 217 H POC Glucose AST 80 H ALT 42 H NT-Pro-B Natriuret Pep Ur Leukocyte Esterase Urine Sodium 09/14/20 09/14/20 09/15/20 17:57 19:07 04:30 RBC Hgb Hct RDW PT APTT Carbon Dioxide BUN Creatinine Est GFR ( Amer) Est GFR (MDRD) Non-Af Glucose POC Glucose AST ALT NT-Pro-B Natriuret Pep 02228 H Ur Leukocyte Esterase LARGE H Urine Sodium 116 H 09/15/20 09/15/20 05:55 06:47 RBC Hgb Hct RDW PT APTT Carbon Dioxide 34 H BUN 47 H Creatinine 1.58 H Est GFR ( Amer) 38 L Est GFR (MDRD) Non-Af 32 L Glucose 144 H POC Glucose 163 H AST ALT NT-Pro-B Natriuret Pep Ur Leukocyte Esterase Urine Sodium Discharge - Discharge Clinical Impression: DAMARIS (acute kidney injury), Cystitis Fall Qualifiers: Encounter type: initial encounter Qualified Code(s): W19.XXXA - Unspecified fall, initial encounter UTI (urinary tract infection) Qualifiers: Urinary tract infection type: acute cystitis Hematuria presence: without hematuria Qualified Code(s): N30.00 - Acute cystitis without hematuria DM type 2 (diabetes mellitus, type 2) Qualifiers: Diabetes mellitus care home insulin use: with exterminator helper termite use Diabetes mellitus complication status: without complication Qualified Code(s): E11.9 - Type 2 diabetes mellitus without complications; Z79.4 - detention (current) use of insulin Anemia Qualifiers: Anemia type: unspecified type Qualified Code(s): D64.9 - Anemia, unspecified Disposition: ADMITTED OBSERVATION Admitting Provider: [facility] Admitted: Telemetry
[2020-09-15] MEDS ORDERED: FUROSEMIDE INJ/PF 20 MG/2 ML SDV IV ONE ×2 (00:45→03:15)
--- NOTE | 2020-09-15 00:49 | PDOC H&P ---
History of Present Illness Admission Date/PCP: SABA CAMPBELL NP Patient complains of: Worsening shortness of breath, fall History of Present Illness: LAINA MONTENEGRO is a 75 year old female with a history of dementia, CAD w/CABG, A. fib on anticoagulation, CHF, diabetes, CVA who was discharged from SNF 1 week ago now presents to the ER after she had an episode of unwitnessed fall. She states that she fell down when she was trying to get out of bed but denies any history of chest pain, palpitation, dizziness or loss of consciousness immediately before, during or after the incident. Currently she states that she has a dull aching 4-5/10 pain on her lower back and hip area bilaterally. Patient also reports that she has been having progressively worsening shortness of breath over the past week. At baseline she uses 2 L intranasal oxygen at home nightly but over the past couple of days she has been requiring oxygen even during daytime. She denies nausea, vomiting, diarrhea, hematemesis, melena, hematochezia, cough, fever or chills Past Medical History Cardiac Medical History: Reports: Atrial Fibrillation Endocrine Medical History: Reports: Diabetes Mellitus Type 2 Psychiatric Medical History: Reports: Depression Past Surgical History Past Surgical History: Reports: Coronary Artery Bypass Graft, Valve Replacement, Other - Just status post left hip surgery Social History Information Source: Patient Lives with: Family Smoking Status: Unknown if Ever Smoked Frequency of Alcohol Use: Rare Hx Recreational Drug Use: No Drugs: None Hx Prescription Drug Abuse: No - Advance Directive Resuscitation Status: Full Code Family History Family History: Reviewed & Not Pertinent Parental Family History Reviewed: Yes Children Family History Reviewed: Yes Sibling(s) Family History Reviewed.: Yes Medication/Allergy Home Medications: RX: Atorvastatin Calcium [Lipitor 40 mg Tablet] 40 mg PO QHS 09/30/17 RX: Aspirin [Aspirin 81 mg Chewable Tablet] 81 mg PO DAILY 04/06/20 RX: Calcium Citrate [Calcium Citrate 250 mg Tablet] 500 mg PO BID 04/06/20 RX: Cholecalciferol (Vitamin D3) [Vitamin D3 1000 Unit Tablet] 1,000 unit PO DAILY 04/06/20 RX: Cranberry 500 mg PO DAILY 04/06/20 RX: Docusate Sodium [Colace 100 mg Capsule] 100 mg PO DAILYP PRN 04/06/20 RX: Fenofibrate Nanocrystallized [Fenofibrate] 48 mg PO DAILY 04/06/20 RX: Fluticasone Propionate [Flonase Nasal [place] 50 Mcg/[place] 16 gm] 1 spray NASL DAILY 04/06/20 RX: Insulin Degludec [Tresiba] 15 unit SQ QHS 04/06/20 RX: Levetiracetam [Keppra 500 mg Tablet] 500 mg PO QAM 04/06/20 RX: Levetiracetam [Keppra 500 mg Tablet] 750 mg PO QHS 04/06/20 RX: Levothyroxine Sodium [Synthroid] 125 mcg PO Q6AM 04/06/20 RX: Loperamide HCl [Imodium 2 mg Capsule] 2 mg PO Q4HP PRN 04/06/20 RX: Loratadine [Claritin 10 mg Tablet] 10 mg PO DAILY 04/06/20 RX: Magnesium Oxide [Mag-Ox 400 mg Tablet] 400 mg PO DAILY 04/06/20 RX: Melatonin [Melatonin 3 mg Tablet] 9 mg PO QHS 04/06/20 RX: Metoprolol Tartrate [Lopressor 50 mg Tablet] 25 mg PO QHS 04/06/20 RX: Metoprolol Tartrate [Lopressor 50 mg Tablet] 50 mg PO QAM 04/06/20 RX: Multivit-Min/FA/Lycopen/Lutein [Certavite Sr-Antioxidant Tab] 1 tab PO DAILY 04/06/20 RX: Omeprazole 40 mg PO DAILY 04/06/20 RX: Polyvinyl Alcohol [Liquitears 1.4% Ophth Soln 15 ml] 2 drop OU BID 04/06/20 RX: Sertraline HCl [Zoloft 50 mg Tablet] 125 mg PO DAILY 04/06/20 RX: Tramadol HCl [Ultram 50 mg Tablet] 50 mg PO Q6HP PRN 04/06/20 RX: Trazodone HCl 100 mg PO QHS 04/06/20 RX: Acetaminophen [Tylenol 325 mg Tablet] 650 mg PO Q4HP PRN tablet 04/11/20 RX: Apixaban [Eliquis 5 mg Tablet] 5 mg PO BID tablet 04/11/20 RX: Atorvastatin Calcium [Lipitor 40 mg Tablet] 40 mg PO QHS 30 Days #30 tablet 04/11/20 RX: Divalproex Sodium [Depakote Sprinkle 125 mg Capsule] 125 mg PO QHS 30 Days #30 cap.sprink 04/11/20 RX: Fenofibrate Nanocrystallized [Tricor 48 mg Tablet] 48 mg PO DAILY tablet 04/11/20 RX: Furosemide [Lasix 20 mg Tablet] 20 mg PO QHS 30 Days #30 tablet 04/11/20 RX: Furosemide [Lasix 40 mg Tablet] 40 mg PO QAM 30 Days #30 tablet 04/11/20 RX: Mag Hydrox/Al Hydrox/Simeth [Maalox Plus Susp 30 Udcup] 30 ml PO Q6HP PRN udc 04/11/20 RX: Metformin HCl [Glucophage 500 mg Tablet] 500 mg PO BIDACBS 30 Days #60 tablet 04/11/20 RX: Metoprolol Tartrate [Lopressor 25 mg Tablet] 25 mg PO QHS tablet 04/11/20 RX: Metoprolol Tartrate [Lopressor 50 mg Tablet] 50 mg PO QAM tablet 04/11/20 RX: Nystatin [Mycostatin Cream 15 gm] 1 applic TP BID 30 Days #1 tube 04/11/20 RX: Potassium Chloride [Klor-Con 10 Meq Tablet ER] 10 meq PO BID 30 Days #60 04/11/20 RX: Sertraline HCl [Zoloft 50 mg Tablet] 125 mg PO DAILY tablet 04/11/20 RX: Tramadol HCl [Ultram 50 mg Tablet] 50 mg PO Q6HP PRN tablet 04/11/20 RX: Trazodone HCl [Desyrel 50 mg Tablet] 100 mg PO QHS tablet 04/11/20 Allergies/Adverse Reactions: pentazocine [From Amanda] Allergy (Verified 08/28/17 15:35) adhesive tape Adverse Reaction (Verified 08/28/17 15:35) Review of Systems Constitutional: ABSENT: chills, fever(s), headache(s), weight gain, weight loss Eyes: ABSENT: visual disturbances Ears: ABSENT: hearing changes Nose, Mouth, and Throat: ABSENT: as per HPI, headache(s), mouth pain, sore throat, vertigo, other Cardiovascular: PRESENT: as per HPI Respiratory: PRESENT: as per HPI Gastrointestinal: PRESENT: as per HPI Genitourinary: PRESENT: dysuria Musculoskeletal: PRESENT: back pain. ABSENT: joint swelling Integumentary: ABSENT: rash, wounds Psychiatric: ABSENT: anxiety, depression, homidical ideation, suicidal ideation Endocrine: ABSENT: cold intolerance, heat intolerance, polydipsia, polyuria Hematologic/Lymphatic: ABSENT: easy bleeding, easy bruising Physical Exam Vital Signs: Temp Pulse Resp BP Pulse Ox 98.9 F 99 20 97/60 L 92 09/14/20 17:18 09/14/20 17:18 09/14/20 22:00 09/14/20 17:18 09/14/20 17:18 Intake & Output 09/13/20 09/14/20 09/15/20 06:59 06:59 06:59 Weight 85.729 kg Additional comments: GENERAL APPEARANCE: Patient seen lying on her bed comfortably, in no acute distress HEENT: Normocephalic and atraumatic. No scleral icterus. Moist oral mucosa NECK: Supple. No JVD. No thyromegaly noted CHEST: Symmetric. Nontender to palpation. LUNGS: Breath sounds are equal and clear bilaterally. Has fine bibasilar crack les HEART: Regular rate and rhythm with normal S1 and S2. No murmurs, gallops, or rubs. ABDOMEN: Soft, flat, and benign. No mass, tenderness, guarding, or rebound. No organomegaly or hernia. Bowel sounds are present. No CVA tenderness or flank mass.. EXTREMITIES: No cyanosis, clubbing, or edema. MUSCULOSKELETAL: No deformity, atrophy or swelling noted PSYCHIATRIC: The patient is awake, alert, and oriented x3. Appropriate mood and affect. SKIN: Warm, dry, and well perfused. No lesions or rashes are noted. NEUROLOGIC: No focal sensory or motor deficits are noted. Results Laboratory Results: 09/14/20 17:57 09/14/20 17:57 09/14/20 09/14/20 09/14/20 17:57 17:57 19:07 WBC 5.9 RBC 3.14 L Hgb 9.2 L Hct 27.5 L MCV 88 MCH 29.4 MCHC 33.5 RDW 14.2 H Plt Count 249 Seg Neutrophils % 64.8 Sodium 139.5 Potassium 4.2 Chloride 98 Carbon Dioxide 31 H Anion Gap 11 BUN 52 H Creatinine 1.85 H Est GFR ( Amer) 32 L Glucose 217 H Calcium 9.8 Magnesium 1.9 Total Bilirubin 0.5 AST 80 H Alkaline Phosphatase 105 Total Protein 7.6 Albumin 4.0 Urine Color YELLOW Urine Appearance SLIGHTLY-CLOUDY Urine pH 5.0 Ur Specific [place] 1.012 Urine Protein NEGATIVE Urine Glucose (UA) NEGATIVE Urine Ketones NEGATIVE Urine Blood NEGATIVE Urine Nitrite NEGATIVE Ur Leukocyte Esterase LARGE H Urine WBC (Auto) 109 Urine RBC (Auto) 2 09/14/20 17:57 Troponin I 0.036 NT-Pro-B Natriuret Pep 27479 H Impressions: Chest X-Ray 09/14/20 17:25 IMPRESSION: Probable vascular congestion with cardiomegaly and interstitial edema. Small effusions. Head CT 09/14/20 22:37 IMPRESSION: Atrophy with no acute intracranial abnormality. Pelvis X-Ray 09/14/20 22:37 IMPRESSION: No acute abnormality. Lumbar Spine X-Ray 09/14/20 22:38 IMPRESSION: Diffuse degenerative changes with no acute abnormality. Sacrum and Coccyx X-Ray 09/14/20 22:38 IMPRESSION: No obvious acute fracture. Assessment and Plan - Diagnosis (1) Acute on chronic diastolic heart failure Is this a current diagnosis for this admission?: Yes Plan: Patient presents with worsening shortness of breath and orthopnea proBNP elevated at 10,000 from a baseline of around 5k about 4 months back Chest x-ray shows possible pulmonary vascular congestion 2D echo done in 2017 showed normal EF with grade 2 diastolic dysfunction Started her on IV Lasix Daily weight monitoring, strict I&O's and fluid restriction We will continue to monitor volume status (2) Cystitis Is this a current diagnosis for this admission?: Yes Plan: Patient reports dysuria UA showed large leukocyte esterase and 109 WBC/hpf Has no systemic signs of toxicity and denies any nausea/vomiting Started her on sulfamethoxazole/trimethoprim Follow-up with urine culture (3) Acute kidney injury Is this a current diagnosis for this admission?: Yes Plan: BUN/creatinine on this admission 52/1.85 from a baseline creatinine of around 1.24 Likely prerenal from poor oral intake versus cardiorenal Avoid nephrotoxic medications and renally dose Will defer IV hydration for now due to signs of decompensated heart failure Closely monitor renal indicis (4) Fall Is this a current diagnosis for this admission?: Yes Plan: Patient presented few days after unwitnessed fall CT head, lumbar, pelvis and hip x-rays showed no acute finding Placed her on fall precaution PT, OT evaluation (5) CVA (cerebral vascular accident) Is this a current diagnosis for this admission?: No Plan: Patient has no new neurologic finding Continue aspirin and atorvastatin for secondary prevention (6) Chronic atrial fibrillation Is this a current diagnosis for this admission?: Yes Plan: Currently rate controlled Continue metoprolol for rate control Continue apixaban (7) DM type 2 (diabetes mellitus, type 2) Qualifiers: Diabetes mellitus director long term care insulin use: with senior care use Diabetes mellitus complication status: without complication Qualified Code(s): E11.9 - Type 2 diabetes mellitus without complications; Z79.4 - penitentiary (current) use of insulin Is this a current diagnosis for this admission?: Yes Plan: Placed her on Lantus 10 units nightly, sliding scale, Accu-Chek, hypoglycemia protocol (8) HLD (hyperlipidemia) Qualifiers: Hyperlipidemia type: unspecified Qualified Code(s): E78.5 - Hyperlipidemia, unspecified Is this a current diagnosis for this admission?: Yes Plan: Continue atorvastatin (9) Hypertension Qualifiers: Hypertension type: essential hypertension Qualified Code(s): I10 - Essential (primary) hypertension Is this a current diagnosis for this admission?: Yes Plan: Held blood pressure medicines for now due to soft blood pressure and DAMARIS on presentation - Time Time Spent with patient: 35 or more minutes Total Critical Time (Minutes): 45 Medications reviewed and adjusted accordingly: Yes Anticipated Discharge Disposition: Home with Home Health Anticipated Discharge Timeframe: within 48 hours - Inpatient Certification Medical Necessity: Significant Comorbidiites Make Outpatient Treatment Too Risky, Need Close Monitoring Due to Risk of Patient Decompensation, Need For Continuous Telemetry Monitoring Post Hospital Care: D/C or Transfer Summary
[2020-09-15] MEDS ORDERED: DEXTROSE 50%-WATER 25 GM/50 ML DISP.SYRIN IV PRN ×2 (01:12)
[2020-09-15] MEDS ORDERED: DEXTROSE 40% GEL 15 GM TUBE PO PRN ×2 (01:12)
[2020-09-15] MEDS ORDERED: GLUCAGON,HUMAN RECOMB 1 MG INJ IM PRN (01:12)
[2020-09-15 05:21] LABS: URINE CREATININE 24.6 mg/dL (15-278)
[2020-09-15] MEDS: INSULIN REG, HUMAN 100 UNIT/ML 3 ML VIAL (PYX) SUBCUT SCH ×4 (06:22→23:02)
[2020-09-15 08:05] LABS: ANION GAP 8 (5-19); BLOOD UREA NITROGEN 47 mg/dL (7-20); CALCIUM 9.4 mg/dL (8.4-10.2); CARBON DIOXIDE 34 mmol/L (22-30); CHLORIDE 100 mmol/L (98-107); GLUCOSE 144 mg/dL (75-110); POTASSIUM 3.7 mmol/L (3.6-5.0)
[2020-09-15] MEDS: FUROSEMIDE INJ/PF 40 MG/4 ML SDV IV SCH ×2 (09:14→22:54)
[2020-09-15] MEDS: APIXABAN 5 MG TABLET PO SCH ×2 (09:33→17:15)
[2020-09-15] MEDS: METOPROLOL TARTRATE 25 MG TABLET PO SCH (09:33)
[2020-09-15] MEDS: SULFAMETHOXAZOLE/TRIMETHOPRIM 800-160 MG TABLET PO SCH ×2 (09:33→17:15)
--- NOTE | 2020-09-15 15:19 | Progress Note ---
Provider Note Provider Note: Patient seen and examined by me. Please see H&P done by Dr. Dimas for full details of admission. Patient admitted for acute CHF exacerbation. Echocardiogram ordered. Patient follows with Dr. Couch but he is retired. Patient will need to follow-up with a new dude wrangler and I discussed this with her. Continue IV Lasix. Creatinine improving.
[2020-09-15] MEDS: OXYCODONE-ACETAMINOPHEN 5-325 MG TABLET PO PRN (22:54)
[2020-09-15] MEDS: METOPROLOL TARTRATE 50 MG TABLET PO SCH (22:55)
[2020-09-15] MEDS: ATORVASTATIN CALCIUM 40 MG TABLET PO SCH (22:55)
[2020-09-15] MEDS: INSULIN GLARGINE,HUM.REC.ANLOG 1,000 UNIT/10 ML VIAL SUBCUT SCH (22:55)
[2020-09-15] MEDS: DIVALPROEX SODIUM 125 MG CAP.SPRINK PO SCH (23:05)
[2020-09-15] MEDS: TRAZODONE HCL 50 MG TABLET PO SCH (23:05)
[2020-09-16 06:29] LABS: IRON(TIBC) 22.5 ug/dL (37-170)
[2020-09-16] MEDS: INSULIN REG, HUMAN 100 UNIT/ML 3 ML VIAL (PYX) SUBCUT SCH ×4 (06:57→23:09)
[2020-09-16 07:40] LABS: FOLATE > 20.00 ng/mL (>2.76)
[2020-09-16] MEDS ORDERED: IRON SUCROSE COMPLEX INJ/PF 100 MG/5 ML SDV IV ONE (09:23)
[2020-09-16] MEDS: FUROSEMIDE INJ/PF 40 MG/4 ML SDV IV SCH (09:52)
[2020-09-16] MEDS: METOPROLOL TARTRATE 25 MG TABLET PO SCH (09:52)
[2020-09-16] MEDS: SULFAMETHOXAZOLE/TRIMETHOPRIM 800-160 MG TABLET PO SCH (09:53)
[2020-09-16] MEDS: APIXABAN 5 MG TABLET PO SCH ×2 (09:53→19:57)
[2020-09-16 09:56] LABS: ABSOLUTE EOSINOPHILS # (AUTO) 0.1 10^3/uL (0.0-0.6); ABSOLUTE LYMPHOCYTES (AUTO) 1.6 10^3/uL (0.5-4.7); ABSOLUTE MONOCYTES (AUTO) 0.4 10^3/uL (0.1-1.4); ABSOLUTE NEUT (AUTO) 2.9 10^3/uL (1.7-8.2); BASOPHILS % (AUTO) 0.7 % (0-2); EOSINOPHILS % (AUTO) 2.1 % (0-6); HEMATOCRIT 25.4 % (36.0-47.0); HEMOGLOBIN 8.6 g/dL (12.0-15.5); LYMPHOCYTES % (AUTO) 32.5 % (13-45); MEAN CORPUSCULAR HEMOGLOBIN 29.2 pg (27.0-33.4); MEAN CORPUSCULAR HGB CONC 33.8 g/dL (32.0-36.0); MEAN CORPUSCULAR VOLUME 86 fl (80-97); MONOCYTES % (AUTO) 8.4 % (3-13); PLATELET COUNT 184 10^3/uL (150-450); RED BLOOD COUNT 2.94 10^6/uL (3.72-5.28); RED CELL DISTRIBUTION WIDTH 13.8 % (11.5-14.0); SEGMENTED NEUTROPHILS % (AUTO) 56.3 % (42-78); TOTAL CELLS COUNTED % (AUTO) 100 %; WHITE BLOOD COUNT 5.1 10^3/uL (4.0-10.5)
[2020-09-16 10:20] LABS: ANION GAP 10 (5-19); BLOOD UREA NITROGEN 46 mg/dL (7-20); CALCIUM 9.3 mg/dL (8.4-10.2); CARBON DIOXIDE 31 mmol/L (22-30); CHLORIDE 96 mmol/L (98-107); GLUCOSE 88 mg/dL (75-110); POTASSIUM 3.7 mmol/L (3.6-5.0)
[2020-09-16] MEDS ORDERED: IRON SUCROSE COMPLEX 500 MG in NORMAL SALINE 250 ML IV ONE (11:00)
--- NOTE | 2020-09-16 17:02 | XCELERA REPORT ---
[address] [address] Transthoracic Echocardiogram Report Name: LAINA MONTENEGRO Age: 75 yrs Gender: Female : 1945 Patient Status: [facility]: 09/15/2020 08:22 PM Height: 59 in Weight: 185 lb BSA: 1.8 m2 Procedure: A complete two-dimensional transthoracic echocardiogram was performed (2D, M-mode, spectral and color flow Doppler). The study was technically difficult with many images being suboptimal in quality. Reason For Study: CHF Ordering Physician: LORENE MAGANA Performed By: Eva Khalil Interpretation Summary The left ventricle is grossly normal size. Left ventricular systolic function is low normal. The Ejection Fraction estimate is 45-50%. LV diastolic function could not be adequately assessed due to atrial fibrilation. Regional wall motion abnormalities cannot be excluded due to limited visualization. Device lead present in the right ventricle. Mild LAE. Mild MR, severe TR, moderate PI. Bioprosthetic valve in the aortic position with normal function. MMode/2D Measurements & Calculations RVDd: 3.7 cm LVIDd: 4.8 cm FS: 35.5 % Ao root diam: 2.3 cm IVSd: 1.5 cm LVIDs: 3.1 cm EDV(Teich): Ao root area: 106.5 ml LVPWd: 1.2 cm 4.3 cm2 ESV(Teich): 37.4 mlLA dimension: 4.8 cm EF(Teich): 64.8 % LVOT diam: 1.8 cm LVLd ap4: 6.1 cm SV(MOD-sp4): LVOT area: EDV(MOD-sp4): 37.0 ml 2.6 cm2 83.0 ml LVLs ap4: 5.4 cm ESV(MOD-sp4): 46.0 ml EF(MOD-sp4): 44.6 % Doppler Measurements & Calculations MV E max hernán: MV P1/2t max hernán: Ao V2 max: LV V1 max P.9 cm/sec 171.6 cm/sec 250.2 cm/sec 15.5 mmHg MV A max hernán: MV P1/2t: 60.6 msec Ao max PG: LV V1 max: 43.9 cm/sec 25.0 mmHg 196.8 cm/sec MVA(P1/2t): 3.6 cm2 MV E/A: 2.9 MV dec slope: BEBE(V,D): 2.1 cm2 829.9 cm/sec2 MV dec time: 0.18 sec PA V2 max: PI end-d hernán: TR max hernán: MV P1/2t-pr_phl: 85.6 cm/sec 175.9 cm/sec 302.7 cm/sec 60.6 msec PA max P.9 mmHg TR max P.6 mmHg Left Ventricle The left ventricle is grossly normal size. Left ventricular systolic function is low normal. The Ejection Fraction estimate is 45-50%. LV diastolic function could not be adequately assessed due to atrial fibrilation. Regional wall motion abnormalities cannot be excluded due to limited visualization. Right Ventricle The right ventricle is mildly dilated. Device lead present. The right ventricle has normal dimensions with normal systolic function. Atria The right atrium is normal in size. The left atrium is mildly dilated. The interatrial septum is difficult to see, but appears to be grossly normal. Mitral Valve There is moderate to severe mitral leaflet calcification. There is no evidence of mitral valve prolapse. There is no mitral valve stenosis. There is a mild amount of mitral regurgitation. Aortic Valve Bioprosthetic vave with normal function. There is no aortic valvular vegetation. No aortic regurgitation is present. There is a bioprosthetic aortic valve. Tricuspid Valve There is tricuspid annular calcification. There is no tricuspid valve prolapse. There is no tricuspid stenosis. There is a severe amount of tricuspid regurgitation. Pulmonic Valve The pulmonic valve is not well seen, but is grossly normal. There is no vegetation on the pulmonic valve. There is no pulmonic valvular stenosis. There is a moderate amount of pulmonic regurgitation. Effusions There is no pericardial effusion. There is no pleural effusion. : LORENE MAGANA Antonio
[2020-09-16] MEDS: CEPHALEXIN 500 MG CAPSULE PO SCH ×2 (17:10→23:09)
--- NOTE | 2020-09-16 17:19 | PDOC PROGRESS REPORT ---
Subjective Subjective:: Per Previous Physician: "LAINA MONTENEGRO is a 75 year old female with a history of dementia, CAD w/CABG, A. fib on anticoagulation, CHF, diabetes, CVA who was discharged from SNF 1 week ago now presents to the ER after she had an episode of unwitnessed fall. She states that she fell down when she was trying to get out of bed but denies any history of chest pain, palpitation, dizziness or loss of consciousness immediat jayro before, during or after the incident. Currently she states that she has a dull aching 4-5/10 pain on her lower back and hip area bilaterally. Patient also reports that she has been having progressively worsening shortness of breath over the past week. At baseline she uses 2 L intranasal oxygen at home nightly but over the past couple of days she has been requiring oxygen even during daytime. She denies nausea, vomiting, diarrhea, hematemesis, melena, hematochezia, cough, fever or chills" 09/16/2020 Patient is to be doing better today and is sitting on the side of the bed with a very pleasant demeanor. I spoke with the patient's daughter states that they try to take the patient home from a nursing facility but they were unable to care for at home. Patient has iron deficiency anemia based on her labs and I ordered her Venofer today. She was started on Bactrim on admission and I believe this is artificially elevating her creatinine which is a known side effect of this medication. I have replaced the Bactrim with Keflex which according to our sensitivities should be effective to treat her UTI. Her creatinine is higher today and I have stopped her Lasix. If her creatinine improves by tomorrow, we can restart her Lasix at her home dose which is 20 mg daily. She does not seem volume overloaded at all today. Plan to discharge patient to SNF tomorrow provided her labs improved. Reason For Visit: EXACERABATION CHF Physical Exam Vital Signs: Temp Pulse Resp BP Pulse Ox 98.2 F 95 21 H 119/75 95 09/16/20 15:55 09/16/20 15:55 09/16/20 15:55 09/16/20 15:55 09/16/20 15:55 Intake & Output 09/15/20 09/16/20 09/17/20 06:59 06:59 06:59 Intake Total 300 1280 600 Output Total 1350 300 Balance 300 -70 300 Weight 84.3 kg 86 kg Exam: General appearance: PRESENT: no acute distress, well-developed, well-nourished, obese, pleasantly demented white female Head exam: PRESENT: atraumatic, normocephalic Eye exam: PRESENT: conjunctiva pink. ABSENT: scleral icterus Mouth exam: PRESENT: moist Respiratory exam: PRESENT: clear to auscultation torrie. ABSENT: rales, rhonchi, wheezes Cardiovascular exam: PRESENT: RRR. ABSENT: diastolic murmur, rubs, systolic murmur GI/Abdominal exam: PRESENT: normal bowel sounds, soft. ABSENT: distended, guarding, mass, organolmegaly, rebound, tenderness Neurological exam: PRESENT: alert, awake, oriented to person, oriented to place, oriented to time, oriented to situation Psychiatric exam: PRESENT: appropriate affect, normal mood Skin exam: PRESENT: dry, intact, warm Results Laboratory Results: 09/16/20 05:33 09/16/20 05:33 09/16/20 09/16/20 09/16/20 05:33 05:33 05:33 WBC 5.1 RBC 2.94 L Hgb 8.6 L Hct 25.4 L MCV 86 MCH 29.2 MCHC 33.8 RDW 13.8 Plt Count 184 Seg Neutrophils % 56.3 Sodium 137.1 Potassium 3.7 Chloride 96 L Carbon Dioxide 31 H Anion Gap 10 BUN 46 H Creatinine 1.99 H Est GFR ( Amer) 29 L Glucose 88 Calcium 9.3 Iron 22.5 L TIBC 370 % Saturation 6 Ferritin 35.10 Vitamin B12 805.0 Folate > 20.00 09/14/20 19:07 Clean Catch Midstream Urine Culture - Final Escherichia Coli 09/14/20 17:57 Troponin I 0.036 NT-Pro-B Natriuret Pep 14826 H Impressions: Chest X-Ray 09/14/20 17:25 IMPRESSION: Probable vascular congestion with cardiomegaly and interstitial edema. Small effusions. Head CT 09/14/20 22:37 IMPRESSION: Atrophy with no acute intracranial abnormality. Pelvis X-Ray 09/14/20 22:37 IMPRESSION: No acute abnormality. Lumbar Spine X-Ray 09/14/20 22:38 IMPRESSION: Diffuse degenerative changes with no acute abnormality. Sacrum and Coccyx X-Ray 09/14/20 22:38 IMPRESSION: No obvious acute fracture. Assessment and Plan - Diagnosis (1) Acute kidney injury Is this a current diagnosis for this admission?: Yes Plan: Per Previous Physician: "BUN/creatinine on this admission 52/1.85 from a baseline creatinine of around 1.24 Likely prerenal from poor oral intake versus cardiorenal Avoid nephrotoxic medications and renally dose Will defer IV hydration for now due to signs of decompensated heart failure Closely monitor renal indicis" Changed antibiotics from Bactrim to Keflex due to rising creatinine and sensitivities include Keflex as an effective treatment Avoid JOVANNA inhibitor/ARB for the time being Stopped IV Lasix, can transition back to oral Lasix as creatinine improves Suspect underlying CKD 3 Needs follow-up with nephrology (2) Acute on chronic diastolic heart failure Is this a current diagnosis for this admission?: Yes Plan: Per Previous Physician: "Patient presents with worsening shortness of breath and orthopnea proBNP elevated at 10,000 from a baseline of around 5k about 4 months back Chest x-ray shows possible pulmonary vascular congestion 2D echo done in 2017 showed normal EF with grade 2 diastolic dysfunction Started her on IV Lasix Daily weight monitoring, strict I&O's and fluid restriction We will continue to monitor volume status" Stopped IV Lasix, no signs of volume overload at this time Plan to restart oral Lasix at a lower dose once creatinine improves Needs follow-up with cardiology May benefit from obstructive sleep apnea assessment given morbid obesity and A. fib with heart failure; high risk for untreated GUERLINE worsening heart failure (3) Cystitis Is this a current diagnosis for this admission?: Yes Plan: Per Previous Physician: "Patient reports dysuria UA showed large leukocyte esterase and 109 WBC/hpf Has no systemic signs of toxicity and denies any nausea/vomiting Started her on sulfamethoxazole/trimethoprim Follow-up with urine culture" Change Bactrim to Keflex due to rising creatinine Urine culture grew E. coli with multiple sensitivities Watch for urinary retention (4) Chronic atrial fibrillation Is this a current diagnosis for this admission?: Yes Plan: Per Previous Physician: "Currently rate controlled Continue metoprolol for rate control Continue apixaban" Stable (5) DM type 2 (diabetes mellitus, type 2) Qualifiers: Diabetes mellitus rat exterminator insulin use: with rat exterminator use Diabetes mellitus complication status: without complication Qualified Code(s): E11.9 - Type 2 diabetes mellitus without complications; Z79.4 - alf (current) use of insulin Is this a current diagnosis for this admission?: Yes Plan: Per Previous Physician: "Placed her on Lantus 10 units nightly, sliding scale, Accu-Chek, hypoglycemia protocol" Controlled (6) HLD (hyperlipidemia) Qualifiers: Hyperlipidemia type: unspecified Qualified Code(s): E78.5 - Hyperlipidemia, unspecified Is this a current diagnosis for this admission?: Yes (7) Hypertension Qualifiers: Hypertension type: essential hypertension Qualified Code(s): I10 - Essential (primary) hypertension Is this a current diagnosis for this admission?: Yes - Time Time Spent with patient: 25-34 minutes Medications reviewed and adjusted accordingly: Yes Anticipated Discharge Disposition: [facility] Facility Anticipated Discharge Timeframe: within 24 hours
[2020-09-16] MEDS ORDERED: APIXABAN 5 MG TABLET PO SCH (18:00)
[2020-09-16] MEDS ORDERED: APIXABAN 2.5 MG TABLET PO SCH ×2 (18:00)
[2020-09-16] MEDS: INSULIN GLARGINE,HUM.REC.ANLOG 1,000 UNIT/10 ML VIAL SUBCUT SCH (21:47)
[2020-09-16] MEDS: TRAZODONE HCL 50 MG TABLET PO SCH (21:47)
[2020-09-16] MEDS: METOPROLOL TARTRATE 50 MG TABLET PO SCH (21:47)
[2020-09-16] MEDS: ATORVASTATIN CALCIUM 40 MG TABLET PO SCH (21:47)
[2020-09-16] MEDS: DIVALPROEX SODIUM 125 MG CAP.SPRINK PO SCH (21:48)
[2020-09-17 06:28] LABS: ABSOLUTE EOSINOPHILS # (AUTO) 0.1 10^3/uL (0.0-0.6); ABSOLUTE LYMPHOCYTES (AUTO) 1.5 10^3/uL (0.5-4.7); ABSOLUTE MONOCYTES (AUTO) 0.5 10^3/uL (0.1-1.4); ABSOLUTE NEUT (AUTO) 4.1 10^3/uL (1.7-8.2); BASOPHILS % (AUTO) 0.7 % (0-2); EOSINOPHILS % (AUTO) 2.1 % (0-6); HEMOGLOBIN 8.4 g/dL (12.0-15.5); LYMPHOCYTES % (AUTO) 24.2 % (13-45); MEAN CORPUSCULAR HGB CONC 33.8 g/dL (32.0-36.0); MEAN CORPUSCULAR VOLUME 86 fl (80-97); MONOCYTES % (AUTO) 7.8 % (3-13); PLATELET COUNT 194 10^3/uL (150-450); RED CELL DISTRIBUTION WIDTH 13.7 % (11.5-14.0); SEGMENTED NEUTROPHILS % (AUTO) 65.2 % (42-78); TOTAL CELLS COUNTED % (AUTO) 100 %; WHITE BLOOD COUNT 6.3 10^3/uL (4.0-10.5)
[2020-09-17 06:49] LABS: ANION GAP 11 (5-19); BLOOD UREA NITROGEN 42 mg/dL (7-20); CALCIUM 9.1 mg/dL (8.4-10.2); CARBON DIOXIDE 28 mmol/L (22-30); CHLORIDE 98 mmol/L (98-107); GLUCOSE 116 mg/dL (75-110)
[2020-09-17] MEDS: CEPHALEXIN 500 MG CAPSULE PO SCH ×4 (06:49→23:07)
[2020-09-17] MEDS: INSULIN REG, HUMAN 100 UNIT/ML 3 ML VIAL (PYX) SUBCUT SCH ×4 (06:51→23:07)
[2020-09-17] MEDS: APIXABAN 5 MG TABLET PO SCH ×2 (09:38→16:59)
[2020-09-17] MEDS: METOPROLOL TARTRATE 25 MG TABLET PO SCH (09:39)
[2020-09-17] MEDS: METOPROLOL TARTRATE 50 MG TABLET PO SCH (17:48)
--- NOTE | 2020-09-17 18:11 | PDOC PROGRESS REPORT ---
Subjective Subjective:: Per Previous Physician: "LAINA MONTENEGRO is a 75 year old female with a history of dementia, CAD w/CABG, A. fib on anticoagulation, CHF, diabetes, CVA who was discharged from SNF 1 week ago now presents to the ER after she had an episode of unwitnessed fall. She states that she fell down when she was trying to get out of bed but denies any history of chest pain, palpitation, dizziness or loss of consciousness immediat jayor before, during or after the incident. Currently she states that she has a dull aching 4-5/10 pain on her lower back and hip area bilaterally. Patient also reports that she has been having progressively worsening shortness of breath over the past week. At baseline she uses 2 L intranasal oxygen at home nightly but over the past couple of days she has been requiring oxygen even during daytime. She denies nausea, vomiting, diarrhea, hematemesis, melena, hematochezia, cough, fever or chills" 09/16/2020 Patient is to be doing better today and is sitting on the side of the bed with a very pleasant demeanor. I spoke with the patient's daughter states that they try to take the patient home from a nursing facility but they were unable to care for at home. Patient has iron deficiency anemia based on her labs and I ordered her Venofer today. She was started on Bactrim on admission and I believe this is artificially elevating her creatinine which is a known side effect of this medication. I have replaced the Bactrim with Keflex which according to our sensitivities should be effective to treat her UTI. Her creatinine is higher today and I have stopped her Lasix. If her creatinine improves by tomorrow, we can restart her Lasix at her home dose which is 20 mg daily. She does not seem volume overloaded at all today. Plan to discharge patient to SNF tomorrow provided her labs improved. 09/17/2020 Renal function has not significantly improved and will consult nephrology today. Creatinine is a bit lower but not low enough to be discharged. Patient states she is doing just fine today. She has had some intermittent elevated heart rate and I noticed that on admission some of her medications were not restarted including Keppra and Synthroid. These been restarted and will hopefully help the patient to remain calm. explosive ordnance manager will need to follow closely for disposition plans presumably to SNF. Reason For Visit: EXACERABATION CHF Physical Exam Vital Signs: Temp Pulse Resp BP Pulse Ox 98.5 F 91 19 107/60 100 09/17/20 16:21 09/17/20 16:21 09/17/20 16:21 09/17/20 16:21 09/17/20 16:21 Intake & Output 09/16/20 09/17/20 09/18/20 06:59 06:59 06:59 Intake Total 1280 1175 260 Output Total 1350 1000 Balance -70 175 260 Weight 86 kg 84.6 kg Exam: General appearance: PRESENT: no acute distress, well-developed, well-nourished, obese, smiling and states she is having a good day today Head exam: PRESENT: atraumatic, normocephalic Eye exam: PRESENT: conjunctiva pink. ABSENT: scleral icterus Mouth exam: PRESENT: moist Respiratory exam: PRESENT: clear to auscultation torrie. ABSENT: rales, rhonchi, wheezes Cardiovascular exam: PRESENT: RRR. ABSENT: diastolic murmur, rubs, systolic murmur GI/Abdominal exam: PRESENT: normal bowel sounds, soft. ABSENT: distended, guarding, mass, organolmegaly, rebound, tenderness Neurological exam: PRESENT: alert, awake, oriented to person, oriented to place, oriented to time, oriented to situation Psychiatric exam: PRESENT: appropriate affect, normal mood Skin exam: PRESENT: dry, intact, warm Results Laboratory Results: 09/17/20 06:05 09/17/20 06:05 09/17/20 09/17/20 06:05 06:05 WBC 6.3 RBC 2.90 L Hgb 8.4 L Hct 25.0 L MCV 86 MCH 29.0 MCHC 33.8 RDW 13.7 Plt Count 194 Seg Neutrophils % 65.2 Sodium 136.8 L Potassium 4.0 Chloride 98 Carbon Dioxide 28 Anion Gap 11 BUN 42 H Creatinine 1.81 H Est GFR ( Amer) 33 L Glucose 116 H Calcium 9.1 09/14/20 17:57 Troponin I 0.036 NT-Pro-B Natriuret Pep 65797 H Impressions: Chest X-Ray 09/14/20 17:25 IMPRESSION: Probable vascular congestion with cardiomegaly and interstitial edema. Small effusions. Head CT 09/14/20 22:37 IMPRESSION: Atrophy with no acute intracranial abnormality. Pelvis X-Ray 09/14/20 22:37 IMPRESSION: No acute abnormality. Lumbar Spine X-Ray 09/14/20 22:38 IMPRESSION: Diffuse degenerative changes with no acute abnormality. Sacrum and Coccyx X-Ray 09/14/20 22:38 IMPRESSION: No obvious acute fracture. Assessment and Plan - Diagnosis (1) Acute kidney injury Is this a current diagnosis for this admission?: Yes (2) Acute on chronic diastolic heart failure Is this a current diagnosis for this admission?: Yes (3) Cystitis Is this a current diagnosis for this admission?: Yes (4) Chronic atrial fibrillation Is this a current diagnosis for this admission?: Yes (5) DM type 2 (diabetes mellitus, type 2) Qualifiers: Diabetes mellitus mcc insulin use: with roll former use Diabetes mellitus complication status: without complication Qualified Code(s): E11.9 - Type 2 diabetes mellitus without complications; Z79.4 - youth career specialist (current) use of insulin Is this a current diagnosis for this admission?: Yes (6) HLD (hyperlipidemia) Qualifiers: Hyperlipidemia type: unspecified Qualified Code(s): E78.5 - Hyperlipidemia, unspecified Is this a current diagnosis for this admission?: Yes (7) Hypertension Qualifiers: Hypertension type: essential hypertension Qualified Code(s): I10 - Essential (primary) hypertension Is this a current diagnosis for this admission?: Yes - Plan Summary Summary: (1) Acute kidney injury Is this a current diagnosis for this admission?: Yes Plan: Per Previous Physician: "BUN/creatinine on this admission 52/1.85 from a baseline creatinine of around 1.24 Likely prerenal from poor oral intake versus cardiorenal Avoid nephrotoxic medications and renally dose Will defer IV hydration for now due to signs of decompensated heart failure Closely monitor renal indicis" Changed antibiotics from Bactrim to Keflex due to rising creatinine and sensitivities include Keflex as an effective treatment Avoid JOVANNA inhibitor/ARB for the time being Stopped IV Lasix, can transition back to oral Lasix as creatinine improves Suspect underlying CKD 3 Nephrology consulted Needs follow-up with nephrology outpatient as well (2) Acute on chronic diastolic heart failure Is this a current diagnosis for this admission?: Yes Plan: Per Previous Physician: "Patient presents with worsening shortness of breath and orthopnea proBNP elevated at 10,000 from a baseline of around 5k about 4 months back Chest x-ray shows possible pulmonary vascular congestion 2D echo done in 2017 showed normal EF with grade 2 diastolic dysfunction Started her on IV Lasix Daily weight monitoring, strict I&O's and fluid restriction We will continue to monitor volume status" Stopped IV Lasix, no signs of volume overload at this time Plan to restart oral Lasix at a lower dose once creatinine improves Needs follow-up with cardiology May benefit from obstructive sleep apnea assessment given morbid obesity and A. fib with heart failure; high risk for untreated GUERLINE worsening heart failure (3) Cystitis Is this a current diagnosis for this admission?: Yes Plan: Per Previous Physician: "Patient reports dysuria UA showed large leukocyte esterase and 109 WBC/hpf Has no systemic signs of toxicity and denies any nausea/vomiting Started her on sulfamethoxazole/trimethoprim Follow-up with urine culture" Change Bactrim to Keflex due to rising creatinine Urine culture grew E. coli with multiple sensitivities Watch for urinary retention (4) Chronic atrial fibrillation Is this a current diagnosis for this admission?: Yes Plan: Per Previous Physician: "Currently rate controlled Continue metoprolol for rate control Continue apixaban" Stable (5) DM type 2 (diabetes mellitus, type 2) Qualifiers: Diabetes mellitus mcc insulin use: with roll former use Diabetes mellitus complication status: without complication Qualified Code(s): E11.9 - Type 2 diabetes mellitus without complications; Z79.4 - [facility] (current) use of insulin Is this a current diagnosis for this admission?: Yes Plan: Per Previous Physician: "Placed her on Lantus 10 units nightly, sliding scale, Accu-Chek, hypoglycemia protocol" Controlled (6) HLD (hyperlipidemia) Qualifiers: Hyperlipidemia type: unspecified Qualified Code(s): E78.5 - Hyperlipidemia, unspecified Is this a current diagnosis for this admission?: Yes (7) Hypertension Qualifiers: Hypertension type: essential hypertension Qualified Code(s): I10 - Essential (primary) hypertension Is this a current diagnosis for this admission?: Yes - Time Time Spent with patient: 15-24 minutes Medications reviewed and adjusted accordingly: Yes Anticipated Discharge Disposition: [facility] Facility Anticipated Discharge Timeframe: within 48 hours - Inpatient Certification Based on my medical assessment, after consideration of the patient's comorbidities, presenting symptoms, or acuity I expect that the services needed warrant INPATIENT care.: Yes I certify that my determination is in accordance with my understanding of Medicare's requirements for reasonable and necessary INPATIENT services [42 CFR 412.3e].: Yes Medical Necessity: Significant Comorbidiites Make Outpatient Treatment Too Risky, Need Close Monitoring Due to Risk of Patient Decompensation, Risk of Complication if Not Cared For in Hospital, Risk of Diagnosis Which Will Require Inpatient Eval/Care/Monitoring
[2020-09-17] MEDS: INSULIN GLARGINE,HUM.REC.ANLOG 1,000 UNIT/10 ML VIAL SUBCUT SCH (21:47)
[2020-09-17] MEDS: TRAZODONE HCL 50 MG TABLET PO SCH (21:48)
[2020-09-17] MEDS: OXYCODONE-ACETAMINOPHEN 5-325 MG TABLET PO PRN (21:48)
[2020-09-17] MEDS: LEVETIRACETAM 500 MG TABLET PO SCH (21:49)
[2020-09-17] MEDS: ATORVASTATIN CALCIUM 40 MG TABLET PO SCH (21:49)
[2020-09-17] MEDS: DIVALPROEX SODIUM 125 MG CAP.SPRINK PO SCH (21:52)
[2020-09-18] MEDS: OXYCODONE-ACETAMINOPHEN 5-325 MG TABLET PO PRN ×2 (03:38→20:23)
[2020-09-18] MEDS: LEVOTHYROXINE SODIUM 0.1 MG TABLET PO SCH (05:21)
[2020-09-18] MEDS: LEVOTHYROXINE SODIUM 0.025 MG TABLET PO SCH (05:21)
[2020-09-18] MEDS: PANTOPRAZOLE SODIUM 40 MG TABLET.DR PO SCH (05:21)
[2020-09-18] MEDS: CEPHALEXIN 500 MG CAPSULE PO SCH ×4 (05:21→23:23)
[2020-09-18] MEDS ORDERED: (PENDING PHARMACY ID) (Levothyroxine Sodium [Synthroid] 125 MCG) PO SCH (06:00)
[2020-09-18 06:18] LABS: ABSOLUTE EOSINOPHILS # (AUTO) 0.1 10^3/uL (0.0-0.6); ABSOLUTE LYMPHOCYTES (AUTO) 1.5 10^3/uL (0.5-4.7); ABSOLUTE MONOCYTES (AUTO) 0.5 10^3/uL (0.1-1.4); ABSOLUTE NEUT (AUTO) 3.1 10^3/uL (1.7-8.2); BASOPHILS % (AUTO) 0.6 % (0-2); EOSINOPHILS % (AUTO) 2.6 % (0-6); HEMATOCRIT 23.4 % (36.0-47.0); LYMPHOCYTES % (AUTO) 28.6 % (13-45); MEAN CORPUSCULAR HEMOGLOBIN 28.7 pg (27.0-33.4); MEAN CORPUSCULAR HGB CONC 33.2 g/dL (32.0-36.0); MEAN CORPUSCULAR VOLUME 86 fl (80-97); MONOCYTES % (AUTO) 9.8 % (3-13); PLATELET COUNT 170 10^3/uL (150-450); RED BLOOD COUNT 2.71 10^6/uL (3.72-5.28); RED CELL DISTRIBUTION WIDTH 13.8 % (11.5-14.0); SEGMENTED NEUTROPHILS % (AUTO) 58.4 % (42-78); TOTAL CELLS COUNTED % (AUTO) 100 %; WHITE BLOOD COUNT 5.4 10^3/uL (4.0-10.5)
[2020-09-18 06:26] LABS: HEMOGLOBIN 7.8 g/dL (12.0-15.5)
[2020-09-18 06:28] LABS: ANION GAP 11 (5-19); BLOOD UREA NITROGEN 44 mg/dL (7-20); CARBON DIOXIDE 30 mmol/L (22-30); CHLORIDE 94 mmol/L (98-107); GLUCOSE 157 mg/dL (75-110); POTASSIUM 3.9 mmol/L (3.6-5.0)
[2020-09-18] MEDS: METOPROLOL TARTRATE 25 MG TABLET PO SCH (08:06)
[2020-09-18] MEDS: LEVETIRACETAM 500 MG TABLET PO SCH ×2 (08:06→21:39)
[2020-09-18] MEDS: INSULIN REG, HUMAN 100 UNIT/ML 3 ML VIAL (PYX) SUBCUT SCH ×4 (08:06→23:14)
[2020-09-18] MEDS: SERTRALINE HCL 50 MG TABLET PO SCH (09:58)
[2020-09-18] MEDS: APIXABAN 5 MG TABLET PO SCH ×2 (09:58→17:02)
--- NOTE | 2020-09-18 11:24 | RADIOLOGY REPORT (SQ) ---
EXAM DESCRIPTION: U/S RETROPERITON LTD IMAGES COMPLETED DATE/TIME: 09/18/2020 10:33 am REASON FOR STUDY: DAMARIS D64.9 ANEMIA, UNSPECIFIED I50.31 ACUTE DIASTOLIC (CONGESTIVE) HEART FAILURE COMPARISON: None. TECHNIQUE: Dynamic and static grayscale images acquired of the kidneys and bladder and recorded on P ACS. Additional selected color Doppler and spectral images recorded. LIMITATIONS: None. FINDINGS: RIGHT KIDNEY: 8.5 cm echogenic No solid or suspicious masses. No hydronephrosis. No calcifications. LEFT KIDNEY: 7.2 cm echogenic No solid or suspicious masses. No hydronephrosis. No calcifica tions. BLADDER: No masses. OTHER FINDINGS: No other significant finding. IMPRESSION: Chronic medical renal disease. No hydronephrosis. TECHNICAL DOCUMENTATION: JOB ID: [id number] 2010 [email or web address] All Rights Reserved Reading location - IP/workstation name: [email or web address]
[2020-09-18] MEDS ORDERED: INSULIN GLARGINE,HUM.REC.ANLOG 1,000 UNIT/10 ML VIAL (PYX) SUBCUT ONE (14:30)
--- NOTE | 2020-09-18 18:02 | PDOC PROGRESS REPORT ---
Subjective Subjective:: Per Previous Physician: "LAINA MONTENEGRO is a 75 year old female with a history of dementia, CAD w/CABG, A. fib on anticoagulation, CHF, diabetes, CVA who was discharged from SNF 1 week ago now presents to the ER after she had an episode of unwitnessed fall. She states that she fell down when she was trying to get out of bed but denies any history of chest pain, palpitation, dizziness or loss of consciousness immediat jayro before, during or after the incident. Currently she states that she has a dull aching 4-5/10 pain on her lower back and hip area bilaterally. Patient also reports that she has been having progressively worsening shortness of breath over the past week. At baseline she uses 2 L intranasal oxygen at home nightly but over the past couple of days she has been requiring oxygen even during daytime. She denies nausea, vomiting, diarrhea, hematemesis, melena, hematochezia, cough, fever or chills" 09/16/2020 Patient is to be doing better today and is sitting on the side of the bed with a very pleasant demeanor. I spoke with the patient's daughter states that they try to take the patient home from a nursing facility but they were unable to care for at home. Patient has iron deficiency anemia based on her labs and I ordered her Venofer today. She was started on Bactrim on admission and I believe this is artificially elevating her creatinine which is a known side effect of this medication. I have replaced the Bactrim with Keflex which according to our sensitivities should be effective to treat her UTI. Her creatinine is higher today and I have stopped her Lasix. If her creatinine improves by tomorrow, we can restart her Lasix at her home dose which is 20 mg daily. She does not seem volume overloaded at all today. Plan to discharge patient to SNF tomorrow provided her labs improved. 09/17/2020 Renal function has not significantly improved and will consult nephrology today. Creatinine is a bit lower but not low enough to be discharged. Patient states she is doing just fine today. She has had some intermittent elevated heart rate and I noticed that on admission some of her medications were not restarted including Keppra and Synthroid. These been restarted and will hopefully help the patient to remain calm. manager lan will need to follow closely for disposition plans presumably to SNF. 09/18/2020 Patient states that appears to be doing well however her renal function is a bit worse today. We will get a renal ultrasound and I instructed nursing to watch for urinary retention. Renal ultrasound did not show any hydronephrosis. Urine cultures growing E. coli multisensitivities. Hemoglobin is a bit lower today at 7.8. No signs of bleeding. Nephrology is consulted and they will see the patient tomorrow. Reason For Visit: EXACERABATION CHF Physical Exam Vital Signs: Temp Pulse Resp BP Pulse Ox 97.4 F 92 18 119/78 100 09/18/20 15:39 09/18/20 15:39 09/18/20 15:39 09/18/20 15:39 09/18/20 15:39 Intake & Output 09/17/20 09/18/20 09/19/20 06:59 06:59 06:59 Intake Total 1175 1100 490 Output Total 1000 350 300 Balance 175 750 190 Weight 84.6 kg 87.6 kg Exam: General appearance: PRESENT: no acute distress, well-developed, well-nourished, obese, smiling and states she feels fine Head exam: PRESENT: atraumatic, normocephalic Eye exam: PRESENT: conjunctiva pink. ABSENT: scleral icterus Mouth exam: PRESENT: moist Respiratory exam: PRESENT: clear to auscultation torrie. ABSENT: rales, rhonchi, wheezes Cardiovascular exam: PRESENT: RRR. ABSENT: diastolic murmur, rubs, systolic murmur GI/Abdominal exam: PRESENT: normal bowel sounds, soft. ABSENT: distended, guarding, mass, organolmegaly, rebound, tenderness Neurological exam: PRESENT: alert, awake, oriented to person, oriented to place, oriented to time, oriented to situation Psychiatric exam: PRESENT: appropriate affect, normal mood Skin exam: PRESENT: dry, intact, warm Results Laboratory Results: 09/18/20 05:05 09/18/20 05:05 09/18/20 09/18/20 05:05 05:05 WBC 5.4 RBC 2.71 L Hgb 7.8 L Hct 23.4 L MCV 86 MCH 28.7 MCHC 33.2 RDW 13.8 Plt Count 170 Seg Neutrophils % 58.4 Sodium 135.0 L Potassium 3.9 Chloride 94 L Carbon Dioxide 30 Anion Gap 11 BUN 44 H Creatinine 1.93 H Est GFR ( Amer) 31 L Glucose 157 H Calcium 9.0 09/14/20 17:57 Troponin I 0.036 NT-Pro-B Natriuret Pep 01406 H Impressions: Chest X-Ray 09/14/20 17:25 IMPRESSION: Probable vascular congestion with cardiomegaly and interstitial edema. Small effusions. Head CT 09/14/20 22:37 IMPRESSION: Atrophy with no acute intracranial abnormality. Pelvis X-Ray 09/14/20 22:37 IMPRESSION: No acute abnormality. Lumbar Spine X-Ray 09/14/20 22:38 IMPRESSION: Diffuse degenerative changes with no acute abnormality. Sacrum and Coccyx X-Ray 09/14/20 22:38 IMPRESSION: No obvious acute fracture. Renal Ultrasound 09/18/20 00:00 IMPRESSION: Chronic medical renal disease. No hydronephrosis. Assessment and Plan - Diagnosis (1) Acute kidney injury Is this a current diagnosis for this admission?: Yes (2) Acute on chronic diastolic heart failure Is this a current diagnosis for this admission?: Yes (3) Cystitis Is this a current diagnosis for this admission?: Yes (4) Chronic atrial fibrillation Is this a current diagnosis for this admission?: Yes (5) DM type 2 (diabetes mellitus, type 2) Qualifiers: Diabetes mellitus long-term insulin use: with long-term use Diabetes mellitus complication status: without complication Qualified Code(s): E11.9 - Type 2 diabetes mellitus without complications; Z79.4 - halfway (current) use of insulin Is this a current diagnosis for this admission?: Yes (6) HLD (hyperlipidemia) Qualifiers: Hyperlipidemia type: unspecified Qualified Code(s): E78.5 - Hyperlipidemia, unspecified Is this a current diagnosis for this admission?: Yes (7) Hypertension Qualifiers: Hypertension type: essential hypertension Qualified Code(s): I10 - Essential (primary) hypertension Is this a current diagnosis for this admission?: Yes - Plan Summary Summary: (1) Acute kidney injury Is this a current diagnosis for this admission?: Yes Plan: Per Previous Physician: "BUN/creatinine on this admission 52/1.85 from a baseline creatinine of around 1.24 Likely prerenal from poor oral intake versus cardiorenal Avoid nephrotoxic medications and renally dose Will defer IV hydration for now due to signs of decompensated heart failure Closely monitor renal indicis" Changed antibiotics from Bactrim to Keflex due to rising creatinine and sensitivities include Keflex as an effective treatment Avoid JOVANNA inhibitor/ARB for the time being Stopped IV Lasix, can transition back to oral Lasix as creatinine improves Suspect underlying CKD 3 Nephrology consulted Needs follow-up with nephrology outpatient as well Labile creatinine, a bit worse on 09/18 (2) Acute on chronic diastolic heart failure Is this a current diagnosis for this admission?: Yes Plan: Per Previous Physician: "Patient presents with worsening shortness of breath and orthopnea proBNP elevated at 10,000 from a baseline of around 5k about 4 months back Chest x-ray shows possible pulmonary vascular congestion 2D echo done in 2017 showed normal EF with grade 2 diastolic dysfunction Started her on IV Lasix Daily weight monitoring, strict I&O's and fluid restriction We will continue to monitor volume status" Stopped IV Lasix, no signs of volume overload at this time Plan to restart oral Lasix at a lower dose once creatinine improves Needs follow-up with cardiology May benefit from obstructive sleep apnea assessment given morbid obesity and A. fib with heart failure; high risk for untreated GUERLINE worsening heart failure (3) Cystitis Is this a current diagnosis for this admission?: Yes Plan: Per Previous Physician: "Patient reports dysuria UA showed large leukocyte esterase and 109 WBC/hpf Has no systemic signs of toxicity and denies any nausea/vomiting Started her on sulfamethoxazole/trimethoprim Follow-up with urine culture" Change Bactrim to Keflex due to rising creatinine Urine culture grew E. coli with multiple sensitivities Watch for urinary retention (4) Chronic atrial fibrillation Is this a current diagnosis for this admission?: Yes Plan: Per Previous Physician: "Currently rate controlled Continue metoprolol for rate control Continue apixaban" Stable (5) DM type 2 (diabetes mellitus, type 2) Qualifiers: Diabetes mellitus long-term insulin use: with long-term use Diabetes mellitus complication status: without complication Qualified Code(s): E11.9 - Type 2 diabetes mellitus without complications; Z79.4 - halfway (current) use of insulin Is this a current diagnosis for this admission?: Yes Plan: Per Previous Physician: "Placed her on Lantus 10 units nightly, sliding scale, Accu-Chek, hypoglycemia protocol" Controlled (6) HLD (hyperlipidemia) Qualifiers: Hyperlipidemia type: unspecified Qualified Code(s): E78.5 - Hyperlipidemia, unspecified Is this a current diagnosis for this admission?: Yes (7) Hypertension Qualifiers: Hypertension type: essential hypertension Qualified Code(s): I10 - Essential (primary) hypertension Is this a current diagnosis for this admission?: Yes - Time Time Spent with patient: 25-34 minutes Medications reviewed and adjusted accordingly: Yes Anticipated Discharge Disposition: [facility] Facility Anticipated Discharge Timeframe: within 72 hours - Inpatient Certification Based on my medical assessment, after consideration of the patient's comorbidities, presenting symptoms, or acuity I expect that the services needed warrant INPATIENT care.: Yes I certify that my determination is in accordance with my understanding of Medicare's requirements for reasonable and necessary INPATIENT services [42 CFR 412.3e].: Yes Medical Necessity: Significant Comorbidiites Make Outpatient Treatment Too Risky, Need Close Monitoring Due to Risk of Patient Decompensation, Risk of Complication if Not Cared For in Hospital, Risk of Diagnosis Which Will Require Inpatient Eval/Care/Monitoring
[2020-09-18] MEDS: DIVALPROEX SODIUM 125 MG CAP.SPRINK PO SCH (21:40)
[2020-09-18] MEDS: ATORVASTATIN CALCIUM 40 MG TABLET PO SCH (21:40)
[2020-09-18] MEDS: TRAZODONE HCL 50 MG TABLET PO SCH (21:40)
[2020-09-18] MEDS: METOPROLOL TARTRATE 50 MG TABLET PO SCH (21:40)
[2020-09-19] MEDS: OXYCODONE-ACETAMINOPHEN 5-325 MG TABLET PO PRN (03:37)
[2020-09-19] MEDS: PANTOPRAZOLE SODIUM 40 MG TABLET.DR PO SCH (05:21)
[2020-09-19] MEDS: CEPHALEXIN 500 MG CAPSULE PO SCH ×2 (05:21→12:57)
[2020-09-19] MEDS: LEVOTHYROXINE SODIUM 0.025 MG TABLET PO SCH (05:21)
[2020-09-19] MEDS: LEVOTHYROXINE SODIUM 0.1 MG TABLET PO SCH (05:21)
[2020-09-19 05:59] LABS: ABSOLUTE EOSINOPHILS # (AUTO) 0.1 10^3/uL (0.0-0.6); ABSOLUTE LYMPHOCYTES (AUTO) 1.6 10^3/uL (0.5-4.7); ABSOLUTE MONOCYTES (AUTO) 0.5 10^3/uL (0.1-1.4); ABSOLUTE NEUT (AUTO) 3.3 10^3/uL (1.7-8.2); BASOPHILS % (AUTO) 0.6 % (0-2); EOSINOPHILS % (AUTO) 1.8 % (0-6); HEMATOCRIT 24.1 % (36.0-47.0); LYMPHOCYTES % (AUTO) 29.7 % (13-45); MEAN CORPUSCULAR HEMOGLOBIN 28.5 pg (27.0-33.4); MEAN CORPUSCULAR HGB CONC 32.9 g/dL (32.0-36.0); MEAN CORPUSCULAR VOLUME 87 fl (80-97); MONOCYTES % (AUTO) 8.4 % (3-13); PLATELET COUNT 184 10^3/uL (150-450); RED BLOOD COUNT 2.79 10^6/uL (3.72-5.28); SEGMENTED NEUTROPHILS % (AUTO) 59.5 % (42-78); TOTAL CELLS COUNTED % (AUTO) 100 %; WHITE BLOOD COUNT 5.5 10^3/uL (4.0-10.5)
[2020-09-19 06:13] LABS: HEMOGLOBIN 7.9 g/dL (12.0-15.5)
[2020-09-19 06:18] LABS: ANION GAP 11 (5-19); BLOOD UREA NITROGEN 46 mg/dL (7-20); CALCIUM 9.2 mg/dL (8.4-10.2); CARBON DIOXIDE 29 mmol/L (22-30); CHLORIDE 96 mmol/L (98-107); GLUCOSE 129 mg/dL (75-110); POTASSIUM 4.5 mmol/L (3.6-5.0)
[2020-09-19] MEDS: INSULIN REG, HUMAN 100 UNIT/ML 3 ML VIAL (PYX) SUBCUT SCH ×3 (07:11→17:20)
[2020-09-19] MEDS: METOPROLOL TARTRATE 25 MG TABLET PO SCH (09:38)
[2020-09-19] MEDS: LEVETIRACETAM 500 MG TABLET PO SCH (09:38)
[2020-09-19] MEDS: APIXABAN 5 MG TABLET PO SCH ×2 (09:39→17:21)
[2020-09-19] MEDS: SERTRALINE HCL 50 MG TABLET PO SCH (09:39)
[2020-09-19] MEDS ORDERED: NORMAL SALINE 1000 ML 1,000 ML IV ONE (11:10)
--- NOTE | 2020-09-19 15:14 | PDOC PROGRESS REPORT ---
Subjective Subjective:: Per Previous Physician: "LAINA MONTENEGRO is a 75 year old female with a history of dementia, CAD w/CABG, A. fib on anticoagulation, CHF, diabetes, CVA who was discharged from SNF 1 week ago now presents to the ER after she had an episode of unwitnessed fall. She states that she fell down when she was trying to get out of bed but denies any history of chest pain, palpitation, dizziness or loss of consciousness immediat jayro before, during or after the incident. Currently she states that she has a dull aching 4-5/10 pain on her lower back and hip area bilaterally. Patient also reports that she has been having progressively worsening shortness of breath over the past week. At baseline she uses 2 L intranasal oxygen at home nightly but over the past couple of days she has been requiring oxygen even during daytime. She denies nausea, vomiting, diarrhea, hematemesis, melena, hematochezia, cough, fever or chills" 09/16/2020 Patient is to be doing better today and is sitting on the side of the bed with a very pleasant demeanor. I spoke with the patient's daughter states that they try to take the patient home from a nursing facility but they were unable to care for at home. Patient has iron deficiency anemia based on her labs and I ordered her Venofer today. She was started on Bactrim on admission and I believe this is artificially elevating her creatinine which is a known side effect of this medication. I have replaced the Bactrim with Keflex which according to our sensitivities should be effective to treat her UTI. Her creatinine is higher today and I have stopped her Lasix. If her creatinine improves by tomorrow, we can restart her Lasix at her home dose which is 20 mg daily. She does not seem volume overloaded at all today. Plan to discharge patient to SNF tomorrow provided her labs improved. 09/17/2020 Renal function has not significantly improved and will consult nephrology today. Creatinine is a bit lower but not low enough to be discharged. Patient states she is doing just fine today. She has had some intermittent elevated heart rate and I noticed that on admission some of her medications were not restarted including Keppra and Synthroid. These been restarted and will hopefully help the patient to remain calm. financial institution manager will need to follow closely for disposition plans presumably to SNF. 09/18/2020 Patient states that appears to be doing well however her renal function is a bit worse today. We will get a renal ultrasound and I instructed nursing to watch for urinary retention. Renal ultrasound did not show any hydronephrosis. Urine cultures growing E. coli multisensitivities. Hemoglobin is a bit lower today at 7.8. No signs of bleeding. Nephrology is consulted and they will see the patient tomorrow. 09/19/2020 Creatinine has gone down very slightly to 1.9. I discussed case with Dr. Francis this morning and she is planning to see the patient. She suspects that this is the patient's baseline creatinine currently is very close to it. Her ultrasound only showed medical disease, no hydronephrosis. Patient has completed course of antibiotics for UTI as of today. Patient can likely be discharged tomorrow if nephrology is in agreement. Reason For Visit: EXACERABATION CHF Physical Exam Vital Signs: Temp Pulse Resp BP Pulse Ox 98.5 F 97 16 111/79 100 09/19/20 10:00 09/19/20 14:00 09/19/20 08:07 09/19/20 08:07 09/19/20 08:07 Intake & Output 09/18/20 09/19/20 09/20/20 06:59 06:59 06:59 Intake Total 1100 970 Output Total 350 800 Balance 750 170 Weight 87.6 kg 88.6 kg Exam: General appearance: PRESENT: no acute distress, well-developed, well-nourished, obese, states she is tired today Head exam: PRESENT: atraumatic, normocephalic Eye exam: PRESENT: conjunctiva pink. ABSENT: scleral icterus Mouth exam: PRESENT: moist Respiratory exam: PRESENT: clear to auscultation torrie. ABSENT: rales, rhonchi, wheezes Cardiovascular exam: PRESENT: RRR. ABSENT: diastolic murmur, rubs, systolic murmur GI/Abdominal exam: PRESENT: normal bowel sounds, soft. ABSENT: distended, guarding, mass, organolmegaly, rebound, tenderness Neurological exam: PRESENT: alert, awake, oriented to person, oriented to place Psychiatric exam: PRESENT: appropriate affect, normal mood Skin exam: PRESENT: dry, intact, warm Results Laboratory Results: 09/19/20 05:40 09/19/20 05:40 09/19/20 09/19/20 05:40 05:40 WBC 5.5 RBC 2.79 L Hgb 7.9 L Hct 24.1 L MCV 87 MCH 28.5 MCHC 32.9 RDW 14.0 Plt Count 184 Seg Neutrophils % 59.5 Sodium 135.8 L Potassium 4.5 Chloride 96 L Carbon Dioxide 29 Anion Gap 11 BUN 46 H Creatinine 1.90 H Est GFR ( Amer) 31 L Glucose 129 H Calcium 9.2 09/14/20 17:57 Troponin I 0.036 NT-Pro-B Natriuret Pep 25665 H Impressions: Chest X-Ray 09/14/20 17:25 IMPRESSION: Probable vascular congestion with cardiomegaly and interstitial edema. Small effusions. Head CT 09/14/20 22:37 IMPRESSION: Atrophy with no acute intracranial abnormality. Pelvis X-Ray 09/14/20 22:37 IMPRESSION: No acute abnormality. Lumbar Spine X-Ray 09/14/20 22:38 IMPRESSION: Diffuse degenerative changes with no acute abnormality. Sacrum and Coccyx X-Ray 09/14/20 22:38 IMPRESSION: No obvious acute fracture. Renal Ultrasound 09/18/20 00:00 IMPRESSION: Chronic medical renal disease. No hydronephrosis. Assessment and Plan - Diagnosis (1) Acute kidney injury Is this a current diagnosis for this admission?: Yes (2) Acute on chronic diastolic heart failure Is this a current diagnosis for this admission?: Yes (3) Cystitis Is this a current diagnosis for this admission?: Yes (4) Chronic atrial fibrillation Is this a current diagnosis for this admission?: Yes (5) DM type 2 (diabetes mellitus, type 2) Qualifiers: Diabetes mellitus snf insulin use: with snf use Diabetes mellitus complication status: without complication Qualified Code(s): E11.9 - Type 2 diabetes mellitus without complications; Z79.4 - watermelon inspector (current) use of insulin Is this a current diagnosis for this admission?: Yes (6) HLD (hyperlipidemia) Qualifiers: Hyperlipidemia type: unspecified Qualified Code(s): E78.5 - Hyperlipidemia, unspecified Is this a current diagnosis for this admission?: Yes (7) Hypertension Qualifiers: Hypertension type: essential hypertension Qualified Code(s): I10 - Essential (primary) hypertension Is this a current diagnosis for this admission?: Yes - Plan Summary Summary: (1) Acute kidney injury Is this a current diagnosis for this admission?: Yes Plan: Per Previous Physician: "BUN/creatinine on this admission 52/1.85 from a baseline creatinine of around 1.24 Likely prerenal from poor oral intake versus cardiorenal Avoid nephrotoxic medications and renally dose Will defer IV hydration for now due to signs of decompensated heart failure Closely monitor renal indicis" Changed antibiotics from Bactrim to Keflex due to rising creatinine and sensitivities include Keflex as an effective treatment Avoid JOVANNA inhibitor/ARB for the time being Stopped IV Lasix, can transition back to oral Lasix as creatinine improves Suspect underlying CKD 3 Nephrology consulted: Discussed the case with Dr. Francis, she is giving the patient IV fluids and will reassess creatinine Needs follow-up with nephrology outpatient as well Labile creatinine, no significant change for several days, still elevated Possible discharge on 09/20 if nephrology agrees (2) Acute on chronic diastolic heart failure Is this a current diagnosis for this admission?: Yes Plan: Per Previous Physician: "Patient presents with worsening shortness of breath and orthopnea proBNP elevated at 10,000 from a baseline of around 5k about 4 months back Chest x-ray shows possible pulmonary vascular congestion 2D echo done in 2017 showed normal EF with grade 2 diastolic dysfunction Started her on IV Lasix Daily weight monitoring, strict I&O's and fluid restriction We will continue to monitor volume status" Stopped IV Lasix, no signs of volume overload at this time Plan to possibly restart oral Lasix at a lower dose once creatinine improves and nephrology agrees Needs follow-up with cardiology May benefit from obstructive sleep apnea assessment given morbid obesity and A. fib with heart failure; high risk for untreated GUERLINE worsening heart failure (3) Cystitis Is this a current diagnosis for this admission?: Yes Plan: Per Previous Physician: "Patient reports dysuria UA showed large leukocyte esterase and 109 WBC/hpf Has no systemic signs of toxicity and denies any nausea/vomiting Started her on sulfamethoxazole/trimethoprim Follow-up with urine culture" Change Bactrim to Keflex due to rising creatinine; completed antibiotic course Urine culture grew E. coli with multiple sensitivities Watch for urinary retention (4) Chronic atrial fibrillation Is this a current diagnosis for this admission?: Yes Plan: Per Previous Physician: "Currently rate controlled Continue metoprolol for rate control Continue apixaban" Stable (5) DM type 2 (diabetes mellitus, type 2) Qualifiers: Diabetes mellitus snf insulin use: with snf use Diabetes mellitus complication status: without complication Qualified Code(s): E11.9 - Type 2 diabetes mellitus without complications; Z79.4 - halfway (current) use of insulin Is this a current diagnosis for this admission?: Yes Plan: Per Previous Physician: "Placed her on Lantus 10 units nightly, sliding scale, Accu-Chek, hypoglycemia protocol" Controlled (6) HLD (hyperlipidemia) Qualifiers: Hyperlipidemia type: unspecified Qualified Code(s): E78.5 - Hyperlipidemia, unspecified Is this a current diagnosis for this admission?: Yes (7) Hypertension Qualifiers: Hypertension type: essential hypertension Qualified Code(s): I10 - Essential (primary) hypertension Is this a current diagnosis for this admission?: Yes - Time Time Spent with patient: 15-24 minutes Medications reviewed and adjusted accordingly: Yes Anticipated Discharge Disposition: Senior Living Facility Anticipated Discharge Timeframe: within 24 hours - Inpatient Certification Based on my medical assessment, after consideration of the patient's c omorbidities, presenting symptoms, or acuity I expect that the services needed warrant INPATIENT care.: Yes I certify that my determination is in accordance with my understanding of Medicare's requirements for reasonable and necessary INPATIENT services [42 CFR 412.3e].: Yes Medical Necessity: Significant Comorbidiites Make Outpatient Treatment Too Risky, Need Close Monitoring Due to Risk of Patient Decompensation, Need For IV Fluids, Risk of Complication if Not Cared For in Hospital, Risk of Diagnosis Which Will Require Inpatient Eval/Care/Monitoring
--- NOTE | 2020-09-19 21:11 | PDOC CONSULTATION ---
Consultation Consult Date: 09/19/20 Provider Consulted: [employer] Consult reason:: DAMARIS/CKD History of Present Illness Admission Date/PCP: 09/15/20 11:26 SABA CAMPBELL NP History of Present Illness: LAINA MONTENEGRO is a 75 year old female with history of coronary artery disease status post CABG, hypertension, atrial fibrillation on anticoagulation, diabetes mellitus type 2, and recurrent UTI who was admitted on 09/14/2020 for worsening shortness of breath and fall. Patient presented to the emergency room after an unwitnessed fall 1 week after being [facility]. Initial evaluation showed a BNP of 10,000. Urinalysis also showed positive nitrate and moderate leukocytes. Admitting impression was acute on chronic congestive heart failure and cystitis. She was initially treated with IV Lasix. She was also initially started on Bactrim which was switched to Keflex due to elevated creatinine. The patient also presented with elevated BUN of 52, creatinine 1.85 with EGFR of 27. Today she has a BUN of 46, creatinine of 1.9 with EGFR of 26. Records from her outpatient provider at [facility] showed that on September 12 she had a BUN of 27, creatinine of 2.3 with EGFR of 22. On 12/20/2019 she had a BUN of 38, creatinine 1.24 with EGFR 42. Her urinalysis on September 14 showed WBC of 109, RBC of 2, hyaline casts of 22 without any protein or blood. Her urine culture is positive for E. coli. Patient's blood pressure is range anywhere between 90s to 100 teens over 60s to 70s. Her urine output ranged anywhere between 800 to 1000 mL at least from what is recorded. Patient states that she has not seen a testing manager previously. She admits to urinary incontinence and burning on urination for a month. She also has suprapubic pain and low back pain. She denies any note of blood in the urine. She said she could have some slight leg swelling. She reports that she still feels short of breath at this time and could not tell me any difference. She denies any chest pains. She said she has diarrhea most of the time. She denies any nausea nor vomiting. She states that she is eating fine and drinking fluids okay. Past Medical History Cardiac Medical History: Reports: Atrial Fibrillation, CHF-Systolic, Coronary Artery Disease, Hypertension-primary Neurological Medical History: Reports: Ischemic CVA Endocrine Medical History: Reports: Diabetes Mellitus Type 2 Renal/ Medical History: Reports: Chronic Kidney Disease Stage III, Recurrent UTI GI Medical History: Reports: Gastroesophageal Reflux Disease Psychiatric Medical History: Reports: Depression Past Surgical History Past Surgical History: Reports: Coronary Artery Bypass Graft, Tubal Ligation, Valve Replacement - Bioprosthetic aortic valve replacement, Other - Just status post left hip surgery Social History Information Source: Patient, [facility] Records Lives with: Family - Son and his Smoking Status: Former Smoker Electronic Cigarette use?: No Frequency of Alcohol Use: Rare Hx Recreational Drug Use: No Drugs: None Hx Prescription Drug Abuse: No - Advance Directive Resuscitation Status: Full Code Family History Family History: Malignancy - Lung cancer on her brother, liver cancer and another brother Family History: Denies any kidney disease in the family Parental Family History Reviewed: Yes Children Family History Reviewed: Yes Sibling(s) Family History Reviewed.: Yes Medication/Allergy Home Medications: Atorvastatin Calcium [Lipitor 40 mg Tablet] 40 mg PO QHS 09/30/17 Aspirin [Aspirin 81 mg Chewable Tablet] 81 mg PO DAILY 04/06/20 Calcium Citrate [Calcium Citrate 250 mg Tablet] 500 mg PO BID 04/06/20 Cholecalciferol (Vitamin D3) [Vitamin D3 1000 Unit Tablet] 1,000 unit PO DAILY 04/06/20 Cranberry 250 mg PO DAILY 04/06/20 Docusate Sodium [Colace 100 mg Capsule] 100 mg PO DAILYP PRN 04/06/20 Fluticasone Propionate [Flonase Nasal [place] 50 Mcg/[place] 16 gm] 1 spray NASL DAILY 04/06/20 Insulin Degludec [Tresiba] 15 unit SQ QHS 04/06/20 Levetiracetam [Keppra 500 mg Tablet] 500 mg PO QAM 04/06/20 Levetiracetam [Keppra 500 mg Tablet] 750 mg PO QHS 04/06/20 Levothyroxine Sodium [Synthroid] 125 mcg PO Q6AM 04/06/20 Loratadine [Claritin 10 mg Tablet] 10 mg PO DAILY 04/06/20 Magnesium Oxide [Mag-Ox 400 mg Tablet] 400 mg PO DAILY 04/06/20 Melatonin [Melatonin 3 mg Tablet] 9 mg PO QHS 04/06/20 Metoprolol Tartrate [Lopressor 50 mg Tablet] 25 mg PO QHS 04/06/20 Multivit-Min/FA/Lycopen/Lutein [Certavite Sr-Antioxidant Tab] 1 tab PO DAILY 04/06/20 Omeprazole 40 mg PO DAILY 04/06/20 Sertraline HCl [Zoloft 50 mg Tablet] 125 mg PO DAILY 04/06/20 Metoprolol Tartrate [Lopressor 50 mg Tablet] 50 mg PO QAM tablet 04/11/20 Trazodone HCl [Desyrel 50 mg Tablet] 100 mg PO QHS tablet 04/11/20 Furosemide [Lasix 20 mg Tablet] 20 mg PO QPM 09/15/20 Metformin HCl [Glucophage 500 mg Tablet] 1,000 mg PO BIDACBS 09/15/20 Potassium Chloride [Klor-Con 10 Meq Tablet ER] 10 meq PO DAILY 09/15/20 Allergies/Adverse Reactions: pentazocine [From Amanda] Allergy (Verified 08/28/17 15:35) adhesive tape Adverse Reaction (Verified 08/28/17 15:35) Review of Systems All systems: reviewed and no additional remarkable complaints except as stated Review of Systems: Constitutional: ABSENT: chills, fatigue, fever(s), headache(s), weight gain, weight loss Eyes: ABSENT: visual disturbances Ears: ABSENT: hearing changes Cardiovascular: ABSENT: chest pain, dyspnea on exertion, orthropnea, palpita tions; reports leg swelling Respiratory: ABSENT: cough, hemoptysis; reports shortness of breath Gastrointestinal: ABSENT: abdominal pain, constipation, hematemesis, hematochezia, nausea, vomiting; reports diarrhea most of the time Genitourinary: ABSENT: hematuria; admits dysuria and suprapubic pain, reports urinary incontinence Musculoskeletal: ABSENT: joint swelling; admits low back pain Integumentary: ABSENT: rash, wounds Neurological: ABSENT: abnormal gait, abnormal speech, confusion, dizziness, focal weakness, numbness, syncope Psychiatric: ABSENT: anxiety, depression Endocrine: ABSENT: cold intolerance, heat intolerance, polydipsia, polyuria Hematologic/Lymphatic: ABSENT: easy bleeding, easy bruising, lymphadenopathy Physical Exam Vital Signs: Temp Pulse Resp BP Pulse Ox 98.5 F 108 H 16 111/79 100 09/19/20 10:00 09/19/20 08:07 09/19/20 08:07 09/19/20 08:07 09/19/20 08:07 Intake & Output 09/18/20 09/19/20 09/20/20 06:59 06:59 06:59 Intake Total 1100 970 Output Total 350 800 Balance 750 170 Weight 87.6 kg 88.6 kg Exam: General appearance: No acute distress, cooperative, well-developed, well- nourished Head exam: PRESENT: atraumatic, normocephalic Eye exam: PRESENT: Conjunctiva pale, EOMI, PERRLA. ABSENT: conjunctival injection, scleral icterus Mouth exam: PRESENT: moist, neck supple, tongue midline Neck exam: PRESENT: full ROM. ABSENT: carotid bruit, JVD, lymphadenopathy, thyromegaly Respiratory exam: PRESENT: clear to auscultation bilaterally. ABSENT: rales, rhonchi, stridor, wheezes Cardiovascular exam: PRESENT: Irregularly irregular, +S1, +S2. ABSENT: systolic murmur Pulses: PRESENT: normal radial pulses, normal dorsalis pedis pulses GI/Abdominal exam: PRESENT: normal bowel sounds, soft. ABSENT: guarding, mass, tenderness Rectal exam: Deferred Extremities exam: PRESENT: full ROM. ABSENT: calf tenderness, pedal edema Musculoskeletal: PRESENT: full ROM. ABSENT: deformity Neurological exam: PRESENT: alert, Awake, Oriented to person, Oriented to place, Oriented to time, reflexes normal, CN II-XII grossly intact. ABSENT: motor sensory deficit Psychiatric exam: PRESENT: appropriate affect, normal mood. ABSENT: homicidal ideation, suicidal ideation Skin exam: PRESENT: intact, dry, warm. ABSENT: rash Results Laboratory Results: 09/19/20 05:40 09/19/20 05:40 09/19/20 09/19/20 05:40 05:40 WBC 5.5 RBC 2.79 L Hgb 7.9 L Hct 24.1 L MCV 87 MCH 28.5 MCHC 32.9 RDW 14.0 Plt Count 184 Seg Neutrophils % 59.5 Sodium 135.8 L Potassium 4.5 Chloride 96 L Carbon Dioxide 29 Anion Gap 11 BUN 46 H Creatinine 1.90 H Est GFR ( Amer) 31 L Glucose 129 H Calcium 9.2 09/14/20 17:57 Troponin I 0.036 NT-Pro-B Natriuret Pep 03553 H Impressions: Chest X-Ray 09/14/20 17:25 IMPRESSION: Probable vascular congestion with cardiomegaly and interstitial edema. Small effusions. Head CT 09/14/20 22:37 IMPRESSION: Atrophy with no acute intracranial abnormality. Pelvis X-Ray 09/14/20 22:37 IMPRESSION: No acute abnormality. Lumbar Spine X-Ray 09/14/20 22:38 IMPRESSION: Diffuse degenerative changes with no acute abnormality. Sacrum and Coccyx X-Ray 09/14/20 22:38 IMPRESSION: No obvious acute fracture. Renal Ultrasound 09/18/20 00:00 IMPRESSION: Chronic medical renal disease. No hydronephrosis. Assessment & Plan - Diagnosis (1) Acute kidney injury superimposed on chronic kidney disease Is this a current diagnosis for this admission?: Yes Plan: Patient is nonoliguric. Kidney function has been stable since admission. She has no associated proteinuria nor microhematuria. Previous creatinine in April 2020 was 1.24. Acute worsening of the kidney function could be prerenal due to possible mild CHF exacerbation on presentation versus actual volume depletion. Patient's urinalysis has hyaline casts. While it is true that Bactrim can increase creatinine by inhibiting creatinine secretion, discontinuation did not make much of a difference in patient's kidney function. Risk factors for underlying chronic kidney disease include vascular disease, hypertension and diabetes mellitus. Renal ultrasound September 18 showed bilateral small kidneys with the right kidney at 8.5 cm in left kidney at 7.2 cm. Both kidneys were echogenic without any solid or suspicious masses/hydronephrosis nor calcifications. This is consistent with underlying chronic kidney disease. Agree with holding Lasix, JOVANNA/ARB for now and other nephrotoxic medications. I would like to give a cautious IV fluid x1 L today. If the patient's kidney function remains the same or better tomorrow, I think the patient can be safely discharged home. I do recommend that the patient follow-up with nephrology as an outpatient. If she chooses, we will be happy to see her in her office as an outpatient. (2) Acute on chronic diastolic heart failure Is this a current diagnosis for this admission?: Yes Plan: Clinically appears to be compensated. (3) Anemia Qualifiers: Anemia type: unspecified type Qualified Code(s): D64.9 - Anemia, unspec ified Is this a current diagnosis for this admission?: Yes Plan: The patient's iron is 22.5, ferritin of 35. She received IV Venofer 500 mg IV on September 16. I think we need to check her stool for occult blood. She may have a concomitant anemia and chronic kidney disease along with iron deficiency. However we need to correct her iron deficiency first before starting THOM therapy. This needs to be followed as an outpatient. (4) Cystitis Is this a current diagnosis for this admission?: Yes Plan: On cephalexin. Urine culture positive for E. coli. (5) DM type 2 (diabetes mellitus, type 2) Qualifiers: Diabetes mellitus buttermaker helper insulin use: with care home use Diabetes mellitus complication status: without complication Qualified Code(s): E11.9 - Type 2 diabetes mellitus without complications; Z79.4 - watermelon harvesting supervisor (current) use of insulin Is this a current diagnosis for this admission?: Yes Plan: Hemoglobin A1c was 7.6. Needs to be optimally controlled. (6) Atrial fibrillation Qualifiers: Atrial fibrillation type: chronic Is this a current diagnosis for this admission?: Yes (7) Hypertension Qualifiers: Hypertension type: essential hypertension Qualified Code(s): I10 - Essential (primary) hypertension Is this a current diagnosis for this admission?: Yes Plan: Well-controlled. - Notes Notes: Thank you very much for this consultation. Discussed with Dr. Bustamante today.
[2020-09-19] MEDS ORDERED: INSULIN GLARGINE,HUM.REC.ANLOG 1,000 UNIT/10 ML VIAL SUBCUT SCH (22:00)
[2020-09-19] MEDS: ATORVASTATIN CALCIUM 40 MG TABLET PO SCH (23:58)
[2020-09-19] MEDS: METOPROLOL TARTRATE 50 MG TABLET PO SCH (23:58)
[2020-09-20] MEDS: TRAZODONE HCL 50 MG TABLET PO SCH
[2020-09-20] MEDS: INSULIN REG, HUMAN 100 UNIT/ML 3 ML VIAL (PYX) SUBCUT SCH ×3 (00:01→12:36)
[2020-09-20] MEDS: DIVALPROEX SODIUM 125 MG CAP.SPRINK PO SCH (00:03)
[2020-09-20 06:13] LABS: ABSOLUTE EOSINOPHILS # (AUTO) 0.1 10^3/uL (0.0-0.6); ABSOLUTE LYMPHOCYTES (AUTO) 1.2 10^3/uL (0.5-4.7); ABSOLUTE MONOCYTES (AUTO) 0.4 10^3/uL (0.1-1.4); ABSOLUTE NEUT (AUTO) 3.2 10^3/uL (1.7-8.2); BASOPHILS % (AUTO) 0.4 % (0-2); EOSINOPHILS % (AUTO) 1.5 % (0-6); HEMATOCRIT 24.4 % (36.0-47.0); LYMPHOCYTES % (AUTO) 24.5 % (13-45); MEAN CORPUSCULAR HEMOGLOBIN 28.7 pg (27.0-33.4); MEAN CORPUSCULAR HGB CONC 32.7 g/dL (32.0-36.0); MEAN CORPUSCULAR VOLUME 88 fl (80-97); MONOCYTES % (AUTO) 8.5 % (3-13); PLATELET COUNT 193 10^3/uL (150-450); RED BLOOD COUNT 2.78 10^6/uL (3.72-5.28); SEGMENTED NEUTROPHILS % (AUTO) 65.1 % (42-78); TOTAL CELLS COUNTED % (AUTO) 100 %; WHITE BLOOD COUNT 4.9 10^3/uL (4.0-10.5)
[2020-09-20 06:38] LABS: ANION GAP 9 (5-19); BLOOD UREA NITROGEN 47 mg/dL (7-20); CARBON DIOXIDE 29 mmol/L (22-30); CHLORIDE 98 mmol/L (98-107); GLUCOSE 177 mg/dL (75-110); POTASSIUM 4.4 mmol/L (3.6-5.0)
[2020-09-20] MEDS: PANTOPRAZOLE SODIUM 40 MG TABLET.DR PO SCH (07:31)
[2020-09-20] MEDS: LEVOTHYROXINE SODIUM 0.025 MG TABLET PO SCH (07:31)
[2020-09-20] MEDS: LEVOTHYROXINE SODIUM 0.1 MG TABLET PO SCH (07:31)
[2020-09-20] MEDS: METOPROLOL TARTRATE 25 MG TABLET PO SCH (09:03)
[2020-09-20] MEDS: LEVETIRACETAM 500 MG TABLET PO SCH ×2 (09:03)
[2020-09-20] MEDS: SERTRALINE HCL 50 MG TABLET PO SCH (09:04)
[2020-09-20] MEDS: APIXABAN 5 MG TABLET PO SCH (09:04)
--- NOTE | 2020-09-20 10:53 | PDOC TRANSFER SUMMARY ---
Impression - Admit/DC Date/PCP Admission Date/Primary Care Provider: 09/15/20 11:26 SABA CAMPBELL NP Discharge Date: 09/20/20 - Assessment Summary: (1) Acute kidney injury Is this a current diagnosis for this admission?: Yes Plan: Per Previous Physician: "BUN/creatinine on this admission 52/1.85 from a baseline creatinine of around 1.24 Likely prerenal from poor oral intake versus cardiorenal Avoid nephrotoxic medications and renally dose Will defer IV hydration for now due to signs of decompensated heart failure Closely monitor renal indicis" Changed antibiotics from Bactrim to Keflex due to rising creatinine and sensitivities include Keflex as an effective treatment Avoid JOVANNA inhibitor/ARB for the time being Stopped IV Lasix, can transition back to oral Lasix as creatinine improves Suspect underlying CKD 3 Nephrology consulted: Discussed the case with Dr. Cleaning, she is giving the patient IV fluids and will reassess creatinine Needs follow-up with nephrology outpatient as well Labile creatinine, no significant change for several days, still elevated Possible discharge on 09/20 if nephrology agrees (2) Acute on chronic diastolic heart failure Is this a current diagnosis for this admission?: Yes Plan: Per Previous Physician: "Patient presents with worsening shortness of breath and orthopnea proBNP elevated at 10,000 from a baseline of around 5k about 4 months back Chest x-ray shows possible pulmonary vascular congestion 2D echo done in 2017 showed normal EF with grade 2 diastolic dysfunction Started her on IV Lasix Daily weight monitoring, strict I&O's and fluid restriction We will continue to monitor volume status" Stopped IV Lasix, no signs of volume overload at this time Plan to possibly restart oral Lasix at a lower dose once creatinine improves and nephrology agrees Needs follow-up with cardiology May benefit from obstructive sleep apnea assessment given morbid obesity and A. fib with heart failure; high risk for untreated GUERLINE worsening heart failure (3) Cystitis Is this a current diagnosis for this admission?: Yes Plan: Per Previous Physician: "Patient reports dysuria UA showed large leukocyte esterase and 109 WBC/hpf Has no systemic signs of toxicity and denies any nausea/vomiting Started her on sulfamethoxazole/trimethoprim Follow-up with urine culture" Change Bactrim to Keflex due to rising creatinine; completed antibiotic course Urine culture grew E. coli with multiple sensitivities Watch for urinary retention (4) Chronic atrial fibrillation Is this a current diagnosis for this admission?: Yes Plan: Per Previous Physician: "Currently rate controlled Continue metoprolol for rate control Continue apixaban" Stable (5) DM type 2 (diabetes mellitus, type 2) Qualifiers: Diabetes mellitus pension consultant insulin use: with shelter use Diabetes mellitus complication status: without complication Qualified Code(s): E11.9 - Type 2 diabetes mellitus without complications; Z79.4 - customer success advocate (current) use of insulin Is this a current diagnosis for this admission?: Yes Plan: Per Previous Physician: "Placed her on Lantus 10 units nightly, sliding scale, Accu-Chek, hypoglycemia protocol" Controlled (6) HLD (hyperlipidemia) Qualifiers: Hyperlipidemia type: unspecified Qualified Code(s): E78.5 - Hyperlipidemia, unspecified Is this a current diagnosis for this admission?: Yes (7) Hypertension Qualifiers: Hypertension type: essential hypertension Qualified Code(s): I10 - Essential (primary) hypertension Is this a current diagnosis for this admission?: Yes - Additional Information Resuscitation Status: Full Code Discharge Diet: Cardiac, Diabetic Discharge Activity: Activity As Tolerated, Balance Activity w/Rest, Weigh Daily Referrals: [facility] [Outside] JAMES DENISE MD [NO LOCAL MD] - Follow up as needed PRETTY CLEANING MD [ACTIVE STAFF] - Home Medications: Atorvastatin Calcium [Lipitor 40 mg Tablet] 40 mg PO QHS 09/30/17 Aspirin [Aspirin 81 mg Chewable Tablet] 81 mg PO DAILY 04/06/20 Calcium Citrate [Calcium Citrate 250 mg Tablet] 500 mg PO BID 04/06/20 Cholecalciferol (Vitamin D3) [Vitamin D3 1000 Unit Tablet] 1,000 unit PO DAILY 04/06/20 Cranberry 250 mg PO DAILY 04/06/20 Docusate Sodium [Colace 100 mg Capsule] 100 mg PO DAILYP PRN 04/06/20 Fluticasone Propionate [Flonase Nasal [place] 50 Mcg/[place] 16 gm] 1 spray NASL DAILY 04/06/20 Insulin Degludec [Tresiba] 15 unit SQ QHS 04/06/20 Levetiracetam [Keppra 500 mg Tablet] 500 mg PO QAM 04/06/20 Levetiracetam [Keppra 500 mg Tablet] 750 mg PO QHS 04/06/20 Levothyroxine Sodium [Synthroid] 125 mcg PO Q6AM 04/06/20 Loratadine [Claritin 10 mg Tablet] 10 mg PO DAILY 04/06/20 Magnesium Oxide [Mag-Ox 400 mg Tablet] 400 mg PO DAILY 04/06/20 Melatonin [Melatonin 3 mg Tablet] 9 mg PO QHS 04/06/20 Metoprolol Tartrate [Lopressor 50 mg Tablet] 25 mg PO QHS 04/06/20 Multivit-Min/FA/Lycopen/Lutein [Certavite Sr-Antioxidant Tab] 1 tab PO DAILY 04/06/20 Omeprazole 40 mg PO DAILY 04/06/20 Sertraline HCl [Zoloft 50 mg Tablet] 125 mg PO DAILY 04/06/20 Metoprolol Tartrate [Lopressor 50 mg Tablet] 50 mg PO QAM tablet 04/11/20 Trazodone HCl [Desyrel 50 mg Tablet] 100 mg PO QHS tablet 04/11/20 Furosemide [Lasix 20 mg Tablet] 20 mg PO QPM 09/15/20 Metformin HCl [Glucophage 500 mg Tablet] 1,000 mg PO BIDACBS 09/15/20 Potassium Chloride [Klor-Con 10 Meq Tablet ER] 10 meq PO DAILY 09/15/20 History of Present Illiness History of Present Illness: As per admitting physician: "LAINA MONTENEGRO is a 75 year old female with a history of dementia, CAD w/CABG, A. fib on anticoagulation, CHF, diabetes, CVA who was discharged from SNF 1 week ago now presents to the ER after she had an episode of unwitnessed fall. She states that she fell down when she was trying to get out of bed but denies any history of chest pain, palpitation, dizziness or loss of consciousness immediately before, during or after the incident. Currently she states that she has a dull aching 4-5/10 pain on her lower back and hip area bilaterally. Patient also reports that she has been having progressively worsening shortness of breath over the past week. At baseline she uses 2 L intranasal oxygen at home nightly but over the past couple of days she has been requiring oxygen even during daytime. She denies nausea, vomiting, diarrhea, hematemesis, melena, hematochezia, cough, fever or chills" Hospital Course Hospital Course: (1) Acute kidney injury Per Previous Physician: "BUN/creatinine on this admission 52/1.85 from a baseline creatinine of around 1.24 Likely prerenal from poor oral intake versus cardiorenal Avoid nephrotoxic medications and renally dose Will defer IV hydration for now due to signs of decompensated heart failure Closely monitor renal indicis" Changed antibiotics from Bactrim to Keflex due to rising creatinine and sensitivities include Keflex as an effective treatment Avoid JOVANNA inhibitor/ARB for the time being Stopped IV Lasix, can transition back to oral Lasix as creatinine improves. Outpatient PCP follow-up. Suspect underlying CKD 3 Nephrology consulted: Recommendations noted. Outpatient nephrology follow-up is recommended. Creatinine improving, seems to be back to baseline. (2) Acute on chronic diastolic heart failure Patiented with worsening shortness of breath and orthopnea proBNP elevated at 10,000 from a baseline of around 5k about 4 months back Chest x-ray shows possible pulmonary vascular congestion 2D echo done in 2017 showed normal EF with grade 2 diastolic dysfunction Was a started on Daily weight monitoring, strict I&O's and fluid restriction Stopped IV Lasix, no signs of volume overload at this time. Restart oral Lasix at a lower dose with close monitoring of renal function and nephrology follow-up. Needs follow-up with cardiology May benefit from obstructive sleep apnea assessment given morbid obesity and A. fib with heart failure; high risk for untreated GUERLINE worsening heart failure (3) Cystitis Per Previous Physician: "Patient reports dysuria UA showed large leukocyte esterase and 109 WBC/hpf Has no systemic signs of toxicity and denies any nausea/vomiting Started her on sulfamethoxazole/trimethoprim Follow-up with urine culture" Change Bactrim to Keflex due to rising creatinine; completed antibiotic course Urine culture grew E. coli with multiple sensitivities Watch for urinary retention (4) Chronic atrial fibrillation Per Previous Physician: "Currently rate controlled Continue metoprolol for rate control Continue apixaban" Stable (5) DM type 2 (diabetes mellitus, type 2) Per Previous Physician: "Placed her on Lantus 10 units nightly, sliding scale, Accu-Chek, hypoglycemia protocol" Controlled (6) HLD (hyperlipidemia) Continue current meds. (7) Hypertension Continue current meds. Physical Exam Vital Signs: Temp Pulse Resp BP Pulse Ox 98.0 F 146 H 18 117/70 90 L 09/20/20 08:57 09/20/20 07:16 09/20/20 07:16 09/20/20 07:16 09/20/20 07:16 Intake & Output 09/19/20 09/20/20 09/21/20 06:59 06:59 06:59 Intake Total 970 2388 Output Total 800 225 Balance 170 2163 Weight 88.6 kg 89.1 kg General appearance: PRESENT: no acute distress, obese, well-developed, well- nourished Neck exam: ABSENT: carotid bruit, JVD, lymphadenopathy, thyromegaly Respiratory exam: PRESENT: clear to auscultation torrie. ABSENT: rales, rhonchi, wheezes Cardiovascular exam: PRESENT: RRR. ABSENT: diastolic murmur, rubs, systolic murmur GI/Abdominal exam: PRESENT: normal bowel sounds, soft. ABSENT: distended, guarding, mass, organolmegaly, rebound, tenderness Neurological exam: PRESENT: alert, awake, oriented to person, oriented to place, CN II-XII grossly intact. ABSENT: motor sensory deficit Results Laboratory Results: WBC 4.9 10^3/uL (4.0-10.5) 09/20/20 05:29 RBC 2.78 10^6/uL (3.72-5.28) L 09/20/20 05:29 Hgb 8.0 g/dL (12.0-15.5) L 09/20/20 05:29 Hct 24.4 % (36.0-47.0) L 09/20/20 05:29 MCV 88 fl (80-97) 09/20/20 05:29 MCH 28.7 pg (27.0-33.4) 09/20/20 05:29 MCHC 32.7 g/dL (32.0-36.0) 09/20/20 05:29 RDW 14.0 % (11.5-14.0) 09/20/20 05:29 Plt Count 193 10^3/uL (150-450) 09/20/20 05:29 Lymph % (Auto) 24.5 % (13-45) 09/20/20 05:29 [place] % (Auto) 8.5 % (3-13) 09/20/20 05:29 Eos % (Auto) 1.5 % (0-6) 09/20/20 05:29 Baso % (Auto) 0.4 % (0-2) 09/20/20 05:29 Absolute Neuts (auto) 3.2 10^3/uL (1.7-8.2) 09/20/20 05:29 Absolute Lymphs (auto) 1.2 10^3/uL (0.5-4.7) 09/20/20 05:29 Absolute Monos (auto) 0.4 10^3/uL (0.1-1.4) 09/20/20 05:29 Absolute Eos (auto) 0.1 10^3/uL (0.0-0.6) 09/20/20 05:29 Absolute Basos (auto) 0.0 10^3/uL (0.0-0.2) 09/20/20 05:29 Seg Neutrophils % 65.1 % (42-78) 09/20/20 05:29 PT 15.8 SEC (11.4-15.4) H 09/14/20 17:57 INR 1.24 09/14/20 17:57 APTT 39.0 SEC (23.5-35.8) H 09/14/20 17:57 Sodium 135.9 mmol/L (137-145) L 09/20/20 05:29 Potassium 4.4 mmol/L (3.6-5.0) 09/20/20 05:29 Chloride 98 mmol/L (98-107) 09/20/20 05:29 Carbon Dioxide 29 mmol/L (22-30) 09/20/20 05:29 Anion Gap 9 (5-19) 09/20/20 05:29 BUN 47 mg/dL (7-20) H 09/20/20 05:29 Creatinine 1.66 mg/dL (0.52-1.25) H 09/20/20 05:29 Est GFR ( Amer) 36 (>60) L 09/20/20 05:29 Est GFR (MDRD) Non-Af 30 (>60) L 09/20/20 05:29 Glucose 177 mg/dL (75-110) H 09/20/20 05:29 POC Glucose 172 mg/dL (70-110) H 09/20/20 07:17 Calcium 9.0 mg/dL (8.4-10.2) 09/20/20 05:29 Magnesium 1.9 mg/dL (1.6-2.3) 09/14/20 17:57 Iron 22.5 ug/dL (37-170) L 09/16/20 05:33 TIBC 370 ug/dL (250-450) 09/16/20 05:33 % Saturation 6 % 09/16/20 05:33 Ferritin 35.10 ng/mL (11.1-264.0) 09/16/20 05:33 Total Bilirubin 0.5 mg/dL (0.2-1.3) 09/14/20 17:57 Direct Bilirubin 0.3 mg/dL (0.0-0.4) 09/14/20 17:57 Neonat Total Bilirubin Not Reportable 09/14/20 17:57 Neonat Direct Bilirubin Not Reportable 09/14/20 17:57 Neonat Indirect Bili Not Reportable 09/14/20 17:57 AST 80 U/L (14-36) H 09/14/20 17:57 ALT 42 U/L (<35) H 09/14/20 17:57 Alkaline Phosphatase 105 U/L (38-126) 09/14/20 17:57 Troponin I 0.016 ng/mL 09/20/20 01:37 NT-Pro-B Natriuret Pep 42450 pg/mL (<450) H 09/14/20 17:57 Total Protein 7.6 g/dL (6.3-8.2) 09/14/20 17:57 Albumin 4.0 g/dL (3.5-5.0) 09/14/20 17:57 Vitamin B12 805.0 pg/mL (239-931) 09/16/20 05:33 Folate > 20.00 ng/mL (>2.76) 09/16/20 05:33 TSH 1.13 uIU/mL (0.47-4.68) 09/15/20 06:47 Urine Color YELLOW 09/14/20 19:07 Urine Appearance SLIGHTLY-CLOUDY 09/14/20 19:07 Urine pH 5.0 (5.0-9.0) 09/14/20 19:07 Ur Specific [place] 1.012 09/14/20 19:07 Urine Protein NEGATIVE mg/dL (NEGATIVE) 09/14/20 19:07 Urine Glucose (UA) NEGATIVE mg/dL (NEGATIVE) 09/14/20 19:07 Urine Ketones NEGATIVE mg/dL (NEGATIVE) 09/14/20 19:07 Urine Blood NEGATIVE (NEGATIVE) 09/14/20 19:07 Urine Nitrite NEGATIVE (NEGATIVE) 09/14/20 19:07 Urine Bilirubin NEGATIVE (NEGATIVE) 09/14/20 19:07 Urine Urobilinogen NEGATIVE mg/dL (<2.0) 09/14/20 19:07 Ur Leukocyte Esterase LARGE (NEGATIVE) H 09/14/20 19:07 Urine WBC (Auto) 109 /HPF 09/14/20 19:07 Urine RBC (Auto) 2 /HPF 09/14/20 19:07 U Hyaline Cast (Auto) 22 /LPF 09/14/20 19:07 Urine Bacteria (Auto) TRACE /HPF 09/14/20 19:07 Squamous Epi Cells Auto 1 /HPF 09/14/20 19:07 Urine Mucus (Auto) RARE /LPF 09/14/20 19:07 Urine Creatinine 24.6 mg/dL (15-278) 09/15/20 04:30 Urine Sodium 116 mmol/L (30-90) H 09/15/20 04:30 Urine Ascorbic Acid NEGATIVE (NEGATIVE) 09/14/20 19:07 09/14/20 09/20/20 17:57 01:37 Troponin I 0.036 0.016 NT-Pro-B Natriuret Pep 96823 H Impressions: Chest X-Ray 09/14/20 17:25 IMPRESSION: Probable vascular congestion with cardiomegaly and interstitial edema. Small effusions. Head CT 09/14/20 22:37 IMPRESSION: Atrophy with no acute intracranial abnormality. Pelvis X-Ray 09/14/20 22:37 IMPRESSION: No acute abnormality. Lumbar Spine X-Ray 09/14/20 22:38 IMPRESSION: Diffuse degenerative changes with no acute abnormality. Sacrum and Coccyx X-Ray 09/14/20 22:38 IMPRESSION: No obvious acute fracture. Renal Ultrasound 09/18/20 00:00 IMPRESSION: Chronic medical renal disease. No hydronephrosis. Stroke Is this a Stroke Patient?: No Acute Heart Failure Is this a Heart Failure Patient?: No
[2020-09-20 14:14] VITALS: BP 121/72
--- NOTE | 2020-09-20 17:48 | EKG REPORT ---
SEVERITY:- ABNORMAL ECG - ATRIAL FIBRILLATION NONSPECIFIC IVCD WITH LAD LEFT VENTRICULAR HYPERTROPHY : Confirmed by: Shaheen Horton 20-Sep-2020 17:47:52
== END 2020-09-20 14:16 | DRG 682 ==
LOC: ER 16:08 → EH 09-15 00:43 → 5 09-15 02:20 → OBSVTOIN 09-15 11:26
PROVIDERS: ADMIT Student in an Organized Health Care Education/Training Program; ATTEND Internal Medicine
PROC: B24BZZZ Ultrasonography of Heart with Aorta (ICD-10-PCS; principal; 2020-09-16)
DX: N17.9 Acute kidney failure, unspecified (principal); I50.33 Acute on chronic diastolic (congestive) heart failure; I13.0 Hypertensive heart and chronic kidney disease with heart failure and stage 1 through stage 4 chronic kidney disease, or unspecified chronic kidney disease; I48.20 Chronic atrial fibrillation, unspecified; I11.0 Hypertensive heart disease with heart failure; F03.90 Unspecified dementia, unspecified severity, without behavioral disturbance, psychotic disturbance, mood disturbance, and anxiety; I25.10 Atherosclerotic heart disease of native coronary artery without angina pectoris; D50.9 Iron deficiency anemia, unspecified; B96.20 Unspecified Escherichia coli [E. coli] as the cause of diseases classified elsewhere; E11.22 Type 2 diabetes mellitus with diabetic chronic kidney disease; N18.30 Chronic kidney disease, stage 3 unspecified; E78.5 Hyperlipidemia, unspecified; F32.9 Major depressive disorder, single episode, unspecified; Z79.01 Long term (current) use of anticoagulants; Z95.2 Presence of prosthetic heart valve; Z86.73 Personal history of transient ischemic attack (TIA), and cerebral infarction without residual deficits; Z99.81 Dependence on supplemental oxygen; Z79.82 Long term (current) use of aspirin; Z79.4 Long term (current) use of insulin; Z79.899 Other long term (current) drug therapy; Z88.8 Allergy status to other drugs, medicaments and biological substances; Z95.1 Presence of aortocoronary bypass graft; Z91.81 History of falling; T36.8X5A Adverse effect of other systemic antibiotics, initial encounter; Y92.231 Patient bathroom in hospital as the place of occurrence of the external cause
CPT/HCPCS: 36415; 70450; 71045; 72110; 72170; 72220; 76775; 80048; 80053; 81001; 82570; 82607; 82728; 82746; 82962; 83540; 83550; 83735; 83880; 84300; 84443; 84484; 85025; 85610; 85730; 87086; 87088; 87186; 93005; 93010; 93306; 96374; 99285; G0378; J1756; J1815; J1940; J3490; J7030; J7050

== ENCOUNTER 2020-10-27 09:00 | Outpatient (CLI) | payer MEDICARE, MEDICAID ==
[~2020-10-27 09:00] MED LIST: FERRIC CARBOXYMALTOSE 750 MG in NORMAL SALINE 100 ML IV PRN
[2020-10-27 09:12] VITALS: BP 113/66
== END 2020-10-27 10:54 | disposition home or self-care (01) ==
LOC: II 09:00 → 5TH 09:02 → II 10:54
PROVIDERS: ATTEND Internal Medicine Nephrology
DX: D50.8 Other iron deficiency anemias (principal)
CPT/HCPCS: 96365; J7050; J1439

== ENCOUNTER 2020-11-03 09:02 | Outpatient (CLI) | payer MEDICARE, MEDICAID ==
[2020-11-03 09:31] VITALS: BP 106/63
== END 2020-11-03 10:00 | disposition home or self-care (01) ==
LOC: II 09:02 → 5TH 09:04 → II 10:00
PROVIDERS: ATTEND Internal Medicine Nephrology
DX: D50.8 Other iron deficiency anemias (principal); N18.31 Chronic kidney disease, stage 3a
CPT/HCPCS: 96365; J7050; J1439